=== PATIENT | male | born 1960 | race Hispanic/Latino ===

== ENCOUNTER 2016-07-12 20:49 | Emergency (ER) | payer MEDICARE ==
[2016-07-12 20:49] VITALS: BMI 31.2
[2016-07-12 21:48] VITALS: RESP 16; TEMP 98.2; O2SAT 99
[2016-07-12] MEDS ORDERED: Sodium Chloride 0.9% 1,000 ML IV STA (22:00)
[2016-07-12 22:22] LABS: ABG ALLEN TEST YES; ARTERIAL BLOOD GAS HCO3 25.7 mmol/L (21-28); ARTERIAL BLOOD GAS PH 7.39 (7.35-7.45); ARTERIAL BLOOD GAS PO2 62 mm/Hg (80-100)
[2016-07-12] MEDS ORDERED: Insulin Regular 100 units/ml IV STA (22:23)
[2016-07-12] MEDS ORDERED: Insulin Regular 100 units/ml SC STA (22:24)
--- NOTE | 2016-07-12 22:34 | ED PDOC ---
Hyperglycemia/Hypoglycemia Time Seen by Provider: 07/12/16 21:37 Chief Complaint (Nursing): High Blood Sugar Chief Complaint (Provider): Hyperglycemia History Per: Patient History/Exam Limitations: no limitations Onset/Duration Of Symptoms: Hrs (since this morning) Current Symptoms Are (Timing): Still Present Causative (Exacerbating) Factor(s): Missed Taking Medication (took smaller medication dosage) Associated Infectious Symptoms: denies: Sore Throat, Nausea, Diarrhea, Other ( rash, fever) : The patient does not have any of the infectious symptoms listed except for those marked. Treatment Prior To Provider Evaluation: Accucheck Additional Complaint(s): 55 year old male presents to ED with complaints of hyperglycemia and has a past medical history of DM, Osborne's Palsy, and bipolar disorder. Patient states that his sugar level was 457 at home and that he is currently compliant with medications, but took a smaller last dosage. (+) headache, malaise, polydipsia, and frequency. (-) nausea, fever, rhinorrhea, sore throat, diarrhea, or rash. Confirms that he is on a diabetic diet and that he last ate x3.5 hours ago. PCP: Dr. Mora Past Medical History Reviewed: Historical Data, Nursing Documentation, Vital Signs Vital Signs: Last Vital Signs Temp 98.2 F 07/12/16 21:25 Pulse 90 07/12/16 21:25 Resp 16 07/12/16 21:25 BP 117/50 L 07/12/16 21:25 Pulse Ox 99 07/12/16 21:25 - Medical History PMH: Anxiety, Bipolar Disorder, Bronchitis, Depression, Diabetes (Type I), HTN, Hypercholesterolemia Denies: Hepatitis, HIV, Chronic Kidney Disease, Seizures, Sexually Transmitted Disease - Family History Family History: States: Unknown Family Hx, Diabetes - Home Medications Home Medications: Ambulatory Orders Medication Instructions Recorded Enalapril Maleate 10 mg PO DAILY #30 tab 03/22/15 Insulin Lispro [Humalog] 20 unit SC ACTID 06/16/15 OXcarbazepine [Trileptal] 300 mg PO BID #60 tab 06/24/15 Aspirin [Ecotrin] 81 mg PO DAILY 12/30/15 DULoxetine [Cymbalta] 60 mg PO DAILY 12/30/15 Insulin Glargine,Hum.rec.anlog 40 unit SC HS 12/30/15 [Lantus] Multivitamin [Multi-Vitamin Daily] 1 tab PO DAILY 12/30/15 Simvastatin [Zocor] 20 mg PO HS 12/30/15 clonazePAM [Klonopin] 0.5 mg PO BID 12/30/15 risperiDONE [RisperDAL Tab] 1 mg PO HS 12/30/15 Acyclovir [Zovirax] 800 mg PO TID 7 Days 03/02/16 Dextran 70/Hypromellose/Pf 1 each OP BID #1 droperette 03/02/16 [Artificial Tears Drops] Erythromycin 0.5% [Ilytocin] 1 appl OS HS #1 tube 07/12/16 Non-Formulary 1 ea OS HS #1 ea 07/12/16 - Allergies Allergies/Adverse Reactions: Allergies Allergy/AdvReac Type Severity Reaction Status Date / Time No Known Allergies Allergy Verified 07/12/16 21:25 Review of Systems ROS Statement: Except As Marked, All Systems Reviewed And Found Negative Constitutional: Positive for: Malaise, Other (glucose level: 457). Negative for : Fever ENT: Negative for: Nose Discharge, Throat Pain Gastrointestinal: Positive for: Other (polydipsia). Negative for: Nausea, Diarrhea Genitourinary Male: Positive for: Frequency Skin: Negative for: Rash Neurological: Positive for: Headache Physical Exam - Reviewed Nursing Documentation Reviewed: Yes Vital Signs Reviewed: Yes - Physical Exam Appears: Positive for: Non-toxic, No Acute Distress Skin: Positive for: Warm, Dry, Pallor Eye Exam: Positive for: EOMI, PERRL. Negative for: Normal appearance (ptosis of left eye) ENT: Positive for: Pharynx Is (clear), Other (subtle decrease in the nasolabial fold. tacky mucous membranes) Neck: Positive for: Normal Cardiovascular/Chest: Positive for: Regular Rate, Rhythm Respiratory: Negative for: Respiratory Distress Gastrointestinal/Abdominal: Positive for: Soft. Negative for: Tenderness Extremity: Positive for: Normal ROM, Other (left anterior tibia has well demarcated, healed abrasion with no erythema/tenderness). Negative for: Deformity Neurologic/Psych: Positive for: Alert, Oriented, Mood/Affect (flat) - Laboratory Results Result Diagrams: 07/12/16 22:29 07/12/16 22:29 - ECG O2 Sat by Pulse Oximetry: 99 (RA) Pulse Ox Interpretation: Normal Medical Decision Making Medical Decision Makin Initial impression: hyperglycemia, dehydration Initial plan: * ABG Shock Panel * Labs * Magnesium * Phosphorus * HumuLIN R 10 units IV * HumuLIN 10units SC * NS IV * Re-eval 11:30p Pt feeling better sp IVF. Glucose improving. All questions answered. Scribe Attestation: Documented by Elise Quiroz acting as a scribe for Nicki Alonso MD. Scribe Attestation: All medical record entries made by the Scribe were at my direction and personally dictated by me. I have reviewed the chart and agree that the record accurately reflects my personal performance of the history, physical exam, medical decision making, and the department course for this patient. I have also personally directed, reviewed, and agree with the discharge instructions and disposition. Disposition - Clinical Impression Clinical Impression: Hyperglycemia, Osborne's palsy - Disposition Referrals: Herber Mora MD [Medical Doctor] - Disposition: Routine/Home Disposition Time: 23:30 Condition: IMPROVED Additional Instructions: CALL DR MORA TOMORROW MORNING TO SETUP FOLLOW UP APPOINTMENT PRIOR TO THE END OF THE WEEK. YOU MAY NEED A REFERRAL TO THE [facility]) FOR FURTHER EVALUATION OF THE EYE. Prescriptions: Erythromycin 0.5% [Ilytocin] 1 appl OS HS #1 tube Non-Formulary 1 ea OS HS #1 ea Instructions: Osborne Palsy (ED), Diabetic Hyperglycemia (ED)
[2016-07-12 22:35] LABS: BASO # 0.1 K/uL (0.0-0.2); BASO % 1.5 % (0.0-2.0); EOS # 0.1 K/uL (0.0-0.7); EOS % 1.7 % (0.0-4.0); HEMATOCRIT 39.8 % (35.0-51.0); LYMPH # 2.3 K/uL (1.0-4.3); LYMPH % 33.9 % (20.0-40.0); MEAN CELL VOLUME 88.3 fl (80.0-94.0); MEAN CORPUSCULAR HEMOGLOBIN 29.6 pg (27.0-31.0); MEAN CORPUSCULAR HGB CONC 33.6 g/dL (33.0-37.0); MEAN PLATELET VOLUME 9.6 fl (7.2-11.7); MONO # 0.7 K/uL (0.0-0.8); MONO % 10.6 % (0.0-10.0); NEUT # 3.5 K/uL (1.8-7.0); NEUT % 52.3 % (50.0-75.0); RED CELL DISTRIBUTION WIDTH 12.9 % (11.5-14.5); WHITE BLOOD COUNT 6.7 K/uL (4.8-10.8)
[2016-07-12 22:44] LABS: ALB/GLOB RATIO 1.4 (1.0-2.1); ALKALINE PHOSPHATASE 130 U/L (38-126); ALT/SGPT 24 U/L (21-72); AST/SGOT 14 U/L (17-59); BILIRUBIN,TOTAL 0.6 mg/dl (0.2-1.3); BLOOD UREA NITROGEN 16 mg/dl (9-20); CALCIUM 9.8 mg/dL (8.4-10.2); CARBON DIOXIDE 23 mmol/L (22-30); CHLORIDE 95 mmol/L (98-107); GFR AFRICAN-AMERICAN > 60; MAGNESIUM 1.9 MG/DL (1.6-2.3); PHOSPHOROUS 4.1 mg/dl (2.5-4.5); POTASSIUM 4.6 MMOL/L (3.6-5.0); SODIUM 133 mmol/l (132-148); TOTAL PROTEIN 7.1 G/DL (6.3-8.2)
[2016-07-12 22:51] LABS: GLUCOSE,RANDOM 478 mg/dL (75-110)
[2016-07-12] MEDS ORDERED: Insulin Regular 100 units/ml ONE (23:20)
[2016-07-13 00:16] VITALS: BP 116/78; PULSE 70
== END 2016-07-13 00:16 | disposition home or self-care (01) ==
LOC: H.ER 20:49
DX: R73.9 Hyperglycemia, unspecified (principal); G51.0 Bell's palsy; E11.65 Type 2 diabetes mellitus with hyperglycemia; E78.00 Pure hypercholesterolemia, unspecified; F31.9 Bipolar disorder, unspecified; I10 Essential (primary) hypertension; Z79.4 Long term (current) use of insulin; Z79.82 Long term (current) use of aspirin
CPT/HCPCS: 80053; 82803; 82948; 83735; 84100; 85025; 96360; 96372; 99282; J7040

== ENCOUNTER 2016-07-25 17:05 | Emergency (ER) | payer MEDICARE ==
[2016-07-25 17:05] VITALS: BMI 31.2
[2016-07-25 17:23] VITALS: BP 109/73; PULSE 73; RESP 18; TEMP 98.2; O2SAT 97
[2016-07-25] MEDS ORDERED: Sodium Chloride 0.9% 2,000 ML IV STA (18:27)
[2016-07-25] MEDS ORDERED: Insulin Regular 100 units/ml SC STA (18:50)
[2016-07-25 18:53] LABS: VENOUS BLOOD GAS BASE EXCESS 2.4 mmol/L (0.0-2.0); VENOUS BLOOD GAS PCO2 42 mmHg (40-60); VENOUS BLOOD PH 7.42 (7.32-7.43)
--- NOTE | 2016-07-25 18:57 | ED PDOC ---
Hyperglycemia/Hypoglycemia Time Seen by Provider: 07/25/16 17:46 Chief Complaint (Nursing): High Blood Sugar Chief Complaint (Provider): High Blood Sugar History Per: Patient History/Exam Limitations: no limitations Onset/Duration Of Symptoms: Days (3x months) Current Symptoms Are (Timing): Still Present Severity: Moderate Current Diabetic Medications: Insulin Associated Infectious Symptoms: Other (polydipsia and polyuria) : The patient does not have any of the infectious symptoms listed except for those marked. Additional Complaint(s): 55 year old male with a pertinent medical history presents to the ED with possible hyperglycemia. He reports that he takes 20 TID humalog and 35 Lantis at night (although he is supposed to be taking 40 Lantis at night). He states that he has been hyperglycemic for the last 3x months and "can't get his sugars under control". He denies having any other symptoms. PMD: Herber Doyle MD Past Medical History Reviewed: Historical Data, Nursing Documentation, Vital Signs Vital Signs: Last Vital Signs Temp 98.2 F 07/25/16 17:19 Pulse 73 07/25/16 17:19 Resp 18 07/25/16 17:19 BP 109/73 07/25/16 17:19 Pulse Ox 97 07/25/16 17:19 - Medical History PMH: Anxiety, Bipolar Disorder, Bronchitis, Depression, Diabetes (Type I), HTN, Hypercholesterolemia Denies: Hepatitis, HIV, Chronic Kidney Disease, Seizures, Sexually Transmitted Disease - Surgical History Surgical History: No Surg Hx - Family History Family History: States: Unknown Family Hx, Diabetes - Social History Alcohol: None Drugs: Denies - Home Medications Home Medications: Ambulatory Orders Medication Instructions Recorded Enalapril Maleate 10 mg PO DAILY #30 tab 03/22/15 Insulin Lispro [Humalog] 20 unit SC ACTID 06/16/15 OXcarbazepine [Trileptal] 300 mg PO BID #60 tab 06/24/15 Aspirin [Ecotrin] 81 mg PO DAILY 12/30/15 DULoxetine [Cymbalta] 60 mg PO DAILY 12/30/15 Insulin Glargine,Hum.rec.anlog 40 unit SC HS 12/30/15 [Lantus] Multivitamin [Multi-Vitamin Daily] 1 tab PO DAILY 12/30/15 Simvastatin [Zocor] 20 mg PO HS 12/30/15 clonazePAM [Klonopin] 0.5 mg PO BID 12/30/15 risperiDONE [RisperDAL Tab] 1 mg PO HS 12/30/15 Acyclovir [Zovirax] 800 mg PO TID 7 Days 03/02/16 Dextran 70/Hypromellose/Pf 1 each OP BID #1 droperette 03/02/16 [Artificial Tears Drops] Erythromycin 0.5% [Ilytocin] 1 appl OS HS #1 tube 07/12/16 Non-Formulary 1 ea OS HS #1 ea 07/12/16 - Allergies Allergies/Adverse Reactions: Allergies Allergy/AdvReac Type Severity Reaction Status Date / Time No Known Allergies Allergy Verified 07/12/16 21:25 Review of Systems ROS Statement: Except As Marked, All Systems Reviewed And Found Negative Gastrointestinal: Positive for: Other (hyperglycemic) Physical Exam - Reviewed Nursing Documentation Reviewed: Yes Vital Signs Reviewed: Yes - Physical Exam Appears: Positive for: Well, Non-toxic, No Acute Distress Head Exam: Positive for: ATRAUMATIC, NORMOCEPHALIC Skin: Positive for: Normal Color Eye Exam: Positive for: Normal appearance ENT: Positive for: Normal ENT Inspection Cardiovascular/Chest: Positive for: Regular Rate, Rhythm Respiratory: Positive for: Normal Breath Sounds. Negative for: Respiratory Distress Gastrointestinal/Abdominal: Positive for: Normal Exam, Soft. Negative for: Tenderness Back: Positive for: Normal Inspection Extremity: Positive for: Normal ROM Neurologic/Psych: Positive for: Alert, Oriented (3x) - Laboratory Results Result Diagrams: 07/25/16 18:40 07/25/16 18:40 - ECG O2 Sat by Pulse Oximetry: 97 (RA) Pulse Ox Interpretation: Normal Medical Decision Making Medical Decision Makin:46 Initial impression: 55 year old male with IDDM. Rule out DKA and hyperglycemia. Initial plan: * XRay chest portable * VBG shock panel * EKG * CMP * lipase * CBC * humulin R 10 units SC * IV NS 2,000ml IV: 1,000mls/hr * urinalysis * bread dough mixer * reevaluation 10PM Pt. feeling better, no signs of DKA. Pt. will call and schedule appointment with Dr. Modi on Wednesday, told to return to E.D. if having worsening symptoms or other concerning symptoms. Scribe Attestation: Documented by Mere Franklin, acting as a scribe for Terry Haro MD. Provider Scribe Attestation: All medical record entries made by the Scribe were at my direction and personally dictated by me. I have reviewed the chart and agree that the record accurately reflects my personal performance of the history, physical exam, medical decision making, and the department course for this patient. I have also personally directed, reviewed, and agree with the discharge instructions and disposition. Disposition - Clinical Impression Clinical Impression: Hyperglycemia - Patient ED Disposition Is Patient to be Admitted: No - Disposition Referrals: Herber Maldonado MD [Medical Doctor] - Disposition: Routine/Home Disposition Time: 22:00 Condition: STABLE
[2016-07-25 18:58] LABS: BASO # 0.1 K/uL (0.0-0.2); BASO % 1.4 % (0.0-2.0); EOS # 0.1 K/uL (0.0-0.7); EOS % 0.9 % (0.0-4.0); HEMATOCRIT 39.2 % (35.0-51.0); LYMPH # 2.1 K/uL (1.0-4.3); LYMPH % 27.7 % (20.0-40.0); MEAN CELL VOLUME 87.9 fl (80.0-94.0); MEAN PLATELET VOLUME 9.5 fl (7.2-11.7); MONO # 0.7 K/uL (0.0-0.8); MONO % 9.1 % (0.0-10.0); NEUT # 4.7 K/uL (1.8-7.0); NEUT % 60.9 % (50.0-75.0); RED CELL DISTRIBUTION WIDTH 12.9 % (11.5-14.5); WHITE BLOOD COUNT 7.7 K/uL (4.8-10.8)
[2016-07-25 19:02] LABS: RBC URINE < 1 /hpf (0-3); URINE BILIRUBIN NEGATIVE (NEGATIVE); URINE BLOOD NEGATIVE (NEGATIVE); URINE COLOR YELLOW (YELLOW); URINE GLUCOSE (UA) >=500 mg/dL (Normal); URINE KETONE NEGATIVE (NEGATIVE); URINE LEUKOCYTE ESTERASE NEG Leu/uL (Negative); URINE PROTEIN NEGATIVE (NEGATIVE); URINE UROBILINOGEN 0.2-1.0 mg/dL (0.2-1.0); WBC URINE < 1 /hpf (0-5)
[2016-07-25 19:03] LABS: ALB/GLOB RATIO 1.3 (1.0-2.1); ALKALINE PHOSPHATASE 109 U/L (38-126); ALT/SGPT 20 U/L (21-72); AST/SGOT 20 U/L (17-59); BILIRUBIN,TOTAL 0.5 mg/dl (0.2-1.3); BLOOD UREA NITROGEN 20 mg/dl (9-20); CALCIUM 9.3 mg/dL (8.4-10.2); CARBON DIOXIDE 25 mmol/L (22-30); CHLORIDE 98 mmol/L (98-107); GFR AFRICAN-AMERICAN > 60; LIPASE 30 U/L (23-300); POTASSIUM 4.9 MMOL/L (3.6-5.0); SODIUM 137 mmol/l (132-148); TOTAL PROTEIN 6.9 G/DL (6.3-8.2)
[2016-07-25 19:11] LABS: GLUCOSE,RANDOM 409 mg/dL (75-110)
--- NOTE | 2016-07-26 10:39 | RAD ---
HISTORY: Hyperglycemia, pneumonia. Technique: Single view portable erect @ 19:20. COMPARISON: 03/02/2016. FINDINGS: LUNGS: No active pulmonary disease. PLEURA: No significant pleural effusion identified, no pneumothorax apparent. CARDIOVASCULAR: No radiographic findings to suggest acute or significant cardiovascular disease. OSSEOUS STRUCTURES: No significant abnormalities. VISUALIZED UPPER ABDOMEN: Normal. OTHER FINDINGS: None. IMPRESSION: No active disease. No significant interval change compared to the prior examination(s).
--- NOTE | 2016-07-26 20:55 | CARD ---
APPROVED REPORT EKG Measurement Heart [id number] <Conclusion> Normal sinus rhythm Low voltage QRS Borderline ECG
== END 2016-07-25 22:33 | disposition home or self-care (01) ==
LOC: H.ER 17:05
DX: E11.65 Type 2 diabetes mellitus with hyperglycemia (principal); E78.00 Pure hypercholesterolemia, unspecified; F31.9 Bipolar disorder, unspecified; F41.9 Anxiety disorder, unspecified; I10 Essential (primary) hypertension; Z79.4 Long term (current) use of insulin; Z79.82 Long term (current) use of aspirin
CPT/HCPCS: 71010; 80053; 81003; 82803; 82948; 83690; 85025; 93005; 96360; 96361; 96372; 99284; J7040

== ENCOUNTER 2016-07-29 14:08 | Emergency (ER) | payer MEDICARE ==
[2016-07-29 14:08] VITALS: BMI 31.2
[2016-07-29 14:20] VITALS: O2SAT 100
--- NOTE | 2016-07-29 15:22 | ED PDOC ---
HPI: Psych/Substance Abuse Time Seen by Provider: 07/29/16 14:30 Chief Complaint (Nursing): Psychiatric Evaluation Chief Complaint (Provider): depression History Per: Patient History/Exam Limitations: no limitations Additional Complaint(s): 55yo male w/ Hx Osborne's Palsy comes to the ED complaining of depression. Denies suicidal or homicidal ideations. States his blood sugar at home was 380. Referred here by his therapist. States concern for his blood sugar prompts him to become anxious. No chest pain, shortness of breath. PMD: Erica Past Medical History Reviewed: Historical Data, Nursing Documentation, Vital Signs Vital Signs: Last Vital Signs Temp 98.2 F 07/29/16 14:17 Pulse 96 H 07/29/16 14:17 Resp 16 07/29/16 14:17 BP 116/74 07/29/16 14:17 Pulse Ox 100 07/29/16 14:17 - Medical History PMH: Anxiety, Bipolar Disorder, Bronchitis, Depression, Diabetes (Type I), HTN, Hypercholesterolemia Denies: Hepatitis, HIV, Chronic Kidney Disease, Seizures, Sexually Transmitted Disease - Surgical History Surgical History: No Surg Hx - Family History Family History: States: Diabetes - Social History Current smoker - smoking cessation education provided: No Alcohol: None Drugs: Denies - Home Medications Home Medications: Ambulatory Orders Medication Instructions Recorded Enalapril Maleate 10 mg PO DAILY #30 tab 03/22/15 Insulin Lispro [Humalog] 20 unit SC ACTID 06/16/15 OXcarbazepine [Trileptal] 300 mg PO BID #60 tab 06/24/15 Aspirin [Ecotrin] 81 mg PO DAILY 12/30/15 DULoxetine [Cymbalta] 60 mg PO DAILY 12/30/15 Insulin Glargine,Hum.rec.anlog 40 unit SC HS 12/30/15 [Lantus] Multivitamin [Multi-Vitamin Daily] 1 tab PO DAILY 12/30/15 Simvastatin [Zocor] 20 mg PO HS 12/30/15 clonazePAM [Klonopin] 0.5 mg PO BID 12/30/15 risperiDONE [RisperDAL Tab] 1 mg PO HS 12/30/15 Acyclovir [Zovirax] 800 mg PO TID 7 Days 03/02/16 Dextran 70/Hypromellose/Pf 1 each OP BID #1 droperette 03/02/16 [Artificial Tears Drops] Erythromycin 0.5% [Ilytocin] 1 appl OS HS #1 tube 07/12/16 Non-Formulary 1 ea OS HS #1 ea 07/12/16 - Allergies Allergies/Adverse Reactions: Allergies Allergy/AdvReac Type Severity Reaction Status Date / Time No Known Allergies Allergy Verified 07/29/16 14:17 Review of Systems ROS Statement: Except As Marked, All Systems Reviewed And Found Negative Cardiovascular: Negative for: Chest Pain Respiratory: Negative for: Shortness of Breath Psych: Positive for: Anxiety, Depression. Negative for: Suicidal ideation, Other (homicidal ideation) Physical Exam - Reviewed Nursing Documentation Reviewed: Yes Vital Signs Reviewed: Yes - Physical Exam Appears: Positive for: Non-toxic, No Acute Distress Head Exam: Positive for: ATRAUMATIC, NORMAL INSPECTION, NORMOCEPHALIC Skin: Positive for: Warm, Dry Eye Exam: Positive for: EOMI, PERRL Cardiovascular/Chest: Positive for: Regular Rate, Rhythm Respiratory: Positive for: Normal Breath Sounds. Negative for: Rales, Rhonchi, Wheezing Gastrointestinal/Abdominal: Positive for: Soft. Negative for: Tenderness Extremity: Positive for: Normal ROM - Laboratory Results Result Diagrams: 07/29/16 15:35 07/29/16 15:35 - ECG O2 Sat by Pulse Oximetry: 100 (RA) Pulse Ox Interpretation: Normal Medical Decision Making Medical Decision Makin Impression: hyperglycemia Plan: -Labs -Insulin -crisis workup -reassess 1900 repeat glucose 287 Patient will be signed out by me to Terry Haro MD pending rpt glucose and crisis evaluation and final disposition. Scribe Attestation: Documented by Mere Franklin, acting as a scribe for Ning Schaeffer MD. Provider Scribe Attestation: All medical record entries made by the Scribe were at my direction and personally dictated by me. I have reviewed the chart and agree that the record accurately reflects my personal performance of the history, physical exam, medical decision making, and the department course for this patient. I have also personally directed, reviewed, and agree with the discharge instructions and disposition. Disposition - Clinical Impression Clinical Impression: Hyperglycemia, Bipolar disorder - Patient ED Disposition Is Patient to be Admitted: Transfer of Care - Disposition Referrals: Herber Maldonado MD [Medical Doctor] - Disposition: Transfer of Care Disposition Time: 17:00 Condition: STABLE Instructions: Bipolar Disorder (ED), Diabetic Hyperglycemia (ED) Patient Signed Over To: Terry Haro
[2016-07-29] MEDS ORDERED: Insulin Regular 100 units/ml SC STA (15:42)
[2016-07-29] MEDS ORDERED: Sodium Chloride 0.9% 1,000 ML IV STA (15:42)
[2016-07-29] MEDS ORDERED: Insulin Regular 100 units/ml ONE (15:43)
[2016-07-29 16:14] LABS: BASO # 0.1 K/uL (0.0-0.2); BASO % 1.3 % (0.0-2.0); EOS # 0.1 K/uL (0.0-0.7); EOS % 1.2 % (0.0-4.0); HEMATOCRIT 39.7 % (35.0-51.0); LYMPH # 2.1 K/uL (1.0-4.3); LYMPH % 28.2 % (20.0-40.0); MEAN CELL VOLUME 87.8 fl (80.0-94.0); MEAN PLATELET VOLUME 9.6 fl (7.2-11.7); MONO # 0.6 K/uL (0.0-0.8); MONO % 8.4 % (0.0-10.0); NEUT # 4.6 K/uL (1.8-7.0); NEUT % 60.9 % (50.0-75.0); RED CELL DISTRIBUTION WIDTH 12.9 % (11.5-14.5); WHITE BLOOD COUNT 7.6 K/uL (4.8-10.8)
[2016-07-29 16:17] LABS: RBC URINE 1 /hpf (0-3); URINE BILIRUBIN NEGATIVE (NEGATIVE); URINE BLOOD NEGATIVE (NEGATIVE); URINE COLOR YELLOW (YELLOW); URINE GLUCOSE (UA) >=500 mg/dL (Normal); URINE KETONE NEGATIVE (NEGATIVE); URINE LEUKOCYTE ESTERASE NEG Leu/uL (Negative); URINE PROTEIN NEGATIVE (NEGATIVE); URINE UROBILINOGEN 0.2-1.0 mg/dL (0.2-1.0); WBC URINE < 1 /hpf (0-5)
[2016-07-29 16:27] LABS: ALB/GLOB RATIO 1.3 (1.0-2.1); ALKALINE PHOSPHATASE 104 U/L (38-126); ALT/SGPT 24 U/L (21-72); AST/SGOT 17 U/L (17-59); BILIRUBIN,TOTAL 0.4 mg/dl (0.2-1.3); BLOOD UREA NITROGEN 13 mg/dl (9-20); CALCIUM 9.5 mg/dL (8.4-10.2); CARBON DIOXIDE 25 mmol/L (22-30); CHLORIDE 101 mmol/L (98-107); GFR AFRICAN-AMERICAN > 60; GLUCOSE,RANDOM 373 mg/dL (75-110); POTASSIUM 4.5 MMOL/L (3.6-5.0); SODIUM 140 mmol/l (132-148); TOTAL PROTEIN 6.9 G/DL (6.3-8.2)
--- NOTE | 2016-07-29 19:33 | ED PDOC ---
- Laboratory Results Result Diagrams: 07/29/16 15:35 07/29/16 15:35 - ECG O2 Sat by Pulse Oximetry: 100 (RA) Medical Decision Making Medical Decision Makin:00 Patient is signed out to me by Ning Schaeffer MD pending crisis evaluation and final disposition. 2200 Pt.'s FS is 198 (pt. states this is good for him). Cleared by psych, will d/c home. Pt. states he will followup with Dr. Maldonado and litigation partner and be more careful. Told to return for worsening symptoms. Scribe Attestation: Documented by Mere Franklin, acting as a scribe for Terry Haro MD. Provider Scribe Attestation: All medical record entries made by the Scribe were at my direction and personally dictated by me. I have reviewed the chart and agree that the record accurately reflects my personal performance of the history, physical exam, medical decision making, and the department course for this patient. I have also personally directed, reviewed, and agree with the discharge instructions and disposition. Disposition - Clinical Impression Clinical Impression: Hyperglycemia, Bipolar disorder - POA Present On Arrival: None - Disposition Referrals: Herber Maldonado MD [Medical Doctor] - Disposition: Routine/Home Disposition Time: 22:12 Condition: STABLE Instructions: Bipolar Disorder (ED), Diabetic Hyperglycemia (ED)
[2016-07-29 19:34] VITALS: BP 135/76; PULSE 67; RESP 17; TEMP 98
== END 2016-07-29 22:50 | disposition home or self-care (01) ==
LOC: H.ER 14:08
DX: E10.65 Type 1 diabetes mellitus with hyperglycemia (principal); F31.9 Bipolar disorder, unspecified; I10 Essential (primary) hypertension; E78.00 Pure hypercholesterolemia, unspecified
CPT/HCPCS: 80053; 81003; 82948; 85025; 87086; 96372; 99284; J7040

== ENCOUNTER 2018-01-29 12:00 | Emergency (ER) | payer MEDICARE ==
[2018-01-29 12:01] VITALS: BMI 31.2
[2018-01-29] MEDS ORDERED: Sodium Chloride 0.9% 1,000 ML IV STA (13:23)
[2018-01-29 13:59] LABS: BASO # 0.1 K/uL (0.0-0.2); BASO % 1.3 % (0.0-2.0); EOS % 0.6 % (0.0-4.0); HEMOGLOBIN 12.9 g/dL (12.0-18.0); LYMPH # 1.4 K/uL (1.0-4.3); LYMPH % 18.6 % (20.0-40.0); MEAN CORPUSCULAR HEMOGLOBIN 30.6 pg (27.0-31.0); MEAN CORPUSCULAR HGB CONC 33.6 g/dL (33.0-37.0); MEAN PLATELET VOLUME 10.1 fl (7.2-11.7); MONO # 0.4 K/uL (0.0-0.8); NEUT # 5.6 K/uL (1.8-7.0); NEUT % 74.5 % (50.0-75.0); RBC 4.23 Mil/uL (4.40-5.90); RED CELL DISTRIBUTION WIDTH 13.2 % (11.5-14.5); WHITE BLOOD COUNT 7.5 K/uL (4.8-10.8)
--- NOTE | 2018-01-29 14:15 | ED PDOC ---
Hyperglycemia/Hypoglycemia Time Seen by Provider: 01/29/18 12:56 Chief Complaint (Nursing): High Blood Sugar Chief Complaint (Provider): high blood sugar History Per: Patient History/Exam Limitations: no limitations Onset/Duration Of Symptoms: Hrs (today) Current Symptoms Are (Timing): Still Present Causative (Exacerbating) Factor(s): Missed Taking Medication Associated Infectious Symptoms: denies: Cough, Nausea, Vomiting, Diarrhea : The patient does not have any of the infectious symptoms listed except for those marked. Additional Complaint(s): Myles Elliott is a 57 year old male, with a past medical history of diabetes Type I and bipolar disorder, who presents to the emergency department for high blood sugar onset today. Patient reports this morning he felt tired, restless and thirsty. Patient takes Humalog and Lantus but reports he hasn't been taking his Insulin due to long hours working at [employer]. He also reports he recently lost a lot of weight. Patient states he has been drinking water and orange juice. He is also complaining of congestion but denies fever, chills, chest pain, shortness of breath, nausea, vomit, diarrhea, cough or other medical complaints. PMD: None provided. Past Medical History Reviewed: Historical Data, Nursing Documentation, Vital Signs - Medical History PMH: Anxiety, Bipolar Disorder, Bronchitis, Depression, Diabetes (Type I), HTN, Hypercholesterolemia Denies: Hepatitis, HIV, Chronic Kidney Disease, Seizures, Sexually Transmitted Disease - Surgical History Surgical History: No Surg Hx - Family History Family History: States: Diabetes - Social History Current smoker - smoking cessation education provided: No Alcohol: None Drugs: Denies - Home Medications Home Medications: Ambulatory Orders Medication Instructions Recorded RX: Enalapril Maleate 10 mg PO DAILY #30 tab 03/22/15 RX: Insulin Lispro [Humalog] 20 unit SC ACTID 06/16/15 RX: OXcarbazepine [Trileptal] 300 mg PO BID #60 tab 06/24/15 RX: Aspirin [Ecotrin] 81 mg PO DAILY 12/30/15 RX: DULoxetine [Cymbalta] 60 mg PO DAILY 12/30/15 RX: Insulin Glargine,Hum.rec.anlog 40 unit SC HS 12/30/15 [Lantus] RX: Simvastatin [Zocor] 20 mg PO HS 12/30/15 RX: clonazePAM [Klonopin] 0.5 mg PO BID 12/30/15 RX: risperiDONE [RisperDAL Tab] 1 mg PO HS 12/30/15 - Allergies Allergies/Adverse Reactions: Allergies Allergy/AdvReac Type Severity Reaction Status Date / Time No Known Allergies Allergy Verified 07/29/16 14:17 Review of Systems ROS Statement: Except As Marked, All Systems Reviewed And Found Negative Constitutional: Positive for: Weight loss. Negative for: Fever, Chills ENT: Positive for: Nose Congestion Cardiovascular: Negative for: Chest Pain Respiratory: Negative for: Cough, Shortness of Breath Gastrointestinal: Negative for: Nausea, Vomiting, Abdominal Pain, Diarrhea Physical Exam - Reviewed Nursing Documentation Reviewed: Yes Vital Signs Reviewed: Yes - Physical Exam Appears: Positive for: No Acute Distress Head Exam: Positive for: ATRAUMATIC, NORMAL INSPECTION, NORMOCEPHALIC Skin: Positive for: Normal Color, Warm, Dry Eye Exam: Positive for: Normal appearance, EOMI, PERRL ENT: Positive for: Normal ENT Inspection Neck: Positive for: Painless ROM, Supple Cardiovascular/Chest: Positive for: Regular Rate, Rhythm. Negative for: Murmur Respiratory: Positive for: Normal Breath Sounds. Negative for: Respiratory Distress Gastrointestinal/Abdominal: Positive for: Normal Exam, Soft. Negative for: Tend erness, Guarding, Rebound Back: Positive for: Normal Inspection. Negative for: L CVA Tenderness, R CVA Tenderness, Vertebral Tenderness Extremity: Positive for: Normal ROM (upper and lower extremities). Negative for: Deformity, Swelling Neurologic/Psych: Positive for: Alert, Oriented - Laboratory Results Result Diagrams: 01/29/18 13:50 01/29/18 13:50 Medical Decision Making Medical Decision Making: Time: 12:56 Initial Impression: Hyperglycemia r/o DKA, UTI or Influenza. Initial Plan: --ABG Shock Panel --CMP --Magnesium --Urine dipstick --Sodium Chloride 1,000 ml IV 1,000 mls/hr --Influenza A B --Reevaluation -Insulin 10 unite IV -Insulin 10 Units SC Scribe Attestation: Documented by Mahad Mahmood, acting as a scribe for Azael Pinto MD. Provider Scribe Attestation: All medical record entries made by the Scribe were at my direction and personally dictated by me. I have reviewed the chart and agree that the record accurately reflects my personal performance of the history, physical exam, medi maira decision making, and the department course for this patient. I have also personally directed, reviewed, and agree with the discharge instructions and disposition. Disposition - Clinical Impression Clinical Impression: Hyperglycemia - Patient ED Disposition Is Patient to be Admitted: Transfer of Care Counseled Patient/Family Regarding: Studies Performed, Diagnosis - Disposition Referrals: [facility] [Outside] - 01/31/18 Disposition: Transfer of Care Disposition Time: 15:00 Condition: STABLE Additional Instructions: STRICT DIABETIC DIET FOLLOW UP WITH CLINIC CONTINUE YOUR MEDICATIONS PRESCRIBE Instructions: Hyperglycemia, Adult (DC), Diabetes and Diet Forms: [facility] ED School/Work Excuse Patient Signed Over To: Nicki Alonso
[2018-01-29 14:27] LABS: ALB/GLOB RATIO 1.3 (1.0-2.1); ALBUMIN 3.6 g/dL (3.5-5.0); ALT/SGPT 29 U/L (21-72); AST/SGOT 27 U/L (17-59); BLOOD UREA NITROGEN 13 mg/dl (9-20); CALCIUM 9.1 mg/dL (8.4-10.2); GFR NON-AFRICAN AMERICAN > 60
[2018-01-29] MEDS ORDERED: Insulin Regular 100 units/ml IV STA (14:28)
[2018-01-29 14:46] LABS: ABG ALLEN TEST YES; ARTERIAL BLOOD GAS HCO3 25.4 mmol/L (21-28); ARTERIAL BLOOD GAS PCO2 40 mm/Hg (35-45); ARTERIAL BLOOD GAS PH 7.41 (7.35-7.45); ARTERIAL BLOOD GAS PO2 68 mm/Hg (80-100); ARTERIAL BLOOD GAS TCO2 26.6 mmol/L (22-28)
[2018-01-29] MEDS ORDERED: Insulin Regular 100 units/ml ONE (14:51)
[2018-01-29] MEDS ORDERED: Insulin Regular 100 units/ml SC STA (15:20)
--- NOTE | 2018-01-29 16:04 | RAD ---
Date of service: 01/29/2018 HISTORY: congestion COMPARISON: Comparison made with prior chest radiograph 07/25/2016 FINDINGS: LUNGS: Poor inspiration with low lung volumes, crowded bronchovascular markings and mild bibasilar atelectasis left greater than right.. PLEURA: No significant pleural effusion identified, no pneumothorax apparent. CARDIOVASCULAR: No atherosclerotic calcification present The Heart is enlarged. OSSEOUS STRUCTURES: No significant abnormalities. VISUALIZED UPPER ABDOMEN: Normal. OTHER FINDINGS: None. IMPRESSION: Poor inspiration with low lung volumes, crowded bronchovascular markings and mild bibasilar atelectasis left greater than right..
[2018-01-29 16:07] VITALS: RESP 16; TEMP 97
--- NOTE | 2018-01-29 16:25 | ED PDOC ---
- Laboratory Results Result Diagrams: 01/29/18 13:50 01/29/18 13:50 - ECG O2 Sat by Pulse Oximetry: 97 - Progress ED Course And Treament: 3p Rec'd endorsement from Dr Pinto. Pt with hyperglycemia. No ketosis. No acidosis. Normal anion gap. Pending improvement of glucose 4p Glucose improved. STable for discharge. Disposition - Clinical Impression Clinical Impression: Hyperglycemia - POA Present On Arrival: Poor Glycemic Control - Disposition Referrals: [facility] [Outside] - 01/31/18 Disposition: Routine/Home Disposition Time: 16:10 Condition: IMPROVED Additional Instructions: STRICT DIABETIC DIET FOLLOW UP WITH CLINIC CONTINUE YOUR MEDICATIONS PRESCRIBE Instructions: Hyperglycemia, Adult (DC), Diabetes and Diet
[2018-01-29 16:31] VITALS: BP 136/82; PULSE 85; O2SAT 100
== END 2018-01-29 16:20 | disposition home or self-care (01) ==
LOC: H.ER 12:00
DX: E11.65 Type 2 diabetes mellitus with hyperglycemia (principal); Z79.4 Long term (current) use of insulin; Z86.59 Personal history of other mental and behavioral disorders; I10 Essential (primary) hypertension; Z79.82 Long term (current) use of aspirin; E78.00 Pure hypercholesterolemia, unspecified
CPT/HCPCS: 36600; 71045; 80053; 82803; 82948; 83735; 85025; 87804; 96372; 99284; J7030

== ENCOUNTER 2018-04-29 22:15 | Inpatient (IN) | payer MEDICARE ==
[2018-04-29 22:33] VITALS: BMI 28.2
[2018-04-29] MEDS ORDERED: Dextrose 50% SYRINGE Inj (50 ml) IV PRN (22:37)
[2018-04-29] MEDS ORDERED: Sodium Chloride 0.9% 1,000 ML IV STA (22:37)
[2018-04-29] MEDS ORDERED: Glucagon Recombinant 1 mg Inj IM PRN (22:37)
[2018-04-29] MEDS ORDERED: Insulin Regular 100 units/ml IV STA (22:37)
--- NOTE | 2018-04-29 22:50 | ED PDOC ---
Hyperglycemia/Hypoglycemia Time Seen by Provider: 04/29/18 22:24 Chief Complaint (Nursing): Altered Mental Status Chief Complaint (Provider): Altered Mental Status History Per: Patient, EMS History/Exam Limitations: clinical condition Current Symptoms Are (Timing): Still Present Associated Infectious Symptoms: Vomiting : The patient does not have any of the infectious symptoms listed except for those marked. Additional Complaint(s): 57 year old male with a history of diabetes, anxiety and depression presents to the ED via EMS for possible hyperglycemia. Patient is lethargic and unable to provide complete history. He admits to vomiting today, but it is unclear if he has been using his insulin recently. PMD: none provided Past Medical History Vital Signs: Last Vital Signs Temp 96.9 F L 04/29/18 22:33 Pulse 103 H 04/29/18 22:33 Resp 28 H 04/29/18 22:33 BP 144/93 H 04/29/18 22:33 Pulse Ox 93 L 04/29/18 22:33 - Medical History PMH: Anxiety, Bipolar Disorder, Bronchitis, Depression, Diabetes (Type I), HTN, Hypercholesterolemia Denies: Hepatitis, HIV, Chronic Kidney Disease, Seizures, Sexually Transmitted Disease - Family History Family History: States: Diabetes - Home Medications Home Medications: Ambulatory Orders Medication Instructions Recorded Enalapril Maleate 10 mg PO DAILY #30 tab 03/22/15 Insulin Lispro [Humalog] 20 unit SC ACTID 06/16/15 OXcarbazepine [Trileptal] 300 mg PO BID #60 tab 06/24/15 Aspirin [Ecotrin] 81 mg PO DAILY 12/30/15 DULoxetine [Cymbalta] 60 mg PO DAILY 12/30/15 Insulin Glargine,Hum.rec.anlog 40 unit SC HS 12/30/15 [Lantus] Simvastatin [Zocor] 20 mg PO HS 12/30/15 clonazePAM [Klonopin] 0.5 mg PO BID 12/30/15 risperiDONE [RisperDAL Tab] 1 mg PO HS 12/30/15 - Allergies Allergies/Adverse Reactions: Allergies Allergy/AdvReac Type Severity Reaction Status Date / Time No Known Allergies Allergy Verified 04/29/18 22:32 Review of Systems ROS Statement: Except As Marked, All Systems Reviewed And Found Negative Gastrointestinal: Positive for: Vomiting Physical Exam - Physical Exam Appears: Positive for: No Acute Distress Head Exam: Positive for: ATRAUMATIC, NORMOCEPHALIC Skin: Positive for: Normal Color, Warm, Dry Eye Exam: Positive for: Normal appearance, EOMI, PERRL ENT: Positive for: Other (mucous membranes dry) Cardiovascular/Chest: Positive for: Tachycardia. Negative for: Murmur Respiratory: Positive for: Other (tachypnea). Negative for: Respiratory Distress Gastrointestinal/Abdominal: Positive for: Normal Exam, Soft. Negative for: Tenderness Extremity: Positive for: Normal ROM (upper and lower). Negative for: Pedal Edema, Deformity Neurologic/Psych: Positive for: Oriented (x1), Other (lethargic ). Negative for: Motor/Sensory Deficits - ECG O2 Sat by Pulse Oximetry: 93 (RA) Pulse Ox Interpretation: Normal - Progress Re-evaluation Time: 23:34 Condition: Re-examined - Critical Care Total Time (In Min): 45 Documented Critical Care: Time excludes all time spent performint seperately billable procedures Medical Decision Making Medical Decision Making: Time: 2235 Accucheck greater than 500 in setting of dehydration and tachypnea, ruling out DKA, will start fluids replacement as well as insulin and obtain blood work. Scribe Attestation: Documented by Kat Mar, acting as a scribe for Macario Hoyos MD. ABG pH 6.8 pCO2 15 Lactate 3.4 Appears to be in severe DKA. Will bolus with 2 liters NS and then 1000 ml/hr as well as Insulin drip. Will also administer NaHCO3 x [address]ps[address] hospital[address] Sheehan. Will admit to ICU Provider Scribe Attestation: All medical record entries made by the Scribe were at my direction and personally dictated by me. I have reviewed the chart and agree that the record accurately reflects my personal performance of the history, physical exam, medical decision making, and the department course for this patient. I have also personally directed, reviewed, and agree with the discharge instructions and disposition. Disposition - Clinical Impression Clinical Impression: DKA (diabetic ketoacidoses) - Patient ED Disposition Is Patient to be Admitted: Yes - Disposition Disposition Time: 23:34 Condition: GUARDED Forms: [facility] ([place]) - Pt Status Changed To: Hospital Disposition Of: Inpatient - Admit Certification Admit to Inpatient:: After my assessment, the patient will require hospitalization for at least two midnights. This is because of the severity of symptoms shown, intensity of services needed, and/or the medical risk in this patient being treated as an outpatient. - POA Present On Arrival: None
[2018-04-29] MEDS ORDERED: Lactated Ringer's 1,000 ML IV SCH (23:00)
--- NOTE | 2018-04-29 23:02 | CP.PCM.CON ---
History of Present Illness - History of Present Illness History of Present Illness: CC/Reason for ICU: DKA or HONC HPI: Limited as patient is rather lethargic. This is a 57 y/o male with likely DM2, HTN, and HLD as well as some unclear underlying psychiatric diagnoses who is brought in by EMS after brother had called authorities to perform a wellness check on him. Apparently he could not be reached for a few ?days. Patient arrives with ser gluc > 500. He was obtunded on arrival and still lethargic. Patient deneis CP, SOB, or any general pain. No further info can be elicited at this time. ROS: Cannot perform as patient lethargic/AMS MHx: DM2, HTN, HLD, unclear psychiatric diagnosis (Bipolar disorder, depression, anxiety all listed) SHx: Cannot obtain Allergies: NKDA Medications: Pending verification Social Hx: Lives alone apparently; unknown EtOH or tobacco Family Hx: Cannot obtain Surrogate Dec Mkr: Cannot obtain Past Patient History - Past Medical History & Family History Past Medical History?: Yes - Past Social History Smoking Status: Never Smoked - CARDIAC Hx Hypercholesterolemia: Yes Hx Hypertension: Yes - PULMONARY Hx Bronchitis: Yes - NEUROLOGICAL Hx Seizures: No - HEENT Hx HEENT Problems: No - RENAL Hx Chronic Kidney Disease: No - ENDOCRINE/METABOLIC Hx Endocrine Disorders: Yes Hx Diabetes Mellitus Type 2: Yes - HEMATOLOGICAL/ONCOLOGICAL Hx Human Immunodeficiency Virus (HIV): No - INTEGUMENTARY Hx Dermatological Problems: No - MUSCULOSKELETAL/RHEUMATOLOGICAL Hx Musculoskeletal Disorders: No - GASTROINTESTINAL Hx Gastrointestinal Disorders: No - GENITOURINARY/GYNECOLOGICAL Hx Sexually Transmitted Disorders: No - PSYCHIATRIC Hx Anxiety: Yes Hx Bipolar Disorder: Yes Hx Depression: Yes - SURGICAL HISTORY Hx Surgeries: No - ANESTHESIA Hx Anesthesia: No Hx Anesthesia Reactions: No Meds Allergies/Adverse Reactions: Allergies Allergy/AdvReac Type Severity Reaction Status Date / Time No Known Allergies Allergy Verified 04/29/18 22:32 - Medications Medications: Current Medications Dextrose (Dextrose 50% Inj) 0 ml IV STAT PRN; Protocol PRN Reason: Hypoglycemia Protocol Dextrose (Glutose 15) 0 gm PO ONCE PRN; Protocol PRN Reason: Hypoglycemia Protocol Glucagon (Glucagen Diagnostic Kit) 0 mg IM STAT PRN; Protocol PRN Reason: Hypoglycemia Protocol Insulin Human Regular 100 (units/ Sodium Chloride) 101 mls @ 10.1 mls/hr IV .Q10H [place] Sodium Chloride (Sodium Chloride 0.9%) 1,000 mls @ 1,000 mls/hr IV .Q1H STA Stop: 04/29/18 23:36 Lactated Ringer's (Lactated Ringer's) 1,000 mls @ 150 mls/hr IV .Q6H40M [place] Stop: 04/30/18 12:19 Ondansetron HCl (Zofran Inj) 4 mg IVP Q6H PRN PRN Reason: Nausea/Vomiting Physical Exam - Constitutional Appears: Unkempt, Confused - Head Exam Head Exam: ATRAUMATIC, NORMOCEPHALIC - Eye Exam Eye Exam: EOMI, PERRL - ENT Exam ENT Exam: Mucous Membranes Dry - Neck Exam Neck exam: Positive for: Full Rom - Respiratory Exam Respiratory Exam: Clear to Auscultation Bilateral Additional comments: tachypneic - Cardiovascular Exam Cardiovascular Exam: Tachycardia, +S1, +S2 - GI/Abdominal Exam GI & Abdominal Exam: Normal Bowel Sounds, Soft - Extremities Exam Extremities exam: Positive for: full ROM, normal inspection - Psychiatric Exam Additional comments: lethargic, limited exam - Skin Skin Exam: Dry, Warm Results - Vital Signs Recent Vital Signs: Last Vital Signs Temp 96.9 F L 04/29/18 22:33 Pulse 103 H 04/29/18 22:33 Resp 28 H 04/29/18 22:33 BP 144/93 H 04/29/18 22:33 Pulse Ox 93 L 04/29/18 22:55 - Labs Labs: Laboratory Results - last 24 hr 04/29/18 22:33 POC Glucose (mg/dL) > 500 H* - EKG Data EKG Interpreted by: Myself EKG shows normal: Sinus rhythm Rate: Tachycardia - EKG Data EKG comments: 1 deg AVB, RBBB - Impressions Impression: Pending Assessment & Plan (1) DKA (diabetic ketoacidoses) Assessment and Plan: 57 y/o male arriving obtunded with DKA vs. HONC. -Admit ICU -Cont NPO -IV LR at 150/hr -Insulin gtt with q1h accuchecks -BMP, CBC, ABG pending, repeat in AM -Holding BP and psych medications until labwork available -SCDs for DVT PPx until further labwork available Status: Acute (2) DVT prophylaxis Status: Acute
[2018-04-29 23:23] LABS: ABG ALLEN TEST YES; ARTERIAL BLOOD GAS O2 SAT 101.1 % (95-98); ARTERIAL BLOOD GAS PCO2 15 mm/Hg (35-45); ARTERIAL BLOOD GAS PH < 6.80 (7.35-7.45); ARTERIAL BLOOD GAS PO2 148 mm/Hg (80-100)
[2018-04-29] MEDS ORDERED: Sodium Bicarbonate (8.4%) 50 Meq Syringe IV ONE ×2 (23:23→23:25)
[2018-04-29] MEDS ORDERED: Sodium Bicarbonate (8.4%) 50 Meq Syringe ONE (23:37)
[2018-04-29 23:49] LABS: BASO # 0.2 K/uL (0.0-0.2); BASO % 0.6 % (0.0-2.0); EOS # 0.1 K/uL (0.0-0.7); EOS % 0.3 % (0.0-4.0); HEMOGLOBIN 12.3 g/dL (12.0-18.0); LYMPH % 7.1 % (20.0-40.0); MEAN CORPUSCULAR HEMOGLOBIN 30.2 pg (27.0-31.0); MEAN CORPUSCULAR HGB CONC 28.2 g/dL (33.0-37.0); MEAN PLATELET VOLUME 11.5 fl (7.2-11.7); MONO # 2.3 K/uL (0.0-0.8); MONO % 8.1 % (0.0-10.0); NEUT # 23.7 K/uL (1.8-7.0); NEUT % 83.9 % (50.0-75.0); NRBC % 0.1 % (0.0-0.0); PLATELET COUNT 215 K/uL (130-400); RBC 4.05 Mil/uL (4.40-5.90); RED CELL DISTRIBUTION WIDTH 14.5 % (11.5-14.5); WHITE BLOOD COUNT 28.2 K/uL (4.8-10.8)
[2018-04-30 00:34] LABS: BLOOD UREA NITROGEN 42 mg/dl (9-20); GFR NON-AFRICAN AMERICAN 33
[2018-04-30 00:35] LABS: ALB/GLOB RATIO 1.7 (1.0-2.1); ALBUMIN 3.8 g/dL (3.5-5.0); ALT/SGPT 40 U/L (21-72); AST/SGOT 49 U/L (17-59); CALCIUM 8.6 mg/dL (8.4-10.2)
[2018-04-30] MEDS ORDERED: Sod Polystyrene Sulf 15 gm/60 ml Susp PO ONE (00:55)
[2018-04-30] MEDS: Sodium Chloride 0.9% 1,000 ML IV SCH ×4 (01:10→06:23)
[2018-04-30 01:24] LABS: ANISOCYTOSIS SLIGHT; BANDS 2 % (0-2); LYMPHOCYTE 7 % (20-50); METAMYELOCYTE 2 % (0-0); MONOCYTE 9 % (0-10); NEUTROPHIL 80 % (42-75); PLATELET ESTIMATE NORMAL (NORMAL); TOTAL CELLS COUNTED 100
[2018-04-30 01:25] LABS: BURR CELLS MODERATE; LARGE PLATELETS PRESENT; TEARDROP CELLS SLIGHT; TOXIC GRANULATION PRESENT
[2018-04-30] MEDS ORDERED: Albuterol 0.083% Inhal Sol (2.5 mg/3 mL) UD INH ONE (01:31)
[2018-04-30] MEDS ORDERED: Sodium Bicarbonate (8.4%) 50 Meq Syringe IVP ONE (01:31)
[2018-04-30 02:39] LABS: ABG ALLEN TEST YES; ARTERIAL BLOOD GAS HCO3 1.3 mmol/L (21-28); ARTERIAL BLOOD GAS HEMOGLOBIN 11.8 g/dL (11.7-17.4); ARTERIAL BLOOD GAS O2 CAPACITY 16.2 mL/dL (16-24); ARTERIAL BLOOD GAS O2 CONTENT 16.2 ML/dL (15-23); ARTERIAL BLOOD GAS PCO2 14 mm/Hg (35-45); ARTERIAL BLOOD GAS PH 6.84 (7.35-7.45); ARTERIAL BLOOD GAS PO2 149 mm/Hg (80-100); ARTERIAL BLOOD GAS TCO2 2.8 mmol/L (22-28)
[2018-04-30] MEDS ORDERED: Glucagon Recombinant 1 mg Inj IM PRN (02:46)
[2018-04-30] MEDS ORDERED: Dextrose 50% SYRINGE Inj (50 ml) IV PRN (02:46)
[2018-04-30] MEDS ORDERED: Sodium Bicarbonate 8.4% 150 MEQ in Dextrose 5% In Water 1,000 ML IV SCH (03:00)
[2018-04-30 03:06] LABS: SQUAMOUS EPITHIAL < 1 /hpf (0-5); URINE BACTERIA RARE (<OCC); URINE BILIRUBIN NEGATIVE (NEGATIVE); URINE BLOOD MODERATE (NEGATIVE); URINE CLARITY CLOUDY (Clear); URINE COLOR YELLOW (YELLOW); URINE GLUCOSE (UA) >=500 mg/dL (NEGATIVE); URINE LEUKOCYTE ESTERASE NEG Leu/uL (Negative); URINE PROTEIN 100 mg/dL (NEGATIVE); URINE UROBILINOGEN 0.2-1.0 mg/dL (0.2-1.0)
[2018-04-30 03:57] LABS: BARBITURATES, UR NEGATIVE (NEGATIVE); BENZODIAZEPINES, UR NEGATIVE (NEGATIVE); OPIATES, UR NEGATIVE (NEGATIVE); PHENCYCLIDINE, UR NEGATIVE (NEGATIVE)
[2018-04-30 04:00] LABS: BLOOD UREA NITROGEN 44 mg/dl (9-20); CALCIUM 8.1 mg/dL (8.4-10.2); GFR NON-AFRICAN AMERICAN 31
[2018-04-30 06:31] LABS: MEAN CELL VOLUME 95.4 fl (80.0-94.0); MEAN CORPUSCULAR HEMOGLOBIN 29.8 pg (27.0-31.0); MEAN CORPUSCULAR HGB CONC 31.2 g/dL (33.0-37.0); RBC 3.7 Mil/uL (4.40-5.90); RED CELL DISTRIBUTION WIDTH 13.3 % (11.5-14.5); WHITE BLOOD COUNT 30.8 K/uL (4.8-10.8)
--- NOTE | 2018-04-30 06:41 | CP.PCM.HP ---
History of Present Illness - History of Present Illness History of Present Illness: Addendum entered and electronically signed by Tapan Sheehan MD 04/30/18 01:39: Patient noted to have severe hyper-K and ИВАН in addition to problems listed below. Patient received 2 amps of bicarb. In light of severe acidosis with pH <7 and hyper-K will give one more amp of bicarb. Will give albuterol to lower K as well. Kayexelate for hyper-K when patient can take PO. Repeat BMP and ABG at ~2 AM. Original Note: History of Present Illness - History of Present Illness History of Present Illness: CC/Reason for ICU: DKA or HONC HPI: Limited as patient is rather lethargic. This is a 57 y/o male with likely DM2, HTN, and HLD as well as some unclear underlying psychiatric diagnoses who is brought in by EMS after brother had called authorities to perform a wellness check on him. Apparently he could not be reached for a few ?days. Patient arrives with ser gluc > 500. He was obtunded on arrival and still lethargic. Patient deneis CP, SOB, or any general pain. No further info can be elicited at this time. ROS: Cannot perform as patient lethargic/AMS MHx: DM2, HTN, HLD, unclear psychiatric diagnosis (Bipolar disorder, depression, anxiety all listed) SHx: Cannot obtain Allergies: NKDA Medications: Pending verification Social Hx: Lives alone apparently; unknown EtOH or tobacco Family Hx: Cannot obtain Surrogate Dec Mkr: Cannot obtain Past Patient History - Past Medical History & Family History Past Medical History?: Yes - Past Social History Smoking Status: Never Smoked - CARDIAC Hx Hypercholesterolemia: Yes Hx Hypertension: Yes - PULMONARY Hx Bronchitis: Yes - NEUROLOGICAL Hx Seizures: No - HEENT Hx HEENT Problems: No - RENAL Hx Chronic Kidney Disease: No - ENDOCRINE/METABOLIC Hx Endocrine Disorders: Yes Hx Diabetes Mellitus Type 2: Yes - HEMATOLOGICAL/ONCOLOGICAL Hx Human Immunodeficiency Virus (HIV): No - INTEGUMENTARY Hx Dermatological Problems: No - MUSCULOSKELETAL/RHEUMATOLOGICAL Hx Musculoskeletal Disorders: No - GASTROINTESTINAL Hx Gastrointestinal Disorders: No - GENITOURINARY/GYNECOLOGICAL Hx Sexually Transmitted Disorders: No - PSYCHIATRIC Hx Anxiety: Yes Hx Bipolar Disorder: Yes Hx Depression: Yes - SURGICAL HISTORY Hx Surgeries: No - ANESTHESIA Hx Anesthesia: No Hx Anesthesia Reactions: No Meds Allergies/Adverse Reactions: Allergies Allergy/AdvReac Type Severity Reaction Status Date / Time No Known Allergies Allergy Verified 04/29/18 22:32 - Medications Medications: Current Medications Dextrose (Dextrose 50% Inj) 0 ml IV STAT PRN; Protocol PRN Reason: Hypoglycemia Protocol Dextrose (Glutose 15) 0 gm PO ONCE PRN; Protocol PRN Reason: Hypoglycemia Protocol Glucagon (Glucagen Diagnostic Kit) 0 mg IM STAT PRN; Protocol PRN Reason: Hypoglycemia Protocol Insulin Human Regular 100 (units/ Sodium Chloride) 101 mls @ 10.1 mls/hr IV .Q10H [place] Sodium Chloride (Sodium Chloride 0.9%) 1,000 mls @ 1,000 mls/hr IV .Q1H STA Stop: 04/29/18 23:36 Lactated Ringer's (Lactated Ringer's) 1,000 mls @ 150 mls/hr IV .Q6H40M [place] Stop: 04/30/18 12:19 Ondansetron HCl (Zofran Inj) 4 mg IVP Q6H PRN PRN Reason: Nausea/Vomiting Physical Exam - Constitutional Appears: Unkempt, Confused - Head Exam Head Exam: ATRAUMATIC, NORMOCEPHALIC - Eye Exam Eye Exam: EOMI, PERRL - ENT Exam ENT Exam: Mucous Membranes Dry - Neck Exam Neck exam: Positive for: Full Rom - Respiratory Exam Respiratory Exam: Clear to Auscultation Bilateral Additional comments: tachypneic - Cardiovascular Exam Cardiovascular Exam: Tachycardia, +S1, +S2 - GI/Abdominal Exam GI & Abdominal Exam: Normal Bowel Sounds, Soft - Extremities Exam Extremities exam: Positive for: full ROM, normal inspection - Psychiatric Exam Additional comments: lethargic, limited exam - Skin Skin Exam: Dry, Warm Results - Vital Signs Recent Vital Signs: Last Vital Signs Temp 96.9 F L 04/29/18 22:33 Pulse 103 H 04/29/18 22:33 Resp 28 H 04/29/18 22:33 BP 144/93 H 04/29/18 22:33 Pulse Ox 93 L 04/29/18 22:55 - Labs Labs: Laboratory Results - last 24 hr 04/29/18 22:33 POC Glucose (mg/dL) > 500 H* - EKG Data EKG Interpreted by: Myself EKG shows normal: Sinus rhythm Rate: Tachycardia - EKG Data EKG comments: 1 deg AVB, RBBB - Impressions Impression: Pending Assessment & Plan (1) DKA (diabetic ketoacidoses) Assessment and Plan: 57 y/o male arriving obtunded with DKA vs. HONC. -Admit ICU -Cont NPO -IV LR at 150/hr -Insulin gtt with q1h accuchecks -BMP, CBC, ABG pending, repeat in AM -Holding BP and psych medications until labwork available -SCDs for DVT PPx until further labwork available Status: Acute (2) DVT prophylaxis Status: Acute Present on Admission - Present on Admission Any Indicators Present on Admission: No Past Patient History - Past Medical History & Family History Past Medical History?: Yes - Past Social History Smoking Status: Never Smoked - CARDIAC Hx Hypercholesterolemia: Yes Hx Hypertension: Yes - PULMONARY Hx Bronchitis: Yes - NEUROLOGICAL Hx Seizures: No - HEENT Hx HEENT Problems: No - RENAL Hx Chronic Kidney Disease: No - ENDOCRINE/METABOLIC Hx Endocrine Disorders: Yes Hx Diabetes Mellitus Type 2: Yes - HEMATOLOGICAL/ONCOLOGICAL Hx Human Immunodeficiency Virus (HIV): No - INTEGUMENTARY Hx Dermatological Problems: No - MUSCULOSKELETAL/RHEUMATOLOGICAL Hx Falls: No - GASTROINTESTINAL Hx Gastrointestinal Disorders: No - GENITOURINARY/GYNECOLOGICAL Hx Sexually Transmitted Disorders: No - PSYCHIATRIC Hx Anxiety: Yes Hx Bipolar Disorder: Yes Hx Depression: Yes Hx Substance Use: No - SURGICAL HISTORY Hx Surgeries: No Other/Comment: rivera's palsy - ANESTHESIA Hx Anesthesia: No Hx Anesthesia Reactions: No Meds Allergies/Adverse Reactions: Allergies Allergy/AdvReac Type Severity Reaction Status Date / Time No Known Allergies Allergy Verified 04/29/18 22:32 Results - Vital Signs Recent Vital Signs: Last Vital Signs Temp 96.5 F L 04/30/18 04:00 Pulse 80 04/30/18 05:00 Resp 22 04/30/18 05:00 BP 93/33 L 04/30/18 05:00 Pulse Ox 97 04/30/18 05:00 - Labs Result Diagrams: 04/29/18 23:00 04/30/18 02:40 Labs: Laboratory Results - last 24 hr 04/29/18 04/29/18 04/29/18 22:33 23:00 23:00 WBC 28.2 H D RBC 4.05 L Hgb 12.3 Hct 43.4 MCV 107.0 H D MCH 30.2 MCHC 28.2 L RDW 14.5 Plt Count 215 MPV 11.5 Neut % (Auto) 83.9 H Lymph % (Auto) 7.1 L Riley % (Auto) 8.1 Eos % (Auto) 0.3 Baso % (Auto) 0.6 Neut # (Auto) 23.7 H Lymph # (Auto) 2.0 Riley # (Auto) 2.3 H Eos # (Auto) 0.1 Baso # (Auto) 0.2 Neutrophils % (Manual) 80 H Band Neutrophils % 2 Lymphocytes % (Manual) 7 L Monocytes % (Manual) 9 Metamyelocytes % 2 H Toxic Granulation Present Platelet Estimate Normal Large Platelets Present Anisocytosis (manual) Slight Macrocytosis (manual) Moderate Tear Drop Cells Slight [place] Cells Moderate pCO2 pO2 HCO3 ABG pH ABG Total CO2 ABG O2 Saturation ABG O2 Content ABG Base Excess ABG Hemoglobin ABG Carboxyhemoglobin POC ABG HHb (Measured) ABG Methemoglobin ABG O2 Capacity Otto Test ABG Potassium A-a O2 Difference Hgb O2 Saturation Glucose Lactate FiO2 Crit Value Called To Crit Value Called By Crit Value Read Back Blood Gas Notified Time Sodium 124 L Potassium 7.6 H* D Chloride 88 L Carbon Dioxide < 5 L* D Anion Gap 39 H BUN 42 H Creatinine 2.1 H Est GFR ( Amer) 39 Est GFR (Non-Af Amer) 33 POC Glucose (mg/dL) > 500 H* Random Glucose 1191 H* Calcium 8.6 Total Bilirubin 0.2 AST 49 ALT 40 Alkaline Phosphatase 118 Troponin I 0.0350 Total Protein 6.1 L Albumin 3.8 Globulin 2.2 Albumin/Globulin Ratio 1.7 Arterial Blood Potassium Urine Color Urine Clarity Urine pH Ur Specific [place] Urine Protein Urine Glucose (UA) Urine Ketones Urine Blood Urine Nitrate Urine Bilirubin Urine Urobilinogen Ur Leukocyte Esterase Urine RBC (Auto) Urine Microscopic WBC Ur Squamous Epith Cells Urine Bacteria Urine Opiates Screen Urine Methadone Screen Ur Barbiturates Screen Ur Phencyclidine Scrn Ur Amphetamines Screen U Benzodiazepines Scrn U Oth Cocaine Metabols U Cannabinoids Screen 04/29/18 04/30/18 04/30/18 23:15 00:31 02:11 WBC RBC Hgb Hct MCV MCH MCHC RDW Plt Count MPV Neut % (Auto) Lymph % (Auto) Riley % (Auto) Eos % (Auto) Baso % (Auto) Neut # (Auto) Lymph # (Auto) Riley # (Auto) Eos # (Auto) Baso # (Auto) Neutrophils % (Manual) Band Neutrophils % Lymphocytes % (Manual) Monocytes % (Manual) Metamyelocytes % Toxic Granulation Platelet Estimate Large Platelets Anisocytosis (manual) Macrocytosis (manual) Tear Drop Cells [place] Cells pCO2 15 L* pO2 148 H HCO3 ABG pH < 6.80 L* ABG Total CO2 ABG O2 Saturation 101.1 H ABG O2 Content ABG Base Excess ABG Hemoglobin ABG Carboxyhemoglobin POC ABG HHb (Measured) ABG Methemoglobin ABG O2 Capacity Otto Test Yes ABG Potassium 7.8 H* A-a O2 Difference -17.0 Hgb O2 Saturation Glucose > 750 H* D Lactate 3.4 H FiO2 21.0 Crit Value Called To Dr jackie medellin Crit Value Called By 292 Crit Value Read Back Y Blood Gas Notified Time 2323 Sodium 121.0 L Potassium Chloride 83.0 L Carbon Dioxide Anion Gap BUN Creatinine Est GFR ( Amer) Est GFR (Non-Af Amer) POC Glucose (mg/dL) > 500 H* > 500 H* Random Glucose Calcium Total Bilirubin AST ALT Alkaline Phosphatase Troponin I Total Protein Albumin Globulin Albumin/Globulin Ratio Arterial Blood Potassium 7.8 H* Urine Color Urine Clarity Urine pH Ur Specific [place] Urine Protein Urine Glucose (UA) Urine Ketones Urine Blood Urine Nitrate Urine Bilirubin Urine Urobilinogen Ur Leukocyte Esterase Urine RBC (Auto) Urine Microscopic WBC Ur Squamous Epith Cells Urine Bacteria Urine Opiates Screen Urine Methadone Screen Ur Barbiturates Screen Ur Phencyclidine Scrn Ur Amphetamines Screen U Benzodiazepines Scrn U Oth Cocaine Metabols U Cannabinoids Screen 04/30/18 04/30/18 04/30/18 02:20 02:40 02:40 WBC RBC Hgb Hct MCV MCH MCHC RDW Plt Count MPV Neut % (Auto) Lymph % (Auto) Riley % (Auto) Eos % (Auto) Baso % (Auto) Neut # (Auto) Lymph # (Auto) Riley # (Auto) Eos # (Auto) Baso # (Auto) Neutrophils % (Manual) Band Neutrophils % Lymphocytes % (Manual) Monocytes % (Manual) Metamyelocytes % Toxic Granulation Platelet Estimate Large Platelets Anisocytosis (manual) Macrocytosis (manual) Tear Drop Cells [place] Cells pCO2 14 L* pO2 149 H HCO3 1.3 L* ABG pH 6.84 L* ABG Total CO2 2.8 L ABG O2 Saturation 100.0 H ABG O2 Content 16.2 ABG Base Excess -30.2 L ABG Hemoglobin 11.8 ABG Carboxyhemoglobin 1.9 H POC ABG HHb (Measured) 0.0 ABG Methemoglobin 2.2 ABG O2 Capacity 16.2 Otto Test Yes ABG Potassium A-a O2 Difference -17.0 Hgb O2 Saturation 95.9 Glucose Lactate FiO2 21.0 Crit Value Called To Glendy burnett Crit Value Called By 292 Crit Value Read Back Y Blood Gas Notified Time 238 Sodium 132 Potassium 4.6 Chloride 98 Carbon Dioxide 5 L* Anion Gap 34 H BUN 44 H Creatinine 2.2 H Est GFR ( Amer) 37 Est GFR (Non-Af Amer) 31 POC Glucose (mg/dL) Random Glucose > 625 H* D Calcium 8.1 L Total Bilirubin AST ALT Alkaline Phosphatase Troponin I Total Protein Albumin Globulin Albumin/Globulin Ratio Arterial Blood Potassium Urine Color Urine Clarity Urine pH Ur Specific [place] Urine Protein Urine Glucose (UA) Urine Ketones Urine Blood Urine Nitrate Urine Bilirubin Urine Urobilinogen Ur Leukocyte Esterase Urine RBC (Auto) Urine Microscopic WBC Ur Squamous Epith Cells Urine Bacteria Urine Opiates Screen Negative Urine Methadone Screen Negative Ur Barbiturates Screen Negative Ur Phencyclidine Scrn Negative Ur Amphetamines Screen Negative U Benzodiazepines Scrn Negative U Oth Cocaine Metabols Negative U Cannabinoids Screen Negative 04/30/18 04/30/18 04/30/18 02:40 03:23 04:02 WBC RBC Hgb Hct MCV MCH MCHC RDW Plt Count MPV Neut % (Auto) Lymph % (Auto) Riley % (Auto) Eos % (Auto) Baso % (Auto) Neut # (Auto) Lymph # (Auto) Riley # (Auto) Eos # (Auto) Baso # (Auto) Neutrophils % (Manual) Band Neutrophils % Lymphocytes % (Manual) Monocytes % (Manual) Metamyelocytes % Toxic Granulation Platelet Estimate Large Platelets Anisocytosis (manual) Macrocytosis (manual) Tear Drop Cells [place] Cells pCO2 pO2 HCO3 ABG pH ABG Total CO2 ABG O2 Saturation ABG O2 Content ABG Base Excess ABG Hemoglobin ABG Carboxyhemoglobin POC ABG HHb (Measured) ABG Methemoglobin ABG O2 Capacity [place] Test ABG Potassium A-a O2 Difference Hgb O2 Saturation Glucose Lactate FiO2 Crit Value Called To Crit Value Called By Crit Value Read Back Blood Gas Notified Time Sodium Potassium Chloride Carbon Dioxide Anion Gap BUN Creatinine Est GFR ( Amer) Est GFR (Non-Af Amer) POC Glucose (mg/dL) > 500 H* > 500 H* Random Glucose Calcium Total Bilirubin AST ALT Alkaline Phosphatase Troponin I Total Protein Albumin Globulin Albumin/Globulin Ratio Arterial Blood Potassium Urine Color Yellow Urine Clarity Cloudy Urine pH 5.0 Ur Specific [place] 1.017 Urine Protein 100 Urine Glucose (UA) >=500 Urine Ketones 20 Urine Blood Moderate Urine Nitrate Negative Urine Bilirubin Negative Urine Urobilinogen 0.2-1.0 Ur Leukocyte Esterase Neg Urine RBC (Auto) 2 Urine Microscopic WBC 18 H Ur Squamous Epith Cells < 1 Urine Bacteria Rare Urine Opiates Screen Urine Methadone Screen Ur Barbiturates Screen Ur Phencyclidine Scrn Ur Amphetamines Screen U Benzodiazepines Scrn U Oth Cocaine Metabols U Cannabinoids Screen 04/30/18 05:14 WBC RBC Hgb Hct MCV MCH MCHC RDW Plt Count MPV Neut % (Auto) Lymph % (Auto) [place] % (Auto) Eos % (Auto) Baso % (Auto) Neut # (Auto) Lymph # (Auto) Riley # (Auto) Eos # (Auto) Baso # (Auto) Neutrophils % (Manual) Band Neutrophils % Lymphocytes % (Manual) Monocytes % (Manual) Metamyelocytes % Toxic Granulation Platelet Estimate Large Platelets Anisocytosis (manual) Macrocytosis (manual) Tear Drop Cells [place] Cells pCO2 pO2 HCO3 ABG pH ABG Total CO2 ABG O2 Saturation ABG O2 Content ABG Base Excess ABG Hemoglobin ABG Carboxyhemoglobin POC ABG HHb (Measured) ABG Methemoglobin ABG O2 Capacity [place] Test ABG Potassium A-a O2 Difference Hgb O2 Saturation Glucose Lactate FiO2 Crit Value Called To Crit Value Called By Crit Value Read Back Blood Gas Notified Time Sodium Potassium Chloride Carbon Dioxide Anion Gap BUN Creatinine Est GFR ( Amer) Est GFR (Non-Af Amer) POC Glucose (mg/dL) > 500 H* Random Glucose Calcium Total Bilirubin AST ALT Alkaline Phosphatase Troponin I Total Protein Albumin Globulin Albumin/Globulin Ratio Arterial Blood Potassium Urine Color Urine Clarity Urine pH Ur Specific [place] Urine Protein Urine Glucose (UA) Urine Ketones Urine Blood Urine Nitrate Urine Bilirubin Urine Urobilinogen Ur Leukocyte Esterase Urine RBC (Auto) Urine Microscopic WBC Ur Squamous Epith Cells Urine Bacteria Urine Opiates Screen Urine Methadone Screen Ur Barbiturates Screen Ur Phencyclidine Scrn Ur Amphetamines Screen U Benzodiazepines Scrn U Oth Cocaine Metabols U Cannabinoids Screen Assessment & Plan (1) DKA (diabetic ketoacidoses) Status: Acute (2) DVT prophylaxis Status: Acute
[2018-04-30 08:18] LABS: BLOOD UREA NITROGEN 45 mg/dl (9-20); GFR NON-AFRICAN AMERICAN 29
[2018-04-30] MEDS ORDERED: Influenza Vaccine 60 mcg/0.5 mL SYR (4YR UP) IM ONE (09:00)
[2018-04-30] MEDS ORDERED: Pneumococcal 23-Valent Vaccine IM ONE (09:00)
--- NOTE | 2018-04-30 10:43 | RAD ---
Date of service: 04/29/2018 HISTORY: cough COMPARISON: Chest radiograph dated 01/29/2018. FINDINGS: LUNGS: Questionable patchy left upper lobe infiltrate.. PLEURA: No significant pleural effusion identified, no pneumothorax apparent. CARDIOVASCULAR: Aortic atherosclerotic calcifications. Cardiomediastinal silhouette stably enlarged. OSSEOUS STRUCTURES: Aged. VISUALIZED UPPER ABDOMEN: Normal. OTHER FINDINGS: None. IMPRESSION: Questionable patchy left upper lobe infiltrate.
--- NOTE | 2018-04-30 10:49 | CT ---
Date of service: 04/30/2018 PROCEDURE: CT HEAD WITHOUT CONTRAST. HISTORY: r/o bleed COMPARISON: CT head dated 03/02/2016 TECHNIQUE: Axial computed tomography images were obtained through the head/brain without intravenous contrast. Radiation dose: Total exam DLP = 1166.39 mGy-cm. This CT exam was performed using one or more of the following dose reduction techniques: Automated exposure control, adjustment of the mA and/or kV according to patient size, and/or use of iterative reconstruction technique. FINDINGS: HEMORRHAGE: No intracranial hemorrhage. BRAIN: No mass effect or edema. No atrophy or chronic microvascular ischemic changes. VENTRICLES: Unremarkable. No hydrocephalus. CALVARIUM: Unremarkable. PARANASAL SINUSES: Unremarkable as visualized. No significant inflammatory changes. MASTOID AIR CELLS: Unremarkable as visualized. No inflammatory changes. OTHER FINDINGS: None. IMPRESSION: No acute intracranial pathology.
[2018-04-30 11:38] LABS: ABG ALLEN TEST YES; ARTERIAL BLOOD GAS HCO3 17.3 mmol/L (21-28); ARTERIAL BLOOD GAS HEMOGLOBIN 11.5 g/dL (11.7-17.4); ARTERIAL BLOOD GAS O2 CAPACITY 15.6 mL/dL (16-24); ARTERIAL BLOOD GAS O2 CONTENT 15.3 ML/dL (15-23); ARTERIAL BLOOD GAS PCO2 26 mm/Hg (35-45); ARTERIAL BLOOD GAS PH 7.35 (7.35-7.45); ARTERIAL BLOOD GAS PO2 65 mm/Hg (80-100); ARTERIAL BLOOD GAS TCO2 15.2 mmol/L (22-28)
[2018-04-30 11:53] LABS: HEMOGLOBIN 11.4 g/dL (12.0-18.0); MEAN CELL VOLUME 91.9 fl (80.0-94.0); MEAN CORPUSCULAR HEMOGLOBIN 29.9 pg (27.0-31.0); MEAN CORPUSCULAR HGB CONC 32.6 g/dL (33.0-37.0); RBC 3.8 Mil/uL (4.40-5.90); RED CELL DISTRIBUTION WIDTH 12.7 % (11.5-14.5); WHITE BLOOD COUNT 26.3 K/uL (4.8-10.8)
[2018-04-30 12:12] LABS: CALCIUM 7.9 mg/dL (8.4-10.2)
[2018-04-30] MEDS ORDERED: Potassium Chl 20 mEq in NS 1,000 ML IV SCH (12:15)
[2018-04-30] MEDS ORDERED: Sodium Chloride 0.9% 1,000 ML IV SCH (12:15)
--- NOTE | 2018-04-30 12:24 | CP.PCM.PN ---
Subjective - Date & Time of Evaluation Date of Evaluation: 04/30/18 Time of Evaluation: 10:00 - Subjective Subjective: Pt seen and examined in ICU Agitated moves all extremities when prodded , answers some questions and answers are appropriate - verbalizing that he wants to go home No fever Pt noted to be coughing I spoke with brother Blaise who is listed as next of kin - he tells me that pt has Psych problems and has hx of DM - started after High School and has been on Insulin since - his brother is usually compliant with meds. He checks on pt daily however since he wasnt able to get in touch with him for 2 days , he called the [place] police to check on pt. Objective - Vital Signs/Intake and Output Vital Signs (last 24 hours): Temp Pulse Resp BP Pulse Ox 98.0 F 93 H 21 136/55 L 97 04/30/18 12:00 04/30/18 12:00 04/30/18 12:00 04/30/18 12:00 04/30/18 12:00 Intake and Output: 04/30/18 04/30/18 06:59 18:59 Intake Total 1951 801 Output Total 350 300 Balance 1601 501 - Medications Medications: Current Medications Aspirin (Ecotrin) 81 mg PO DAILY [facility] Last Admin: 04/30/18 09:29 Dose: Not Given Atorvastatin Calcium (Lipitor) 10 mg PO HS [facility] Dextrose (Dextrose 50% Inj) 0 ml IV STAT PRN; Protocol PRN Reason: Hypoglycemia Protocol Dextrose (Glutose 15) 0 gm PO ONCE PRN; Protocol PRN Reason: Hypoglycemia Protocol Glucagon (Glucagen Diagnostic Kit) 0 mg IM STAT PRN; Protocol PRN Reason: Hypoglycemia Protocol Haloperidol Lactate (Haldol) 2 mg IM Q4 PRN PRN Reason: Agitation Insulin Human Regular 100 (units/ Sodium Chloride) 101 mls @ 10.1 mls/hr IV .Q10H FL[facility]IAN; Protocol Last Titration: 04/30/18 12:00 Dose: 10 units/hr, 10.1 mls/hr Ceftriaxone Sodium 1 gm/ (Sodium Chloride) 100 mls @ 100 mls/hr IVPB DAILY [facility]; Protocol Azithromycin 500 mg/ Sodium (Chloride) 250 mls @ 250 mls/hr IVPB DAILY [facility]; Protocol Sodium Chloride (Sodium Chloride 0.9%) 1,000 mls @ 999 mls/hr IV .Q1H1M [facility] Stop: 05/01/18 12:12 Potassium Chloride/Sodium Chloride (Potassium Chl 20 Meq In Ns) 1,000 mls @ 250 mls/hr IV .Q4H [facility] Stop: 05/01/18 12:05 Ondansetron HCl (Zofran Inj) 4 mg IVP Q6H PRN PRN Reason: Nausea/Vomiting - Labs Labs: 04/30/18 11:45 04/30/18 11:45 - Constitutional Appears: In Acute Distress, Unkempt, Agitated - Head Exam Head Exam: NORMAL INSPECTION, NORMOCEPHALIC - Eye Exam Eye Exam: EOMI, Normal appearance Pupil Exam: NORMAL ACCOMODATION - ENT Exam ENT Exam: Mucous Membranes Dry, Normal External Ear Exam - Neck Exam Neck Exam: Full ROM. absent: Meningismus - Respiratory Exam Respiratory Exam: Rhonchi, NORMAL BREATHING PATTERN. absent: Respiratory Distress - Cardiovascular Exam Cardiovascular Exam: REGULAR RHYTHM, +S1, +S2 - GI/Abdominal Exam GI & Abdominal Exam: Soft, Normal Bowel Sounds. absent: Tenderness - Extremities Exam Extremities Exam: Full ROM, Normal Capillary Refill. absent: Pedal Edema - Neurological Exam Neurological Exam: Alert, Awake Neuro motor strength exam: Left Upper Extremity: 5, Right Upper Extremity: 5, Left Lower Extremity: 5, Right Lower Extremity: 5 Additional comments: oriented to person and place - Psychiatric Exam Psychiatric exam: Agitated - Skin Skin Exam: Dry, Normal Color, Warm Assessment and Plan (1) DKA (diabetic ketoacidoses) Status: Acute (2) Pneumonia Status: Acute (3) Bipolar disorder Status: Chronic - Assessment and Plan (Free Text) Plan: 57 y/o gent with hx of Insulin Dependent DM, Bipolar Disorder, was brought in by EMS very lethargic and found to be very acidotic and hyperglycemic. Pt's brother called Police to do a Welfare check when pt did not respond to his calls. 1. DKA - pt came in lethargic severely acidotic with pH 6.9 on ABG , high Anion gap and with blood sugar of greater than 750 - started on Insulin drip -IVF bolus and aggressive IVF hydration - replenish electrolytes -Close accucheck monitoring 2. Acute Kidney Injury due to Dehydration - aggressive IVF hydration 3. Pneumonia prob bacterial - Pt came in with leukocytosis and noted to be coughing - CXR-WINDY infiltrate - start IV ceftriaxone and Azithro - Blood c/s , sputum c/s, Legionella, Mycoplasma 4. Metabolic Encephalopathy likely due to DKA - pt came in lethargic , confused - seem to be better this am - answers few questions and seem appropriately, follows some commands - CT of head : neg - no nuchal rigidity, no fever 5. Bipolar Disorder - pt has hx of Bipolar, no information on what medication he takes or where he follows up. His brother will try to get info and will let me know - MD, pharmacy etc. -Haldol prn for agitation - Pt on 1:1
--- NOTE | 2018-04-30 13:06 | CARD ---
APPROVED REPORT Date of service: 04/29/2018 EKG Measurement Heart [id number] <Conclusion> Regular rhythm, possible sinus tachycardia or atrial flutter. Repeat ECG if needed. Right bundle branch block Abnormal ECG
[2018-04-30] MEDS: Azithromycin 500 MG in Sodium Chloride 0.9% 250 ML IVPB SCH (13:54)
--- NOTE | 2018-04-30 17:01 | CP.PCM.CON ---
History of Present Illness - History of Present Illness History of Present Illness: This is a 57 year old male with h/o schizoaffective disorder/bipolar depression and h/o DM and admitted medically for DKA and psych consult called for evaluation as pt has been intermittently agitated as he is off his psych meds due to being medically very ill .He is usually prescribed risperdal 2 mg hs,trileptal 300 mg bid ,cymbalta 60 mg daily and klonopin 0.5 mg bid .pt has been seeing dr Avila .I spoke with pt 's brother kamala ( [phone]) who provided collateral information andreports that pt has been depressed lately because of being estranged from his family and has not been compliant with his meds for DM and particularly insulin and his Blood sugar was running very high and wondering if his depression playing a big part in his noncompliance with meds leading to DKA I tried to interview pt but unable to do it as he is very lethargic and reported to have fluctuation and waxing and waning of mental status with intermittent agitation which is mainly because of acute delirium stemming from his acute medical state of DKA which need to be stabilized first before he goes back on his psych meds .It is not safe to restart PO psych meds at this time as he has not had swalling test done and will benefit from I/v prn haldol and adding prn ativan for delirium related agitation. Past Patient History - Past Medical History & Family History Past Medical History?: Yes - Past Social History Smoking Status: Never Smoked - CARDIAC Hx Hypercholesterolemia: Yes Hx Hypertension: Yes - PULMONARY Hx Bronchitis: Yes - NEUROLOGICAL Hx Seizures: No - HEENT Hx HEENT Problems: No - RENAL Hx Chronic Kidney Disease: No - ENDOCRINE/METABOLIC Hx Endocrine Disorders: Yes Hx Diabetes Mellitus Type 2: Yes - HEMATOLOGICAL/ONCOLOGICAL Hx Human Immunodeficiency Virus (HIV): No - INTEGUMENTARY Hx Dermatological Problems: No - MUSCULOSKELETAL/RHEUMATOLOGICAL Hx Falls: No - GASTROINTESTINAL Hx Gastrointestinal Disorders: No - GENITOURINARY/GYNECOLOGICAL Hx Sexually Transmitted Disorders: No - PSYCHIATRIC Hx Anxiety: Yes Hx Bipolar Disorder: Yes Hx Depression: Yes Hx Substance Use: No - SURGICAL HISTORY Hx Surgeries: No Other/Comment: rivera's palsy - ANESTHESIA Hx Anesthesia: No Hx Anesthesia Reactions: No Meds Allergies/Adverse Reactions: Allergies Allergy/AdvReac Type Severity Reaction Status Date / Time No Known Allergies Allergy Verified 04/29/18 22:32 - Medications Medications: Current Medications Aspirin (Ecotrin) 81 mg PO DAILY FLORIAN Last Admin: 04/30/18 09:29 Dose: Not Given Atorvastatin Calcium (Lipitor) 10 mg PO HS FLORIAN Dextrose (Dextrose 50% Inj) 0 ml IV STAT PRN; Protocol PRN Reason: Hypoglycemia Protocol Dextrose (Glutose 15) 0 gm PO ONCE PRN; Protocol PRN Reason: Hypoglycemia Protocol Glucagon (Glucagen Diagnostic Kit) 0 mg IM STAT PRN; Protocol PRN Reason: Hypoglycemia Protocol Haloperidol Lactate (Haldol) 2 mg IM Q4 PRN PRN Reason: Agitation Insulin Human Regular 100 (units/ Sodium Chloride) 101 mls @ 10.1 mls/hr IV .Q10H FLORIAN; Protocol Last Admin: 04/30/18 16:35 Dose: 3 units/hr, 3.03 mls/hr Ceftriaxone Sodium 1 gm/ (Sodium Chloride) 100 mls @ 100 mls/hr IVPB DAILY FLORIAN; Protocol Last Admin: 04/30/18 13:50 Dose: 100 mls/hr Azithromycin 500 mg/ Sodium (Chloride) 250 mls @ 250 mls/hr IVPB DAILY FLORIAN; Protocol Last Admin: 04/30/18 13:54 Dose: 250 mls/hr Potassium Chloride/Dextrose/Sod Cl (Potassium Chl 20 Meq In D5-1/2ns) 1,000 mls @ 200 mls/hr IV .Q5H FLORIAN Stop: 05/01/18 16:13 Insulin Detemir (Levemir) 30 units SC HS FLORIAN Ondansetron HCl (Zofran Inj) 4 mg IVP Q6H PRN PRN Reason: Nausea/Vomiting Physical Exam - Psychiatric Exam Additional comments: pt is very lethargic and barely responds to verbal intervention by opening his eyes and than goes back to sleep.pt has waxing and waning of mental status typical for delirium and unable to do a mental state exam. Results - Vital Signs Recent Vital Signs: Last Vital Signs Temp 98.0 F 04/30/18 12:00 Pulse 94 H 04/30/18 14:00 Resp 21 04/30/18 14:00 BP 130/52 L 04/30/18 14:00 Pulse Ox 96 04/30/18 14:00 - Labs Result Diagrams: 05/02/18 04:30 05/02/18 04:30 Labs: Laboratory Results - last 24 hr 04/29/18 04/29/18 04/29/18 22:33 23:00 23:00 WBC 28.2 H D RBC 4.05 L Hgb 12.3 Hct 43.4 MCV 107.0 H D MCH 30.2 MCHC 28.2 L RDW 14.5 Plt Count 215 MPV 11.5 Neut % (Auto) 83.9 H Lymph % (Auto) 7.1 L [place] % (Auto) 8.1 Eos % (Auto) 0.3 Baso % (Auto) 0.6 Neut # (Auto) 23.7 H Lymph # (Auto) 2.0 Sutton # (Auto) 2.3 H Eos # (Auto) 0.1 Baso # (Auto) 0.2 Neutrophils % (Manual) 80 H Band Neutrophils % 2 Lymphocytes % (Manual) 7 L Monocytes % (Manual) 9 Metamyelocytes % 2 H Toxic Granulation Present Platelet Estimate Normal Large Platelets Present Anisocytosis (manual) Slight Macrocytosis (manual) Moderate Tear Drop Cells Slight Kye Cells Moderate pCO2 pO2 HCO3 ABG pH ABG Total CO2 ABG O2 Saturation ABG O2 Content ABG Base Excess ABG Hemoglobin ABG Carboxyhemoglobin POC ABG HHb (Measured) ABG Methemoglobin ABG O2 Capacity Otto Test ABG Potassium A-a O2 Difference Hgb O2 Saturation Glucose Lactate Liter Flow Vent Mode FiO2 Blood Gas Comments Crit Value Called To Crit Value Called By Crit Value Read Back Blood Gas Notified Time Sodium 124 L Potassium 7.6 H* D Chloride 88 L Carbon Dioxide < 5 L* D Anion Gap 39 H BUN 42 H Creatinine 2.1 H Est GFR ( Amer) 39 Est GFR (Non-Af Amer) 33 POC Glucose (mg/dL) > 500 H* Random Glucose 1191 H* Calcium 8.6 Phosphorus Magnesium Total Bilirubin 0.2 AST 49 ALT 40 Alkaline Phosphatase 118 Troponin I 0.0350 Total Protein 6.1 L Albumin 3.8 Globulin 2.2 Albumin/Globulin Ratio 1.7 Arterial Blood Potassium Urine Color Urine Clarity Urine pH Ur Specific [place] Urine Protein Urine Glucose (UA) Urine Ketones Urine Blood Urine Nitrate Urine Bilirubin Urine Urobilinogen Ur Leukocyte Esterase Urine RBC (Auto) Urine Microscopic WBC Ur Squamous Epith Cells Urine Bacteria Urine Opiates Screen Urine Methadone Screen Ur Barbiturates Screen Ur Phencyclidine Scrn Ur Amphetamines Screen U Benzodiazepines Scrn U Oth Cocaine Metabols U Cannabinoids Screen 04/29/18 04/30/18 04/30/18 23:15 00:31 02:11 WBC RBC Hgb Hct MCV MCH MCHC RDW Plt Count MPV Neut % (Auto) Lymph % (Auto) [place] % (Auto) Eos % (Auto) Baso % (Auto) Neut # (Auto) Lymph # (Auto) [place] # (Auto) Eos # (Auto) Baso # (Auto) Neutrophils % (Manual) Band Neutrophils % Lymphocytes % (Manual) Monocytes % (Manual) Metamyelocytes % Toxic Granulation Platelet Estimate Large Platelets Anisocytosis (manual) Macrocytosis (manual) Tear Drop Cells Kye Cells pCO2 15 L* pO2 148 H HCO3 ABG pH < 6.80 L* ABG Total CO2 ABG O2 Saturation 101.1 H ABG O2 Content ABG Base Excess ABG Hemoglobin ABG Carboxyhemoglobin POC ABG HHb (Measured) ABG Methemoglobin ABG O2 Capacity Otto Test Yes ABG Potassium 7.8 H* A-a O2 Difference -17.0 Hgb O2 Saturation Glucose > 750 H* D Lactate 3.4 H Liter Flow Vent Mode FiO2 21.0 Blood Gas Comments Crit Value Called To Dr jackie medellin Crit Value Called By 292 Crit Value Read Back Y Blood Gas Notified Time 8566 Sodium 121.0 L Potassium Chloride 83.0 L Carbon Dioxide Anion Gap BUN Creatinine Est GFR ( Amer) Est GFR (Non-Af Amer) POC Glucose (mg/dL) > 500 H* > 500 H* Random Glucose Calcium Phosphorus Magnesium Total Bilirubin AST ALT Alkaline Phosphatase Troponin I Total Protein Albumin Globulin Albumin/Globulin Ratio Arterial Blood Potassium 7.8 H* Urine Color Urine Clarity Urine pH Ur Specific [place] Urine Protein Urine Glucose (UA) Urine Ketones Urine Blood Urine Nitrate Urine Bilirubin Urine Urobilinogen Ur Leukocyte Esterase Urine RBC (Auto) Urine Microscopic WBC Ur Squamous Epith Cells Urine Bacteria Urine Opiates Screen Urine Methadone Screen Ur Barbiturates Screen Ur Phencyclidine Scrn Ur Amphetamines Screen U Benzodiazepines Scrn U Oth Cocaine Metabols U Cannabinoids Screen 04/30/18 04/30/18 04/30/18 02:20 02:40 02:40 WBC RBC Hgb Hct MCV MCH MCHC RDW Plt Count MPV Neut % (Auto) Lymph % (Auto) [place] % (Auto) Eos % (Auto) Baso % (Auto) Neut # (Auto) Lymph # (Auto) [place] # (Auto) Eos # (Auto) Baso # (Auto) Neutrophils % (Manual) Band Neutrophils % Lymphocytes % (Manual) Monocytes % (Manual) Metamyelocytes % Toxic Granulation Platelet Estimate Large Platelets Anisocytosis (manual) Macrocytosis (manual) Tear Drop Cells Kye Cells pCO2 14 L* pO2 149 H HCO3 1.3 L* ABG pH 6.84 L* ABG Total CO2 2.8 L ABG O2 Saturation 100.0 H ABG O2 Content 16.2 ABG Base Excess -30.2 L ABG Hemoglobin 11.8 ABG Carboxyhemoglobin 1.9 H POC ABG HHb (Measured) 0.0 ABG Methemoglobin 2.2 ABG O2 Capacity 16.2 Otto Test Yes ABG Potassium A-a O2 Difference -17.0 Hgb O2 Saturation 95.9 Glucose Lactate Liter Flow Vent Mode FiO2 21.0 Blood Gas Comments Crit Value Called To Glendy burnett Crit Value Called By 292 Crit Value Read Back Y Blood Gas Notified Time 238 Sodium 132 Potassium 4.6 Chloride 98 Carbon Dioxide 5 L* Anion Gap 34 H BUN 44 H Creatinine 2.2 H Est GFR ( Amer) 37 Est GFR (Non-Af Amer) 31 POC Glucose (mg/dL) Random Glucose > 625 H* D Calcium 8.1 L Phosphorus Magnesium Total Bilirubin AST ALT Alkaline Phosphatase Troponin I Total Protein Albumin Globulin Albumin/Globulin Ratio Arterial Blood Potassium Urine Color Urine Clarity Urine pH Ur Specific [place] Urine Protein Urine Glucose (UA) Urine Ketones Urine Blood Urine Nitrate Urine Bilirubin Urine Urobilinogen Ur Leukocyte Esterase Urine RBC (Auto) Urine Microscopic WBC Ur Squamous Epith Cells Urine Bacteria Urine Opiates Screen Negative Urine Methadone Screen Negative Ur Barbiturates Screen Negative Ur Phencyclidine Scrn Negative Ur Amphetamines Screen Negative U Benzodiazepines Scrn Negative U Oth Cocaine Metabols Negative U Cannabinoids Screen Negative 04/30/18 04/30/18 04/30/18 02:40 03:23 04:02 WBC RBC Hgb Hct MCV MCH MCHC RDW Plt Count MPV Neut % (Auto) Lymph % (Auto) [place] % (Auto) Eos % (Auto) Baso % (Auto) Neut # (Auto) Lymph # (Auto) [place] # (Auto) Eos # (Auto) Baso # (Auto) Neutrophils % (Manual) Band Neutrophils % Lymphocytes % (Manual) Monocytes % (Manual) Metamyelocytes % Toxic Granulation Platelet Estimate Large Platelets Anisocytosis (manual) Macrocytosis (manual) Tear Drop Cells Kye Cells pCO2 pO2 HCO3 ABG pH ABG Total CO2 ABG O2 Saturation ABG O2 Content ABG Base Excess ABG Hemoglobin ABG Carboxyhemoglobin POC ABG HHb (Measured) ABG Methemoglobin ABG O2 Capacity Otto Test ABG Potassium A-a O2 Difference Hgb O2 Saturation Glucose Lactate Liter Flow Vent Mode FiO2 Blood Gas Comments Crit Value Called To Crit Value Called By Crit Value Read Back Blood Gas Notified Time Sodium Potassium Chloride Carbon Dioxide Anion Gap BUN Creatinine Est GFR ( Amer) Est GFR (Non-Af Amer) POC Glucose (mg/dL) > 500 H* > 500 H* Random Glucose Calcium Phosphorus Magnesium Total Bilirubin AST ALT Alkaline Phosphatase Troponin I Total Protein Albumin Globulin Albumin/Globulin Ratio Arterial Blood Potassium Urine Color Yellow Urine Clarity Cloudy Urine pH 5.0 Ur Specific [place] 1.017 Urine Protein 100 Urine Glucose (UA) >=500 Urine Ketones 20 Urine Blood Moderate Urine Nitrate Negative Urine Bilirubin Negative Urine Urobilinogen 0.2-1.0 Ur Leukocyte Esterase Neg Urine RBC (Auto) 2 Urine Microscopic WBC 18 H Ur Squamous Epith Cells < 1 Urine Bacteria Rare Urine Opiates Screen Urine Methadone Screen Ur Barbiturates Screen Ur Phencyclidine Scrn Ur Amphetamines Screen U Benzodiazepines Scrn U Oth Cocaine Metabols U Cannabinoids Screen 04/30/18 04/30/18 04/30/18 05:14 05:30 05:30 WBC 30.8 H RBC 3.70 L Hgb 11.0 L Hct 35.3 MCV 95.4 H D MCH 29.8 MCHC 31.2 L RDW 13.3 Plt Count 165 MPV Neut % (Auto) Lymph % (Auto) [place] % (Auto) Eos % (Auto) Baso % (Auto) Neut # (Auto) Lymph # (Auto) [place] # (Auto) Eos # (Auto) Baso # (Auto) Neutrophils % (Manual) Band Neutrophils % Lymphocytes % (Manual) Monocytes % (Manual) Metamyelocytes % Toxic Granulation Platelet Estimate Large Platelets Anisocytosis (manual) Macrocytosis (manual) Tear Drop Cells Kye Cells pCO2 pO2 HCO3 ABG pH ABG Total CO2 ABG O2 Saturation ABG O2 Content ABG Base Excess ABG Hemoglobin ABG Carboxyhemoglobin POC ABG HHb (Measured) ABG Methemoglobin ABG O2 Capacity Otto Test ABG Potassium A-a O2 Difference Hgb O2 Saturation Glucose Lactate Liter Flow Vent Mode FiO2 Blood Gas Comments Crit Value Called To Crit Value Called By Crit Value Read Back Blood Gas Notified Time Sodium 135 Potassium 4.0 Chloride 96 L Carbon Dioxide 7 L* D Anion Gap 36 H BUN 45 H Creatinine 2.3 H Est GFR ( Amer) 36 Est GFR (Non-Af Amer) 29 POC Glucose (mg/dL) > 500 H* Random Glucose > 625 H* Calcium 8.0 L Phosphorus 4.6 H Magnesium 2.8 H Total Bilirubin AST ALT Alkaline Phosphatase Troponin I Total Protein Albumin Globulin Albumin/Globulin Ratio Arterial Blood Potassium Urine Color Urine Clarity Urine pH Ur Specific [place] Urine Protein Urine Glucose (UA) Urine Ketones Urine Blood Urine Nitrate Urine Bilirubin Urine Urobilinogen Ur Leukocyte Esterase Urine RBC (Auto) Urine Microscopic WBC Ur Squamous Epith Cells Urine Bacteria Urine Opiates Screen Urine Methadone Screen Ur Barbiturates Screen Ur Phencyclidine Scrn Ur Amphetamines Screen U Benzodiazepines Scrn U Oth Cocaine Metabols U Cannabinoids Screen 04/30/18 04/30/18 04/30/18 06:05 07:18 08:01 WBC RBC Hgb Hct MCV MCH MCHC RDW Plt Count MPV Neut % (Auto) Lymph % (Auto) [place] % (Auto) Eos % (Auto) Baso % (Auto) Neut # (Auto) Lymph # (Auto) [place] # (Auto) Eos # (Auto) Baso # (Auto) Neutrophils % (Manual) Band Neutrophils % Lymphocytes % (Manual) Monocytes % (Manual) Metamyelocytes % Toxic Granulation Platelet Estimate Large Platelets Anisocytosis (manual) Macrocytosis (manual) Tear Drop Cells [place] Cells pCO2 pO2 HCO3 ABG pH ABG Total CO2 ABG O2 Saturation ABG O2 Content ABG Base Excess ABG Hemoglobin ABG Carboxyhemoglobin POC ABG HHb (Measured) ABG Methemoglobin ABG O2 Capacity Otto Test ABG Potassium A-a O2 Difference Hgb O2 Saturation Glucose Lactate Liter Flow Vent Mode FiO2 Blood Gas Comments Crit Value Called To Crit Value Called By Crit Value Read Back Blood Gas Notified Time Sodium Potassium Chloride Carbon Dioxide Anion Gap BUN Creatinine Est GFR ( Amer) Est GFR (Non-Af Amer) POC Glucose (mg/dL) > 500 H* > 500 H* > 500 H* Random Glucose Calcium Phosphorus Magnesium Total Bilirubin AST ALT Alkaline Phosphatase Troponin I Total Protein Albumin Globulin Albumin/Globulin Ratio Arterial Blood Potassium Urine Color Urine Clarity Urine pH Ur Specific [place] Urine Protein Urine Glucose (UA) Urine Ketones Urine Blood Urine Nitrate Urine Bilirubin Urine Urobilinogen Ur Leukocyte Esterase Urine RBC (Auto) Urine Microscopic WBC Ur Squamous Epith Cells Urine Bacteria Urine Opiates Screen Urine Methadone Screen Ur Barbiturates Screen Ur Phencyclidine Scrn Ur Amphetamines Screen U Benzodiazepines Scrn U Oth Cocaine Metabols U Cannabinoids Screen 04/30/18 04/30/18 04/30/18 09:00 10:04 10:35 WBC RBC Hgb Hct MCV MCH MCHC RDW Plt Count MPV Neut % (Auto) Lymph % (Auto) [place] % (Auto) Eos % (Auto) Baso % (Auto) Neut # (Auto) Lymph # (Auto) [place] # (Auto) Eos # (Auto) Baso # (Auto) Neutrophils % (Manual) Band Neutrophils % Lymphocytes % (Manual) Monocytes % (Manual) Metamyelocytes % Toxic Granulation Platelet Estimate Large Platelets Anisocytosis (manual) Macrocytosis (manual) Tear Drop Cells Kye Cells pCO2 26 L pO2 65 L HCO3 17.3 L ABG pH 7.35 ABG Total CO2 15.2 L ABG O2 Saturation 98.0 ABG O2 Content 15.3 ABG Base Excess -9.7 L ABG Hemoglobin 11.5 L ABG Carboxyhemoglobin 1.9 H POC ABG HHb (Measured) 1.9 ABG Methemoglobin 2.0 ABG O2 Capacity 15.6 L Otto Test Yes ABG Potassium A-a O2 Difference 102.0 Hgb O2 Saturation 94.2 L Glucose Lactate Liter Flow 2 Vent Mode Nc FiO2 28.0 Blood Gas Comments Nc 2 lpm Crit Value Called To Ana lambert r.n. Crit Value Called By Mayra Criyandy Value Read Back Y Blood Gas Notified Time 1137 Sodium Potassium Chloride Carbon Dioxide Anion Gap BUN Creatinine Est GFR ( Amer) Est GFR (Non-Af Amer) POC Glucose (mg/dL) > 500 H* > 500 H* Random Glucose Calcium Phosphorus Magnesium Total Bilirubin AST ALT Alkaline Phosphatase Troponin I Total Protein Albumin Globulin Albumin/Globulin Ratio Arterial Blood Potassium Urine Color Urine Clarity Urine pH Ur Specific [place] Urine Protein Urine Glucose (UA) Urine Ketones Urine Blood Urine Nitrate Urine Bilirubin Urine Urobilinogen Ur Leukocyte Esterase Urine RBC (Auto) Urine Microscopic WBC Ur Squamous Epith Cells Urine Bacteria Urine Opiates Screen Urine Methadone Screen Ur Barbiturates Screen Ur Phencyclidine Scrn Ur Amphetamines Screen U Benzodiazepines Scrn U Oth Cocaine Metabols U Cannabinoids Screen 04/30/18 04/30/18 04/30/18 11:10 11:45 11:45 WBC 26.3 H RBC 3.80 L Hgb 11.4 L Hct 34.9 L MCV 91.9 D MCH 29.9 MCHC 32.6 L RDW 12.7 Plt Count 168 MPV Neut % (Auto) Lymph % (Auto) [place] % (Auto) Eos % (Auto) Baso % (Auto) Neut # (Auto) Lymph # (Auto) [place] # (Auto) Eos # (Auto) Baso # (Auto) Neutrophils % (Manual) Band Neutrophils % Lymphocytes % (Manual) Monocytes % (Manual) Metamyelocytes % Toxic Granulation Platelet Estimate Large Platelets Anisocytosis (manual) Macrocytosis (manual) Tear Drop Cells Kye Cells pCO2 pO2 HCO3 ABG pH ABG Total CO2 ABG O2 Saturation ABG O2 Content ABG Base Excess ABG Hemoglobin ABG Carboxyhemoglobin POC ABG HHb (Measured) ABG Methemoglobin ABG O2 Capacity Otto Test ABG Potassium A-a O2 Difference Hgb O2 Saturation Glucose Lactate Liter Flow Vent Mode FiO2 Blood Gas Comments Crit Value Called To Crit Value Called By Crit Value Read Back Blood Gas Notified Time Sodium 139 Potassium 3.7 Chloride 100 Carbon Dioxide 14 L Anion Gap 29 H BUN 46 H Creatinine 1.5 Est GFR ( Amer) 58 Est GFR (Non-Af Amer) 48 POC Glucose (mg/dL) 418 H* Random Glucose 356 H Calcium 7.9 L Phosphorus 1.5 L Magnesium 2.5 H Total Bilirubin AST ALT Alkaline Phosphatase Troponin I Total Protein Albumin Globulin Albumin/Globulin Ratio Arterial Blood Potassium Urine Color Urine Clarity Urine pH Ur Specific [place] Urine Protein Urine Glucose (UA) Urine Ketones Urine Blood Urine Nitrate Urine Bilirubin Urine Urobilinogen Ur Leukocyte Esterase Urine RBC (Auto) Urine Microscopic WBC Ur Squamous Epith Cells Urine Bacteria Urine Opiates Screen Urine Methadone Screen Ur Barbiturates Screen Ur Phencyclidine Scrn Ur Amphetamines Screen U Benzodiazepines Scrn U Oth Cocaine Metabols U Cannabinoids Screen 04/30/18 04/30/18 04/30/18 12:01 12:59 14:02 WBC RBC Hgb Hct MCV MCH MCHC RDW Plt Count MPV Neut % (Auto) Lymph % (Auto) [place] % (Auto) Eos % (Auto) Baso % (Auto) Neut # (Auto) Lymph # (Auto) [place] # (Auto) Eos # (Auto) Baso # (Auto) Neutrophils % (Manual) Band Neutrophils % Lymphocytes % (Manual) Monocytes % (Manual) Metamyelocytes % Toxic Granulation Platelet Estimate Large Platelets Anisocytosis (manual) Macrocytosis (manual) Tear Drop Cells [place] Cells pCO2 pO2 HCO3 ABG pH ABG Total CO2 ABG O2 Saturation ABG O2 Content ABG Base Excess ABG Hemoglobin ABG Carboxyhemoglobin POC ABG HHb (Measured) ABG Methemoglobin ABG O2 Capacity Otto Test ABG Potassium A-a O2 Difference Hgb O2 Saturation Glucose Lactate Liter Flow Vent Mode FiO2 Blood Gas Comments Crit Value Called To Crit Value Called By Crit Value Read Back Blood Gas Notified Time Sodium Potassium Chloride Carbon Dioxide Anion Gap BUN Creatinine Est GFR ( Amer) Est GFR (Non-Af Amer) POC Glucose (mg/dL) 351 H 405 H* 264 H Random Glucose Calcium Phosphorus Magnesium Total Bilirubin AST ALT Alkaline Phosphatase Troponin I Total Protein Albumin Globulin Albumin/Globulin Ratio Arterial Blood Potassium Urine Color Urine Clarity Urine pH Ur Specific [place] Urine Protein Urine Glucose (UA) Urine Ketones Urine Blood Urine Nitrate Urine Bilirubin Urine Urobilinogen Ur Leukocyte Esterase Urine RBC (Auto) Urine Microscopic WBC Ur Squamous Epith Cells Urine Bacteria Urine Opiates Screen Urine Methadone Screen Ur Barbiturates Screen Ur Phencyclidine Scrn Ur Amphetamines Screen U Benzodiazepines Scrn U Oth Cocaine Metabols U Cannabinoids Screen 04/30/18 15:01 WBC RBC Hgb Hct MCV MCH MCHC RDW Plt Count MPV Neut % (Auto) Lymph % (Auto) [place] % (Auto) Eos % (Auto) Baso % (Auto) Neut # (Auto) Lymph # (Auto) [place] # (Auto) Eos # (Auto) Baso # (Auto) Neutrophils % (Manual) Band Neutrophils % Lymphocytes % (Manual) Monocytes % (Manual) Metamyelocytes % Toxic Granulation Platelet Estimate Large Platelets Anisocytosis (manual) Macrocytosis (manual) Tear Drop Cells Kye Cells pCO2 pO2 HCO3 ABG pH ABG Total CO2 ABG O2 Saturation ABG O2 Content ABG Base Excess ABG Hemoglobin ABG Carboxyhemoglobin POC ABG HHb (Measured) ABG Methemoglobin ABG O2 Capacity Otto Test ABG Potassium A-a O2 Difference Hgb O2 Saturation Glucose Lactate Liter Flow Vent Mode FiO2 Blood Gas Comments Crit Value Called To Crit Value Called By Crit Value Read Back Blood Gas Notified Time Sodium Potassium Chloride Carbon Dioxide Anion Gap BUN Creatinine Est GFR ( Amer) Est GFR (Non-Af Amer) POC Glucose (mg/dL) 198 H Random Glucose Calcium Phosphorus Magnesium Total Bilirubin AST ALT Alkaline Phosphatase Troponin I Total Protein Albumin Globulin Albumin/Globulin Ratio Arterial Blood Potassium Urine Color Urine Clarity Urine pH Ur Specific [place] Urine Protein Urine Glucose (UA) Urine Ketones Urine Blood Urine Nitrate Urine Bilirubin Urine Urobilinogen Ur Leukocyte Esterase Urine RBC (Auto) Urine Microscopic WBC Ur Squamous Epith Cells Urine Bacteria Urine Opiates Screen Urine Methadone Screen Ur Barbiturates Screen Ur Phencyclidine Scrn Ur Amphetamines Screen U Benzodiazepines Scrn U Oth Cocaine Metabols U Cannabinoids Screen Assessment & Plan - Assessment and Plan (Free Text) Assessment: delirium related to acute medical condition schizoaffective disorder/bipolar depression Plan: Plan : continue close observation for agitation and psychosis .and i recommend to add Ativan 1 mg I/V q 6hr prn agitation and continue haldol prn psychotic agitation. pt is not competent at this time . Recall psych consult when pt is more alert and can be interviewed for any further recommendations .Hold the psych meds until pt is hemodynamically more stable and mentally more alert to take PO psych meds .
[2018-04-30] MEDS: Potassium Ch 20mEq in D5-1/2NS 1,000 ML IV SCH ×2 (18:02→23:27)
[2018-04-30] MEDS ORDERED: Potassium Phosphate 30 MMOLE in Sodium Chloride 0.9% 250 ML IV ONE (18:32)
[2018-04-30 19:21] LABS: BLOOD UREA NITROGEN 37 mg/dl (9-20); CALCIUM 7.9 mg/dL (8.4-10.2); GFR NON-AFRICAN AMERICAN > 60
[2018-04-30] MEDS: Insulin Detemir 100 Units/ml Inj SC SCH (21:10)
[2018-04-30] MEDS ORDERED: Albuterol-Ipratrop 3 mg / 0.5 (3 ml) UD ONE (22:27)
[2018-04-30] MEDS: Albuterol-Ipratrop 3 mg / 0.5 (3 ml) UD INH PRN (22:28)
[2018-05-01] MEDS: Albuterol-Ipratrop 3 mg / 0.5 (3 ml) UD INH PRN (01:58)
[2018-05-01] MEDS: Potassium Ch 20mEq in D5-1/2NS 1,000 ML IV SCH ×2 (04:38→10:02)
[2018-05-01 06:20] LABS: BASO % 0.2 % (0.0-2.0); HEMOGLOBIN 10.8 g/dL (12.0-18.0); LYMPH # 0.5 K/uL (1.0-4.3); LYMPH % 4.7 % (20.0-40.0); MEAN CORPUSCULAR HEMOGLOBIN 30.3 pg (27.0-31.0); MEAN CORPUSCULAR HGB CONC 34.1 g/dL (33.0-37.0); MONO # 1.1 K/uL (0.0-0.8); MONO % 10.1 % (0.0-10.0); NEUT # 9.3 K/uL (1.8-7.0); NRBC % 0.1 % (0.0-0.0); RBC 3.58 Mil/uL (4.40-5.90); RED CELL DISTRIBUTION WIDTH 13.1 % (11.5-14.5); WHITE BLOOD COUNT 10.9 K/uL (4.8-10.8)
[2018-05-01 06:34] LABS: LDL CHOLESTEROL 69 mg/dL (0-129)
[2018-05-01 06:38] LABS: ALB/GLOB RATIO 1.2 (1.0-2.1); ALBUMIN 2.9 g/dL (3.5-5.0); ALT/SGPT 58 U/L (21-72); AST/SGOT 93 U/L (17-59); BLOOD UREA NITROGEN 24 mg/dl (9-20); CALCIUM 8.1 mg/dL (8.4-10.2); GFR NON-AFRICAN AMERICAN > 60; HDL CHOLESTEROL 50 MG/DL (30-70)
[2018-05-01 06:40] LABS: T4 5.24 ug/dl (5.5-11.0)
--- NOTE | 2018-05-01 07:34 | CP.CCUPN ---
CCU Subjective - Physician Review Events Since Last Encounter (Free Text): Patient awake, confused, no fever, no vomiting, events reviewed CCU Objective - Vital Signs / Intake & Output Vital Signs (Last 4 hours): Vital Signs Temp Pulse Resp BP Pulse Ox 05/01/18 06:00 103 H 16 137/78 95 05/01/18 04:00 99.9 F H 97 H 26 H 114/54 L 96 Intake and Output (Last 8hrs): Intake & Output 04/30/18 05/01/18 05/01/18 22:59 06:59 14:59 Intake Total 2029 1930 Output Total 350 1200 Balance 1680 730 Weight 218 lb Intake: IV 1900 1800 Intake, Piggyback 130 130 Output: Urine 350 1200 Urethral ([place]) 350 1200 Other: # Bowel Movements 1 - Physical Exam Head: Positive for: Atraumatic, Normocephalic Pupils: Positive for: PERRL Conjunctiva: Positive for: Normal Mouth: Positive for: Dry Nose (External): Positive for: Atraumatic Neck: Positive for: Normal Range of Motion Respiratory/Chest: Positive for: Clear to Auscultation Cardiovascular: Positive for: Regular Rate and Rhythm Abdomen: Positive for: Normal Bowel Sounds Upper Extremity: Positive for: Normal Inspection Lower Extremity: Positive for: Normal Inspection Neurological: Positive for: Other (awake, confused) - Medications Active Medications: Active Medications Generic Name Dose Route Start Last Admin Trade Name Freq PRN Reason Stop Dose Admin Acetaminophen 650 mg 05/01/18 01:11 05/01/18 01:16 Tylenol 650 Mg Supp UT 650 mg Q4 PRN Administration Fever >100.4 F Albuterol/Ipratropium 3 ml 04/30/18 22:19 05/01/18 01:58 Duoneb 3 Mg/0.5 Mg (3 Ml) Ud INH 3 ml RQ4 PRN Administration Cough and congestion Aspirin 81 mg 04/30/18 09:00 04/30/18 09:29 Ecotrin PO Not Given DAILY FLORIAN Atorvastatin Calcium 10 mg 04/30/18 22:00 04/30/18 22:13 Lipitor PO Not Given HS FLORIAN Dextrose 0 ml 04/30/18 02:46 Dextrose 50% Inj IV STAT PRN Hypoglycemia Protocol Protocol Dextrose 0 gm 04/30/18 02:46 Glutose 15 PO ONCE PRN Hypoglycemia Protocol Protocol Glucagon 0 mg 04/30/18 02:46 Glucagen Diagnostic Kit IM STAT PRN Hypoglycemia Protocol Protocol Haloperidol Lactate 2 mg 04/30/18 11:59 05/01/18 06:08 Haldol IM 2 mg Q4 PRN Administration Agitation Insulin Human Regular 100 101 mls @ 10.1 mls/hr 04/30/18 03:26 05/01/18 06:00 units/ Sodium Chloride IV 0 units/hr .Q10H FLORIAN 0 mls/hr Titration Protocol 10 UNITS/HR Ceftriaxone Sodium 1 gm/ 100 mls @ 100 mls/hr 04/30/18 12:15 04/30/18 13:50 Sodium Chloride IVPB 100 mls/hr DAILY FLORIAN Administration Protocol Azithromycin 500 mg/ Sodium 250 mls @ 250 mls/hr 04/30/18 12:15 04/30/18 13:54 Chloride IVPB 250 mls/hr DAILY FLORIAN Administration Protocol Potassium Chloride/Dextrose/Sod Cl 1,000 mls @ 200 mls/hr 04/30/18 16:15 05/01/18 04:38 Potassium Chl 20 Meq In D5-1/2ns IV 05/01/18 16:13 200 mls/hr .Q5H FLORIAN Administration Insulin Detemir 30 units 04/30/18 22:00 04/30/18 21:10 Levemir SC 30 u HS FLORIAN Administration Lorazepam 1 mg 04/30/18 18:55 05/01/18 03:20 Ativan IVP 1 mg Q6 PRN Administration Agitation Ondansetron HCl 4 mg 04/29/18 22:52 Zofran Inj IVP Q6H PRN Nausea/Vomiting - Patient Studies Lab Studies: Lab Studies 05/01/18 05/01/18 05/01/18 Range/Units 07:01 06:13 05:30 WBC (4.8-10.8) K/uL RBC (4.40-5.90) Mil/uL Hgb (12.0-18.0) g/dL Hct (35.0-51.0) % MCV (80.0-94.0) fl MCH (27.0-31.0) pg MCHC (33.0-37.0) g/dL RDW (11.5-14.5) % Plt Count (130-400) K/uL MPV (7.2-11.7) fl Neut % (Auto) (50.0-75.0) % Lymph % (Auto) (20.0-40.0) % [place] % (Auto) (0.0-10.0) % Eos % (Auto) (0.0-4.0) % Baso % (Auto) (0.0-2.0) % Neut # (Auto) (1.8-7.0) K/uL Lymph # (Auto) (1.0-4.3) K/uL [place] # (Auto) (0.0-0.8) K/uL Eos # (Auto) (0.0-0.7) K/uL Baso # (Auto) (0.0-0.2) K/uL pCO2 (35-45) mm/Hg pO2 (80-100) mm/Hg HCO3 (21-28) mmol/L ABG pH (7.35-7.45) ABG Total CO2 (22-28) mmol/L ABG O2 Saturation (95-98) % ABG O2 Content (15-23) ML/dL ABG Base Excess (-2.0-3.0) mmol/L ABG Hemoglobin (11.7-17.4) g/dL ABG Carboxyhemoglobin (0.5-1.5) % POC ABG HHb (Measured) (0.0-5.0) % ABG Methemoglobin (0.0-3.0) % ABG O2 Capacity (16-24) mL/dL Otto Test A-a O2 Difference mm/Hg Hgb O2 Saturation (95.0-98.0) % Liter Flow Vent Mode FiO2 % Blood Gas Comments Crit Value Called To Crit Value Called By Crit Value Read Back Blood Gas Notified Time Sodium 144 (132-148) mmol/l Potassium 3.7 (3.6-5.0) MMOL/L Chloride 110 H (98-107) mmol/L Carbon Dioxide 26 (22-30) mmol/L Anion Gap 12 (10-20) BUN 24 H (9-20) mg/dl Creatinine 0.7 L (0.8-1.5) mg/dl Est GFR ( Amer) > 60 Est GFR (Non-Af Amer) > 60 POC Glucose (mg/dL) 127 H 128 H (65-110) mg/dL Random Glucose 149 H (75-110) mg/dL Calcium 8.1 L (8.4-10.2) mg/dL Phosphorus 1.9 L (2.5-4.5) mg/dl Magnesium 2.0 (1.6-2.3) MG/DL Total Bilirubin 0.2 (0.2-1.3) mg/dl AST 93 H D (17-59) U/L ALT 58 (21-72) U/L Alkaline Phosphatase 89 (38-126) U/L Total Protein 5.3 L (6.3-8.2) G/DL Albumin 2.9 L D (3.5-5.0) g/dL Globulin 2.4 (2.2-3.9) gm/dL Albumin/Globulin Ratio 1.2 (1.0-2.1) Triglycerides 90 D (0-149) mg/DL Cholesterol 132 (0-199) mg/dL LDL Cholesterol Direct 69 (0-129) mg/dL HDL Cholesterol 50 (30-70) MG/DL Vitamin B12 > 1000 H (239-931) pg/mL Thyroxine (T4) 5.24 L (5.5-11.0) ug/dl TSH 3rd Generation 0.06 L (0.46-4.68) mIU/ML 05/01/18 05/01/18 05/01/18 Range/Units 05:30 05:01 04:08 WBC 10.9 H D (4.8-10.8) K/uL RBC 3.58 L (4.40-5.90) Mil/uL Hgb 10.8 L (12.0-18.0) g/dL Hct 31.8 L (35.0-51.0) % MCV 89.0 D (80.0-94.0) fl MCH 30.3 (27.0-31.0) pg MCHC 34.1 (33.0-37.0) g/dL RDW 13.1 (11.5-14.5) % Plt Count 120 L D (130-400) K/uL MPV 10.0 (7.2-11.7) fl Neut % (Auto) 85.0 H (50.0-75.0) % Lymph % (Auto) 4.7 L (20.0-40.0) % [place] % (Auto) 10.1 H (0.0-10.0) % Eos % (Auto) 0.0 (0.0-4.0) % Baso % (Auto) 0.2 (0.0-2.0) % Neut # (Auto) 9.3 H (1.8-7.0) K/uL Lymph # (Auto) 0.5 L (1.0-4.3) K/uL [place] # (Auto) 1.1 H (0.0-0.8) K/uL Eos # (Auto) 0.0 (0.0-0.7) K/uL Baso # (Auto) 0.0 (0.0-0.2) K/uL pCO2 (35-45) mm/Hg pO2 (80-100) mm/Hg HCO3 (21-28) mmol/L ABG pH (7.35-7.45) ABG Total CO2 (22-28) mmol/L ABG O2 Saturation (95-98) % ABG O2 Content (15-23) ML/dL ABG Base Excess (-2.0-3.0) mmol/L ABG Hemoglobin (11.7-17.4) g/dL ABG Carboxyhemoglobin (0.5-1.5) % POC ABG HHb (Measured) (0.0-5.0) % ABG Methemoglobin (0.0-3.0) % ABG O2 Capacity (16-24) mL/dL Otto Test A-a O2 Difference mm/Hg Hgb O2 Saturation (95.0-98.0) % Liter Flow Vent Mode FiO2 % Blood Gas Comments Crit Value Called To Crit Value Called By Crit Value Read Back Blood Gas Notified Time Sodium (132-148) mmol/l Potassium (3.6-5.0) MMOL/L Chloride (98-107) mmol/L Carbon Dioxide (22-30) mmol/L Anion Gap (10-20) BUN (9-20) mg/dl Creatinine (0.8-1.5) mg/dl Est GFR ( Amer) Est GFR (Non-Af Amer) POC Glucose (mg/dL) 165 H 150 H (65-110) mg/dL Random Glucose (75-110) mg/dL Calcium (8.4-10.2) mg/dL Phosphorus (2.5-4.5) mg/dl Magnesium (1.6-2.3) MG/DL Total Bilirubin (0.2-1.3) mg/dl AST (17-59) U/L ALT (21-72) U/L Alkaline Phosphatase (38-126) U/L Total Protein (6.3-8.2) G/DL Albumin (3.5-5.0) g/dL Globulin (2.2-3.9) gm/dL Albumin/Globulin Ratio (1.0-2.1) Triglycerides (0-149) mg/DL Cholesterol (0-199) mg/dL LDL Cholesterol Direct (0-129) mg/dL HDL Cholesterol (30-70) MG/DL Vitamin B12 (239-931) pg/mL Thyroxine (T4) (5.5-11.0) ug/dl TSH 3rd Generation (0.46-4.68) mIU/ML 05/01/18 05/01/18 05/01/18 Range/Units 02:57 02:00 01:05 WBC (4.8-10.8) K/uL RBC (4.40-5.90) Mil/uL Hgb (12.0-18.0) g/dL Hct (35.0-51.0) % MCV (80.0-94.0) fl MCH (27.0-31.0) pg MCHC (33.0-37.0) g/dL RDW (11.5-14.5) % Plt Count (130-400) K/uL MPV (7.2-11.7) fl Neut % (Auto) (50.0-75.0) % Lymph % (Auto) (20.0-40.0) % [place] % (Auto) (0.0-10.0) % Eos % (Auto) (0.0-4.0) % Baso % (Auto) (0.0-2.0) % Neut # (Auto) (1.8-7.0) K/uL Lymph # (Auto) (1.0-4.3) K/uL [place] # (Auto) (0.0-0.8) K/uL Eos # (Auto) (0.0-0.7) K/uL Baso # (Auto) (0.0-0.2) K/uL pCO2 (35-45) mm/Hg pO2 (80-100) mm/Hg HCO3 (21-28) mmol/L ABG pH (7.35-7.45) ABG Total CO2 (22-28) mmol/L ABG O2 Saturation (95-98) % ABG O2 Content (15-23) ML/dL ABG Base Excess (-2.0-3.0) mmol/L ABG Hemoglobin (11.7-17.4) g/dL ABG Carboxyhemoglobin (0.5-1.5) % POC ABG HHb (Measured) (0.0-5.0) % ABG Methemoglobin (0.0-3.0) % ABG O2 Capacity (16-24) mL/dL Otto Test A-a O2 Difference mm/Hg Hgb O2 Saturation (95.0-98.0) % Liter Flow Vent Mode FiO2 % Blood Gas Comments Crit Value Called To Crit Value Called By Crit Value Read Back Blood Gas Notified Time Sodium (132-148) mmol/l Potassium (3.6-5.0) MMOL/L Chloride (98-107) mmol/L Carbon Dioxide (22-30) mmol/L Anion Gap (10-20) BUN (9-20) mg/dl Creatinine (0.8-1.5) mg/dl Est GFR ( Amer) Est GFR (Non-Af Amer) POC Glucose (mg/dL) 162 H 198 H 197 H (65-110) mg/dL Random Glucose (75-110) mg/dL Calcium (8.4-10.2) mg/dL Phosphorus (2.5-4.5) mg/dl Magnesium (1.6-2.3) MG/DL Total Bilirubin (0.2-1.3) mg/dl AST (17-59) U/L ALT (21-72) U/L Alkaline Phosphatase (38-126) U/L Total Protein (6.3-8.2) G/DL Albumin (3.5-5.0) g/dL Globulin (2.2-3.9) gm/dL Albumin/Globulin Ratio (1.0-2.1) Triglycerides (0-149) mg/DL Cholesterol (0-199) mg/dL LDL Cholesterol Direct (0-129) mg/dL HDL Cholesterol (30-70) MG/DL Vitamin B12 (239-931) pg/mL Thyroxine (T4) (5.5-11.0) ug/dl TSH 3rd Generation (0.46-4.68) mIU/ML 04/30/18 04/30/18 04/30/18 Range/Units 23:54 22:55 22:04 WBC (4.8-10.8) K/uL RBC (4.40-5.90) Mil/uL Hgb (12.0-18.0) g/dL Hct (35.0-51.0) % MCV (80.0-94.0) fl MCH (27.0-31.0) pg MCHC (33.0-37.0) g/dL RDW (11.5-14.5) % Plt Count (130-400) K/uL MPV (7.2-11.7) fl Neut % (Auto) (50.0-75.0) % Lymph % (Auto) (20.0-40.0) % [place] % (Auto) (0.0-10.0) % Eos % (Auto) (0.0-4.0) % Baso % (Auto) (0.0-2.0) % Neut # (Auto) (1.8-7.0) K/uL Lymph # (Auto) (1.0-4.3) K/uL [place] # (Auto) (0.0-0.8) K/uL Eos # (Auto) (0.0-0.7) K/uL Baso # (Auto) (0.0-0.2) K/uL pCO2 (35-45) mm/Hg pO2 (80-100) mm/Hg HCO3 (21-28) mmol/L ABG pH (7.35-7.45) ABG Total CO2 (22-28) mmol/L ABG O2 Saturation (95-98) % ABG O2 Content (15-23) ML/dL ABG Base Excess (-2.0-3.0) mmol/L ABG Hemoglobin (11.7-17.4) g/dL ABG Carboxyhemoglobin (0.5-1.5) % POC ABG HHb (Measured) (0.0-5.0) % ABG Methemoglobin (0.0-3.0) % ABG O2 Capacity (16-24) mL/dL Otto Test A-a O2 Difference mm/Hg Hgb O2 Saturation (95.0-98.0) % Liter Flow Vent Mode FiO2 % Blood Gas Comments Crit Value Called To Crit Value Called By Crit Value Read Back Blood Gas Notified Time Sodium (132-148) mmol/l Potassium (3.6-5.0) MMOL/L Chloride (98-107) mmol/L Carbon Dioxide (22-30) mmol/L Anion Gap (10-20) BUN (9-20) mg/dl Creatinine (0.8-1.5) mg/dl Est GFR ( Amer) Est GFR (Non-Af Amer) POC Glucose (mg/dL) 184 H 173 H 187 H (65-110) mg/dL Random Glucose (75-110) mg/dL Calcium (8.4-10.2) mg/dL Phosphorus (2.5-4.5) mg/dl Magnesium (1.6-2.3) MG/DL Total Bilirubin (0.2-1.3) mg/dl AST (17-59) U/L ALT (21-72) U/L Alkaline Phosphatase (38-126) U/L Total Protein (6.3-8.2) G/DL Albumin (3.5-5.0) g/dL Globulin (2.2-3.9) gm/dL Albumin/Globulin Ratio (1.0-2.1) Triglycerides (0-149) mg/DL Cholesterol (0-199) mg/dL LDL Cholesterol Direct (0-129) mg/dL HDL Cholesterol (30-70) MG/DL Vitamin B12 (239-931) pg/mL Thyroxine (T4) (5.5-11.0) ug/dl TSH 3rd Generation (0.46-4.68) mIU/ML 04/30/18 04/30/18 04/30/18 Range/Units 21:03 20:12 19:00 WBC (4.8-10.8) K/uL RBC (4.40-5.90) Mil/uL Hgb (12.0-18.0) g/dL Hct (35.0-51.0) % MCV (80.0-94.0) fl MCH (27.0-31.0) pg MCHC (33.0-37.0) g/dL RDW (11.5-14.5) % Plt Count (130-400) K/uL MPV (7.2-11.7) fl Neut % (Auto) (50.0-75.0) % Lymph % (Auto) (20.0-40.0) % [place] % (Auto) (0.0-10.0) % Eos % (Auto) (0.0-4.0) % Baso % (Auto) (0.0-2.0) % Neut # (Auto) (1.8-7.0) K/uL Lymph # (Auto) (1.0-4.3) K/uL [place] # (Auto) (0.0-0.8) K/uL Eos # (Auto) (0.0-0.7) K/uL Baso # (Auto) (0.0-0.2) K/uL pCO2 (35-45) mm/Hg pO2 (80-100) mm/Hg HCO3 (21-28) mmol/L ABG pH (7.35-7.45) ABG Total CO2 (22-28) mmol/L ABG O2 Saturation (95-98) % ABG O2 Content (15-23) ML/dL ABG Base Excess (-2.0-3.0) mmol/L ABG Hemoglobin (11.7-17.4) g/dL ABG Carboxyhemoglobin (0.5-1.5) % POC ABG HHb (Measured) (0.0-5.0) % ABG Methemoglobin (0.0-3.0) % ABG O2 Capacity (16-24) mL/dL Otto Test A-a O2 Difference mm/Hg Hgb O2 Saturation (95.0-98.0) % Liter Flow Vent Mode FiO2 % Blood Gas Comments Crit Value Called To Crit Value Called By Crit Value Read Back Blood Gas Notified Time Sodium (132-148) mmol/l Potassium (3.6-5.0) MMOL/L Chloride (98-107) mmol/L Carbon Dioxide (22-30) mmol/L Anion Gap (10-20) BUN (9-20) mg/dl Creatinine (0.8-1.5) mg/dl Est GFR ( Amer) Est GFR (Non-Af Amer) POC Glucose (mg/dL) 177 H 166 H 160 H (65-110) mg/dL Random Glucose (75-110) mg/dL Calcium (8.4-10.2) mg/dL Phosphorus (2.5-4.5) mg/dl Magnesium (1.6-2.3) MG/DL Total Bilirubin (0.2-1.3) mg/dl AST (17-59) U/L ALT (21-72) U/L Alkaline Phosphatase (38-126) U/L Total Protein (6.3-8.2) G/DL Albumin (3.5-5.0) g/dL Globulin (2.2-3.9) gm/dL Albumin/Globulin Ratio (1.0-2.1) Triglycerides (0-149) mg/DL Cholesterol (0-199) mg/dL LDL Cholesterol Direct (0-129) mg/dL HDL Cholesterol (30-70) MG/DL Vitamin B12 (239-931) pg/mL Thyroxine (T4) (5.5-11.0) ug/dl TSH 3rd Generation (0.46-4.68) mIU/ML 04/30/18 04/30/18 04/30/18 Range/Units 18:50 17:58 17:09 WBC (4.8-10.8) K/uL RBC (4.40-5.90) Mil/uL Hgb (12.0-18.0) g/dL Hct (35.0-51.0) % MCV (80.0-94.0) fl MCH (27.0-31.0) pg MCHC (33.0-37.0) g/dL RDW (11.5-14.5) % Plt Count (130-400) K/uL MPV (7.2-11.7) fl Neut % (Auto) (50.0-75.0) % Lymph % (Auto) (20.0-40.0) % [place] % (Auto) (0.0-10.0) % Eos % (Auto) (0.0-4.0) % Baso % (Auto) (0.0-2.0) % Neut # (Auto) (1.8-7.0) K/uL Lymph # (Auto) (1.0-4.3) K/uL [place] # (Auto) (0.0-0.8) K/uL Eos # (Auto) (0.0-0.7) K/uL Baso # (Auto) (0.0-0.2) K/uL pCO2 (35-45) mm/Hg pO2 (80-100) mm/Hg HCO3 (21-28) mmol/L ABG pH (7.35-7.45) ABG Total CO2 (22-28) mmol/L ABG O2 Saturation (95-98) % ABG O2 Content (15-23) ML/dL ABG Base Excess (-2.0-3.0) mmol/L ABG Hemoglobin (11.7-17.4) g/dL ABG Carboxyhemoglobin (0.5-1.5) % POC ABG HHb (Measured) (0.0-5.0) % ABG Methemoglobin (0.0-3.0) % ABG O2 Capacity (16-24) mL/dL Otto Test A-a O2 Difference mm/Hg Hgb O2 Saturation (95.0-98.0) % Liter Flow Vent Mode FiO2 % Blood Gas Comments Crit Value Called To Crit Value Called By Crit Value Read Back Blood Gas Notified Time Sodium 143 (132-148) mmol/l Potassium 3.9 (3.6-5.0) MMOL/L Chloride 108 H (98-107) mmol/L Carbon Dioxide 22 (22-30) mmol/L Anion Gap 17 (10-20) BUN 37 H (9-20) mg/dl Creatinine 1.1 (0.8-1.5) mg/dl Est GFR ( Amer) > 60 Est GFR (Non-Af Amer) > 60 POC Glucose (mg/dL) 159 H 165 H (65-110) mg/dL Random Glucose 152 H (75-110) mg/dL Calcium 7.9 L (8.4-10.2) mg/dL Phosphorus 2.7 (2.5-4.5) mg/dl Magnesium 2.3 (1.6-2.3) MG/DL Total Bilirubin (0.2-1.3) mg/dl AST (17-59) U/L ALT (21-72) U/L Alkaline Phosphatase (38-126) U/L Total Protein (6.3-8.2) G/DL Albumin (3.5-5.0) g/dL Globulin (2.2-3.9) gm/dL Albumin/Globulin Ratio (1.0-2.1) Triglycerides (0-149) mg/DL Cholesterol (0-199) mg/dL LDL Cholesterol Direct (0-129) mg/dL HDL Cholesterol (30-70) MG/DL Vitamin B12 (239-931) pg/mL Thyroxine (T4) (5.5-11.0) ug/dl TSH 3rd Generation (0.46-4.68) mIU/ML 04/30/18 04/30/18 04/30/18 Range/Units 15:59 15:01 14:02 WBC (4.8-10.8) K/uL RBC (4.40-5.90) Mil/uL Hgb (12.0-18.0) g/dL Hct (35.0-51.0) % MCV (80.0-94.0) fl MCH (27.0-31.0) pg MCHC (33.0-37.0) g/dL RDW (11.5-14.5) % Plt Count (130-400) K/uL MPV (7.2-11.7) fl Neut % (Auto) (50.0-75.0) % Lymph % (Auto) (20.0-40.0) % [place] % (Auto) (0.0-10.0) % Eos % (Auto) (0.0-4.0) % Baso % (Auto) (0.0-2.0) % Neut # (Auto) (1.8-7.0) K/uL Lymph # (Auto) (1.0-4.3) K/uL [place] # (Auto) (0.0-0.8) K/uL Eos # (Auto) (0.0-0.7) K/uL Baso # (Auto) (0.0-0.2) K/uL pCO2 (35-45) mm/Hg pO2 (80-100) mm/Hg HCO3 (21-28) mmol/L ABG pH (7.35-7.45) ABG Total CO2 (22-28) mmol/L ABG O2 Saturation (95-98) % ABG O2 Content (15-23) ML/dL ABG Base Excess (-2.0-3.0) mmol/L ABG Hemoglobin (11.7-17.4) g/dL ABG Carboxyhemoglobin (0.5-1.5) % POC ABG HHb (Measured) (0.0-5.0) % ABG Methemoglobin (0.0-3.0) % ABG O2 Capacity (16-24) mL/dL Otto Test A-a O2 Difference mm/Hg Hgb O2 Saturation (95.0-98.0) % Liter Flow Vent Mode FiO2 % Blood Gas Comments Crit Value Called To Crit Value Called By Crit Value Read Back Blood Gas Notified Time Sodium (132-148) mmol/l Potassium (3.6-5.0) MMOL/L Chloride (98-107) mmol/L Carbon Dioxide (22-30) mmol/L Anion Gap (10-20) BUN (9-20) mg/dl Creatinine (0.8-1.5) mg/dl Est GFR ( Amer) Est GFR (Non-Af Amer) POC Glucose (mg/dL) 187 H 198 H 264 H (65-110) mg/dL Random Glucose (75-110) mg/dL Calcium (8.4-10.2) mg/dL Phosphorus (2.5-4.5) mg/dl Magnesium (1.6-2.3) MG/DL Total Bilirubin (0.2-1.3) mg/dl AST (17-59) U/L ALT (21-72) U/L Alkaline Phosphatase (38-126) U/L Total Protein (6.3-8.2) G/DL Albumin (3.5-5.0) g/dL Globulin (2.2-3.9) gm/dL Albumin/Globulin Ratio (1.0-2.1) Triglycerides (0-149) mg/DL Cholesterol (0-199) mg/dL LDL Cholesterol Direct (0-129) mg/dL HDL Cholesterol (30-70) MG/DL Vitamin B12 (239-931) pg/mL Thyroxine (T4) (5.5-11.0) ug/dl TSH 3rd Generation (0.46-4.68) mIU/ML 04/30/18 04/30/18 04/30/18 Range/Units 12:59 12:01 11:45 WBC (4.8-10.8) K/uL RBC (4.40-5.90) Mil/uL Hgb (12.0-18.0) g/dL Hct (35.0-51.0) % MCV (80.0-94.0) fl MCH (27.0-31.0) pg MCHC (33.0-37.0) g/dL RDW (11.5-14.5) % Plt Count (130-400) K/uL MPV (7.2-11.7) fl Neut % (Auto) (50.0-75.0) % Lymph % (Auto) (20.0-40.0) % [place] % (Auto) (0.0-10.0) % Eos % (Auto) (0.0-4.0) % Baso % (Auto) (0.0-2.0) % Neut # (Auto) (1.8-7.0) K/uL Lymph # (Auto) (1.0-4.3) K/uL [place] # (Auto) (0.0-0.8) K/uL Eos # (Auto) (0.0-0.7) K/uL Baso # (Auto) (0.0-0.2) K/uL pCO2 (35-45) mm/Hg pO2 (80-100) mm/Hg HCO3 (21-28) mmol/L ABG pH (7.35-7.45) ABG Total CO2 (22-28) mmol/L ABG O2 Saturation (95-98) % ABG O2 Content (15-23) ML/dL ABG Base Excess (-2.0-3.0) mmol/L ABG Hemoglobin (11.7-17.4) g/dL ABG Carboxyhemoglobin (0.5-1.5) % POC ABG HHb (Measured) (0.0-5.0) % ABG Methemoglobin (0.0-3.0) % ABG O2 Capacity (16-24) mL/dL Otto Test A-a O2 Difference mm/Hg Hgb O2 Saturation (95.0-98.0) % Liter Flow Vent Mode FiO2 % Blood Gas Comments Crit Value Called To Crit Value Called By Crit Value Read Back Blood Gas Notified Time Sodium 139 (132-148) mmol/l Potassium 3.7 (3.6-5.0) MMOL/L Chloride 100 (98-107) mmol/L Carbon Dioxide 14 L (22-30) mmol/L Anion Gap 29 H (10-20) BUN 46 H (9-20) mg/dl Creatinine 1.5 (0.8-1.5) mg/dl Est GFR ( Amer) 58 Est GFR (Non-Af Amer) 48 POC Glucose (mg/dL) 405 H* 351 H (65-110) mg/dL Random Glucose 356 H (75-110) mg/dL Calcium 7.9 L (8.4-10.2) mg/dL Phosphorus 1.5 L (2.5-4.5) mg/dl Magnesium 2.5 H (1.6-2.3) MG/DL Total Bilirubin (0.2-1.3) mg/dl AST (17-59) U/L ALT (21-72) U/L Alkaline Phosphatase (38-126) U/L Total Protein (6.3-8.2) G/DL Albumin (3.5-5.0) g/dL Globulin (2.2-3.9) gm/dL Albumin/Globulin Ratio (1.0-2.1) Triglycerides (0-149) mg/DL Cholesterol (0-199) mg/dL LDL Cholesterol Direct (0-129) mg/dL HDL Cholesterol (30-70) MG/DL Vitamin B12 (239-931) pg/mL Thyroxine (T4) (5.5-11.0) ug/dl TSH 3rd Generation (0.46-4.68) mIU/ML 04/30/18 04/30/18 04/30/18 Range/Units 11:45 11:10 10:35 WBC 26.3 H (4.8-10.8) K/uL RBC 3.80 L (4.40-5.90) Mil/uL Hgb 11.4 L (12.0-18.0) g/dL Hct 34.9 L (35.0-51.0) % MCV 91.9 D (80.0-94.0) fl MCH 29.9 (27.0-31.0) pg MCHC 32.6 L (33.0-37.0) g/dL RDW 12.7 (11.5-14.5) % Plt Count 168 (130-400) K/uL MPV (7.2-11.7) fl Neut % (Auto) (50.0-75.0) % Lymph % (Auto) (20.0-40.0) % [place] % (Auto) (0.0-10.0) % Eos % (Auto) (0.0-4.0) % Baso % (Auto) (0.0-2.0) % Neut # (Auto) (1.8-7.0) K/uL Lymph # (Auto) (1.0-4.3) K/uL [place] # (Auto) (0.0-0.8) K/uL Eos # (Auto) (0.0-0.7) K/uL Baso # (Auto) (0.0-0.2) K/uL pCO2 26 L (35-45) mm/Hg pO2 65 L (80-100) mm/Hg HCO3 17.3 L (21-28) mmol/L ABG pH 7.35 (7.35-7.45) ABG Total CO2 15.2 L (22-28) mmol/L ABG O2 Saturation 98.0 (95-98) % ABG O2 Content 15.3 (15-23) ML/dL ABG Base Excess -9.7 L (-2.0-3.0) mmol/L ABG Hemoglobin 11.5 L (11.7-17.4) g/dL ABG Carboxyhemoglobin 1.9 H (0.5-1.5) % POC ABG HHb (Measured) 1.9 (0.0-5.0) % ABG Methemoglobin 2.0 (0.0-3.0) % ABG O2 Capacity 15.6 L (16-24) mL/dL Otto Test Yes A-a O2 Difference 102.0 mm/Hg Hgb O2 Saturation 94.2 L (95.0-98.0) % Liter Flow 2 Vent Mode Nc FiO2 28.0 % Blood Gas Comments Nc 2 lpm Crit Value Called To Ana lambert r.n. Crit Value Called By Mayra Crit Value Read Back Y Blood Gas Notified Time 1137 Sodium (132-148) mmol/l Potassium (3.6-5.0) MMOL/L Chloride (98-107) mmol/L Carbon Dioxide (22-30) mmol/L Anion Gap (10-20) BUN (9-20) mg/dl Creatinine (0.8-1.5) mg/dl Est GFR ( Amer) Est GFR (Non-Af Amer) POC Glucose (mg/dL) 418 H* (65-110) mg/dL Random Glucose (75-110) mg/dL Calcium (8.4-10.2) mg/dL Phosphorus (2.5-4.5) mg/dl Magnesium (1.6-2.3) MG/DL Total Bilirubin (0.2-1.3) mg/dl AST (17-59) U/L ALT (21-72) U/L Alkaline Phosphatase (38-126) U/L Total Protein (6.3-8.2) G/DL Albumin (3.5-5.0) g/dL Globulin (2.2-3.9) gm/dL Albumin/Globulin Ratio (1.0-2.1) Triglycerides (0-149) mg/DL Cholesterol (0-199) mg/dL LDL Cholesterol Direct (0-129) mg/dL HDL Cholesterol (30-70) MG/DL Vitamin B12 (239-931) pg/mL Thyroxine (T4) (5.5-11.0) ug/dl TSH 3rd Generation (0.46-4.68) mIU/ML 04/30/18 04/30/18 04/30/18 Range/Units 10:04 09:00 08:01 WBC (4.8-10.8) K/uL RBC (4.40-5.90) Mil/uL Hgb (12.0-18.0) g/dL Hct (35.0-51.0) % MCV (80.0-94.0) fl MCH (27.0-31.0) pg MCHC (33.0-37.0) g/dL RDW (11.5-14.5) % Plt Count (130-400) K/uL MPV (7.2-11.7) fl Neut % (Auto) (50.0-75.0) % Lymph % (Auto) (20.0-40.0) % [place] % (Auto) (0.0-10.0) % Eos % (Auto) (0.0-4.0) % Baso % (Auto) (0.0-2.0) % Neut # (Auto) (1.8-7.0) K/uL Lymph # (Auto) (1.0-4.3) K/uL [place] # (Auto) (0.0-0.8) K/uL Eos # (Auto) (0.0-0.7) K/uL Baso # (Auto) (0.0-0.2) K/uL pCO2 (35-45) mm/Hg pO2 (80-100) mm/Hg HCO3 (21-28) mmol/L ABG pH (7.35-7.45) ABG Total CO2 (22-28) mmol/L ABG O2 Saturation (95-98) % ABG O2 Content (15-23) ML/dL ABG Base Excess (-2.0-3.0) mmol/L ABG Hemoglobin (11.7-17.4) g/dL ABG Carboxyhemoglobin (0.5-1.5) % POC ABG HHb (Measured) (0.0-5.0) % ABG Methemoglobin (0.0-3.0) % ABG O2 Capacity (16-24) mL/dL Otto Test A-a O2 Difference mm/Hg Hgb O2 Saturation (95.0-98.0) % Liter Flow Vent Mode FiO2 % Blood Gas Comments Crit Value Called To Crit Value Called By Crit Value Read Back Blood Gas Notified Time Sodium (132-148) mmol/l Potassium (3.6-5.0) MMOL/L Chloride (98-107) mmol/L Carbon Dioxide (22-30) mmol/L Anion Gap (10-20) BUN (9-20) mg/dl Creatinine (0.8-1.5) mg/dl Est GFR ( Amer) Est GFR (Non-Af Amer) POC Glucose (mg/dL) > 500 H* > 500 H* > 500 H* (65-110) mg/dL Random Glucose (75-110) mg/dL Calcium (8.4-10.2) mg/dL Phosphorus (2.5-4.5) mg/dl Magnesium (1.6-2.3) MG/DL Total Bilirubin (0.2-1.3) mg/dl AST (17-59) U/L ALT (21-72) U/L Alkaline Phosphatase (38-126) U/L Total Protein (6.3-8.2) G/DL Albumin (3.5-5.0) g/dL Globulin (2.2-3.9) gm/dL Albumin/Globulin Ratio (1.0-2.1) Triglycerides (0-149) mg/DL Cholesterol (0-199) mg/dL LDL Cholesterol Direct (0-129) mg/dL HDL Cholesterol (30-70) MG/DL Vitamin B12 (239-931) pg/mL Thyroxine (T4) (5.5-11.0) ug/dl TSH 3rd Generation (0.46-4.68) mIU/ML 04/30/18 04/30/18 Range/Units 07:18 05:30 WBC (4.8-10.8) K/uL RBC (4.40-5.90) Mil/uL Hgb (12.0-18.0) g/dL Hct (35.0-51.0) % MCV (80.0-94.0) fl MCH (27.0-31.0) pg MCHC (33.0-37.0) g/dL RDW (11.5-14.5) % Plt Count (130-400) K/uL MPV (7.2-11.7) fl Neut % (Auto) (50.0-75.0) % Lymph % (Auto) (20.0-40.0) % [place] % (Auto) (0.0-10.0) % Eos % (Auto) (0.0-4.0) % Baso % (Auto) (0.0-2.0) % Neut # (Auto) (1.8-7.0) K/uL Lymph # (Auto) (1.0-4.3) K/uL [place] # (Auto) (0.0-0.8) K/uL Eos # (Auto) (0.0-0.7) K/uL Baso # (Auto) (0.0-0.2) K/uL pCO2 (35-45) mm/Hg pO2 (80-100) mm/Hg HCO3 (21-28) mmol/L ABG pH (7.35-7.45) ABG Total CO2 (22-28) mmol/L ABG O2 Saturation (95-98) % ABG O2 Content (15-23) ML/dL ABG Base Excess (-2.0-3.0) mmol/L ABG Hemoglobin (11.7-17.4) g/dL ABG Carboxyhemoglobin (0.5-1.5) % POC ABG HHb (Measured) (0.0-5.0) % ABG Methemoglobin (0.0-3.0) % ABG O2 Capacity (16-24) mL/dL Otto Test A-a O2 Difference mm/Hg Hgb O2 Saturation (95.0-98.0) % Liter Flow Vent Mode FiO2 % Blood Gas Comments Crit Value Called To Crit Value Called By Crit Value Read Back Blood Gas Notified Time Sodium 135 (132-148) mmol/l Potassium 4.0 (3.6-5.0) MMOL/L Chloride 96 L (98-107) mmol/L Carbon Dioxide 7 L* D (22-30) mmol/L Anion Gap 36 H (10-20) BUN 45 H (9-20) mg/dl Creatinine 2.3 H (0.8-1.5) mg/dl Est GFR ( Amer) 36 Est GFR (Non-Af Amer) 29 POC Glucose (mg/dL) > 500 H* (65-110) mg/dL Random Glucose > 625 H* (75-110) mg/dL Calcium 8.0 L (8.4-10.2) mg/dL Phosphorus 4.6 H (2.5-4.5) mg/dl Magnesium 2.8 H (1.6-2.3) MG/DL Total Bilirubin (0.2-1.3) mg/dl AST (17-59) U/L ALT (21-72) U/L Alkaline Phosphatase (38-126) U/L Total Protein (6.3-8.2) G/DL Albumin (3.5-5.0) g/dL Globulin (2.2-3.9) gm/dL Albumin/Globulin Ratio (1.0-2.1) Triglycerides (0-149) mg/DL Cholesterol (0-199) mg/dL LDL Cholesterol Direct (0-129) mg/dL HDL Cholesterol (30-70) MG/DL Vitamin B12 (239-931) pg/mL Thyroxine (T4) (5.5-11.0) ug/dl TSH 3rd Generation (0.46-4.68) mIU/ML Laboratory Results - last 24 hr 04/30/18 04/30/18 04/30/18 05:30 07:18 08:01 WBC RBC Hgb Hct MCV MCH MCHC RDW Plt Count MPV Neut % (Auto) Lymph % (Auto) [place] % (Auto) Eos % (Auto) Baso % (Auto) Neut # (Auto) Lymph # (Auto) [place] # (Auto) Eos # (Auto) Baso # (Auto) pCO2 pO2 HCO3 ABG pH ABG Total CO2 ABG O2 Saturation ABG O2 Content ABG Base Excess ABG Hemoglobin ABG Carboxyhemoglobin POC ABG HHb (Measured) ABG Methemoglobin ABG O2 Capacity Otto Test A-a O2 Difference Hgb O2 Saturation Liter Flow Vent Mode FiO2 Blood Gas Comments Crit Value Called To Crit Value Called By Crit Value Read Back Blood Gas Notified Time Sodium 135 Potassium 4.0 Chloride 96 L Carbon Dioxide 7 L* D Anion Gap 36 H BUN 45 H Creatinine 2.3 H Est GFR ( Amer) 36 Est GFR (Non-Af Amer) 29 POC Glucose (mg/dL) > 500 H* > 500 H* Random Glucose > 625 H* Calcium 8.0 L Phosphorus 4.6 H Magnesium 2.8 H Total Bilirubin AST ALT Alkaline Phosphatase Total Protein Albumin Globulin Albumin/Globulin Ratio Triglycerides Cholesterol LDL Cholesterol Direct HDL Cholesterol Vitamin B12 Thyroxine (T4) TSH 3rd Generation 04/30/18 04/30/18 04/30/18 09:00 10:04 10:35 WBC RBC Hgb Hct MCV MCH MCHC RDW Plt Count MPV Neut % (Auto) Lymph % (Auto) [place] % (Auto) Eos % (Auto) Baso % (Auto) Neut # (Auto) Lymph # (Auto) [place] # (Auto) Eos # (Auto) Baso # (Auto) pCO2 26 L pO2 65 L HCO3 17.3 L ABG pH 7.35 ABG Total CO2 15.2 L ABG O2 Saturation 98.0 ABG O2 Content 15.3 ABG Base Excess -9.7 L ABG Hemoglobin 11.5 L ABG Carboxyhemoglobin 1.9 H POC ABG HHb (Measured) 1.9 ABG Methemoglobin 2.0 ABG O2 Capacity 15.6 L Otto Test Yes A-a O2 Difference 102.0 Hgb O2 Saturation 94.2 L Liter Flow 2 Vent Mode Nc FiO2 28.0 Blood Gas Comments Nc 2 lpm Crit Value Called To Ana lambert r.n. Crit Value Called By Mayra Crit Value Read Back Y Blood Gas Notified Time 1137 Sodium Potassium Chloride Carbon Dioxide Anion Gap BUN Creatinine Est GFR ( Amer) Est GFR (Non-Af Amer) POC Glucose (mg/dL) > 500 H* > 500 H* Random Glucose Calcium Phosphorus Magnesium Total Bilirubin AST ALT Alkaline Phosphatase Total Protein Albumin Globulin Albumin/Globulin Ratio Triglycerides Cholesterol LDL Cholesterol Direct HDL Cholesterol Vitamin B12 Thyroxine (T4) TSH 3rd Generation 04/30/18 04/30/18 04/30/18 11:10 11:45 11:45 WBC 26.3 H RBC 3.80 L Hgb 11.4 L Hct 34.9 L MCV 91.9 D MCH 29.9 MCHC 32.6 L RDW 12.7 Plt Count 168 MPV Neut % (Auto) Lymph % (Auto) [place] % (Auto) Eos % (Auto) Baso % (Auto) Neut # (Auto) Lymph # (Auto) [place] # (Auto) Eos # (Auto) Baso # (Auto) pCO2 pO2 HCO3 ABG pH ABG Total CO2 ABG O2 Saturation ABG O2 Content ABG Base Excess ABG Hemoglobin ABG Carboxyhemoglobin POC ABG HHb (Measured) ABG Methemoglobin ABG O2 Capacity Otto Test A-a O2 Difference Hgb O2 Saturation Liter Flow Vent Mode FiO2 Blood Gas Comments Crit Value Called To Crit Value Called By Crit Value Read Back Blood Gas Notified Time Sodium 139 Potassium 3.7 Chloride 100 Carbon Dioxide 14 L Anion Gap 29 H BUN 46 H Creatinine 1.5 Est GFR ( Amer) 58 Est GFR (Non-Af Amer) 48 POC Glucose (mg/dL) 418 H* Random Glucose 356 H Calcium 7.9 L Phosphorus 1.5 L Magnesium 2.5 H Total Bilirubin AST ALT Alkaline Phosphatase Total Protein Albumin Globulin Albumin/Globulin Ratio Triglycerides Cholesterol LDL Cholesterol Direct HDL Cholesterol Vitamin B12 Thyroxine (T4) TSH 3rd Generation 04/30/18 04/30/18 04/30/18 12:01 12:59 14:02 WBC RBC Hgb Hct MCV MCH MCHC RDW Plt Count MPV Neut % (Auto) Lymph % (Auto) [place] % (Auto) Eos % (Auto) Baso % (Auto) Neut # (Auto) Lymph # (Auto) [place] # (Auto) Eos # (Auto) Baso # (Auto) pCO2 pO2 HCO3 ABG pH ABG Total CO2 ABG O2 Saturation ABG O2 Content ABG Base Excess ABG Hemoglobin ABG Carboxyhemoglobin POC ABG HHb (Measured) ABG Methemoglobin ABG O2 Capacity Otto Test A-a O2 Difference Hgb O2 Saturation Liter Flow Vent Mode FiO2 Blood Gas Comments Crit Value Called To Crit Value Called By Crit Value Read Back Blood Gas Notified Time Sodium Potassium Chloride Carbon Dioxide Anion Gap BUN Creatinine Est GFR ( Amer) Est GFR (Non-Af Amer) POC Glucose (mg/dL) 351 H 405 H* 264 H Random Glucose Calcium Phosphorus Magnesium Total Bilirubin AST ALT Alkaline Phosphatase Total Protein Albumin Globulin Albumin/Globulin Ratio Triglycerides Cholesterol LDL Cholesterol Direct HDL Cholesterol Vitamin B12 Thyroxine (T4) TSH 3rd Generation 04/30/18 04/30/18 04/30/18 15:01 15:59 17:09 WBC RBC Hgb Hct MCV MCH MCHC RDW Plt Count MPV Neut % (Auto) Lymph % (Auto) [place] % (Auto) Eos % (Auto) Baso % (Auto) Neut # (Auto) Lymph # (Auto) [place] # (Auto) Eos # (Auto) Baso # (Auto) pCO2 pO2 HCO3 ABG pH ABG Total CO2 ABG O2 Saturation ABG O2 Content ABG Base Excess ABG Hemoglobin ABG Carboxyhemoglobin POC ABG HHb (Measured) ABG Methemoglobin ABG O2 Capacity Otto Test A-a O2 Difference Hgb O2 Saturation Liter Flow Vent Mode FiO2 Blood Gas Comments Crit Value Called To Crit Value Called By Crit Value Read Back Blood Gas Notified Time Sodium Potassium Chloride Carbon Dioxide Anion Gap BUN Creatinine Est GFR ( Amer) Est GFR (Non-Af Amer) POC Glucose (mg/dL) 198 H 187 H 165 H Random Glucose Calcium Phosphorus Magnesium Total Bilirubin AST ALT Alkaline Phosphatase Total Protein Albumin Globulin Albumin/Globulin Ratio Triglycerides Cholesterol LDL Cholesterol Direct HDL Cholesterol Vitamin B12 Thyroxine (T4) TSH 3rd Generation 04/30/18 04/30/18 04/30/18 17:58 18:50 19:00 WBC RBC Hgb Hct MCV MCH MCHC RDW Plt Count MPV Neut % (Auto) Lymph % (Auto) [place] % (Auto) Eos % (Auto) Baso % (Auto) Neut # (Auto) Lymph # (Auto) [place] # (Auto) Eos # (Auto) Baso # (Auto) pCO2 pO2 HCO3 ABG pH ABG Total CO2 ABG O2 Saturation ABG O2 Content ABG Base Excess ABG Hemoglobin ABG Carboxyhemoglobin POC ABG HHb (Measured) ABG Methemoglobin ABG O2 Capacity Otto Test A-a O2 Difference Hgb O2 Saturation Liter Flow Vent Mode FiO2 Blood Gas Comments Crit Value Called To Crit Value Called By Crit Value Read Back Blood Gas Notified Time Sodium 143 Potassium 3.9 Chloride 108 H Carbon Dioxide 22 Anion Gap 17 BUN 37 H Creatinine 1.1 Est GFR ( Amer) > 60 Est GFR (Non-Af Amer) > 60 POC Glucose (mg/dL) 159 H 160 H Random Glucose 152 H Calcium 7.9 L Phosphorus 2.7 Magnesium 2.3 Total Bilirubin AST ALT Alkaline Phosphatase Total Protein Albumin Globulin Albumin/Globulin Ratio Triglycerides Cholesterol LDL Cholesterol Direct HDL Cholesterol Vitamin B12 Thyroxine (T4) TSH 3rd Generation 04/30/18 04/30/18 04/30/18 20:12 21:03 22:04 WBC RBC Hgb Hct MCV MCH MCHC RDW Plt Count MPV Neut % (Auto) Lymph % (Auto) [place] % (Auto) Eos % (Auto) Baso % (Auto) Neut # (Auto) Lymph # (Auto) [place] # (Auto) Eos # (Auto) Baso # (Auto) pCO2 pO2 HCO3 ABG pH ABG Total CO2 ABG O2 Saturation ABG O2 Content ABG Base Excess ABG Hemoglobin ABG Carboxyhemoglobin POC ABG HHb (Measured) ABG Methemoglobin ABG O2 Capacity Otto Test A-a O2 Difference Hgb O2 Saturation Liter Flow Vent Mode FiO2 Blood Gas Comments Crit Value Called To Crit Value Called By Crit Value Read Back Blood Gas Notified Time Sodium Potassium Chloride Carbon Dioxide Anion Gap BUN Creatinine Est GFR ( Amer) Est GFR (Non-Af Amer) POC Glucose (mg/dL) 166 H 177 H 187 H Random Glucose Calcium Phosphorus Magnesium Total Bilirubin AST ALT Alkaline Phosphatase Total Protein Albumin Globulin Albumin/Globulin Ratio Triglycerides Cholesterol LDL Cholesterol Direct HDL Cholesterol Vitamin B12 Thyroxine (T4) TSH 3rd Generation 04/30/18 04/30/18 05/01/18 22:55 23:54 01:05 WBC RBC Hgb Hct MCV MCH MCHC RDW Plt Count MPV Neut % (Auto) Lymph % (Auto) [place] % (Auto) Eos % (Auto) Baso % (Auto) Neut # (Auto) Lymph # (Auto) [place] # (Auto) Eos # (Auto) Baso # (Auto) pCO2 pO2 HCO3 ABG pH ABG Total CO2 ABG O2 Saturation ABG O2 Content ABG Base Excess ABG Hemoglobin ABG Carboxyhemoglobin POC ABG HHb (Measured) ABG Methemoglobin ABG O2 Capacity Otto Test A-a O2 Difference Hgb O2 Saturation Liter Flow Vent Mode FiO2 Blood Gas Comments Crit Value Called To Crit Value Called By Crit Value Read Back Blood Gas Notified Time Sodium Potassium Chloride Carbon Dioxide Anion Gap BUN Creatinine Est GFR ( Amer) Est GFR (Non-Af Amer) POC Glucose (mg/dL) 173 H 184 H 197 H Random Glucose Calcium Phosphorus Magnesium Total Bilirubin AST ALT Alkaline Phosphatase Total Protein Albumin Globulin Albumin/Globulin Ratio Triglycerides Cholesterol LDL Cholesterol Direct HDL Cholesterol Vitamin B12 Thyroxine (T4) TSH 3rd Generation 05/01/18 05/01/18 05/01/18 02:00 02:57 04:08 WBC RBC Hgb Hct MCV MCH MCHC RDW Plt Count MPV Neut % (Auto) Lymph % (Auto) [place] % (Auto) Eos % (Auto) Baso % (Auto) Neut # (Auto) Lymph # (Auto) [place] # (Auto) Eos # (Auto) Baso # (Auto) pCO2 pO2 HCO3 ABG pH ABG Total CO2 ABG O2 Saturation ABG O2 Content ABG Base Excess ABG Hemoglobin ABG Carboxyhemoglobin POC ABG HHb (Measured) ABG Methemoglobin ABG O2 Capacity Otto Test A-a O2 Difference Hgb O2 Saturation Liter Flow Vent Mode FiO2 Blood Gas Comments Crit Value Called To Crit Value Called By Crit Value Read Back Blood Gas Notified Time Sodium Potassium Chloride Carbon Dioxide Anion Gap BUN Creatinine Est GFR ( Amer) Est GFR (Non-Af Amer) POC Glucose (mg/dL) 198 H 162 H 150 H Random Glucose Calcium Phosphorus Magnesium Total Bilirubin AST ALT Alkaline Phosphatase Total Protein Albumin Globulin Albumin/Globulin Ratio Triglycerides Cholesterol LDL Cholesterol Direct HDL Cholesterol Vitamin B12 Thyroxine (T4) TSH 3rd Generation 05/01/18 05/01/18 05/01/18 05:01 05:30 05:30 WBC 10.9 H D RBC 3.58 L Hgb 10.8 L Hct 31.8 L MCV 89.0 D MCH 30.3 MCHC 34.1 RDW 13.1 Plt Count 120 L D MPV 10.0 Neut % (Auto) 85.0 H Lymph % (Auto) 4.7 L [place] % (Auto) 10.1 H Eos % (Auto) 0.0 Baso % (Auto) 0.2 Neut # (Auto) 9.3 H Lymph # (Auto) 0.5 L [place] # (Auto) 1.1 H Eos # (Auto) 0.0 Baso # (Auto) 0.0 pCO2 pO2 HCO3 ABG pH ABG Total CO2 ABG O2 Saturation ABG O2 Content ABG Base Excess ABG Hemoglobin ABG Carboxyhemoglobin POC ABG HHb (Measured) ABG Methemoglobin ABG O2 Capacity Otto Test A-a O2 Difference Hgb O2 Saturation Liter Flow Vent Mode FiO2 Blood Gas Comments Crit Value Called To Crit Value Called By Crit Value Read Back Blood Gas Notified Time Sodium 144 Potassium 3.7 Chloride 110 H Carbon Dioxide 26 Anion Gap 12 BUN 24 H Creatinine 0.7 L Est GFR ( Amer) > 60 Est GFR (Non-Af Amer) > 60 POC Glucose (mg/dL) 165 H Random Glucose 149 H Calcium 8.1 L Phosphorus 1.9 L Magnesium 2.0 Total Bilirubin 0.2 AST 93 H D ALT 58 Alkaline Phosphatase 89 Total Protein 5.3 L Albumin 2.9 L D Globulin 2.4 Albumin/Globulin Ratio 1.2 Triglycerides 90 D Cholesterol 132 LDL Cholesterol Direct 69 HDL Cholesterol 50 Vitamin B12 > 1000 H Thyroxine (T4) 5.24 L TSH 3rd Generation 0.06 L 05/01/18 05/01/18 06:13 07:01 WBC RBC Hgb Hct MCV MCH MCHC RDW Plt Count MPV Neut % (Auto) Lymph % (Auto) [place] % (Auto) Eos % (Auto) Baso % (Auto) Neut # (Auto) Lymph # (Auto) [place] # (Auto) Eos # (Auto) Baso # (Auto) pCO2 pO2 HCO3 ABG pH ABG Total CO2 ABG O2 Saturation ABG O2 Content ABG Base Excess ABG Hemoglobin ABG Carboxyhemoglobin POC ABG HHb (Measured) ABG Methemoglobin ABG O2 Capacity Otto Test A-a O2 Difference Hgb O2 Saturation Liter Flow Vent Mode FiO2 Blood Gas Comments Crit Value Called To Crit Value Called By Crit Value Read Back Blood Gas Notified Time Sodium Potassium Chloride Carbon Dioxide Anion Gap BUN Creatinine Est GFR ( Amer) Est GFR (Non-Af Amer) POC Glucose (mg/dL) 128 H 127 H Random Glucose Calcium Phosphorus Magnesium Total Bilirubin AST ALT Alkaline Phosphatase Total Protein Albumin Globulin Albumin/Globulin Ratio Triglycerides Cholesterol LDL Cholesterol Direct HDL Cholesterol Vitamin B12 Thyroxine (T4) TSH 3rd Generation Radiology Impressions: Radiology Impressions Chest X-Ray 04/29/18 22:36 IMPRESSION: Questionable patchy left upper lobe infiltrate. Head CT 04/29/18 22:36 IMPRESSION: No acute intracranial pathology. Fingerstick Blood Sugar Results: 127 Critical Care Progress Note - Nutrition Nutrition: Nutrition Category Date Time Status Liquid Diet [DIET] Diets 04/30/18 Dinner Active Assessment/Plan - Assessment and Plan (Free Text) Assessment: A/P DKA, DM, ?pneumonia, bipolar disorder, ИВАН - Continue meds - Psychiatry follow up - Follow up labs - Pulmonary toilets - DVT prophylaxis
[2018-05-01] MEDS: Azithromycin 500 MG in Sodium Chloride 0.9% 250 ML IVPB SCH (10:31)
--- NOTE | 2018-05-01 11:16 | RAD ---
Date of service: 05/01/2018 HISTORY: ff up PNA COMPARISON: Chest radiograph dated 04/29/2018. FINDINGS: LUNGS: Pulmonary vascular congestion/edema with superimposed patchy consolidations not excluded. PLEURA: No significant pleural effusion identified, no pneumothorax apparent. CARDIOVASCULAR: Aortic atherosclerotic calcifications. Cardiomediastinal silhouette stably enlarged. OSSEOUS STRUCTURES: Unchanged. VISUALIZED UPPER ABDOMEN: Normal. OTHER FINDINGS: None. IMPRESSION: Pulmonary vascular congestion/edema with new superimposed patchy consolidations not excluded
[2018-05-01] MEDS: Insulin Lispro (humaLOG) 100 Units/ml Inj SC SCH ×5 (11:30→21:23)
[2018-05-01 13:29] LABS: FOLATE 13.4 ng/mL
--- NOTE | 2018-05-01 14:19 | CP.PCM.PN ---
Subjective - Date & Time of Evaluation Date of Evaluation: 05/01/18 Time of Evaluation: 10:45 - Subjective Subjective: Pt has low grade fever + coughing agitated , would toss and turn on his bed and tries to get up, but better compared to yesterday limited verbal response but seem to understand knows his name answered " no" , when I asked him if he has headache or pain but did not respond when i asked him his physician's name nor the pharmacy where he gets his med follows simple commands off restraints Carcmao Catheter d/c Insulin drip d/c Objective - Vital Signs/Intake and Output Vital Signs (last 24 hours): Temp Pulse Resp BP Pulse Ox 99.3 F 87 25 H 137/78 92 L 05/01/18 12:00 05/01/18 12:00 05/01/18 12:00 05/01/18 12:00 05/01/18 12:00 Intake and Output: 05/01/18 05/01/18 06:59 18:59 Intake Total 2860 1551 Output Total 1200 400 Balance 1660 1151 - Medications Medications: Current Medications Acetaminophen (Tylenol 650 Mg Supp) 650 mg NV Q4 PRN PRN Reason: Fever >100.4 F Last Admin: 05/01/18 01:16 Dose: 650 mg Albuterol/Ipratropium (Duoneb 3 Mg/0.5 Mg (3 Ml) Ud) 3 ml INH RQ4 PRN PRN Reason: Cough and congestion Last Admin: 05/01/18 01:58 Dose: 3 ml Aspirin (Ecotrin) 81 mg PO DAILY [facility] Last Admin: 05/01/18 09:10 Dose: Not Given Atorvastatin Calcium (Lipitor) 10 mg PO HS [facility] Last Admin: 04/30/18 22:13 Dose: Not Given Dextrose (Dextrose 50% Inj) 0 ml IV STAT PRN; Protocol PRN Reason: Hypoglycemia Protocol Dextrose (Glutose 15) 0 gm PO ONCE PRN; Protocol PRN Reason: Hypoglycemia Protocol Glucagon (Glucagen Diagnostic Kit) 0 mg IM STAT PRN; Protocol PRN Reason: Hypoglycemia Protocol Haloperidol Lactate (Haldol) 2 mg IM Q4 PRN PRN Reason: Agitation Last Admin: 05/01/18 06:08 Dose: 2 mg Ceftriaxone Sodium 1 gm/ (Sodium Chloride) 100 mls @ 100 mls/hr IVPB DAILY [facility]; Protocol Last Admin: 05/01/18 09:11 Dose: 100 mls/hr Azithromycin 500 mg/ Sodium (Chloride) 250 mls @ 250 mls/hr IVPB DAILY [facility]; Protocol Last Admin: 05/01/18 10:31 Dose: 250 mls/hr Potassium Chloride 20 meq/ (Sodium Chloride) 1,010 mls @ 125 mls/hr IV .Q8H5M [facility] Stop: 05/02/18 11:16 Insulin Detemir (Levemir) 30 units SC HS [facility] Last Admin: 04/30/18 21:10 Dose: 30 u Insulin Human Lispro (Humalog) 8 units SC AC [facility] Insulin Human Lispro (Humalog) 0 units SC ACHS [facility] Last Admin: 05/01/18 11:38 Dose: Not Given Lorazepam (Ativan) 1 mg IVP Q6 PRN PRN Reason: Agitation Last Admin: 05/01/18 03:20 Dose: 1 mg Ondansetron HCl (Zofran Inj) 4 mg IVP Q6H PRN PRN Reason: Nausea/Vomiting - Labs Labs: 05/01/18 05:30 05/01/18 05:30 - Constitutional Appears: Unkempt, Agitated - Head Exam Head Exam: NORMAL INSPECTION, NORMOCEPHALIC - Eye Exam Eye Exam: EOMI, Normal appearance Pupil Exam: NORMAL ACCOMODATION - ENT Exam ENT Exam: Mucous Membranes Dry, Normal External Ear Exam - Neck Exam Neck Exam: Full ROM. absent: Meningismus - Respiratory Exam Respiratory Exam: Rhonchi, NORMAL BREATHING PATTERN. absent: Respiratory Distress + rales , + rhonchi, no wheezing - Cardiovascular Exam Cardiovascular Exam: REGULAR RHYTHM, +S1, +S2 - GI/Abdominal Exam GI & Abdominal Exam: Soft, Normal Bowel Sounds. absent: Tenderness - Extremities Exam Extremities Exam: Full ROM, Normal Capillary Refill. absent: Pedal Edema - Neurological Exam Neurological Exam: Alert, Awake Neuro motor strength exam: Left Upper Extremity: 5, Right Upper Extremity: 5, Left Lower Extremity: 5, Right Lower Extremity: 5 Additional comments: oriented to person and place - Psychiatric Exam Psychiatric exam: Agitated - Skin Skin Exam: Dry, Normal Color, Warm Assessment and Plan (1) DKA (diabetic ketoacidoses) Status: Acute (2) Pneumonia Status: Acute (3) Bipolar disorder Status: Chronic - Assessment and Plan (Free Text) Plan: 57 y/o gent with hx of Insulin Dependent DM, Bipolar Disorder, was brought in by EMS very lethargic and in the ED found to be very acidotic and hyperglycemic. Pt's brother called Police to do a Welfare check when pt did not respond to his calls. 1. DKA - pt came in lethargic severely acidotic with pH 6.8 on ABG , high Anion gap and with blood sugar of greater than 750 - started on Insulin drip - now off Insulin drip - today 05/01 no longer acidotic and anion gap closed -IVF bolus and aggressive IVF hydration - replenish electrolytes -Close accucheck monitoring - Pt restarted on Levemir -Endo consulted- Dr Montanez 2. Acute Kidney Injury due to Dehydration, resolved - aggressive IVF hydration 3. Pneumonia prob bacterial - Pt came in with leukocytosis and noted to be coughing, leukocytosis now resolved , now has low grade fever - CXR-WINDY infiltrate - rpt CXR - cont IV ceftriaxone and Azithro - Blood c/s , sputum c/s, Legionella, Mycoplasma 4. Metabolic Encephalopathy likely due to DKA - pt came in lethargic , confused - seem to be better this am - answers few questions and seem appropriate, follows some simple commands but still agitated at times - CT of head : neg - no nuchal rigidity, no fever, pt denies CHRISTINE 5. Bipolar Disorder - pt has hx of Bipolar, no information on what medication he takes or where he follows up. His brother will try to get info and will let me know - MD, pharmacy etc. -Haldol prn for agitation - Pt on 1:1 - discussed case with Dr Baker - rec to cont Haldol and Ativan prn and when pt can take PO meds - he will reorder his med for Bipolar DVT proph - LOvenox
[2018-05-01] MEDS: Potassium Chloride 20 MEQ in Sodium Chloride 0.45% 1,000 ML IV SCH ×2 (14:29→21:50)
[2018-05-01] MEDS ORDERED: Sodium Chloride 3% for Inhalation 4 ML VIAL.NEB IH PRN (14:32)
[2018-05-01] MEDS: Enoxaparin 40 mg Syringe SC SCH (16:21)
--- NOTE | 2018-05-01 20:25 | PN ---
DATE: 05/01/2018 ENDOCRINOLOGY FOLLOWUP LOCATION: ICU; Room 432. SUBJECTIVE: This is a 57-year-old male with recent uncontrolled type 1 insulin-dependent diabetes presenting here with marked hyperglycemic accelerations and severe diabetic ketoacidosis with and also a stuporous and obtunded state and is slowly improving clinically and metabolically as noted thereof. He is more responsive and awake but has intermittent periods of agitation and disorientation as noted. His oral intake is variable with episodic bouts of nausea and reflux of a brownish substance with no overt vomiting episodes. LABORATORY DATA: His latest glucose values have ranged from 127-172 mg/dl. His chemistry showed a BUN of 24, sodium 144, potassium 3.7, chloride 110, CO2 26, glucose 149 and creatinine 0.7. His T4 or thyroxine is 5.24 with a TSH of 0.06. ASSESSMENT: This is a 57-year-old male with uncontrolled and decompensated type 1 insulin-dependent diabetes with severe diabetic ketoacidosis and dehydration and prerenal azotemia with spurious hyponatremia and hyperkalemia and has improved clinically and metabolically as noted thereof. His thyroid studies could most likely be related to acute sick euthyroid syndrome, although we have to exclude any underlying subclinical hyperthyroidism. PLAN OF MANAGEMENT: The patient has received vigorous IV hydration with normal saline and potassium supplementation as given. We will change his IVs to half-normal saline with KCl 20 mEq running at 125 ml/hour as ordered. We will also obtain serial chemistries and supplement accordingly as needed. The patient also received intensive insulin therapy with an insulin drip infusion as given and we will discontinue the drip at this time and switch him over to a more physiologic basal and bolus insulin drug combination as ordered. We will start Humalog at the lower dose of 8 units three times daily before meals to start at lunchtime today as ordered. We will add Levemir given as basal insulin at 30 units subcutaneous at bedtime daily as given. We will modify the coverage scale to obviate hypoglycemia and detailed orders have been given. We will concur with the psychiatric evaluation and followup on management. We will follow. Anna Marie Montanez MD Psychiatric # [id number]
[2018-05-01] MEDS: Insulin Detemir 100 Units/ml Inj SC SCH (22:00)
[2018-05-02 05:53] LABS: HEMOGLOBIN 11.3 g/dL (12.0-18.0); MEAN CELL VOLUME 89.7 fl (80.0-94.0); MEAN CORPUSCULAR HEMOGLOBIN 30.2 pg (27.0-31.0); MEAN CORPUSCULAR HGB CONC 33.7 g/dL (33.0-37.0); RBC 3.75 Mil/uL (4.40-5.90); RED CELL DISTRIBUTION WIDTH 13.4 % (11.5-14.5)
[2018-05-02 06:30] LABS: ALB/GLOB RATIO 1.2 (1.0-2.1); ALBUMIN 3.1 g/dL (3.5-5.0); ALT/SGPT 73 U/L (21-72); AST/SGOT 133 U/L (17-59); BLOOD UREA NITROGEN 12 mg/dl (9-20); CALCIUM 8.4 mg/dL (8.4-10.2); GFR NON-AFRICAN AMERICAN > 60
[2018-05-02] MEDS: Insulin Lispro (humaLOG) 100 Units/ml Inj SC SCH ×5 (06:31→21:09)
[2018-05-02 06:44] LABS: T4 5.18 ug/dl (5.5-11.0)
[2018-05-02] MEDS ORDERED: Labetalol 5mg/ml (4ml) IVP STA (06:48)
[2018-05-02] MEDS: Enoxaparin 40 mg Syringe SC SCH (08:29)
[2018-05-02] MEDS: Azithromycin 500 MG in Sodium Chloride 0.9% 250 ML IVPB SCH (08:30)
--- NOTE | 2018-05-02 08:30 | CP.CCUPN ---
CCU Subjective - Physician Review Subjective (Free Text): 05/02/18 08:24 The patient was Seen/interviewed and examined by me at the bedside during ICU round, Medical records reviewed and Management issues were discussed and formulated with the house staff. Events reviewed 57 Years old Male with PMHx of DM2, HTN, HLD and psychiatric diagnoses Who is brought in by EMS to Emergency department after brother had called authorities to perform a wellness check on him. Apparently he could not be reached for a few days. Patient arrives with ser gluc > 500. He was obtunded on arrival and lethargic. Labs significant for PH 6.8 on ABG, high Anion gap with blood sugar of greater than 750 and Acute Kidney Injury due to Dehydration He was admitted to the ICU for management of diabetic ketoacidoses, better now, Insulin drip discontinued Patient awake, confused, no fever No Vasopressors CCU Objective - Vital Signs / Intake & Output Vital Signs (Last 4 hours): Vital Signs Temp Pulse Resp BP Pulse Ox 05/02/18 07:56 98.1 F 85 34 H 143/80 100 05/02/18 07:16 96 H 14 183/94 H 95 05/02/18 06:28 96 H 28 H 177/102 H 92 L 05/02/18 06:00 98 H 25 H 92 L Intake and Output (Last 8hrs): Intake & Output 05/01/18 05/02/18 05/02/18 22:59 06:59 14:59 Intake Total 925 1105 Output Total 1 Balance 925 1104 Weight 219 lb Intake: IV 875 1075 Oral 50 30 Tube Feeding 0 Output: Urine/Stool Mix 1 Other: # Voids Urethral (Carcamo) 1 1 - Physical Exam Head: Positive for: Atraumatic, Normocephalic Pupils: Positive for: PERRL Conjunctiva: Positive for: Normal Mouth: Positive for: Dry Nose (External): Positive for: Atraumatic Neck: Positive for: Normal Range of Motion Respiratory/Chest: Positive for: Clear to Auscultation Cardiovascular: Positive for: Regular Rate and Rhythm Abdomen: Positive for: Normal Bowel Sounds Upper Extremity: Positive for: Normal Inspection Lower Extremity: Positive for: Normal Inspection Neurological: Positive for: Other (awake, confused) - Medications Active Medications: Active Medications Generic Name Dose Route Start Last Admin Trade Name Freq PRN Reason Stop Dose Admin Acetaminophen 650 mg 05/01/18 01:11 05/01/18 01:16 Tylenol 650 Mg Supp LA 650 mg Q4 PRN Administration Fever >100.4 F Albuterol/Ipratropium 3 ml 04/30/18 22:19 05/01/18 01:58 Duoneb 3 Mg/0.5 Mg (3 Ml) Ud INH 3 ml RQ4 PRN Administration Cough and congestion Aspirin 81 mg 04/30/18 09:00 05/01/18 09:10 Ecotrin PO Not Given DAILY [facility] Atorvastatin Calcium 10 mg 04/30/18 22:00 05/01/18 21:58 Lipitor PO Not Given HS [facility] Dextrose 0 ml 04/30/18 02:46 Dextrose 50% Inj IV STAT PRN Hypoglycemia Protocol Protocol Dextrose 0 gm 04/30/18 02:46 Glutose 15 PO ONCE PRN Hypoglycemia Protocol Protocol Enalapril Maleate 10 mg 05/02/18 09:00 Vasotec PO DAILY [facility] Enoxaparin Sodium 40 mg 05/01/18 14:30 05/01/18 16:21 Lovenox SC 40 mg DAILY [facility] Administration Protocol Glucagon 0 mg 04/30/18 02:46 Glucagen Diagnostic Kit IM STAT PRN Hypoglycemia Protocol Protocol Haloperidol Lactate 2 mg 04/30/18 11:59 05/01/18 06:08 Haldol IM 2 mg Q4 PRN Administration Agitation Ceftriaxone Sodium 1 gm/ 100 mls @ 100 mls/hr 04/30/18 12:15 05/01/18 09:11 Sodium Chloride IVPB 100 mls/hr DAILY [facility] Administration Protocol Azithromycin 500 mg/ Sodium 250 mls @ 250 mls/hr 04/30/18 12:15 05/01/18 10:31 Chloride IVPB 250 mls/hr DAILY [facility] Administration Protocol Potassium Chloride 20 meq/ 1,010 mls @ 125 mls/hr 05/01/18 11:15 05/01/18 21:50 Sodium Chloride IV 05/02/18 11:16 125 mls/hr .[id number] [facility] Administration Insulin Detemir 30 units 04/30/18 22:00 05/01/18 22:00 Levemir SC Not Given HS [facility] Insulin Human Lispro 8 units 05/01/18 11:30 05/01/18 16:22 Humalog SC 8 units AC [facility] Administration Insulin Human Lispro 0 units 05/01/18 11:30 05/02/18 06:31 Humalog SC 3 units ACHS [facility] Administration Lorazepam 1 mg 04/30/18 18:55 05/01/18 22:58 Ativan IVP 1 mg Q6 PRN Administration Agitation Ondansetron HCl 4 mg 04/29/18 22:52 Zofran Inj IVP Q6H PRN Nausea/Vomiting - Patient Studies Lab Studies: Microbiology Studies 04/30/18 12:45 Blood Culture - Preliminary Blood NO GROWTH AFTER 24 HOURS 04/30/18 13:00 Blood Culture - Preliminary Blood NO GROWTH AFTER 24 HOURS 04/30/18 02:40 Urine Culture - Final Urine,Carcamo No Growth (<1,000 CFU/ML) 04/30/18 02:40 MRSA Culture (Admit) - Final Naris MRSA NOT DETECTED Lab Studies 05/02/18 05/02/18 05/02/18 Range/Units 04:36 04:30 04:30 WBC 11.0 H (4.8-10.8) K/uL RBC 3.75 L (4.40-5.90) Mil/uL Hgb 11.3 L (12.0-18.0) g/dL Hct 33.7 L (35.0-51.0) % MCV 89.7 (80.0-94.0) fl MCH 30.2 (27.0-31.0) pg MCHC 33.7 (33.0-37.0) g/dL RDW 13.4 (11.5-14.5) % Plt Count 113 L (130-400) K/uL Sodium 141 (132-148) mmol/l Potassium 3.5 L (3.6-5.0) MMOL/L Chloride 104 (98-107) mmol/L Carbon Dioxide 20 L (22-30) mmol/L Anion Gap 21 H (10-20) BUN 12 (9-20) mg/dl Creatinine 0.6 L (0.8-1.5) mg/dl Est GFR ( Amer) > 60 Est GFR (Non-Af Amer) > 60 POC Glucose (mg/dL) 308 H (65-110) mg/dL Random Glucose 330 H (75-110) mg/dL Hemoglobin A1c (4.2-6.5) % Calcium 8.4 (8.4-10.2) mg/dL Total Bilirubin 1.0 (0.2-1.3) mg/dl AST 133 H D (17-59) U/L ALT 73 H D (21-72) U/L Alkaline Phosphatase 110 (38-126) U/L Total Protein 5.7 L (6.3-8.2) G/DL Albumin 3.1 L (3.5-5.0) g/dL Globulin 2.6 (2.2-3.9) gm/dL Albumin/Globulin Ratio 1.2 (1.0-2.1) Folate ng/mL Thyroxine (T4) 5.18 L (5.5-11.0) ug/dl TSH 3rd Generation 0.02 L (0.46-4.68) mIU/ML Ur L.pneumophila Ag (NEGATIVE) Mycoplasma pneumon IgM (NEGATIVE) 05/02/18 05/01/18 05/01/18 Range/Units 00:57 21:00 19:51 WBC (4.8-10.8) K/uL RBC (4.40-5.90) Mil/uL Hgb (12.0-18.0) g/dL Hct (35.0-51.0) % MCV (80.0-94.0) fl MCH (27.0-31.0) pg MCHC (33.0-37.0) g/dL RDW (11.5-14.5) % Plt Count (130-400) K/uL Sodium (132-148) mmol/l Potassium (3.6-5.0) MMOL/L Chloride (98-107) mmol/L Carbon Dioxide (22-30) mmol/L Anion Gap (10-20) BUN (9-20) mg/dl Creatinine (0.8-1.5) mg/dl Est GFR ( Amer) Est GFR (Non-Af Amer) POC Glucose (mg/dL) 261 H 101 70 (65-110) mg/dL Random Glucose (75-110) mg/dL Hemoglobin A1c (4.2-6.5) % Calcium (8.4-10.2) mg/dL Total Bilirubin (0.2-1.3) mg/dl AST (17-59) U/L ALT (21-72) U/L Alkaline Phosphatase (38-126) U/L Total Protein (6.3-8.2) G/DL Albumin (3.5-5.0) g/dL Globulin (2.2-3.9) gm/dL Albumin/Globulin Ratio (1.0-2.1) Folate ng/mL Thyroxine (T4) (5.5-11.0) ug/dl TSH 3rd Generation (0.46-4.68) mIU/ML Ur L.pneumophila Ag (NEGATIVE) Mycoplasma pneumon IgM (NEGATIVE) 05/01/18 05/01/18 05/01/18 Range/Units 15:46 12:04 11:15 WBC (4.8-10.8) K/uL RBC (4.40-5.90) Mil/uL Hgb (12.0-18.0) g/dL Hct (35.0-51.0) % MCV (80.0-94.0) fl MCH (27.0-31.0) pg MCHC (33.0-37.0) g/dL RDW (11.5-14.5) % Plt Count (130-400) K/uL Sodium (132-148) mmol/l Potassium (3.6-5.0) MMOL/L Chloride (98-107) mmol/L Carbon Dioxide (22-30) mmol/L Anion Gap (10-20) BUN (9-20) mg/dl Creatinine (0.8-1.5) mg/dl Est GFR ( Amer) Est GFR (Non-Af Amer) POC Glucose (mg/dL) 161 H 140 H 118 H (65-110) mg/dL Random Glucose (75-110) mg/dL Hemoglobin A1c (4.2-6.5) % Calcium (8.4-10.2) mg/dL Total Bilirubin (0.2-1.3) mg/dl AST (17-59) U/L ALT (21-72) U/L Alkaline Phosphatase (38-126) U/L Total Protein (6.3-8.2) G/DL Albumin (3.5-5.0) g/dL Globulin (2.2-3.9) gm/dL Albumin/Globulin Ratio (1.0-2.1) Folate ng/mL Thyroxine (T4) (5.5-11.0) ug/dl TSH 3rd Generation (0.46-4.68) mIU/ML Ur L.pneumophila Ag (NEGATIVE) Mycoplasma pneumon IgM (NEGATIVE) 05/01/18 05/01/18 05/01/18 Range/Units 10:02 09:06 09:00 WBC (4.8-10.8) K/uL RBC (4.40-5.90) Mil/uL Hgb (12.0-18.0) g/dL Hct (35.0-51.0) % MCV (80.0-94.0) fl MCH (27.0-31.0) pg MCHC (33.0-37.0) g/dL RDW (11.5-14.5) % Plt Count (130-400) K/uL Sodium (132-148) mmol/l Potassium (3.6-5.0) MMOL/L Chloride (98-107) mmol/L Carbon Dioxide (22-30) mmol/L Anion Gap (10-20) BUN (9-20) mg/dl Creatinine (0.8-1.5) mg/dl Est GFR ( Amer) Est GFR (Non-Af Amer) POC Glucose (mg/dL) 127 H 172 H (65-110) mg/dL Random Glucose (75-110) mg/dL Hemoglobin A1c 12.3 H (4.2-6.5) % Calcium (8.4-10.2) mg/dL Total Bilirubin (0.2-1.3) mg/dl AST (17-59) U/L ALT (21-72) U/L Alkaline Phosphatase (38-126) U/L Total Protein (6.3-8.2) G/DL Albumin (3.5-5.0) g/dL Globulin (2.2-3.9) gm/dL Albumin/Globulin Ratio (1.0-2.1) Folate ng/mL Thyroxine (T4) (5.5-11.0) ug/dl TSH 3rd Generation (0.46-4.68) mIU/ML Ur L.pneumophila Ag (NEGATIVE) Mycoplasma pneumon IgM (NEGATIVE) 05/01/18 05/01/18 05/01/18 Range/Units 07:48 06:45 05:30 WBC (4.8-10.8) K/uL RBC (4.40-5.90) Mil/uL Hgb (12.0-18.0) g/dL Hct (35.0-51.0) % MCV (80.0-94.0) fl MCH (27.0-31.0) pg MCHC (33.0-37.0) g/dL RDW (11.5-14.5) % Plt Count (130-400) K/uL Sodium (132-148) mmol/l Potassium (3.6-5.0) MMOL/L Chloride (98-107) mmol/L Carbon Dioxide (22-30) mmol/L Anion Gap (10-20) BUN (9-20) mg/dl Creatinine (0.8-1.5) mg/dl Est GFR ( Amer) Est GFR (Non-Af Amer) POC Glucose (mg/dL) 128 H (65-110) mg/dL Random Glucose (75-110) mg/dL Hemoglobin A1c (4.2-6.5) % Calcium (8.4-10.2) mg/dL Total Bilirubin (0.2-1.3) mg/dl AST (17-59) U/L ALT (21-72) U/L Alkaline Phosphatase (38-126) U/L Total Protein (6.3-8.2) G/DL Albumin (3.5-5.0) g/dL Globulin (2.2-3.9) gm/dL Albumin/Globulin Ratio (1.0-2.1) Folate 13.4 ng/mL Thyroxine (T4) (5.5-11.0) ug/dl TSH 3rd Generation (0.46-4.68) mIU/ML Ur L.pneumophila Ag (NEGATIVE) Mycoplasma pneumon IgM Negative (NEGATIVE) 04/30/18 Range/Units 17:32 WBC (4.8-10.8) K/uL RBC (4.40-5.90) Mil/uL Hgb (12.0-18.0) g/dL Hct (35.0-51.0) % MCV (80.0-94.0) fl MCH (27.0-31.0) pg MCHC (33.0-37.0) g/dL RDW (11.5-14.5) % Plt Count (130-400) K/uL Sodium (132-148) mmol/l Potassium (3.6-5.0) MMOL/L Chloride (98-107) mmol/L Carbon Dioxide (22-30) mmol/L Anion Gap (10-20) BUN (9-20) mg/dl Creatinine (0.8-1.5) mg/dl Est GFR ( Amer) Est GFR (Non-Af Amer) POC Glucose (mg/dL) (65-110) mg/dL Random Glucose (75-110) mg/dL Hemoglobin A1c (4.2-6.5) % Calcium (8.4-10.2) mg/dL Total Bilirubin (0.2-1.3) mg/dl AST (17-59) U/L ALT (21-72) U/L Alkaline Phosphatase (38-126) U/L Total Protein (6.3-8.2) G/DL Albumin (3.5-5.0) g/dL Globulin (2.2-3.9) gm/dL Albumin/Globulin Ratio (1.0-2.1) Folate ng/mL Thyroxine (T4) (5.5-11.0) ug/dl TSH 3rd Generation (0.46-4.68) mIU/ML Ur L.pneumophila Ag Negative (NEGATIVE) Mycoplasma pneumon IgM (NEGATIVE) Laboratory Results - last 24 hr 04/30/18 05/01/18 05/01/18 17:32 05:30 06:45 WBC RBC Hgb Hct MCV MCH MCHC RDW Plt Count Sodium Potassium Chloride Carbon Dioxide Anion Gap BUN Creatinine Est GFR ( Amer) Est GFR (Non-Af Amer) POC Glucose (mg/dL) Random Glucose Hemoglobin A1c Calcium Total Bilirubin AST ALT Alkaline Phosphatase Total Protein Albumin Globulin Albumin/Globulin Ratio Folate 13.4 Thyroxine (T4) TSH 3rd Generation Ur L.pneumophila Ag Negative Mycoplasma pneumon IgM Negative 05/01/18 05/01/18 05/01/18 07:48 09:00 09:06 WBC RBC Hgb Hct MCV MCH MCHC RDW Plt Count Sodium Potassium Chloride Carbon Dioxide Anion Gap BUN Creatinine Est GFR ( Amer) Est GFR (Non-Af Amer) POC Glucose (mg/dL) 128 H 172 H Random Glucose Hemoglobin A1c 12.3 H Calcium Total Bilirubin AST ALT Alkaline Phosphatase Total Protein Albumin Globulin Albumin/Globulin Ratio Folate Thyroxine (T4) TSH 3rd Generation Ur L.pneumophila Ag Mycoplasma pneumon IgM 05/01/18 05/01/18 05/01/18 10:02 11:15 12:04 WBC RBC Hgb Hct MCV MCH MCHC RDW Plt Count Sodium Potassium Chloride Carbon Dioxide Anion Gap BUN Creatinine Est GFR ( Amer) Est GFR (Non-Af Amer) POC Glucose (mg/dL) 127 H 118 H 140 H Random Glucose Hemoglobin A1c Calcium Total Bilirubin AST ALT Alkaline Phosphatase Total Protein Albumin Globulin Albumin/Globulin Ratio Folate Thyroxine (T4) TSH 3rd Generation Ur L.pneumophila Ag Mycoplasma pneumon IgM 05/01/18 05/01/18 05/01/18 15:46 19:51 21:00 WBC RBC Hgb Hct MCV MCH MCHC RDW Plt Count Sodium Potassium Chloride Carbon Dioxide Anion Gap BUN Creatinine Est GFR ( Amer) Est GFR (Non-Af Amer) POC Glucose (mg/dL) 161 H 70 101 Random Glucose Hemoglobin A1c Calcium Total Bilirubin AST ALT Alkaline Phosphatase Total Protein Albumin Globulin Albumin/Globulin Ratio Folate Thyroxine (T4) TSH 3rd Generation Ur L.pneumophila Ag Mycoplasma pneumon IgM 05/02/18 05/02/18 05/02/18 00:57 04:30 04:30 WBC 11.0 H RBC 3.75 L Hgb 11.3 L Hct 33.7 L MCV 89.7 MCH 30.2 MCHC 33.7 RDW 13.4 Plt Count 113 L Sodium 141 Potassium 3.5 L Chloride 104 Carbon Dioxide 20 L Anion Gap 21 H BUN 12 Creatinine 0.6 L Est GFR ( Amer) > 60 Est GFR (Non-Af Amer) > 60 POC Glucose (mg/dL) 261 H Random Glucose 330 H Hemoglobin A1c Calcium 8.4 Total Bilirubin 1.0 AST 133 H D ALT 73 H D Alkaline Phosphatase 110 Total Protein 5.7 L Albumin 3.1 L Globulin 2.6 Albumin/Globulin Ratio 1.2 Folate Thyroxine (T4) 5.18 L TSH 3rd Generation 0.02 L Ur L.pneumophila Ag Mycoplasma pneumon IgM 05/02/18 04:36 WBC RBC Hgb Hct MCV MCH MCHC RDW Plt Count Sodium Potassium Chloride Carbon Dioxide Anion Gap BUN Creatinine Est GFR ( Amer) Est GFR (Non-Af Amer) POC Glucose (mg/dL) 308 H Random Glucose Hemoglobin A1c Calcium Total Bilirubin AST ALT Alkaline Phosphatase Total Protein Albumin Globulin Albumin/Globulin Ratio Folate Thyroxine (T4) TSH 3rd Generation Ur L.pneumophila Ag Mycoplasma pneumon IgM Radiology Impressions: Radiology Impressions Chest X-Ray 05/01/18 07:53 IMPRESSION: Pulmonary vascular congestion/edema with new superimposed patchy consolidations not excluded Fingerstick Blood Sugar Results: 308 Review of Systems - Review of Systems Systems not reviewed;Unavailable: Psychotic Critical Care Progress Note - Extremities/Vascular Does the Patient have a Central Venous Catheter?: No Does the Patient need a Central Venous Catheter?: No Does the Patient have a Carcamo Catheter?: No Does the Patient need a Carcamo Catheter?: No - Nutrition Nutrition: Nutrition Category Date Time Status Consistent Carbohydrate [DIET] Diets 05/01/18 Lunch Active Assessment/Plan (1) Acute kidney injury Current Visit: Yes Status: Resolved Priority: Medium (2) Dehydration Current Visit: Yes Status: Resolved Priority: Medium (3) Metabolic encephalopathy Current Visit: Yes Status: Acute Priority: High (4) DKA (diabetic ketoacidoses) Current Visit: Yes Status: Resolved Priority: Medium (5) DM (diabetes mellitus), type 2, uncontrolled Current Visit: Yes Status: Chronic Priority: Medium (6) Schizo-affective schizophrenia, chronic condition Current Visit: Yes Status: Chronic Priority: High - Assessment and Plan (Free Text) Assessment: - Continue current medications, reviewed - IV ceftriaxone and Azithromycin - Continue nebulizer treatment - Pulmonary toilets - Psychiatry follow up - PRN Ativan and PRN Haldol - Supplement Monica - Dr Montanez on consult - Continue Levemir 30 units SQ at bedtime - Continue Lispro (Humalog) - Tight glycemic control, RISS with Coverage - DVT prophylaxis: Lovenox 40 mg SC DAILY
[2018-05-02] MEDS: Potassium Chloride 20 MEQ in Sodium Chloride 0.45% 1,000 ML IV SCH (09:16)
[2018-05-02] MEDS ORDERED: Albuterol 0.083% Inhal Sol (2.5 mg/3 mL) UD INH ONE (10:24)
--- NOTE | 2018-05-02 10:47 | CP.PCM.PN ---
Subjective - Date & Time of Evaluation Date of Evaluation: 05/02/18 Time of Evaluation: 08:00 - Subjective Subjective: Pt seen and examined this morning. Seen lying in bed, opens eyes to voice, attempts to speak but makes incomprehensible noises. Does not appear agitated but as per RN was agitated overnight requiring Haldol. Pt noted on exam to have rales BL in mid lung lobes. Objective - Vital Signs/Intake and Output Vital Signs (last 24 hours): Temp Pulse Resp BP Pulse Ox 98.1 F 85 34 H 143/80 100 05/02/18 07:56 05/02/18 07:56 05/02/18 07:56 05/02/18 07:56 05/02/18 07:56 Intake and Output: 05/02/18 05/02/18 06:59 18:59 Intake Total 1480 125 Output Total 1 Balance 1479 125 - Medications Medications: Current Medications Acetaminophen (Tylenol 650 Mg Supp) 650 mg UT Q4 PRN PRN Reason: Fever >100.4 F Last Admin: 05/01/18 01:16 Dose: 650 mg Albuterol/Ipratropium (Duoneb 3 Mg/0.5 Mg (3 Ml) Ud) 3 ml INH RQ4 PRN PRN Reason: Cough and congestion Last Admin: 05/01/18 01:58 Dose: 3 ml Aspirin (Ecotrin) 81 mg PO DAILY [facility] Last Admin: 05/02/18 08:28 Dose: Not Given Atorvastatin Calcium (Lipitor) 10 mg PO HS [facility] Last Admin: 05/01/18 21:58 Dose: Not Given Dextrose (Dextrose 50% Inj) 0 ml IV STAT PRN; Protocol PRN Reason: Hypoglycemia Protocol Dextrose (Glutose 15) 0 gm PO ONCE PRN; Protocol PRN Reason: Hypoglycemia Protocol Enalapril Maleate (Vasotec) 10 mg PO DAILY [facility] Last Admin: 05/02/18 08:30 Dose: Not Given Enoxaparin Sodium (Lovenox) 40 mg SC DAILY [facility]; Protocol Last Admin: 05/02/18 08:29 Dose: 40 mg Furosemide (Lasix) 40 mg IV DAILY [facility] Glucagon (Glucagen Diagnostic Kit) 0 mg IM STAT PRN; Protocol PRN Reason: Hypoglycemia Protocol Haloperidol Lactate (Haldol) 2 mg IM Q4 PRN PRN Reason: Agitation Last Admin: 05/01/18 06:08 Dose: 2 mg Ceftriaxone Sodium 1 gm/ (Sodium Chloride) 100 mls @ 100 mls/hr IVPB DAILY [facility]; Protocol Last Admin: 05/02/18 08:29 Dose: 100 mls/hr Azithromycin 500 mg/ Sodium (Chloride) 250 mls @ 250 mls/hr IVPB DAILY [facility]; Protocol Last Admin: 05/02/18 08:30 Dose: 250 mls/hr Potassium Chloride/Dextrose/Sod Cl (Potassium Chl 20 Meq In D5-1/2ns) 1,000 mls @ 80 mls/hr IV .[id number] [facility] Stop: 05/03/18 10:22 Potassium Chloride (Potassium Chloride 20 Meq/100 Ml) 100 mls @ 50 mls/hr IVPB Q2 [facility] Stop: 05/02/18 15:59 Insulin Detemir (Levemir) 30 units SC HS [facility] Last Admin: 05/01/18 22:00 Dose: Not Given Insulin Human Lispro (Humalog) 8 units SC AC [facility] Last Admin: 05/02/18 08:29 Dose: 8 units Insulin Human Lispro (Humalog) 0 units SC ACHS [facility] Last Admin: 05/02/18 06:31 Dose: 3 units Lorazepam (Ativan) 1 mg IVP Q6 PRN PRN Reason: Agitation Last Admin: 05/01/18 22:58 Dose: 1 mg Ondansetron HCl (Zofran Inj) 4 mg IVP Q6H PRN PRN Reason: Nausea/Vomiting - Labs Labs: 05/02/18 04:30 05/02/18 04:30 - Constitutional Appears: No Acute Distress - Head Exam Head Exam: NORMAL INSPECTION - Eye Exam Eye Exam: Normal appearance, PERRL. absent: Nystagmus - ENT Exam ENT Exam: Mucous Membranes Moist - Neck Exam Additional comments: Neck veins flat - Respiratory Exam Respiratory Exam: Clear to Ausculation Bilateral, Rales (Bilateral rales mid lung bases ), Wheezes (mild end expiratory ). absent: Accessory Muscle Use, Stridor - Cardiovascular Exam Cardiovascular Exam: REGULAR RHYTHM, +S1, +S2 - GI/Abdominal Exam GI & Abdominal Exam: Soft. absent: Tenderness - Extremities Exam Extremities Exam: absent: Pedal Edema - Neurological Exam Neurological Exam: Alert - Psychiatric Exam Psychiatric exam: absent: Agitated Additional comments: Responds to voice, unable to follow commands, tracks with eyes. - Skin Skin Exam: Normal Color Assessment and Plan - Assessment and Plan (Free Text) Assessment: 57 y/o gent with hx of Insulin Dependent DM, Bipolar Disorder, was brought in by EMS very lethargic and in the ED found to be very acidotic and in DKA. Was placed on insulin and bicarbonate drip and taken off once his acid-base status corrected. Now currently remained in an altered state despite DKA resolving. 1. Altered Mental Status -GCS 10, E3V3M4 -Slightly improved from admission once DKA was resolved but still not following commands, incoherent speech. -May be metabolic encephalopathy 2/2 to DKA vs underlying psychiatric condition -Psychiatry consulted, recs appreciated- likely delirium secondary to acute medical condition, not safe to start po psych meds; Haldol and Ativan prn for agitation -Head CT negative -Frequent Neuro checks -Restraints for saftey as needed -Ammonia normal 2. DKA -Resolved, but still hyperglycemic 240-250, gap 21 (was 29 on admission); Bicarb 20 - pt came in lethargic severely acidotic with pH 6.8 on ABG , high Anion gap and with blood sugar of greater than 750 -Acid-Base normalized, last ABG 04/30/18 -Endo consulted- Dr Montanez; Started on Detemir 44units HS, Lispro 14 units SC AC -Hemoglobin A1C 12.3 -Insulin Sliding Scale -Close accucheck monitoring -D5 fluids, given he is NPO and on basal insulin 3. Pneumonia prob bacterial - WBC 11 (decreased from 28 on admission), Last fever 24 hours ago (05/01 8am) - CXR-Congestions, w/ new superimposed patchy consolidation - C/W IV ceftriaxone and Azithro -Legionella, Mycoplasma both negative - Blood c/s , sputum c/s--No growth 24 prelim -Monitor respiratory status - F/U Procalcitonin 4. Venous Congestion on Cxray -Reduced fluids to 1/2 maintanence. -S/P Lasix 40mg IV once -Monitor I/O's daily 5. Hypokalemia -Potassium 3.5, Repleted with IV KCl -F/U BMP 6. Acute Kidney Injury due to Dehydration, resolved -Resolved, Crea 0.6 today - C/W maintenance fluids, gently hydrate given venous congestion on Cxray 7. Transaminitis, mild -AST/ALT 133/73 -Avoid Hepatotoxic meds -Monitor LFT's 8. Low TSH, T4 -TSH 0.02, T4 5.18 - May be sick euthyroid -Will monitor and repeat once medical condition is stable 9. Bipolar Disorder - pt has hx of Bipolar, no information on what medication he takes or where he follows up. His brother will try to get info and will let me know - MD, pharmacy etc. -Haldol prn for agitation - Pt on 1:1 - discussed case with Dr Baker - rec to cont Haldol and Ativan prn and when pt can take PO meds - he will reorder his med for Bipolar 10. DVT proph - Lovenox, monitor platelets 11. Diet -Failed swallow, NPO Full Code
--- NOTE | 2018-05-02 10:50 | CP.PCM.PN ---
Objective - Vital Signs/Intake and Output Vital Signs (last 24 hours): Temp Pulse Resp BP Pulse Ox 98.1 F 85 34 H 143/80 100 05/02/18 07:56 05/02/18 07:56 05/02/18 07:56 05/02/18 07:56 05/02/18 07:56 Intake and Output: 05/02/18 05/02/18 06:59 18:59 Intake Total 1480 125 Output Total 1 Balance 1479 125 - Medications Medications: Current Medications Acetaminophen (Tylenol 650 Mg Supp) 650 mg RI Q4 PRN PRN Reason: Fever >100.4 F Last Admin: 05/01/18 01:16 Dose: 650 mg Albuterol/Ipratropium (Duoneb 3 Mg/0.5 Mg (3 Ml) Ud) 3 ml INH RQ4 PRN PRN Reason: Cough and congestion Last Admin: 05/01/18 01:58 Dose: 3 ml Aspirin (Ecotrin) 81 mg PO DAILY [facility] Last Admin: 05/02/18 08:28 Dose: Not Given Atorvastatin Calcium (Lipitor) 10 mg PO HS [facility] Last Admin: 05/01/18 21:58 Dose: Not Given Dextrose (Dextrose 50% Inj) 0 ml IV STAT PRN; Protocol PRN Reason: Hypoglycemia Protocol Dextrose (Glutose 15) 0 gm PO ONCE PRN; Protocol PRN Reason: Hypoglycemia Protocol Enalapril Maleate (Vasotec) 10 mg PO DAILY [facility] Last Admin: 05/02/18 08:30 Dose: Not Given Enoxaparin Sodium (Lovenox) 40 mg SC DAILY [facility]; Protocol Last Admin: 05/02/18 08:29 Dose: 40 mg Glucagon (Glucagen Diagnostic Kit) 0 mg IM STAT PRN; Protocol PRN Reason: Hypoglycemia Protocol Haloperidol Lactate (Haldol) 2 mg IM Q4 PRN PRN Reason: Agitation Last Admin: 05/01/18 06:08 Dose: 2 mg Ceftriaxone Sodium 1 gm/ (Sodium Chloride) 100 mls @ 100 mls/hr IVPB DAILY [facility]; Protocol Last Admin: 05/02/18 08:29 Dose: 100 mls/hr Azithromycin 500 mg/ Sodium (Chloride) 250 mls @ 250 mls/hr IVPB DAILY [facility]; Protocol Last Admin: 05/02/18 08:30 Dose: 250 mls/hr Potassium Chloride 20 meq/ (Sodium Chloride) 1,010 mls @ 125 mls/hr IV .[id number] [facility] Stop: 05/02/18 11:16 Last Admin: 05/02/18 09:16 Dose: 125 mls/hr Insulin Detemir (Levemir) 30 units SC HS [facility] Last Admin: 05/01/18 22:00 Dose: Not Given Insulin Human Lispro (Humalog) 8 units SC AC [facility] Last Admin: 05/02/18 08:29 Dose: 8 units Insulin Human Lispro (Humalog) 0 units SC ACHS [facility] Last Admin: 05/02/18 06:31 Dose: 3 units Lorazepam (Ativan) 1 mg IVP Q6 PRN PRN Reason: Agitation Last Admin: 05/01/18 22:58 Dose: 1 mg Ondansetron HCl (Zofran Inj) 4 mg IVP Q6H PRN PRN Reason: Nausea/Vomiting - Labs Labs: 05/02/18 04:30 05/02/18 04:30
[2018-05-02] MEDS: Potassium Ch 20mEq in D5-1/2NS 1,000 ML IV SCH (12:05)
[2018-05-02] MEDS: Potassium Chloride 20 mEq 100 ML IVPB SCH ×2 (12:06→14:38)
[2018-05-02] MEDS ORDERED: Insulin Lispro (humaLOG) 100 Units/ml Inj SC SCH (16:30)
[2018-05-02] MEDS: Insulin Detemir 100 Units/ml Inj SC SCH (22:00)
--- NOTE | 2018-05-02 23:34 | PN ---
DATE: 05/02/2018 ENDOCRINOLOGY FOLLOWUP NOTE LOCATION: Room 432, ICU. SUBJECTIVE: This is a 57-year-old male with recent uncontrolled type 1 insulin-dependent diabetes, presenting here with marked dehydration and severe diabetic ketoacidosis and is now being followed closely for metabolic management. He received vigorous IV hydration and intensive insulin therapy with an insulin drip infusion as given. His glycemic levels today are still elevated, ranging from 261 to 308 and mg/dL. His latest chemistry showed a BUN of 12, sodium 141, potassium , chloride 104, CO2 of 20, glucose 330 and creatinine 0.6. ASSESSMENT This is a 57-year-old male with uncontrolled and decompensated type 1 insulin-dependent diabetes, presenting here with severe diabetic ketoacidosis and dehydration and is now improving clinically and metabolically as noted thereof. PLAN OF MANAGEMENT: We will modify his current basal and bolus insulin regimens and increase the Humalog to 14 units subcu t.i.d. before meals to start today as ordered. We will also titrate his basal insulin with Levemir to be given as 44 units subcu at bedtime daily to start tonight. We will titrate incrementally as indicated to optimize metabolic control. We will obtain serial chemistries and supplement accordingly as needed. We will also continue the IV hydration as given. We will follow. Anna Marie Montanez MD
[2018-05-03] MEDS: Potassium Ch 20mEq in D5-1/2NS 1,000 ML IV SCH (05:21)
[2018-05-03] MEDS: Insulin Lispro (humaLOG) 100 Units/ml Inj SC SCH ×7 (05:25→22:06)
[2018-05-03 06:51] LABS: MEAN CELL VOLUME 90.3 fl (80.0-94.0); MEAN CORPUSCULAR HEMOGLOBIN 31.1 pg (27.0-31.0); MEAN CORPUSCULAR HGB CONC 34.4 g/dL (33.0-37.0); RBC 4.19 Mil/uL (4.40-5.90); RED CELL DISTRIBUTION WIDTH 13.6 % (11.5-14.5); WHITE BLOOD COUNT 11.7 K/uL (4.8-10.8)
[2018-05-03 07:14] LABS: ALB/GLOB RATIO 1.1 (1.0-2.1); ALBUMIN 3.2 g/dL (3.5-5.0); ALT/SGPT 60 U/L (21-72); AST/SGOT 53 U/L (17-59); BLOOD UREA NITROGEN 16 mg/dl (9-20); GFR NON-AFRICAN AMERICAN > 60
[2018-05-03] MEDS ORDERED: POTASSIUM PHOSPHATE IV ONE (07:27)
[2018-05-03] MEDS ORDERED: WATER IV ONE (07:27)
[2018-05-03] MEDS ORDERED: DEXTROSE IV ONE (07:27)
[2018-05-03] MEDS: Enoxaparin 40 mg Syringe SC SCH (08:02)
[2018-05-03] MEDS: Azithromycin 500 MG in Sodium Chloride 0.9% 250 ML IVPB SCH (08:03)
--- NOTE | 2018-05-03 08:44 | CON ---
DATE: 04/30/2018 LOCATION: Room 432, ICU. HISTORY OF PRESENT ILLNESS: This is a 57-year-old male, presenting here with altered mental status ____ and subsequent obtunding ____ was found to have marked hyperglycemic acceleration and is now referred for diabetic evaluation and management. PAST MEDICAL HISTORY: Type I insulin diabetes, previously on Humalog given as 20 units t.i.d. with meals and Lantus 40 units at bedtime, but apparently had recent drug omission and has been lost to medical followup as noted. He was once seen by me over two years ago for multiple inpatient diabetic consults and few outpatient followup, but extremely noncompliant and poorly ____ and medical followup ____ last seen over two years ago. He was followed ____ primary physician up until the present time. History of hypertension and dyslipidemia, some generalized anxiety and major depressive disorder with underlying schizoaffective disorder, on psychotropic medicines as noted with Risperdal and current medications as received. History of diabetic retinopathy and polyneuropathy with painful on Cymbalta medications as noted. FAMILY HISTORY: Positive for diabetes and hypertension. SOCIAL HISTORY: The patient has a supportive family. No known substance use. REVIEW OF SYSTEMS: Not possible at this time because of the patient's current physical state, but the chart has been reviewed in detail ____ primary physician's note was reviewed in detail. PHYSICAL EXAMINATION: GENERAL: Overweight male, no distress, but remains obtunded and poorly responsive at this time. VITAL SIGNS: Blood pressure of 140/80, pulse of 100 beats per minute and regular, temperature , respirations 20, height is 6 feet 2 inches, 206 pounds. HEENT: Head, normocephalic. Eyes, anicteric with pink conjunctivae. Funduscopy not possible at this time. Ears, nose, and throat, otherwise, normal. NECK: Supple. Thyroid gland is normal in size. No carotid bruit or any cervical adenopathy. CARDIOPULMONARY: Some adynamic precordium. S1, S2, rapid and regular. LUNGS: Clear to auscultation. ABDOMEN: Obese, soft with positive bowel sounds. EXTREMITIES: No peripheral edema. Pulses are +2 bilaterally. LABORATORY DATA: Chemistries, BUN of 40, sodium 124, potassium ____, chloride ____, CO2 of ____, glucose 1191, is 2.1. WBC is 28.2, hemoglobin of 12, hematocrit of ____, MCV ____. ASSESSMENT: This is a 57-year-old male, who has uncontrolled and decompensated type 1 insulin-dependent diabetes presenting with marked hyperglycemic acceleration, dehydration, prerenal azotemia, ____ and hyperkalemia with severe diabetic ketoacidosis as noted. He also has diabetic microvascular complications of retinopathy ____ and possibly diabetic nephropathy as he has been lost to followup. PLAN OF MANAGEMENT: We will intensify the vigorous IV hydration as discussed with hospitalized and increase and add normal saline running at 250 mL/hour to start as ordered. We will continue the bicarbonate drip as given, although the bicarbonate infusion will not help unless we give ____ replenishment to the extreme and marked deficits at this time. Continue the intensive insulin ____ and insulin drip infusion as ordered and given. We will obtain serial chemistries and supplement accordingly as needed. We will follow. We will obtain ____. We will follow with you. ____ clinical status improved, then we can start him on a direct moderate rate consistent carbohydrate diet and heart-healthy diet as indicated. We will also switch her to a more physiologic basal and bolus insulin drug combination once the ketoacidosis resolves accordingly. Anna Marie Montanez MD
--- NOTE | 2018-05-03 09:11 | CP.PCM.PN ---
<Lola Vega - Last Filed: 05/03/18 10:27> Subjective - Date & Time of Evaluation Date of Evaluation: 05/03/18 Time of Evaluation: 09:11 - Subjective Subjective: Pt seen and examined at bedside. Seen sitting up in bed. Was initially difficult to arouse but then opened his eyes and was able to state which pharmacy he goes to. Is drinking fluids now with the nurse at bedside. Does not appear agitated at this time. Seems confused at this time but more alert as compared to yesterday. Objective - Vital Signs/Intake and Output Vital Signs (last 24 hours): Temp Pulse Resp BP Pulse Ox 98.6 F 97 H 18 138/81 98 05/03/18 08:00 05/03/18 08:00 05/03/18 08:00 05/03/18 08:00 05/03/18 08:00 - Medications Medications: Current Medications Acetaminophen (Tylenol 650 Mg Supp) 650 mg SC Q4 PRN PRN Reason: Fever >100.4 F Last Admin: 05/01/18 01:16 Dose: 650 mg Albuterol/Ipratropium (Duoneb 3 Mg/0.5 Mg (3 Ml) Ud) 3 ml INH RQ4 PRN PRN Reason: Cough and congestion Last Admin: 05/01/18 01:58 Dose: 3 ml Aspirin (Ecotrin) 81 mg PO DAILY [facility] Last Admin: 05/03/18 08:00 Dose: Not Given Atorvastatin Calcium (Lipitor) 10 mg PO HS [facility] Last Admin: 05/02/18 21:09 Dose: Not Given Dextrose (Dextrose 50% Inj) 0 ml IV STAT PRN; Protocol PRN Reason: Hypoglycemia Protocol Dextrose (Glutose 15) 0 gm PO ONCE PRN; Protocol PRN Reason: Hypoglycemia Protocol Enalapril Maleate (Vasotec) 10 mg PO DAILY [facility] Last Admin: 05/03/18 08:03 Dose: Not Given Enoxaparin Sodium (Lovenox) 40 mg SC DAILY [facility]; Protocol Last Admin: 05/03/18 08:02 Dose: 40 mg Glucagon (Glucagen Diagnostic Kit) 0 mg IM STAT PRN; Protocol PRN Reason: Hypoglycemia Protocol Haloperidol Lactate (Haldol) 2 mg IM Q4 PRN PRN Reason: Agitation Last Admin: 05/03/18 00:14 Dose: 2 mg Ceftriaxone Sodium 1 gm/ (Sodium Chloride) 100 mls @ 100 mls/hr IVPB DAILY [facility]; Protocol Last Admin: 05/03/18 08:02 Dose: 100 mls/hr Azithromycin 500 mg/ Sodium (Chloride) 250 mls @ 250 mls/hr IVPB DAILY [facility]; Protocol Last Admin: 05/03/18 08:03 Dose: 250 mls/hr Potassium Chloride/Dextrose/Sod Cl (Potassium Chl 20 Meq In D5-1/2ns) 1,000 mls @ 80 mls/hr IV .[id number] [facility] Stop: 05/03/18 10:22 Last Admin: 05/03/18 05:21 Dose: 80 mls/hr Potassium Phosphate 8 mmole/ (Dextrose) 252.6667 mls @ 84 mls/hr IV .Q3H1M ONE Stop: 05/03/18 10:27 Insulin Detemir (Levemir) 44 units SC HS [facility] Last Admin: 05/02/18 22:00 Dose: 44 u Insulin Human Lispro (Humalog) 0 units SC ACHS [facility] Last Admin: 05/03/18 08:00 Dose: 5 units Insulin Human Lispro (Humalog) 18 units SC AC [facility] Last Admin: 05/03/18 08:01 Dose: 18 units Lorazepam (Ativan) 1 mg IVP Q6 PRN PRN Reason: Agitation Last Admin: 05/03/18 05:31 Dose: 1 mg Ondansetron HCl (Zofran Inj) 4 mg IVP Q6H PRN PRN Reason: Nausea/Vomiting - Labs Labs: 05/03/18 05:45 05/03/18 05:45 - Constitutional Appears: Non-toxic, No Acute Distress, Confused - Eye Exam Eye Exam: Normal appearance - ENT Exam ENT Exam: Mucous Membranes Moist - Respiratory Exam Respiratory Exam: Clear to Ausculation Bilateral, NORMAL BREATHING PATTERN. absent: Decreased Breath Sounds, Prolonged Expiratory Phase, Rales, Rhonchi, Wheezes, Respiratory Distress, Stridor - Cardiovascular Exam Cardiovascular Exam: REGULAR RHYTHM, RRR, +S1, +S2. absent: Clicks, Diastolic murmur, JVD, Rubs, Murmur - GI/Abdominal Exam GI & Abdominal Exam: Soft. absent: Distended, Firm, Guarding, Rigid, Tenderness, Rebound - Extremities Exam Extremities Exam: Normal Capillary Refill, Normal Inspection. absent: Pedal [place] ma, Tenderness Additional comments: +2 dorsalis pedis and tibialis pulses bilaterally. - Neurological Exam Additional comments: Patient is confused. Arousable when prompted. Opens eyes and minimal speak but comprehensible. Patient was able to state which pharmacy he goes to. Seems confused. - Skin Skin Exam: Dry, Intact, Normal Color, Warm Assessment and Plan - Assessment and Plan (Free Text) Assessment: 57 y/o gent with hx of Insulin Dependent DM, Bipolar Disorder, was brought in by EMS very lethargic and in the ED found to be very acidotic and in DKA. Was placed on insulin and bicarbonate drip and taken off once his acid-base status corrected. Now currently remained in an altered state despite DKA resolving. Plan: 1. Altered Mental Status -GCS 11, [id number] -Slightly improved from admission once DKA was resolved but still not following commands, Speaking a few words more clearly today. -May be metabolic encephalopathy 2/2 to DKA vs underlying psychiatric condition - Neurology consult- given continued AMS - EEG ordered -Psychiatry consulted, recs appreciated- likely delirium secondary to acute medical condition, not safe to start po psych meds; Haldol and Ativan prn for agitation - Reconsulted. -Head CT negative -Frequent Neuro checks -Restraints for saftey as needed -Ammonia normal 2. DKA -Resolved, but still hyperglycemic 240-250, gap 21 (was 29 on admission); Bicarb 20 - pt came in lethargic severely acidotic with pH 6.8 on ABG , high Anion gap and with blood sugar of greater than 750 -Acid-Base normalized, last ABG 04/30/18 -Endo consulted- Dr Montanez; Started on Detemir 44units HS, Lispro 14 units SC AC -Hemoglobin A1C 12.3 -Insulin Sliding Scale -Close accucheck monitoring -D5 fluids, given he is NPO and on basal insulin 3. Pneumonia prob bacterial - WBC 11 (decreased from 28 on admission), Last fever 24 hours ago (05/01 8am) - CXR-Congestions, w/ new superimposed patchy consolidation - C/W IV ceftriaxone and Azithro -Legionella, Mycoplasma both negative - Blood c/s , sputum c/s--No growth 24 prelim -Monitor respiratory status - F/U Procalcitonin 4. Venous Congestion on Cxray -Reduced fluids to 1/2 maintanence. - Patient clear on lung exam today. -S/P Lasix 40mg IV once -Monitor I/O's daily 5. Hypokalemia -Potassium 3.9 -F/U BMP Hypophosphatemia Phosphorus at 1.5 Repleted with Kphos continue to follow 6. Acute Kidney Injury due to Dehydration, resolved -Resolved, Crea 0.6 today - C/W maintenance fluids, gently hydrate given venous congestion on Cxray 7. Transaminitis, mild -AST/ALT 133/73 -Avoid Hepatotoxic meds -Monitor LFT's 8. Low TSH, T4 -TSH 0.02, T4 5.18 - May be sick euthyroid -Will monitor and repeat once medical condition is stable 9. Bipolar Disorder - pt has hx of Bipolar, no information on what medication he takes or where he follows up. His brother will try to get info and will let me know - MD, pharmacy etc. -Haldol prn for agitation - Pt on 1:1 - discussed case with Dr Baker - rec to cont Haldol and Ativan prn and when pt can take PO meds - he will reorder his med for Bipolar 10. DVT proph - Lovenox, monitor platelets 11. Diet -Failed swallow, NPO <Alaina Manuel - Last Filed: 05/03/18 14:25> Objective - Vital Signs/Intake and Output Vital Signs (last 24 hours): Temp Pulse Resp BP Pulse Ox 97.7 F 83 25 H 143/80 100 05/03/18 12:00 05/03/18 12:00 05/03/18 12:00 05/03/18 12:00 05/03/18 12:00 - Medications Medications: Current Medications Acetaminophen (Tylenol 650 Mg Supp) 650 mg SC Q4 PRN PRN Reason: Fever >100.4 F Last Admin: 05/01/18 01:16 Dose: 650 mg Albuterol/Ipratropium (Duoneb 3 Mg/0.5 Mg (3 Ml) Ud) 3 ml INH RQ4 PRN PRN Reason: Cough and congestion Last Admin: 05/01/18 01:58 Dose: 3 ml Aspirin (Ecotrin) 81 mg PO DAILY [facility] Last Admin: 05/03/18 08:00 Dose: Not Given Atorvastatin Calcium (Lipitor) 20 mg PO HS [facility] Dextrose (Dextrose 50% Inj) 0 ml IV STAT PRN; Protocol PRN Reason: Hypoglycemia Protocol Last Admin: 05/03/18 12:42 Dose: 50 ml Dextrose (Glutose 15) 0 gm PO ONCE PRN; Protocol PRN Reason: Hypoglycemia Protocol Duloxetine HCl (Cymbalta) 60 mg PO DAILY [facility] Enalapril Maleate (Vasotec) 10 mg PO DAILY [facility] Last Admin: 05/03/18 08:03 Dose: Not Given Enoxaparin Sodium (Lovenox) 40 mg SC DAILY [facility]; Protocol Last Admin: 05/03/18 08:02 Dose: 40 mg Glucagon (Glucagen Diagnostic Kit) 0 mg IM STAT PRN; Protocol PRN Reason: Hypoglycemia Protocol Haloperidol Lactate (Haldol) 2 mg IM Q4 PRN PRN Reason: Agitation Last Admin: 05/03/18 00:14 Dose: 2 mg Ceftriaxone Sodium 1 gm/ (Sodium Chloride) 100 mls @ 100 mls/hr IVPB DAILY [facility]; Protocol Last Admin: 05/03/18 08:02 Dose: 100 mls/hr Azithromycin 500 mg/ Sodium (Chloride) 250 mls @ 250 mls/hr IVPB DAILY [facility]; Protocol Last Admin: 05/03/18 08:03 Dose: 250 mls/hr Insulin Detemir (Levemir) 44 units SC HS [facility] Last Admin: 05/02/18 22:00 Dose: 44 u Insulin Human Lispro (Humalog) 0 units SC ACHS [facility] Last Admin: 05/03/18 12:38 Dose: Not Given Insulin Human Lispro (Humalog) 18 units SC AC [facility] Last Admin: 05/03/18 12:39 Dose: Not Given Ondansetron HCl (Zofran Inj) 4 mg IVP Q6H PRN PRN Reason: Nausea/Vomiting Oxcarbazepine (Trileptal) 300 mg PO BID [facility] Risperidone (Risperdal M-Tab) 2 mg PO HS [facility] - Labs Labs: 05/03/18 05:45 05/03/18 05:45 Assessment and Plan (1) DKA (diabetic ketoacidoses) Status: Resolved (2) Pneumonia Status: Acute (3) Bipolar disorder Status: Chronic Attending/Attestation - Attestation I have personally seen and examined this patient.: Yes I have fully participated in the care of the patient.: Yes I have reviewed all pertinent clinical information, including history, physical exam and plan: Yes Notes (Text): DKA DM Type I Insulin Dependent Pneumonia, bacterial Metabolic Encephalopathy - still lethargic but better compared to when I saw him over the weekend, - was able to cooperate with Speech for swallow eval for a few minutes - gap closed - Off Insulin drip - on Levemir and TID Lispro - episode of hyper and hypoglycemia - passed swallow eval however too drowsy to eat - cont IV Azithro and Ceftriaxone - Neuro consult -EEG - rpt CT scan of head as rec by Dr Brandt , may not tolerate MRI as pt uncooperative - Hold Lispro as Glucose went down to 28
--- NOTE | 2018-05-03 09:26 | PQF ---
PROVIDER RESPONSE TEXT: DM Type I Insulin Dependent REVIEWER QUERY TEXT: Conflicting Documentation Clarification DM Type 1 versus DM Type 2: Please clarify the diagnosis/diagnoses. -- Other, please specify H and P: liklely DM Type 2 Endocrinoly consult: DM Type 1 The patient's Clinical Indicators include: -- Query created by: Mayra Roldan on 05/03/2018 9:04 AM Electronically signed by: Alaina Manuel MD 05/03/2018 9:23 AM
--- NOTE | 2018-05-03 09:49 | RAD ---
Date of service: 05/03/2018 HISTORY: cough and altered mental status COMPARISON: 05/01/2018 FINDINGS: LUNGS: Slight decrease in extent of right upper lobe opacity. Decrease in the extent of left perihilar opacity. Possible resolving pneumonia or resolving pulmonary edema. No new opacity identified elsewhere. PLEURA: No significant pleural effusion identified, no pneumothorax apparent. CARDIOVASCULAR: No aortic atherosclerotic calcification present. Normal cardiac size. No pulmonary vascular congestion. OSSEOUS STRUCTURES: No significant abnormalities. VISUALIZED UPPER ABDOMEN: Normal. OTHER FINDINGS: None. IMPRESSION: Decrease right upper lobe and left perihilar opacities. Nonspecific.
[2018-05-03] MEDS ORDERED: Risperidone M tab 1 MG PO STA (10:06)
--- NOTE | 2018-05-03 10:53 | CP.PCM.CON ---
History of Present Illness - History of Present Illness History of Present Illness: Psychiatry consult follow-up note CC: AMS HPI: 57 yo admitted w/ AMS, DKA, PNA, Venous congestion, ИВАН and metabolic abnormalities, h/o schizoaffective vs bipolar disorder, continues to have AMS. Patient unable to engage in interview with proposal manager writer due to acute lethargy. He was only able to state his first name. Patient was restarted on his previous psychiatric medications by the primary medical team this morning. MSE: Unable to perform due to acute confusion and lethargy Impression: 57 yo admitted w/ AMS, DKA, PNA, Venous congestion, ИВАН and metabolic abnormalities, h/o schizoaffective vs bipolar disorder; patient continues to be acutely delirious due to acute medical conditions; not secondary to psychiatric illness. -Recommend the patient be re-evaluated when he is A + O x 3 and able to engage in psychiatric interview -Continue home psychiatric medications: Cymbalta, Trileptal and Risperdal if patient is able to swallow medications; if medications make patient more sedated, would recommend to continue to hold psychiatric medications until patient's mental status improves -Hold Klonopin as it may worsen confusion and agitation Past Patient History - Past Medical History & Family History Past Medical History?: Yes - Past Social History Smoking Status: Never Smoked - CARDIAC Hx Hypercholesterolemia: Yes Hx Hypertension: Yes - PULMONARY Hx Bronchitis: Yes - NEUROLOGICAL Hx Seizures: No - HEENT Hx HEENT Problems: No - RENAL Hx Chronic Kidney Disease: No - ENDOCRINE/METABOLIC Hx Endocrine Disorders: Yes Hx Diabetes Mellitus Type 2: Yes - HEMATOLOGICAL/ONCOLOGICAL Hx Human Immunodeficiency Virus (HIV): No - INTEGUMENTARY Hx Dermatological Problems: No - MUSCULOSKELETAL/RHEUMATOLOGICAL Hx Falls: No - GASTROINTESTINAL Hx Gastrointestinal Disorders: No - GENITOURINARY/GYNECOLOGICAL Hx Sexually Transmitted Disorders: No - PSYCHIATRIC Hx Anxiety: Yes Hx Bipolar Disorder: Yes Hx Depression: Yes Hx Substance Use: No - SURGICAL HISTORY Hx Surgeries: No Other/Comment: rivera's palsy - ANESTHESIA Hx Anesthesia: No Hx Anesthesia Reactions: No Meds Allergies/Adverse Reactions: Allergies Allergy/AdvReac Type Severity Reaction Status Date / Time No Known Allergies Allergy Verified 04/29/18 22:32 - Medications Medications: Current Medications Acetaminophen (Tylenol 650 Mg Supp) 650 mg [facility] Q4 PRN PRN Reason: Fever >100.4 F Last Admin: 05/01/18 01:16 Dose: 650 mg Albuterol/Ipratropium (Duoneb 3 Mg/0.5 Mg (3 Ml) Ud) 3 ml INH RQ4 PRN PRN Reason: Cough and congestion Last Admin: 05/01/18 01:58 Dose: 3 ml Aspirin (Ecotrin) 81 mg PO DAILY [facility] Last Admin: 05/03/18 08:00 Dose: Not Given Atorvastatin Calcium (Lipitor) 10 mg PO HS [facility] Last Admin: 05/02/18 21:09 Dose: Not Given Atorvastatin Calcium (Lipitor) 20 mg PO HS [facility] Dextrose (Dextrose 50% Inj) 0 ml IV STAT PRN; Protocol PRN Reason: Hypoglycemia Protocol Dextrose (Glutose 15) 0 gm PO ONCE PRN; Protocol PRN Reason: Hypoglycemia Protocol Enalapril Maleate (Vasotec) 10 mg PO DAILY [facility] Last Admin: 05/03/18 08:03 Dose: Not Given Enoxaparin Sodium (Lovenox) 40 mg SC DAILY [facility]; Protocol Last Admin: 05/03/18 08:02 Dose: 40 mg Glucagon (Glucagen Diagnostic Kit) 0 mg IM STAT PRN; Protocol PRN Reason: Hypoglycemia Protocol Haloperidol Lactate (Haldol) 2 mg IM Q4 PRN PRN Reason: Agitation Last Admin: 05/03/18 00:14 Dose: 2 mg Ceftriaxone Sodium 1 gm/ (Sodium Chloride) 100 mls @ 100 mls/hr IVPB DAILY [facility]; Protocol Last Admin: 05/03/18 08:02 Dose: 100 mls/hr Azithromycin 500 mg/ Sodium (Chloride) 250 mls @ 250 mls/hr IVPB DAILY [facility]; Protocol Last Admin: 05/03/18 08:03 Dose: 250 mls/hr Insulin Detemir (Levemir) 44 units SC HS [facility] Last Admin: 05/02/18 22:00 Dose: 44 u Insulin Human Lispro (Humalog) 0 units SC ACHS [facility] Last Admin: 05/03/18 08:00 Dose: 5 units Insulin Human Lispro (Humalog) 18 units SC AC [facility] Last Admin: 05/03/18 08:01 Dose: 18 units Lorazepam (Ativan) 1 mg IVP Q6 PRN PRN Reason: Agitation Last Admin: 05/03/18 05:31 Dose: 1 mg Ondansetron HCl (Zofran Inj) 4 mg IVP Q6H PRN PRN Reason: Nausea/Vomiting Oxcarbazepine (Trileptal) 300 mg PO BID [facility] Risperidone (Risperdal M-Tab) 1 mg PO DAILY [facility] Results - Vital Signs Recent Vital Signs: Last Vital Signs Temp 98.6 F 05/03/18 08:00 Pulse 92 H 05/03/18 10:00 Resp 21 05/03/18 10:00 BP 139/72 05/03/18 10:00 Pulse Ox 94 L 05/03/18 10:00 - Labs Result Diagrams: 05/03/18 05:45 05/03/18 05:45 Labs: Laboratory Results - last 24 hr 05/02/18 05/02/18 05/02/18 11:33 13:00 16:49 WBC RBC Hgb Hct MCV MCH MCHC RDW Plt Count Sodium Potassium Chloride Carbon Dioxide Anion Gap BUN Creatinine Est GFR ( Amer) Est GFR (Non-Af Amer) POC Glucose (mg/dL) 246 H 352 H Random Glucose Calcium Phosphorus Magnesium Total Bilirubin AST ALT Alkaline Phosphatase Ammonia < 9 L Total Protein Albumin Globulin Albumin/Globulin Ratio 05/02/18 05/03/18 05/03/18 20:47 05:16 05:45 WBC 11.7 H RBC 4.19 L Hgb 13.0 Hct 37.8 MCV 90.3 MCH 31.1 H MCHC 34.4 RDW 13.6 Plt Count 131 Sodium Potassium Chloride Carbon Dioxide Anion Gap BUN Creatinine Est GFR ( Amer) Est GFR (Non-Af Amer) POC Glucose (mg/dL) 259 H 401 H* Random Glucose Calcium Phosphorus Magnesium Total Bilirubin AST ALT Alkaline Phosphatase Ammonia Total Protein Albumin Globulin Albumin/Globulin Ratio 05/03/18 05/03/18 05:45 09:39 WBC RBC Hgb Hct MCV MCH MCHC RDW Plt Count Sodium 146 Potassium 3.9 Chloride 112 H Carbon Dioxide 21 L Anion Gap 17 BUN 16 Creatinine 0.8 Est GFR ( Amer) > 60 Est GFR (Non-Af Amer) > 60 POC Glucose (mg/dL) 85 Random Glucose 388 H Calcium 9.0 Phosphorus 1.5 L Magnesium 2.3 Total Bilirubin 0.8 AST 53 ALT 60 Alkaline Phosphatase 119 Ammonia Total Protein 6.1 L Albumin 3.2 L Globulin 2.9 Albumin/Globulin Ratio 1.1
[2018-05-03] MEDS ORDERED: Dextrose 50% SYRINGE Inj (50 ml) ONE (12:29)
[2018-05-03] MEDS ORDERED: Dextrose 50% SYRINGE Inj (50 ml) IVP STA (12:35)
[2018-05-03] MEDS ORDERED: Influenza Vaccine 60 MCG/0.5 ML SYR (3 yr & up) IM ONE (13:18)
[2018-05-03] MEDS ORDERED: Pneumococcal 23-Valent Vaccine IM ONE (13:18)
--- NOTE | 2018-05-03 13:23 | CP.PCM.CON ---
History of Present Illness - History of Present Illness History of Present Illness: Neurology Consultation Note: Consult requested by Dr. Tapan Sheehan Mr. Espino is a 57-year-old man with a past medical history of DM with DKA, pneumonia, brought in with acute encephalopathy, psychiatric illness, found to have ИВАН, acidosis, and multiple metabolic derangements with elevated WBC. His serum glucose has been difficult to control. He is now awake, alert, but continues to be confused. CT head was done on the and did not show any acute findings. Review of Systems - Review of Systems Systems not reviewed;Unavailable: Altered Mental Status Past Patient History - Past Medical History & Family History Past Medical History?: Yes - Past Social History Smoking Status: Never Smoked - CARDIAC Hx Hypercholesterolemia: Yes Hx Hypertension: Yes - PULMONARY Hx Bronchitis: Yes - NEUROLOGICAL Hx Seizures: No - HEENT Hx HEENT Problems: No - RENAL Hx Chronic Kidney Disease: No - ENDOCRINE/METABOLIC Hx Endocrine Disorders: Yes Hx Diabetes Mellitus Type 2: Yes - HEMATOLOGICAL/ONCOLOGICAL Hx Human Immunodeficiency Virus (HIV): No - INTEGUMENTARY Hx Dermatological Problems: No - MUSCULOSKELETAL/RHEUMATOLOGICAL Hx Falls: No - GASTROINTESTINAL Hx Gastrointestinal Disorders: No - GENITOURINARY/GYNECOLOGICAL Hx Sexually Transmitted Disorders: No - PSYCHIATRIC Hx Anxiety: Yes Hx Bipolar Disorder: Yes Hx Depression: Yes Hx Substance Use: No - SURGICAL HISTORY Hx Surgeries: No Other/Comment: rivera's palsy - ANESTHESIA Hx Anesthesia: No Hx Anesthesia Reactions: No Meds Allergies/Adverse Reactions: Allergies Allergy/AdvReac Type Severity Reaction Status Date / Time No Known Allergies Allergy Verified 04/29/18 22:32 - Medications Medications: Current Medications Acetaminophen (Tylenol 650 Mg Supp) 650 mg [place] Q4 PRN PRN Reason: Fever >100.4 F Last Admin: 05/01/18 01:16 Dose: 650 mg Albuterol/Ipratropium (Duoneb 3 Mg/0.5 Mg (3 Ml) Ud) 3 ml INH RQ4 PRN PRN Reason: Cough and congestion Last Admin: 05/01/18 01:58 Dose: 3 ml Aspirin (Ecotrin) 81 mg PO DAILY [facility] Last Admin: 05/03/18 08:00 Dose: Not Given Atorvastatin Calcium (Lipitor) 20 mg PO HS [facility] Dextrose (Dextrose 50% Inj) 0 ml IV STAT PRN; Protocol PRN Reason: Hypoglycemia Protocol Last Admin: 05/03/18 12:42 Dose: 50 ml Dextrose (Glutose 15) 0 gm PO ONCE PRN; Protocol PRN Reason: Hypoglycemia Protocol Duloxetine HCl (Cymbalta) 60 mg PO DAILY [facility] Enalapril Maleate (Vasotec) 10 mg PO DAILY [facility] Last Admin: 05/03/18 08:03 Dose: Not Given Enoxaparin Sodium (Lovenox) 40 mg SC DAILY [facility]; Protocol Last Admin: 05/03/18 08:02 Dose: 40 mg Glucagon (Glucagen Diagnostic Kit) 0 mg IM STAT PRN; Protocol PRN Reason: Hypoglycemia Protocol Haloperidol Lactate (Haldol) 2 mg IM Q4 PRN PRN Reason: Agitation Last Admin: 05/03/18 00:14 Dose: 2 mg Ceftriaxone Sodium 1 gm/ (Sodium Chloride) 100 mls @ 100 mls/hr IVPB DAILY [facility]; Protocol Last Admin: 05/03/18 08:02 Dose: 100 mls/hr Azithromycin 500 mg/ Sodium (Chloride) 250 mls @ 250 mls/hr IVPB DAILY [facility]; Protocol Last Admin: 05/03/18 08:03 Dose: 250 mls/hr Insulin Detemir (Levemir) 44 units SC HS [facility] Last Admin: 05/02/18 22:00 Dose: 44 u Insulin Human Lispro (Humalog) 0 units SC ACHS [facility] Last Admin: 05/03/18 12:38 Dose: Not Given Insulin Human Lispro (Humalog) 18 units SC AC [facility] Last Admin: 05/03/18 12:39 Dose: Not Given Ondansetron HCl (Zofran Inj) 4 mg IVP Q6H PRN PRN Reason: Nausea/Vomiting Oxcarbazepine (Trileptal) 300 mg PO BID [facility] Risperidone (Risperdal M-Tab) 2 mg PO HS [facility] Physical Exam - Constitutional Appears: Unkempt, Older Than Stated Age - Head Exam Head Exam: ATRAUMATIC, NORMAL INSPECTION, NORMOCEPHALIC - Eye Exam Eye Exam: EOMI, Normal appearance, PERRL Pupil Exam: NORMAL ACCOMODATION, PERRL - ENT Exam ENT Exam: Mucous Membranes Moist, Normal Exam - Neck Exam Neck exam: Positive for: Normal Inspection - Respiratory Exam Respiratory Exam: Clear to Auscultation Bilateral, NORMAL BREATHING PATTERN - Cardiovascular Exam Cardiovascular Exam: REGULAR RHYTHM, +S1, +S2 - GI/Abdominal Exam GI & Abdominal Exam: Normal Bowel Sounds, Soft. absent: Tenderness - Rectal Exam Rectal Exam: Deferred - Extremities Exam Extremities exam: Positive for: normal inspection - Back Exam Back exam: NORMAL INSPECTION - Neurological Exam Neurological exam: CN II-XII Intact, Reflexes Normal Additional comments: Somnolent, wakes up to verbal and painful stimulus, answers some questions, moves all extremities, follows simple commands, sensation is intact. Oriented to person/place, but not time. Gait not tested. - Psychiatric Exam Psychiatric exam: Normal Affect, Normal Mood - Skin Skin Exam: Dry, Intact, Normal Color, Warm Results - Vital Signs Recent Vital Signs: Last Vital Signs Temp 97.7 F 05/03/18 12:00 Pulse 83 05/03/18 12:00 Resp 25 H 05/03/18 12:00 BP 143/80 05/03/18 12:00 Pulse Ox 100 05/03/18 12:00 - Labs Result Diagrams: 05/03/18 05:45 05/03/18 05:45 Labs: Laboratory Results - last 24 hr 05/02/18 05/02/18 05/03/18 16:49 20:47 05:16 WBC RBC Hgb Hct MCV MCH MCHC RDW Plt Count Sodium Potassium Chloride Carbon Dioxide Anion Gap BUN Creatinine Est GFR ( Amer) Est GFR (Non-Af Amer) POC Glucose (mg/dL) 352 H 259 H 401 H* Random Glucose Calcium Phosphorus Magnesium Total Bilirubin AST ALT Alkaline Phosphatase Total Protein Albumin Globulin Albumin/Globulin Ratio Procalcitonin 05/03/18 05/03/18 05/03/18 05:45 05:45 08:55 WBC 11.7 H RBC 4.19 L Hgb 13.0 Hct 37.8 MCV 90.3 MCH 31.1 H MCHC 34.4 RDW 13.6 Plt Count 131 Sodium 146 Potassium 3.9 Chloride 112 H Carbon Dioxide 21 L Anion Gap 17 BUN 16 Creatinine 0.8 Est GFR ( Amer) > 60 Est GFR (Non-Af Amer) > 60 POC Glucose (mg/dL) Random Glucose 388 H Calcium 9.0 Phosphorus 1.5 L Magnesium 2.3 Total Bilirubin 0.8 AST 53 ALT 60 Alkaline Phosphatase 119 Total Protein 6.1 L Albumin 3.2 L Globulin 2.9 Albumin/Globulin Ratio 1.1 Procalcitonin 0.66 H 05/03/18 05/03/18 05/03/18 09:39 12:26 12:52 WBC RBC Hgb Hct MCV MCH MCHC RDW Plt Count Sodium Potassium Chloride Carbon Dioxide Anion Gap BUN Creatinine Est GFR ( Amer) Est GFR (Non-Af Amer) POC Glucose (mg/dL) 85 28 L* 137 H Random Glucose Calcium Phosphorus Magnesium Total Bilirubin AST ALT Alkaline Phosphatase Total Protein Albumin Globulin Albumin/Globulin Ratio Procalcitonin Assessment & Plan (1) Toxic metabolic encephalopathy Assessment and Plan: Likely due to metabolic derangements and infection superimposed on underlying psychiatric history. Continue treating underlying cause. A repeat non-contrast CT scan of the head may be obtained. EEG was done and will be reviewed. MRI of the brain without contrast may also be helpful. The patient does not appear to be having seizures and there are other underlying medical and psychiatric conditions that can explain his symptoms. Encephalitis is unlikely without fever and the patient does not have headache or stiff neck. Meningo- encephalitis is unlikely. Thank you for this consultation. Status: Acute
--- NOTE | 2018-05-03 14:04 | PQF ---
PROVIDER RESPONSE TEXT: No additional dx REVIEWER QUERY TEXT: Clarification of Clinical Diagnostic Findings Please clarify if there are any additional diagnoses to go along with the following V/S and clinical labs in a patient with DKA , Pneumona prob bacterial , ИВАН and Metabolic Encephalopathy or whether th ose are insignificant or unable to be further specified. WBC: 28.2->30.8-.26.3-.10.9 left shift: V/S: Temperature: 96.9->97.9->96 and on 05/01:Temperature: 101.4->99.9->101.4 Pulse: 103->97->103->100-> 97 and tachycardia on 05/01 Respirations : 28->26->16->16 and on 05/02: 25->28->14->34-> 20-.26 Blood cultures; preliminary: no growth after 48 hrs. Urine culture:no growth 04/30 CXR Impression: Questionable patchy left upper lobe infiltrate. 05/01 CXR Impression: Pulmonary vascular congestion/edema with new superimposed patchy consolidations not excluded 05/02 CST eval: Assessment: Impaired Swallowing:moderate oral and suspected pharyngeal dysphagia 04/30 Psych consult:Impression: delirium related to acute medical condition schizoaffective disorder/b ipolar depression 04/30 Attending progress note includes : DKA, ИВАН,Pneumonia prob bacterial, Metabolic Encephalopathy l ikely due to DKA, Bipolar Disorder 05/01 Endocrinology consult : Type 1 DM with DKA, dehydration and prerenal azotemia with spurious hypo natremia and hyperkalemia, thyroid studies could most likely be related to acute sick euthyroid syndr ome, although we have to exclude any underlying subclinical hyperthyroidism. ICU, IVF'S, IVAB The patient's Clinical Indicators include: ---- Query created by: Mayra Roldan on 05/03/2018 10:21 AM Electronically signed by: Alaina Manuel MD 05/03/2018 2:01 PM
--- NOTE | 2018-05-03 15:32 | CP.CCUPN ---
CCU Subjective - Physician Review Subjective (Free Text): 05/03/18 15:25 The patient was Seen/interviewed and examined by me at the bedside during ICU round, Medical records reviewed and Management issues were discussed and formulated with the house staff. Events reviewed 57 Years old Male with PMHx of DM2, HTN, HLD and psychiatric diagnoses Who is brought in by EMS to Emergency department after brother had called authorities to perform a wellness check on him. Apparently he could not be reached for a few days. Patient arrives with ser gluc > 500. He was obtunded on arrival and lethargic. Labs significant for PH 6.8 on ABG, high Anion gap with blood sugar of greater than 750 and Acute Kidney Injury due to Dehydration He was admitted to the ICU for management of diabetic ketoacidoses, better now, Insulin drip discontinued Patient intermittently awake, confused when awake, but occasionally he responds appropriately to simple commands, Seen by neurology and Psych Underwent EEG today and scheduled for head CT scan (Head CT on admission negative) On Restraints for saftey Afebrile, Tolerating IV antiobiotics with ceftriaxone and Azithro hemodynamically stable, No Vasopressors Adequate saturations, 100% on 2L NC, denies any chest pain or SOB Seen by swallow evaluation today ans started on dysphagia diet CCU Objective - Vital Signs / Intake & Output Vital Signs (Last 4 hours): Vital Signs Temp Pulse Resp BP Pulse Ox 05/03/18 12:00 97.7 F 83 25 H 143/80 100 Intake and Output (Last 8hrs): Intake & Output 05/03/18 05/03/18 05/03/18 06:59 14:59 22:59 Weight 221 lb - Physical Exam Head: Positive for: Atraumatic, Normocephalic Pupils: Positive for: PERRL Conjunctiva: Positive for: Normal Mouth: Positive for: Dry Nose (External): Positive for: Atraumatic Neck: Positive for: Normal Range of Motion Respiratory/Chest: Positive for: Clear to Auscultation Cardiovascular: Positive for: Regular Rate and Rhythm Abdomen: Positive for: Normal Bowel Sounds Upper Extremity: Positive for: Normal Inspection Lower Extremity: Positive for: Normal Inspection Neurological: Positive for: Other (awake, confused) Psychiatric: Positive for: Alert - Medications Active Medications: Active Medications Generic Name Dose Route Start Last Admin Trade Name Freq PRN Reason Stop Dose Admin Acetaminophen 650 mg 05/01/18 01:11 05/01/18 01:16 Tylenol 650 Mg Supp [place] 650 mg Q4 PRN Administration Fever >100.4 F Albuterol/Ipratropium 3 ml 04/30/18 22:19 05/01/18 01:58 Duoneb 3 Mg/0.5 Mg (3 Ml) Ud INH 3 ml RQ4 PRN Administration Cough and congestion Aspirin 81 mg 04/30/18 09:00 05/03/18 08:00 Ecotrin PO Not Given DAILY [facility] Atorvastatin Calcium 20 mg 05/03/18 22:00 Lipitor PO HS [facility] Dextrose 0 ml 04/30/18 02:46 05/03/18 12:42 Dextrose 50% Inj IV 50 ml STAT PRN Administration Hypoglycemia Protocol Protocol Dextrose 0 gm 04/30/18 02:46 Glutose 15 PO ONCE PRN Hypoglycemia Protocol Protocol Duloxetine HCl 60 mg 05/04/18 09:00 Cymbalta PO DAILY [facility] Enalapril Maleate 10 mg 05/02/18 09:00 05/03/18 08:03 Vasotec PO Not Given DAILY [facility] Enoxaparin Sodium 40 mg 05/01/18 14:30 05/03/18 08:02 Lovenox SC 40 mg DAILY [facility] Administration Protocol Glucagon 0 mg 04/30/18 02:46 Glucagen Diagnostic Kit IM STAT PRN Hypoglycemia Protocol Protocol Haloperidol Lactate 2 mg 04/30/18 11:59 05/03/18 00:14 Haldol IM 2 mg Q4 PRN Administration Agitation Ceftriaxone Sodium 1 gm/ 100 mls @ 100 mls/hr 04/30/18 12:15 05/03/18 08:02 Sodium Chloride IVPB 100 mls/hr DAILY [facility] Administration Protocol Azithromycin 500 mg/ Sodium 250 mls @ 250 mls/hr 04/30/18 12:15 05/03/18 08:03 Chloride IVPB 250 mls/hr DAILY [facility] Administration Protocol Insulin Detemir 44 units 05/02/18 22:00 05/02/18 22:00 Levemir SC 44 u HS [facility] Administration Insulin Human Lispro 0 units 05/01/18 11:30 05/03/18 12:38 Humalog SC Not Given ACHS [facility] Insulin Human Lispro 18 units 05/03/18 07:30 05/03/18 12:39 Humalog SC Not Given AC [facility] Ondansetron HCl 4 mg 04/29/18 22:52 Zofran Inj IVP Q6H PRN Nausea/Vomiting Oxcarbazepine 300 mg 05/03/18 17:00 Trileptal PO BID [facility] Risperidone 2 mg 05/04/18 22:00 Risperdal M-Tab PO HS [facility] - Patient Studies Lab Studies: Microbiology Studies 04/30/18 12:45 Blood Culture - Preliminary Blood NO GROWTH AFTER 3 DAYS 04/30/18 13:00 Blood Culture - Preliminary Blood NO GROWTH AFTER 3 DAYS Lab Studies 05/03/18 05/03/18 05/03/18 Range/Units 12:52 12:26 09:39 WBC (4.8-10.8) K/uL RBC (4.40-5.90) Mil/uL Hgb (12.0-18.0) g/dL Hct (35.0-51.0) % MCV (80.0-94.0) fl MCH (27.0-31.0) pg MCHC (33.0-37.0) g/dL RDW (11.5-14.5) % Plt Count (130-400) K/uL Sodium (132-148) mmol/l Potassium (3.6-5.0) MMOL/L Chloride (98-107) mmol/L Carbon Dioxide (22-30) mmol/L Anion Gap (10-20) BUN (9-20) mg/dl Creatinine (0.8-1.5) mg/dl Est GFR ( Amer) Est GFR (Non-Af Amer) POC Glucose (mg/dL) 137 H 28 L* 85 (65-110) mg/dL Random Glucose (75-110) mg/dL Calcium (8.4-10.2) mg/dL Phosphorus (2.5-4.5) mg/dl Magnesium (1.6-2.3) MG/DL Total Bilirubin (0.2-1.3) mg/dl AST (17-59) U/L ALT (21-72) U/L Alkaline Phosphatase (38-126) U/L Total Protein (6.3-8.2) G/DL Albumin (3.5-5.0) g/dL Globulin (2.2-3.9) gm/dL Albumin/Globulin Ratio (1.0-2.1) Procalcitonin (0.19-0.49) NG/ML 05/03/18 05/03/18 05/03/18 Range/Units 08:55 05:45 05:45 WBC 11.7 H (4.8-10.8) K/uL RBC 4.19 L (4.40-5.90) Mil/uL Hgb 13.0 (12.0-18.0) g/dL Hct 37.8 (35.0-51.0) % MCV 90.3 (80.0-94.0) fl MCH 31.1 H (27.0-31.0) pg MCHC 34.4 (33.0-37.0) g/dL RDW 13.6 (11.5-14.5) % Plt Count 131 (130-400) K/uL Sodium 146 (132-148) mmol/l Potassium 3.9 (3.6-5.0) MMOL/L Chloride 112 H (98-107) mmol/L Carbon Dioxide 21 L (22-30) mmol/L Anion Gap 17 (10-20) BUN 16 (9-20) mg/dl Creatinine 0.8 (0.8-1.5) mg/dl Est GFR ( Amer) > 60 Est GFR (Non-Af Amer) > 60 POC Glucose (mg/dL) (65-110) mg/dL Random Glucose 388 H (75-110) mg/dL Calcium 9.0 (8.4-10.2) mg/dL Phosphorus 1.5 L (2.5-4.5) mg/dl Magnesium 2.3 (1.6-2.3) MG/DL Total Bilirubin 0.8 (0.2-1.3) mg/dl AST 53 (17-59) U/L ALT 60 (21-72) U/L Alkaline Phosphatase 119 (38-126) U/L Total Protein 6.1 L (6.3-8.2) G/DL Albumin 3.2 L (3.5-5.0) g/dL Globulin 2.9 (2.2-3.9) gm/dL Albumin/Globulin Ratio 1.1 (1.0-2.1) Procalcitonin 0.66 H (0.19-0.49) NG/ML 05/03/18 05/02/18 05/02/18 Range/Units 05:16 20:47 16:49 WBC (4.8-10.8) K/uL RBC (4.40-5.90) Mil/uL Hgb (12.0-18.0) g/dL Hct (35.0-51.0) % MCV (80.0-94.0) fl MCH (27.0-31.0) pg MCHC (33.0-37.0) g/dL RDW (11.5-14.5) % Plt Count (130-400) K/uL Sodium (132-148) mmol/l Potassium (3.6-5.0) MMOL/L Chloride (98-107) mmol/L Carbon Dioxide (22-30) mmol/L Anion Gap (10-20) BUN (9-20) mg/dl Creatinine (0.8-1.5) mg/dl Est GFR ( Amer) Est GFR (Non-Af Amer) POC Glucose (mg/dL) 401 H* 259 H 352 H (65-110) mg/dL Random Glucose (75-110) mg/dL Calcium (8.4-10.2) mg/dL Phosphorus (2.5-4.5) mg/dl Magnesium (1.6-2.3) MG/DL Total Bilirubin (0.2-1.3) mg/dl AST (17-59) U/L ALT (21-72) U/L Alkaline Phosphatase (38-126) U/L Total Protein (6.3-8.2) G/DL Albumin (3.5-5.0) g/dL Globulin (2.2-3.9) gm/dL Albumin/Globulin Ratio (1.0-2.1) Procalcitonin (0.19-0.49) NG/ML Laboratory Results - last 24 hr 05/02/18 05/02/18 05/03/18 16:49 20:47 05:16 WBC RBC Hgb Hct MCV MCH MCHC RDW Plt Count Sodium Potassium Chloride Carbon Dioxide Anion Gap BUN Creatinine Est GFR ( Amer) Est GFR (Non-Af Amer) POC Glucose (mg/dL) 352 H 259 H 401 H* Random Glucose Calcium Phosphorus Magnesium Total Bilirubin AST ALT Alkaline Phosphatase Total Protein Albumin Globulin Albumin/Globulin Ratio Procalcitonin 05/03/18 05/03/18 05/03/18 05:45 05:45 08:55 WBC 11.7 H RBC 4.19 L Hgb 13.0 Hct 37.8 MCV 90.3 MCH 31.1 H MCHC 34.4 RDW 13.6 Plt Count 131 Sodium 146 Potassium 3.9 Chloride 112 H Carbon Dioxide 21 L Anion Gap 17 BUN 16 Creatinine 0.8 Est GFR ( Amer) > 60 Est GFR (Non-Af Amer) > 60 POC Glucose (mg/dL) Random Glucose 388 H Calcium 9.0 Phosphorus 1.5 L Magnesium 2.3 Total Bilirubin 0.8 AST 53 ALT 60 Alkaline Phosphatase 119 Total Protein 6.1 L Albumin 3.2 L Globulin 2.9 Albumin/Globulin Ratio 1.1 Procalcitonin 0.66 H 05/03/18 05/03/18 05/03/18 09:39 12:26 12:52 WBC RBC Hgb Hct MCV MCH MCHC RDW Plt Count Sodium Potassium Chloride Carbon Dioxide Anion Gap BUN Creatinine Est GFR ( Amer) Est GFR (Non-Af Amer) POC Glucose (mg/dL) 85 28 L* 137 H Random Glucose Calcium Phosphorus Magnesium Total Bilirubin AST ALT Alkaline Phosphatase Total Protein Albumin Globulin Albumin/Globulin Ratio Procalcitonin Radiology Impressions: Radiology Impressions Chest X-Ray 05/03/18 07:21 IMPRESSION: Decrease right upper lobe and left perihilar opacities. Nonspecific. Fingerstick Blood Sugar Results: 28 Critical Care Progress Note - Nutrition Nutrition: Nutrition Category Date Time Status Dysphagia/Modified Consistency Diet [DIET] Diets 05/03/18 Lunch Active Assessment/Plan (1) Acute kidney injury Current Visit: Yes Status: Resolved Priority: Medium (2) Dehydration Current Visit: Yes Status: Resolved Priority: Medium (3) Metabolic encephalopathy Current Visit: Yes Status: Acute Priority: High (4) DKA (diabetic ketoacidoses) Current Visit: Yes Status: Resolved Priority: Medium (5) DM (diabetes mellitus), type 2, uncontrolled Current Visit: Yes Status: Chronic Priority: Medium (6) Schizo-affective schizophrenia, chronic condition Current Visit: Yes Status: Chronic Priority: High
--- NOTE | 2018-05-03 15:41 | CT ---
Date of service: 05/03/2018 PROCEDURE: CT HEAD WITHOUT CONTRAST. HISTORY: AMS COMPARISON: CT head dated 04/30/2018. TECHNIQUE: Axial computed tomography images were obtained through the head/brain without intravenous contrast. Radiation dose: Total exam DLP = 1028.76 mGy-cm. This CT exam was performed using one or more of the following dose reduction techniques: Automated exposure control, adjustment of the mA and/or kV according to patient size, and/or use of iterative reconstruction technique. FINDINGS: HEMORRHAGE: No intracranial hemorrhage. BRAIN: No mass effect or edema. Mild atrophy. No significant chronic microvascular ischemic changes. VENTRICLES: Unremarkable. No hydrocephalus. CALVARIUM: Unremarkable. PARANASAL SINUSES: Unremarkable as visualized. No significant inflammatory changes. MASTOID AIR CELLS: Unremarkable as visualized. No inflammatory changes. OTHER FINDINGS: None. IMPRESSION: No acute intracranial pathology.
[2018-05-03] MEDS: Insulin Detemir 100 Units/ml Inj SC SCH (21:04)
[2018-05-03] MEDS ORDERED: Potassium Ch 20mEq in D5-1/2NS 1,000 ML IV SCH (22:15)
--- NOTE | 2018-05-03 23:52 | PN ---
DATE: 05/03/2018 LOCATION: In ICU, room 432. SUBJECTIVE: This is a 57-year-old male with recent uncontrolled type 1 insulin-dependent diabetes, now being followed closely for metabolic management. His glycemic levels are fluctuating because of the variability of his oral intake with extremes of glycemic fluctuations from 85-401 mg/dL. His chemistry showed a BUN of 16, sodium 146, potassium 3.9, chloride 112, CO2 of 21, glucose 388, and creatinine 0.8. ASSESSMENT: This is a 57-year-old male with uncontrolled type 1 insulin-dependent diabetes, presenting here with diabetic ketoacidosis and dehydration and has since then improved clinically and metabolically as noted thereof. PLAN OF MANAGEMENT: We will modify his prandial insulin and increase the Humalog to 18 units subcu t.i.d. before meals to start today as ordered. We will continue the basal insulin given as Levemir at 44 units subcu at bedtime daily to allow for dose equilibration. We will obtain serial chemistries and supplement accordingly as needed. We will follow up with you. Anna Marie Montanez MD
[2018-05-04 05:57] LABS: BASO # 0.1 K/uL (0.0-0.2); EOS % 0.3 % (0.0-4.0); HEMOGLOBIN 12.8 g/dL (12.0-18.0); LYMPH % 15.5 % (20.0-40.0); MEAN CELL VOLUME 89.4 fl (80.0-94.0); MEAN CORPUSCULAR HEMOGLOBIN 30.4 pg (27.0-31.0); MEAN PLATELET VOLUME 9.7 fl (7.2-11.7); MONO # 1.1 K/uL (0.0-0.8); MONO % 8.5 % (0.0-10.0); NEUT # 9.6 K/uL (1.8-7.0); NEUT % 74.7 % (50.0-75.0); RBC 4.22 Mil/uL (4.40-5.90); RED CELL DISTRIBUTION WIDTH 13.3 % (11.5-14.5); WHITE BLOOD COUNT 12.8 K/uL (4.8-10.8)
[2018-05-04 06:20] LABS: ALBUMIN 2.7 g/dL (3.5-5.0); ALT/SGPT 50 U/L (21-72); AST/SGOT 49 U/L (17-59); BLOOD UREA NITROGEN 14 mg/dl (9-20); CALCIUM 8.6 mg/dL (8.4-10.2); GFR NON-AFRICAN AMERICAN > 60
[2018-05-04] MEDS ORDERED: Potassium Chloride 20 mEq ER Tab PO ONE (06:50)
[2018-05-04] MEDS ORDERED: Potassium Chloride 20 mEq/15 ml LIQ UD PO ONE (07:00)
[2018-05-04] MEDS: Potassium Chloride 20 mEq 100 ML IVPB SCH ×2 (07:00→08:59)
[2018-05-04] MEDS: Enoxaparin 40 mg Syringe SC SCH (08:53)
[2018-05-04] MEDS: Insulin Lispro (humaLOG) 100 Units/ml Inj SC SCH ×6 (08:53→21:30)
[2018-05-04] MEDS: Azithromycin 500 MG in Sodium Chloride 0.9% 250 ML IVPB SCH (08:59)
[2018-05-04] MEDS ORDERED: Risperidone M tab 1 MG PO SCH (09:00)
[2018-05-04] MEDS ORDERED: Potassium Phosphate 30 MMOLE in Sodium Chloride 0.9% 250 ML IV ONE (09:04)
--- NOTE | 2018-05-04 09:09 | CP.PCM.PN ---
<Sky Hernandez - Last Filed: 05/04/18 13:49> Subjective - Date & Time of Evaluation Date of Evaluation: 05/04/18 Time of Evaluation: 08:00 - Subjective Subjective: Pt seen and examined this morning, seen sitting up in bed. Alert and oriented x3. No acute distress. States he has not recollection of events that occurred in the last few days. Objective - Vital Signs/Intake and Output Vital Signs (last 24 hours): Temp Pulse Resp BP Pulse Ox 98.1 F 95 H 15 112/86 96 05/04/18 08:00 05/04/18 08:00 05/04/18 08:00 05/04/18 08:00 05/04/18 08:00 Intake and Output: 05/04/18 05/04/18 06:59 18:59 Intake Total 1620 Output Total 1000 Balance 620 - Medications Medications: Current Medications Acetaminophen (Tylenol 650 Mg Supp) 650 mg DC Q4 PRN PRN Reason: Fever >100.4 F Last Admin: 05/01/18 01:16 Dose: 650 mg Albuterol/Ipratropium (Duoneb 3 Mg/0.5 Mg (3 Ml) Ud) 3 ml INH RQ4 PRN PRN Reason: Cough and congestion Last Admin: 05/01/18 01:58 Dose: 3 ml Aspirin (Ecotrin) 81 mg PO DAILY [facility] Last Admin: 05/04/18 08:51 Dose: 81 mg Atorvastatin Calcium (Lipitor) 20 mg PO HS [facility] Last Admin: 05/03/18 21:07 Dose: 20 mg Dextrose (Dextrose 50% Inj) 0 ml IV STAT PRN; Protocol PRN Reason: Hypoglycemia Protocol Last Admin: 05/03/18 12:42 Dose: 50 ml Dextrose (Glutose 15) 0 gm PO ONCE PRN; Protocol PRN Reason: Hypoglycemia Protocol Duloxetine HCl (Cymbalta) 60 mg PO DAILY [facility] Last Admin: 05/04/18 08:50 Dose: 60 mg Enalapril Maleate (Vasotec) 10 mg PO DAILY [facility] Last Admin: 05/04/18 08:58 Dose: 10 mg Enoxaparin Sodium (Lovenox) 40 mg SC DAILY [facility]; Protocol Last Admin: 05/04/18 08:53 Dose: 40 mg Famotidine (Pepcid) 20 mg PO DAILY [facility] Glucagon (Glucagen Diagnostic Kit) 0 mg IM STAT PRN; Protocol PRN Reason: Hypoglycemia Protocol Haloperidol Lactate (Haldol) 2 mg IM Q4 PRN PRN Reason: Agitation Last Admin: 05/03/18 20:48 Dose: 2 mg Ceftriaxone Sodium 1 gm/ (Sodium Chloride) 100 mls @ 100 mls/hr IVPB DAILY [facility]; Protocol Last Admin: 05/04/18 08:55 Dose: 100 mls/hr Azithromycin 500 mg/ Sodium (Chloride) 250 mls @ 250 mls/hr IVPB DAILY [facility]; Protocol Last Admin: 05/04/18 08:59 Dose: 250 mls/hr Potassium Chloride/Dextrose/Sod Cl (Potassium Chl 20 Meq In D5-1/2ns) 1,000 mls @ 80 mls/hr IV .[id number] [facility] Stop: 05/04/18 10:44 Last Admin: 05/03/18 23:45 Dose: 80 mls/hr Potassium Chloride (Potassium Chloride 20 Meq/100 Ml) 100 mls @ 50 mls/hr IVPB Q2 [facility] Stop: 05/04/18 11:59 Last Admin: 05/04/18 08:59 Dose: 50 mls/hr Potassium Phosphate 30 mmole/ (Sodium Chloride) 260 mls @ 65 mls/hr IV ONCE ONE Stop: 05/04/18 13:03 Insulin Detemir (Levemir) 44 units SC HS [facility] Last Admin: 05/03/18 21:04 Dose: 44 u Insulin Human Lispro (Humalog) 0 units SC ACHS [facility] Last Admin: 05/04/18 08:53 Dose: Not Given Insulin Human Lispro (Humalog) 18 units SC AC [facility] Last Admin: 05/03/18 12:39 Dose: Not Given Ondansetron HCl (Zofran Inj) 4 mg IVP Q6H PRN PRN Reason: Nausea/Vomiting Oxcarbazepine (Trileptal) 300 mg PO BID [facility] Last Admin: 05/04/18 08:56 Dose: 300 mg Risperidone (Risperdal M-Tab) 2 mg PO HS [facility] - Labs Labs: 05/04/18 04:05 05/04/18 04:05 - Constitutional Appears: No Acute Distress - Head Exam Head Exam: NORMAL INSPECTION - ENT Exam ENT Exam: Mucous Membranes Moist - Respiratory Exam Respiratory Exam: Clear to Ausculation Bilateral. absent: Accessory Muscle Use, Rales, Rhonchi, Wheezes - Cardiovascular Exam Cardiovascular Exam: REGULAR RHYTHM - GI/Abdominal Exam GI & Abdominal Exam: Soft. absent: Tenderness - Extremities Exam Extremities Exam: absent: Pedal Edema - Neurological Exam Neurological Exam: Alert, Awake, Oriented x3 - Psychiatric Exam Psychiatric exam: Flat Affect - Skin Skin Exam: Normal Color Assessment and Plan - Assessment and Plan (Free Text) Assessment: 57 y/o gent with hx of Insulin Dependent DM, Bipolar Disorder, was brought in by EMS very lethargic and in the ED found to be very acidotic and in DKA. Was placed on insulin and bicarbonate drip and taken off once his acid-base status corrected. Pt is now alert and oriented at baseline. Will be downgraded to med/surg. Now being treated for pneumonia. Plan: 1. Pneumonia prob bacterial, CAP - MIld , afebrile, improving - CXR-Congestions, w/ new superimposed patchy consolidation - C/W IV ceftriaxone and Azithro - Legionella, Mycoplasma both negative - Blood c/s ,sputum c/s--No growth 4 days - Procalcitonin 0.66 2. Altered Mental Status -Resolved -Pt is AOx3 -May be metabolic encephalopathy 2/2 to DKA vs underlying psychiatric condition -Neurology consult appreciated -EEG ordered -Psychiatry consulted, recs appreciated- likely delirium secondary to acute medical condition, not safe to start po psych meds; Haldol and Ativan prn for agitation - Reconsulted. -Head CT negative -Frequent Neuro checks 3. DKA -Resolved -Glucose within normal range - Pt came in lethargic severely acidotic with pH 6.8 on ABG , high Anion gap and with blood sugar of greater than 750 -Acid-Base normalized, last ABG 04/30/18 -Endo consulted- Dr Montanez; Started on Detemir 44units HS (reduced to 30units today), Lispro 8 units SC AC -Hemoglobin A1C 12.3 -Insulin Sliding Scale -Close accucheck monitoring -D5 fluids, given he is NPO and on basal insulin 5. Hypokalemia -Potassium 2.8 this morning, repleted >>> repeat K 3.6 -F/U BMP 6. Hypophosphatemia Phosphorus at 1.1 --> repeat 1.7 Repleted with Kphos continue to follow 7. Acute Kidney Injury due to Dehydration, resolved -Resolved, Crea 0.6 today - Fluids discontinuing 8. Transaminitis, mild -AST/ALT 133/73 -Resolved 8. Low TSH, T4 -TSH 0.02, T4 5.18 - May be sick euthyroid -Will monitor and repeat once medical condition is stable, repeat TSH sent 9. Bipolar Disorder - pt has hx of Bipolar, Follows with Dr. Mortensen, -Haldol prn for agitation - Pt on 1:1 - discussed case with Dr Baker - rec to cont Haldol and Ativan prn and when pt can take PO meds - he will reorder his med for Bipolar 10. DVT proph - Lovenox, monitor platelets 11. Diet -passed swallow, restarted diet <Alaina Manuel - Last Filed: 05/04/18 15:29> Objective - Vital Signs/Intake and Output Vital Signs (last 24 hours): Temp Pulse Resp BP Pulse Ox 89 F L 83 23 98/61 L 98 05/04/18 14:21 05/04/18 12:27 05/04/18 14:21 05/04/18 14:21 05/04/18 14:21 Intake and Output: 05/04/18 05/04/18 06:59 18:59 Intake Total 1620 1480 Output Total 1000 200 Balance 620 1280 - Medications Medications: Current Medications Acetaminophen (Tylenol 650 Mg Supp) 650 mg DC Q4 PRN PRN Reason: Fever >100.4 F Last Admin: 05/01/18 01:16 Dose: 650 mg Albuterol/Ipratropium (Duoneb 3 Mg/0.5 Mg (3 Ml) Ud) 3 ml INH RQ4 PRN PRN Reason: Cough and congestion Last Admin: 05/01/18 01:58 Dose: 3 ml Aspirin (Ecotrin) 81 mg PO DAILY [facility] Last Admin: 05/04/18 08:51 Dose: 81 mg Atorvastatin Calcium (Lipitor) 20 mg PO HS [facility] Last Admin: 05/03/18 21:07 Dose: 20 mg Dextrose (Dextrose 50% Inj) 0 ml IV STAT PRN; Protocol PRN Reason: Hypoglycemia Protocol Last Admin: 05/03/18 12:42 Dose: 50 ml Dextrose (Glutose 15) 0 gm PO ONCE PRN; Protocol PRN Reason: Hypoglycemia Protocol Duloxetine HCl (Cymbalta) 60 mg PO DAILY [facility] Last Admin: 05/04/18 08:50 Dose: 60 mg Enalapril Maleate (Vasotec) 10 mg PO DAILY [facility] Last Admin: 05/04/18 08:58 Dose: 10 mg Enoxaparin Sodium (Lovenox) 40 mg SC DAILY [facility]; Protocol Last Admin: 05/04/18 08:53 Dose: 40 mg Famotidine (Pepcid) 20 mg PO DAILY [facility] Last Admin: 05/04/18 12:32 Dose: 20 mg Glucagon (Glucagen Diagnostic Kit) 0 mg IM STAT PRN; Protocol PRN Reason: Hypoglycemia Protocol Haloperidol Lactate (Haldol) 2 mg IM Q4 PRN PRN Reason: Agitation Last Admin: 05/03/18 20:48 Dose: 2 mg Ceftriaxone Sodium 1 gm/ (Sodium Chloride) 100 mls @ 100 mls/hr IVPB DAILY [facility]; Protocol Last Admin: 05/04/18 08:55 Dose: 100 mls/hr Azithromycin 500 mg/ Sodium (Chloride) 250 mls @ 250 mls/hr IVPB DAILY [facility]; Protocol Last Admin: 05/04/18 08:59 Dose: 250 mls/hr Potassium Chloride/Dextrose/Sod Cl (Potassium Chl 20 Meq In D5-1/2ns) 1,000 mls @ 80 mls/hr IV .[id number] [facility] Stop: 05/05/18 13:38 Insulin Detemir (Levemir) 30 units SC HS [facility] Insulin Human Lispro (Humalog) 0 units SC ACHS [facility] Last Admin: 05/04/18 11:52 Dose: Not Given Insulin Human Lispro (Humalog) 8 units SC AC [facility] Last Admin: 05/04/18 12:23 Dose: 8 units Ondansetron HCl (Zofran Inj) 4 mg IVP Q6H PRN PRN Reason: Nausea/Vomiting Oxcarbazepine (Trileptal) 300 mg PO BID [facility] Last Admin: 05/04/18 08:56 Dose: 300 mg Risperidone (Risperdal M-Tab) 2 mg PO HS [facility] - Labs Labs: 05/04/18 04:05 05/04/18 12:29 Assessment and Plan (1) DKA (diabetic ketoacidoses) Status: Resolved (2) Pneumonia Status: Acute (3) Bipolar disorder Status: Chronic Attending/Attestation - Attestation I have personally seen and examined this patient.: Yes I have fully participated in the care of the patient.: Yes I have reviewed all pertinent clinical information, including history, physical exam and plan: Yes Notes (Text): DKA DM Type I , Insulin Dependent - episodes of hypo/hyperglycemia - Insul;in dose adjusted by Dr Montanez - cont Levemir and TID Lispro Pneumonia, bacterial -rpt CXR shows improvement - cont IV Azithro and Ceftriaxone AMS likely Metabolic Encephalopathy and also due to Psych problem ( Bipolar) improving - mental status improved - restarted PO Psych meds - pt starting to have PO intake Hypokalemia/Hypophosphatemia - due to decrease PO intake - replaced with KCl runs and KPhos
[2018-05-04] MEDS ORDERED: Insulin Lispro (humaLOG) 100 Units/ml Inj SC SCH (11:45)
[2018-05-04 12:52] LABS: BLOOD UREA NITROGEN 13 mg/dl (9-20); CALCIUM 8.3 mg/dL (8.4-10.2); GFR NON-AFRICAN AMERICAN > 60
--- NOTE | 2018-05-04 13:00 | CP.PCM.PN ---
Subjective - Date & Time of Evaluation Date of Evaluation: 05/04/18 Time of Evaluation: 12:58 - Subjective Subjective: Neuro Follow-Up Note: Mr. Espino was evaluated this afternoon in the ICU. He states that today he feels better, though still fatigued. Also complains that his blood sugar continues to be uncontrolled. Otherwise, he denies h/a, dizziness, visual changes, chest pain, palpitations, sob, cough, abd pain, n/v/d, paresthesias. Chart reviewed; discussed with primary RN. Objective - Vital Signs/Intake and Output Vital Signs (last 24 hours): Temp Pulse Resp BP Pulse Ox 97.9 F 90 22 117/61 98 05/04/18 12:00 05/04/18 10:00 05/04/18 10:00 05/04/18 10:00 05/04/18 10:00 Intake and Output: 05/04/18 05/04/18 06:59 18:59 Intake Total 1620 1160 Output Total 1000 200 Balance 620 960 - Medications Medications: Current Medications Acetaminophen (Tylenol 650 Mg Supp) 650 mg LA Q4 PRN PRN Reason: Fever >100.4 F Last Admin: 05/01/18 01:16 Dose: 650 mg Albuterol/Ipratropium (Duoneb 3 Mg/0.5 Mg (3 Ml) Ud) 3 ml INH RQ4 PRN PRN Reason: Cough and congestion Last Admin: 05/01/18 01:58 Dose: 3 ml Aspirin (Ecotrin) 81 mg PO DAILY [facility] Last Admin: 05/04/18 08:51 Dose: 81 mg Atorvastatin Calcium (Lipitor) 20 mg PO HS [facility] Last Admin: 05/03/18 21:07 Dose: 20 mg Dextrose (Dextrose 50% Inj) 0 ml IV STAT PRN; Protocol PRN Reason: Hypoglycemia Protocol Last Admin: 05/03/18 12:42 Dose: 50 ml Dextrose (Glutose 15) 0 gm PO ONCE PRN; Protocol PRN Reason: Hypoglycemia Protocol Duloxetine HCl (Cymbalta) 60 mg PO DAILY [facility] Last Admin: 05/04/18 08:50 Dose: 60 mg Enalapril Maleate (Vasotec) 10 mg PO DAILY [facility] Last Admin: 05/04/18 08:58 Dose: 10 mg Enoxaparin Sodium (Lovenox) 40 mg SC DAILY [facility]; Protocol Last Admin: 05/04/18 08:53 Dose: 40 mg Famotidine (Pepcid) 20 mg PO DAILY [facility] Last Admin: 05/04/18 12:32 Dose: 20 mg Glucagon (Glucagen Diagnostic Kit) 0 mg IM STAT PRN; Protocol PRN Reason: Hypoglycemia Protocol Haloperidol Lactate (Haldol) 2 mg IM Q4 PRN PRN Reason: Agitation Last Admin: 05/03/18 20:48 Dose: 2 mg Ceftriaxone Sodium 1 gm/ (Sodium Chloride) 100 mls @ 100 mls/hr IVPB DAILY [facility]; Protocol Last Admin: 05/04/18 08:55 Dose: 100 mls/hr Azithromycin 500 mg/ Sodium (Chloride) 250 mls @ 250 mls/hr IVPB DAILY [facility]; Pr otocol Last Admin: 05/04/18 08:59 Dose: 250 mls/hr Potassium Phosphate 30 mmole/ (Sodium Chloride) 260 mls @ 65 mls/hr IV ONCE ONE Stop: 05/04/18 13:03 Last Admin: 05/04/18 12:25 Dose: 65 mls/hr Insulin Detemir (Levemir) 30 units SC [facility] Insulin Human Lispro (Humalog) 0 units SC ACHS [facility] Last Admin: 05/04/18 11:52 Dose: Not Given Insulin Human Lispro (Humalog) 8 units SC AC [facility] Last Admin: 05/04/18 12:23 Dose: 8 units Ondansetron HCl (Zofran Inj) 4 mg IVP Q6H PRN PRN Reason: Nausea/Vomiting Oxcarbazepine (Trileptal) 300 mg PO BID [facility] Last Admin: 05/04/18 08:56 Dose: 300 mg Risperidone (Risperdal M-Tab) 2 mg PO HS [facility] - Labs Labs: 05/04/18 04:05 05/04/18 12:29 - Constitutional Appears: Well, Non-toxic, No Acute Distress - Head Exam Head Exam: ATRAUMATIC, NORMAL INSPECTION, NORMOCEPHALIC - Eye Exam Eye Exam: EOMI, Normal appearance, PERRL Pupil Exam: NORMAL ACCOMODATION, PERRL - ENT Exam ENT Exam: Mucous Membranes Moist, Normal Exam - Neck Exam Neck Exam: Full ROM, Normal Inspection - Respiratory Exam Respiratory Exam: NORMAL BREATHING PATTERN - Cardiovascular Exam Cardiovascular Exam: REGULAR RHYTHM - Extremities Exam Extremities Exam: Full ROM. absent: Calf Tenderness, Pedal Edema - Back Exam Back Exam: Full ROM, NORMAL INSPECTION - Neurological Exam Neurological Exam: Alert, Awake, CN II-XII Intact, Oriented x3, Reflexes Normal Neuro motor strength exam: Left Upper Extremity: 5, Right Upper Extremity: 5, L eft Lower Extremity: 5, Right Lower Extremity: 5 Additional comments: Speech clear, fluid AAOx3; answers all questions appropriately; follows all commands Strength equal to all extremities Sensation intact Reflexes brisk b/l No tremors. - Psychiatric Exam Psychiatric exam: Normal Affect, Normal Mood - Skin Skin Exam: Normal Color Assessment and Plan (1) Toxic metabolic encephalopathy Assessment & Plan: Imaging reviewed; repeat CT Head without contrast shows no new changes or abnormalities. Today, Mr. Espino seems to be doing well neurologically. -Continue current treatment for underlying medical (electrolyte imbalance and uncontrolled blood sugar) and psychiatric conditions that could be causing his periods of confusion and AMS. -EEG done, results pending--will f/u with results. -Notify neuro team of any acute changes in condition. Case discussed with Dr. Brandt Status: Acute
--- NOTE | 2018-05-04 13:48 | PCM.EEG ---
Electroencephalogram Report - Electroencephalogram Report Procedure Date: 05/03/18 Medication: Oxcarbazepine, Haldol, Lipitor Interpretation: Technical Information: This was a 16-channel EEG, 1-channel EKG , performed using an [employer] machine., electrodes were applied according to the 10/20 international placement system, impedances were less than 5 K Ohm. Start 10;33 End; 11;18 Total 45 minutes Clinical Information: This EEG was performed on a 57 y/o man with alter mental status. EEG Detail: During resting wakefulness there was a symmetric posterior dominant rhythm at 6 to 7 Hz, 30-50 uV, which was reactive to eye opening and closing. Drowsiness (10;43) was associated with fragmentation of the posterior dominant rhythm and with slow roving eye movements. Sleep was not seen. Hyperventilation was not performed. Photic stimulation was performed and there were no changes in the record. ECG was associated with a normal sinus rhythm, and occasional PVcs Impression: This is an abnormal EEG record that demonstrate the presence of a mild to moderate non specific diffuse disturbance of cortical activity, this is in keeping with a diffuse miranda matter dysfunction. These findings do not support a specific etiology.
[2018-05-04] MEDS: Potassium Ch 20mEq in D5-1/2NS 1,000 ML IV SCH (15:57)
--- NOTE | 2018-05-04 17:25 | PN ---
DATE: 05/04/2018 ENDO FOLLOWUP NOTE LOCATION: In ICU room 432. SUBJECTIVE: This is a 57-year-old male with recent uncontrolled type 1 insulin-dependent diabetes, now being followed closely for metabolic management. His oral intake has remained quite variable at this time with episodic bouts of hypoglycemia as noted overnight and glucose levels have ranged from 60-74 and 78 mg/dL. His pre-lunch glucose is now 161 as noted. His chemistry showed a BUN of 14, sodium 142, potassium 2.8, chloride 110, CO2 of 29, glucose 71 and creatinine 0.5. ASSESSMENT: This is a 57-year-old male with uncontrolled and decompensated type 1 insulin-dependent diabetes presenting here with diabetic ketoacidosis and dehydration and has now improved clinically and metabolically as noted thereof. However, with the recent variability of his oral intake with suboptimal meal portions. There has been overnight supervening hypoglycemic levels as noted thereof. PLAN OF MANAGEMENT: We will modify once again his basal and bolus insulin regimen and increase and change the Humalog to 18 units t.i.d. before meals to start today as ordered. We will also lower the basal insulin with Levemir to be given as 30 units subcu at bedtime daily to start tonight. We will continue the low-dose correction scale using Humalog insulin as given. We will obtain serial chemistries and supplement accordingly needed. We will really not hold the prandial insulin as the patient is a type 1 diabetic with extreme sensitivity and predilection to extremes of glycemic fluctuations as noted thereof. We will obtain serial chemistries and continue the D5 and half normal saline with potassium chloride at 20 mEq an equivalents running at 80 mL/hour as ordered. We will obtain serial chemistries and supplement accordingly needed. We will follow. Anna Marie Montanez MD
[2018-05-04] MEDS ORDERED: Risperidone M TAB 2 MG PO SCH (22:00)
[2018-05-04] MEDS ORDERED: Insulin Detemir 100 Units/ml Inj SC SCH (22:00)
[2018-05-04] MEDS ORDERED: Insulin Detemir 100 Units/ml Inj SC ONE (22:00)
[2018-05-05 00:10] VITALS: RESP 20
[2018-05-05] MEDS: Potassium Ch 20mEq in D5-1/2NS 1,000 ML IV SCH (03:03)
[2018-05-05] MEDS: Insulin Lispro (humaLOG) 100 Units/ml Inj SC SCH ×4 (06:31→12:53)
[2018-05-05 07:10] LABS: HEMOGLOBIN 11.8 g/dL (12.0-18.0); MEAN CELL VOLUME 89.9 fl (80.0-94.0); MEAN CORPUSCULAR HEMOGLOBIN 30.4 pg (27.0-31.0); MEAN CORPUSCULAR HGB CONC 33.9 g/dL (33.0-37.0); RBC 3.89 Mil/uL (4.40-5.90); RED CELL DISTRIBUTION WIDTH 13.6 % (11.5-14.5); WHITE BLOOD COUNT 8.2 K/uL (4.8-10.8)
[2018-05-05 07:23] LABS: BLOOD UREA NITROGEN 8 mg/dl (9-20); CALCIUM 8.7 mg/dL (8.4-10.2); GFR NON-AFRICAN AMERICAN > 60
[2018-05-05 08:25] VITALS: TEMP 97.8
[2018-05-05] MEDS: Azithromycin 500 MG in Sodium Chloride 0.9% 250 ML IVPB SCH (08:32)
[2018-05-05] MEDS: Enoxaparin 40 mg Syringe SC SCH (08:35)
--- NOTE | 2018-05-05 11:04 | CP.PCM.PN ---
<Afsaneh Hartman - Last Filed: 05/05/18 13:30> Subjective - Date & Time of Evaluation Date of Evaluation: 05/05/18 Time of Evaluation: 11:04 - Subjective Subjective: Neuro Follow-Up Note: Mr. Espino was evaluated this afternoon at bedside He states that today he feels better and is waiting to be d/c home. He offers no complaints today and denies h/a, dizziness, visual changes, chest pain, palpitations, sob, cough, abd pain, n/v/d, paresthesias. Objective - Vital Signs/Intake and Output Vital Signs (last 24 hours): Temp Pulse Resp BP Pulse Ox 97.8 F 85 20 121/78 94 L 05/05/18 08:25 05/05/18 08:25 05/05/18 08:25 05/05/18 08:25 05/05/18 08:25 Intake and Output: 05/05/18 05/05/18 06:59 18:59 Intake Total 1060 Balance 1060 - Medications Medications: Current Medications Acetaminophen (Tylenol 650 Mg Supp) 650 mg FL Q4 PRN PRN Reason: Fever >100.4 F Last Admin: 05/01/18 01:16 Dose: 650 mg Albuterol/Ipratropium (Duoneb 3 Mg/0.5 Mg (3 Ml) Ud) 3 ml INH RQ4 PRN PRN Reason: Cough and congestion Last Admin: 05/01/18 01:58 Dose: 3 ml Aspirin (Ecotrin) 81 mg PO DAILY [facility] Last Admin: 05/05/18 08:36 Dose: 81 mg Atorvastatin Calcium (Lipitor) 20 mg PO HS [facility] Last Admin: 05/04/18 21:49 Dose: 20 mg Dextrose (Dextrose 50% Inj) 0 ml IV STAT PRN; Protocol PRN Reason: Hypoglycemia Protocol Last Admin: 05/03/18 12:42 Dose: 50 ml Dextrose (Glutose 15) 0 gm PO ONCE PRN; Protocol PRN Reason: Hypoglycemia Protocol Duloxetine HCl (Cymbalta) 60 mg PO DAILY [facility] Last Admin: 05/05/18 08:36 Dose: 60 mg Enalapril Maleate (Vasotec) 10 mg PO DAILY [facility] Last Admin: 05/05/18 08:36 Dose: 10 mg Enoxaparin Sodium (Lovenox) 40 mg SC DAILY [facility]; Protocol Last Admin: 05/05/18 08:35 Dose: 40 mg Famotidine (Pepcid) 20 mg PO DAILY [facility] Last Admin: 05/05/18 08:36 Dose: 20 mg Glucagon (Glucagen Diagnostic Kit) 0 mg IM STAT PRN; Protocol PRN Reason: Hypoglycemia Protocol Haloperidol Lactate (Haldol) 2 mg IM Q4 PRN PRN Reason: Agitation Last Admin: 05/03/18 20:48 Dose: 2 mg Ceftriaxone Sodium 1 gm/ (Sodium Chloride) 100 mls @ 100 mls/hr IVPB DAILY [facility]; Protocol Last Admin: 05/05/18 08:31 Dose: 100 mls/hr Azithromycin 500 mg/ Sodium (Chloride) 250 mls @ 250 mls/hr IVPB DAILY [facility]; Protocol Last Admin: 05/05/18 08:32 Dose: 250 mls/hr Potassium Chloride/Dextrose/Sod Cl (Potassium Chl 20 Meq In D5-1/2ns) 1,000 mls @ 80 mls/hr IV .[id number] [facility] Stop: 05/05/18 13:38 Last Admin: 05/05/18 03:03 Dose: 80 mls/hr Insulin Detemir (Levemir) 30 units SC HS [facility] Last Admin: 05/04/18 21:42 Dose: Not Given Insulin Human Lispro (Humalog) 0 units SC ACHS [facility] Last Admin: 05/05/18 06:31 Dose: Not Given Insulin Human Lispro (Humalog) 8 units SC AC [facility] Last Admin: 05/05/18 08:37 Dose: 8 units Ondansetron HCl (Zofran Inj) 4 mg IVP Q6H PRN PRN Reason: Nausea/Vomiting Oxcarbazepine (Trileptal) 300 mg PO BID [facility] Last Admin: 05/05/18 08:36 Dose: 300 mg Risperidone (Risperdal M-Tab) 2 mg PO HS [facility] Last Admin: 05/04/18 21:49 Dose: 2 mg - Labs Labs: 05/05/18 06:35 05/05/18 06:35 - Constitutional Appears: Well, Non-toxic, No Acute Distress - Head Exam Head Exam: ATRAUMATIC, NORMAL INSPECTION, NORMOCEPHALIC - Eye Exam Eye Exam: EOMI, Normal appearance, PERRL Pupil Exam: NORMAL ACCOMODATION, PERRL - ENT Exam ENT Exam: Mucous Membranes Moist, Normal Exam - Neck Exam Neck Exam: Full ROM, Normal Inspection - Respiratory Exam Respiratory Exam: NORMAL BREATHING PATTERN - Extremities Exam Extremities Exam: Full ROM. absent: Calf Tenderness, Pedal Edema - Back Exam Back Exam: Full ROM, NORMAL INSPECTION - Neurological Exam Neurological Exam: Alert, Awake, CN II-XII Intact, Normal Gait, Oriented x3, Reflexes Normal Neuro motor strength exam: Left Upper Extremity: 5, Right Upper Extremity: 5, Left Lower Extremity: 5, Right Lower Extremity: 5 Additional comments: no neuro deficits - Psychiatric Exam Psychiatric exam: Normal Affect, Normal Mood - Skin Skin Exam: Normal Color Assessment and Plan (1) Toxic metabolic encephalopathy Assessment & Plan: Imaging reviewed: repeat CT Head without contrast shows no new changes or abnormalities. -EEG: This is an abnormal EEG record that demonstrate the presence of a mild to moderate non specific diffuse disturbance of cortical activity, this is in keeping with a diffuse miranda matter dysfunction. These findings do not support a specific etiology. -Pt encouraged to follow up with [facility] for blood glucose control. -No further neuro recommendations. Thank you for allowing us to participate in this patient's care. Reconsult prn. Case discussed with Dr. Brandt Status: Acute <Les Brandt - Last Filed: 05/05/18 14:59> Objective - Vital Signs/Intake and Output Vital Signs (last 24 hours): Temp Pulse Resp BP Pulse Ox 97.8 F 102 H 20 95/64 L 96 05/05/18 09:00 05/05/18 13:25 05/05/18 09:00 05/05/18 13:25 05/05/18 13:25 Intake and Output: 05/05/18 05/05/18 06:59 18:59 Intake Total 1060 Balance 1060 - Labs Labs: 05/05/18 06:35 05/05/18 06:35 Assessment and Plan (1) Toxic metabolic encephalopathy Status: Acute
[2018-05-05 13:44] VITALS: BP 95/64; PULSE 102; O2SAT 96
--- NOTE | 2018-05-05 16:21 | CP.PCM.DIS ---
Provider - Provider Date of Admission: 04/29/18 23:25 Attending physician: Tapan Sheehan MD Consults: 04/30/18 07:42 Endocrinology Consult Routine Comment: Consulting Provider: Anna Marie Acuña Consulting Physician: Anna Marie Acuña Reason for Consult: DKA 04/30/18 08:00 Social Work Referral Routine Comment: routine Physician Instructions: Reason For Exam: routine 04/30/18 11:56 Psychiatry Consult Routine Comment: Consulting Provider: Osvaldo Baker Consulting Physician: Osvaldo Baker Reason for Consult: Schizophrenia 05/03/18 07:20 Neurology Consult Routine Comment: Consulting Provider: Les Brandt Consulting Physician: Les Brandt Reason for Consult: altered mental status since admission 05/03/18 10:26 Psychiatry Consult Routine Comment: Consulting Provider: Felisha Rios Consulting Physician: Felisha Rios Reason for Consult: Schizophrenia Time Spent in preparation of Discharge (in minutes): 35 Diagnosis - Discharge Diagnosis (1) DKA (diabetic ketoacidoses) Status: Resolved (2) Altered mental status Status: Resolved (3) Bilateral pneumonia Status: Acute Hospital Course - Lab Results Lab Results: Micro Results 04/30/18 12:45 Blood Blood Culture - Final NO GROWTH AFTER 5 DAYS 04/30/18 12:45 Blood Gram Stain - Final TEST NOT PERFORMED 04/30/18 13:00 Blood Blood Culture - Final NO GROWTH AFTER 5 DAYS 04/30/18 13:00 Blood Gram Stain - Final TEST NOT PERFORMED 04/30/18 02:40 Urine,[place] Urine Culture - Final No Growth (<1,000 CFU/ML) 04/30/18 02:40 Naris MRSA Culture (Admit) - Final MRSA NOT DETECTED Most Recent Lab Values WBC 8.2 K/uL (4.8-10.8) 05/05/18 06:35 RBC 3.89 Mil/uL (4.40-5.90) L 05/05/18 06:35 Hgb 11.8 g/dL (12.0-18.0) L 05/05/18 06:35 Hct 35.0 % (35.0-51.0) 05/05/18 06:35 MCV 89.9 fl (80.0-94.0) 05/05/18 06:35 MCH 30.4 pg (27.0-31.0) 05/05/18 06:35 MCHC 33.9 g/dL (33.0-37.0) 05/05/18 06:35 RDW 13.6 % (11.5-14.5) 05/05/18 06:35 Plt Count 140 K/uL (130-400) 05/05/18 06:35 MPV 9.7 fl (7.2-11.7) 05/04/18 04:05 Neut % (Auto) 74.7 % (50.0-75.0) 05/04/18 04:05 Lymph % (Auto) 15.5 % (20.0-40.0) L 05/04/18 04:05 [place] % (Auto) 8.5 % (0.0-10.0) 05/04/18 04:05 Eos % (Auto) 0.3 % (0.0-4.0) 05/04/18 04:05 Baso % (Auto) 1.0 % (0.0-2.0) 05/04/18 04:05 Neut # (Auto) 9.6 K/uL (1.8-7.0) H 05/04/18 04:05 Lymph # (Auto) 2.0 K/uL (1.0-4.3) 05/04/18 04:05 [place] # (Auto) 1.1 K/uL (0.0-0.8) H 05/04/18 04:05 Eos # (Auto) 0.0 K/uL (0.0-0.7) 05/04/18 04:05 Baso # (Auto) 0.1 K/uL (0.0-0.2) 05/04/18 04:05 Neutrophils % (Manual) 80 % (42-75) H 04/29/18 23:00 Band Neutrophils % 2 % (0-2) 04/29/18 23:00 Lymphocytes % (Manual) 7 % (20-50) L 04/29/18 23:00 Monocytes % (Manual) 9 % (0-10) 04/29/18 23:00 Metamyelocytes % 2 % (0-0) H 04/29/18 23:00 Toxic Granulation Present 04/29/18 23:00 Platelet Estimate Normal (NORMAL) 04/29/18 23:00 Large Platelets Present 04/29/18 23:00 Anisocytosis (manual) Slight 04/29/18 23:00 Macrocytosis (manual) Moderate 04/29/18 23:00 Tear Drop Cells Slight 04/29/18 23:00 [place] Cells Moderate 04/29/18 23:00 pCO2 26 mm/Hg (35-45) L 04/30/18 10:35 pO2 65 mm/Hg (80-100) L 04/30/18 10:35 HCO3 17.3 mmol/L (21-28) L 04/30/18 10:35 ABG pH 7.35 (7.35-7.45) 04/30/18 10:35 ABG Total CO2 15.2 mmol/L (22-28) L 04/30/18 10:35 ABG O2 Saturation 98.0 % (95-98) 04/30/18 10:35 ABG O2 Content 15.3 ML/dL (15-23) 04/30/18 10:35 ABG Base Excess -9.7 mmol/L (-2.0-3.0) L 04/30/18 10:35 ABG Hemoglobin 11.5 g/dL (11.7-17.4) L 04/30/18 10:35 ABG Carboxyhemoglobin 1.9 % (0.5-1.5) H 04/30/18 10:35 POC ABG HHb (Measured) 1.9 % (0.0-5.0) 04/30/18 10:35 ABG Methemoglobin 2.0 % (0.0-3.0) 04/30/18 10:35 ABG O2 Capacity 15.6 mL/dL (16-24) L 04/30/18 10:35 Otto Test Yes 04/30/18 10:35 ABG Potassium 7.8 mmol/L (3.6-5.2) H* 04/29/18 23:15 A-a O2 Difference 102.0 mm/Hg 04/30/18 10:35 Hgb O2 Saturation 94.2 % (95.0-98.0) L 04/30/18 10:35 Sodium 121.0 mmol/L (132-148) L 04/29/18 23:15 Chloride 83.0 mmol/L (98-107) L 04/29/18 23:15 Glucose > 750 mg/dL (75-110) H* D 04/29/18 23:15 Lactate 3.4 mmol/L (0.7-2.1) H 04/29/18 23:15 Liter Flow 2 04/30/18 10:35 Vent Mode Nc 04/30/18 10:35 FiO2 28.0 % 04/30/18 10:35 Blood Gas Comments Nc 2 lpm 04/30/18 10:35 Crit Value Called To Ana lambert r.n. 04/30/18 10:35 Crit Value Called By Mayra 04/30/18 10:35 Crit Value Read Back Y 04/30/18 10:35 Blood Gas Notified Time 1137 04/30/18 10:35 Sodium 140 mmol/l (132-148) 05/05/18 06:35 Potassium 3.6 MMOL/L (3.6-5.0) 05/05/18 06:35 Chloride 110 mmol/L (98-107) H 05/05/18 06:35 Carbon Dioxide 25 mmol/L (22-30) 05/05/18 06:35 Anion Gap 9 (10-20) L 05/05/18 06:35 BUN 8 mg/dl (9-20) L 05/05/18 06:35 Creatinine 0.6 mg/dl (0.8-1.5) L 05/05/18 06:35 Est GFR ( Amer) > 60 05/05/18 06:35 Est GFR (Non-Af Amer) > 60 05/05/18 06:35 POC Glucose (mg/dL) 146 mg/dL (65-110) H 05/05/18 11:11 Random Glucose 161 mg/dL (75-110) H 05/05/18 06:35 Hemoglobin A1c 12.3 % (4.2-6.5) H 05/01/18 09:00 Calcium 8.7 mg/dL (8.4-10.2) 05/05/18 06:35 Phosphorus 3.2 mg/dl (2.5-4.5) 05/05/18 06:35 Magnesium 1.9 MG/DL (1.6-2.3) 05/05/18 06:35 Total Bilirubin 0.7 mg/dl (0.2-1.3) 05/04/18 04:05 AST 49 U/L (17-59) 05/04/18 04:05 ALT 50 U/L (21-72) 05/04/18 04:05 Alkaline Phosphatase 96 U/L (38-126) 05/04/18 04:05 Ammonia < 9 umo/L (16-60) L 05/02/18 11:33 Troponin I 0.0350 ng/mL (0.00-0.120) 04/29/18 23:00 Total Protein 5.4 G/DL (6.3-8.2) L 05/04/18 04:05 Albumin 2.7 g/dL (3.5-5.0) L 05/04/18 04:05 Globulin 2.7 gm/dL (2.2-3.9) 05/04/18 04:05 Albumin/Globulin Ratio 1.0 (1.0-2.1) 05/04/18 04:05 Triglycerides 90 mg/DL (0-149) D 05/01/18 05:30 Cholesterol 132 mg/dL (0-199) 05/01/18 05:30 LDL Cholesterol Direct 69 mg/dL (0-129) 05/01/18 05:30 HDL Cholesterol 50 MG/DL (30-70) 05/01/18 05:30 Vitamin B12 > 1000 pg/mL (239-931) H 05/01/18 05:30 Folate 13.4 ng/mL 05/01/18 05:30 Procalcitonin 0.66 NG/ML (0.19-0.49) H 05/03/18 08:55 Thyroxine (T4) 5.18 ug/dl (5.5-11.0) L 05/02/18 04:30 TSH 3rd Generation 1.71 mIU/ML (0.46-4.68) 05/05/18 06:35 Arterial Blood Potassium 7.8 mmol/L (3.6-5.2) H* 04/29/18 23:15 Urine Color Yellow (YELLOW) 04/30/18 02:40 Urine Clarity Cloudy (Clear) 04/30/18 02:40 Urine pH 5.0 (5.0-8.0) 04/30/18 02:40 Ur Specific [place] 1.017 (1.003-1.030) 04/30/18 02:40 Urine Protein 100 mg/dL (NEGATIVE) 04/30/18 02:40 Urine Glucose (UA) >=500 mg/dL (NEGATIVE) 04/30/18 02:40 Urine Ketones 20 mg/dL (NEGATIVE) 04/30/18 02:40 Urine Blood Moderate (NEGATIVE) 04/30/18 02:40 Urine Nitrate Negative (NEGATIVE) 04/30/18 02:40 Urine Bilirubin Negative (NEGATIVE) 04/30/18 02:40 Urine Urobilinogen 0.2-1.0 mg/dL (0.2-1.0) 04/30/18 02:40 Ur Leukocyte Esterase Neg [place]/uL (Negative) 04/30/18 02:40 Urine RBC (Auto) 2 /hpf (0-3) 04/30/18 02:40 Urine Microscopic WBC 18 /hpf (0-5) H 04/30/18 02:40 Ur Squamous Epith Cells < 1 /hpf (0-5) 04/30/18 02:40 Urine Bacteria Rare (<OCC) 04/30/18 02:40 Urine Opiates Screen Negative (NEGATIVE) 04/30/18 02:40 Urine Methadone Screen Negative (NEGATIVE) 04/30/18 02:40 Ur Barbiturates Screen Negative (NEGATIVE) 04/30/18 02:40 Ur Phencyclidine Scrn Negative (NEGATIVE) 04/30/18 02:40 Ur Amphetamines Screen Negative (NEGATIVE) 04/30/18 02:40 U Benzodiazepines Scrn Negative (NEGATIVE) 04/30/18 02:40 U Oth Cocaine Metabols Negative (NEGATIVE) 04/30/18 02:40 U Cannabinoids Screen Negative (NEGATIVE) 04/30/18 02:40 Ur L.pneumophila Ag Negative (NEGATIVE) 04/30/18 17:32 Mycoplasma pneumon IgM Negative (NEGATIVE) 05/01/18 06:45 - Hospital Course Hospital Course: 57 y/o gent with hx of Insulin Dependent DM, Bipolar Disorder, was brought in by EMS very lethargic and in the ED found to be very acidotic and in DKA. He was admitted to the ICU and placed on insulin and bicarbonate drip for 2 days. Eventually he was titrated off both drips once his acid-base status corrected. He was also noted to have bilateral lung infiltrates and was treated for CAP for 6 days. Pt remained lethargic and minimally responsive for 1-2 days until her psychotropic medication was restarted and his mental status improved to baseline. He was evaluated during psychiatry and neurology during this time and the consensus was that it was due to his current medical condition. Pt is now alert and oriented at baseline. His diabetes was managed by Dr. Acuña who started pt on a basal bolus regimen. Pt was down graded to med-surg where he participated in physical therapy and cleared for discharge home. He was evaluated prior to discharge and medically stable. Plan: 1. Pneumonia prob bacterial, CAP - Mild , afebrile, improving - CXR-Congestions, w/ new superimposed patchy consolidation - C/W IV ceftriaxone and Azithro x 6 days. WIll discharge on Levo for 7 days - Legionella, Mycoplasma both negative - Blood c/s ,sputum c/s--No growth 4 days - Procalcitonin 0.66 2. Altered Mental Status -Resolved -Pt is AOx3 -May be metabolic encephalopathy 2/2 to DKA vs underlying psychiatric condition -Neurology consult appreciated -EEG ordered- normal -Psychiatry consulted, recs appreciated- likely delirium secondary to acute medical condition -Head CT negative - 3. DKA -Resolved -Glucose within normal range - Pt came in lethargic severely acidotic with pH 6.8 on ABG , high Anion gap and with blood sugar of greater than 750 -Acid-Base normalized, last ABG 04/30/18 -Endo consulted- Dr Acuña; Started on Detemir 30units HS ,Lispro 8 units SC AC -Hemoglobin A1C 12.3 5. Hypokalemia -Potassium 2.8 this morning, repleted >>> repeat K 3.6 -F/U BMP 6. Hypophosphatemia Phosphorus at 1.1 --> repeat 1.7 Repleted with Kphos continue to follow 7. Acute Kidney Injury due to Dehydration, resolved -Resolved, Crea 0.6 today - Fluids discontinuing 8. Transaminitis, mild -AST/ALT 133/73 -Resolved 8. Low TSH, T4 -TSH 0.02, T4 5.18 - May be sick euthyroid -Will monitor and repeat once medical condition is stable, repeat TSH 1.7 9. Bipolar Disorder - pt has hx of Bipolar, Follows with Dr. Mortensen, -Advised to f/u with Psychiatrist post discharge Pt instructed to f/u with PMD Dr. Macias, Psychiatrist Dr. Tellez, and Levi Maker, Dr. Acuña. Encouraged compliance of all medication. Discharge Exam - Head Exam Head Exam: ATRAUMATIC, NORMAL INSPECTION, NORMOCEPHALIC - Eye Exam Eye Exam: Normal appearance - ENT Exam ENT Exam: Mucous Membranes Moist - Respiratory Exam Respiratory Exam: Clear to PA & Lateral. absent: Accessory Muscle Use, Rales, Wheezes - Cardiovascular Exam Cardiovascular Exam: REGULAR RHYTHM, +S1, +S2 - Extremities Exam Extremities exam: normal inspection - Neurological Exam Neurological exam: Alert, Normal Gait, Oriented x3 - Psychiatric Exam Psychiatric exam: Normal Affect - Skin Skin Exam: Normal Color Discharge Plan - Discharge Medications Prescriptions: Atorvastatin [Lipitor] 20 mg PO HS 30 Days #30 tab Enalapril Maleate [Vasotec] 10 mg PO DAILY 30 Days #30 tab Insulin Detemir [Levemir] 30 units SC HS 30 Days #10 vial Insulin Lispro [Humalog (Insulin Lispro)] 8 unit SQ ACHS #2 vial levoFLOXacin [Levaquin] 750 mg PO DAILY 7 Days #7 tab - Follow Up Plan Condition: GUARDED Disposition: HOME/ ROUTINE Instructions: Diabetes and Diet, Diabetic Ketoacidosis (DC) Additional Instructions: follow up with dr andujar 1 week follow up with dr acuña, dr mortensen 1-2 weeks Referrals: Felisha Rios MD [Medical Doctor] - Anna Marie Acuña MD [Medical Doctor] - Les Brandt MD [Medical Doctor] - Herber Andujar MD [Medical Doctor] -
--- NOTE | 2018-05-06 00:14 | PN ---
DATE: 05/05/2018 ENDOCRINOLOGY FOLLOWUP NOTE LOCATION: Room 665. SUBJECTIVE: This is a 57-year-old male with recent uncontrolled type 1 insulin-dependent diabetes, now being followed closely for metabolic management. He presented here with diabetic ketoacidosis and dehydration and has improved clinically and metabolically as noted thereof. His glycemic levels have improved and the glucose values have ranged from 146 to 166 mg/dL. His latest chemistry showed a BUN of 8, sodium 140, potassium 3.6, chloride 110, CO2 of 25, glucose 161, and creatinine 0.6. PLAN OF MANAGEMENT: So, at this time, we will continue the same recommendations for the combination of a basal and bolus insulin dose regimen. We will continue the Levemir at 30 subcu at bedtime daily as given. We will continue the Humalog, give 8 units t.i.d. before meals as ordered. We will obtain serial chemistries and supplement accordingly as needed. We will follow. 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 He was lost to endocrine followup for over two years from my office. He, at this time, agreed to follow up with me for further ongoing care as needed. Anna Marie Montanez MD
== END 2018-05-05 14:40 | disposition home or self-care (01) | DRG 637 ==
LOC: H.ER 22:15 → H.ERHOLD 23:25 → H.ICU/CCU 04-30 01:42 → H.MEDSURG1 05-04 18:48
PROVIDERS: ADMIT Internal Medicine; ATTEND Internal Medicine
PROC: 3E02340 Introduction of Influenza Vaccine into Muscle, Percutaneous Approach (ICD-10-PCS; principal; 2018-05-03)
PROC: 3E0234Z Introduction of Serum, Toxoid and Vaccine into Muscle, Percutaneous Approach (ICD-10-PCS; 2018-05-03)
DX: E10.10 Type 1 diabetes mellitus with ketoacidosis without coma (principal); J15.9 Unspecified bacterial pneumonia; G93.41 Metabolic encephalopathy; N17.9 Acute kidney failure, unspecified; E87.1 Hypo-osmolality and hyponatremia; F31.30 Bipolar disorder, current episode depressed, mild or moderate severity, unspecified; E87.5 Hyperkalemia; E87.6 Hypokalemia; Z79.4 Long term (current) use of insulin; F25.9 Schizoaffective disorder, unspecified; E86.0 Dehydration; R74.0 Nonspecific elevation of levels of transaminase and lactic acid dehydrogenase [LDH]; I87.8 Other specified disorders of veins; E10.649 Type 1 diabetes mellitus with hypoglycemia without coma; E78.00 Pure hypercholesterolemia, unspecified; Z79.82 Long term (current) use of aspirin; I10 Essential (primary) hypertension; E10.319 Type 1 diabetes mellitus with unspecified diabetic retinopathy without macular edema; E83.39 Other disorders of phosphorus metabolism; Z23 Encounter for immunization; Z78.1 Physical restraint status; E78.5 Hyperlipidemia, unspecified; E10.42 Type 1 diabetes mellitus with diabetic polyneuropathy

== ENCOUNTER 2018-05-08 12:03 | Inpatient (IN) | payer MEDICARE ==
[2018-05-08 12:03] VITALS: BMI 28.2
[2018-05-08] MEDS ORDERED: Sodium Chloride 0.9% 1,000 ML IV STA ×2 (12:56)
[2018-05-08] MEDS ORDERED: Potassium Chl 20 mEq in NS 1,000 ML IV SCH (13:00)
--- NOTE | 2018-05-08 13:33 | ED PDOC ---
Hyperglycemia/Hypoglycemia Time Seen by Provider: 05/08/18 12:23 Chief Complaint (Nursing): High Blood Sugar Chief Complaint (Provider): High Blood Sugar History Per: Patient History/Exam Limitations: no limitations Onset/Duration Of Symptoms: Hrs Current Symptoms Are (Timing): Still Present : The patient does not have any of the infectious symptoms listed except for those marked. Additional Complaint(s): 57 year old male presents to the ED complaining he feels sick and nauseous today. Patient was discharged from the hospital for pneumonia and high sugar. He is non-complaint with his insulin and reports he has shortness of breath because his upstairs neighbor was smoking all day. Otherwise he denies urinary symptoms, vomiting, diarrhea, abdominal pain or fever. PE: Non H provider Past Medical History Reviewed: Historical Data, Nursing Documentation, Vital Signs Vital Signs: Last Vital Signs Temp 96.4 F L 05/08/18 12:18 Pulse 96 H 05/08/18 12:18 Resp 20 05/08/18 12:18 BP 109/68 05/08/18 12:18 Pulse Ox 99 05/08/18 12:18 - Medical History PMH: Anxiety, Bipolar Disorder, Bronchitis, Depression, Diabetes (Type I), HTN, Hypercholesterolemia Denies: Hepatitis, HIV, Chronic Kidney Disease, Seizures, Sexually Transmitted Disease - Family History Family History: States: Diabetes - Social History Current smoker - smoking cessation education provided: No Alcohol: None Drugs: Denies - Home Medications Home Medications: Ambulatory Orders Medication Instructions Recorded OXcarbazepine [Trileptal] 300 mg PO BID #60 tab 06/24/15 Aspirin [Ecotrin] 81 mg PO DAILY 12/30/15 DULoxetine [Cymbalta] 60 mg PO DAILY 12/30/15 Simvastatin [Zocor] 20 mg PO HS 12/30/15 clonazePAM [Klonopin] 0.5 mg PO BID 12/30/15 risperiDONE [RisperDAL Tab] 1 mg PO HS 12/30/15 Atorvastatin [Lipitor] 20 mg PO HS 30 Days #30 tab 05/05/18 Enalapril Maleate [Vasotec] 10 mg PO DAILY 30 Days #30 tab 05/05/18 Insulin Detemir [Levemir] 30 units SC HS 30 Days #10 vial 05/05/18 Insulin Lispro [Humalog (Insulin 8 unit SQ ACHS #2 vial 05/05/18 Lispro)] levoFLOXacin [Levaquin] 750 mg PO DAILY 7 Days #7 tab 05/05/18 - Allergies Allergies/Adverse Reactions: Allergies Allergy/AdvReac Type Severity Reaction Status Date / Time No Known Allergies Allergy Verified 04/29/18 22:32 Review of Systems ROS Statement: Except As Marked, All Systems Reviewed And Found Negative Constitutional: Negative for: Fever Respiratory: Positive for: Shortness of Breath Gastrointestinal: Positive for: Nausea. Negative for: Vomiting, Abdominal Pain, Diarrhea Genitourinary Male: Negative for: Dysuria, Frequency, Hematuria Skin: Negative for: Rash Physical Exam - Reviewed Nursing Documentation Reviewed: Yes Vital Signs Reviewed: Yes - Physical Exam Appears: Positive for: Well, Non-toxic, No Acute Distress Head Exam: Positive for: ATRAUMATIC, NORMAL INSPECTION, NORMOCEPHALIC Skin: Positive for: Normal Color, Warm, Dry. Negative for: Rash Eye Exam: Positive for: EOMI, Normal appearance, PERRL ENT: Positive for: Normal ENT Inspection Neck: Positive for: Normal, Painless ROM, Supple. Negative for: Decreased ROM Cardiovascular/Chest: Positive for: Regular Rate, Rhythm. Negative for: Murmur Respiratory: Positive for: Normal Breath Sounds. Negative for: Decreased Breath Sounds, Wheezing, Respiratory Distress Gastrointestinal/Abdominal: Positive for: Normal Exam, Soft. Negative for: Tenderness, Guarding, Rebound Back: Positive for: Normal Inspection. Negative for: L CVA Tenderness, R CVA Tenderness Extremity: Positive for: Normal ROM. Negative for: Tenderness, Pedal Edema, Deformity Neurologic/Psych: Positive for: Alert, Oriented (x3). Negative for: Motor/Sensory Deficits - Laboratory Results Result Diagrams: 05/08/18 13:45 05/08/18 13:45 - ECG Interpretation Of ECG: NSR @ 94, prolonged QT, no ST-T changes. O2 Sat by Pulse Oximetry: 99 (RA) Pulse Ox Interpretation: Normal - Radiology X-Ray: Interpreted by Mo X-Ray Interpretation: No Acute Disease - Critical Care Total Time (In Min): 45 Medical Decision Making Medical Decision Making: Time: 1246 Initial Plan: VBG EKG CMP Troponin ED urine CBC w/ Differential PTT Prothrombin Time Chest Portable [RAD] Sodium Chloride 0.9% 1,000mls/hr Glucose, POC, Blood Urinalysis Reevaluation Time: 6824 Case discussed with intensive care, Dr. Walker Scribe Attestation: Documented by Papa Marquez, acting as a scribe for Lauren Hubbard MD. Provider Scribe Attestation: All medical record entries made by the Scribe were at my direction and person ally dictated by me. I have reviewed the chart and agree that the record accurately reflects my personal performance of the history, physical exam, medical decision making, and the department course for this patient. I have also personally directed, reviewed, and agree with the discharge instructions and disposition. Disposition - Disposition Forms: [employer] (Romanian)
[2018-05-08 14:00] LABS: VENOUS BLOOD GAS PCO2 26 mmHg (40-60); VENOUS BLOOD GAS PO2 24 mm/Hg (30-55); VENOUS BLOOD PH 7.23 (7.32-7.43)
[2018-05-08 14:02] LABS: BASO # 0.1 K/uL (0.0-0.2); EOS % 0.2 % (0.0-4.0); LYMPH # 0.8 K/uL (1.0-4.3); LYMPH % 8.7 % (20.0-40.0); MEAN CELL VOLUME 94.5 fl (80.0-94.0); MEAN CORPUSCULAR HEMOGLOBIN 30.5 pg (27.0-31.0); MEAN CORPUSCULAR HGB CONC 32.3 g/dL (33.0-37.0); MONO # 0.7 K/uL (0.0-0.8); NEUT # 7.3 K/uL (1.8-7.0); NEUT % 82.1 % (50.0-75.0); PLATELET COUNT 331 K/uL (130-400); RBC 3.94 Mil/uL (4.40-5.90); RED CELL DISTRIBUTION WIDTH 13.7 % (11.5-14.5); WHITE BLOOD COUNT 8.9 K/uL (4.8-10.8)
[2018-05-08 14:07] LABS: INR 0.9; PROTHROMBIN TIME 10.4 Seconds (9.8-13.1)
[2018-05-08 14:10] LABS: PARTIAL THROMBOPLASTIN TIME 27.1 Seconds (25.6-37.1)
[2018-05-08 14:12] LABS: ALB/GLOB RATIO 1.3 (1.0-2.1); ALBUMIN 3.5 g/dL (3.5-5.0); ALT/SGPT 50 U/L (21-72); AST/SGOT 40 U/L (17-59); BLOOD UREA NITROGEN 13 mg/dl (9-20); CALCIUM 8.7 mg/dL (8.4-10.2); GFR NON-AFRICAN AMERICAN > 60
[2018-05-08] MEDS ORDERED: Dextrose 50% SYRINGE Inj (50 ml) IV PRN (14:18)
[2018-05-08] MEDS ORDERED: Glucagon Recombinant 1 mg Inj IM PRN (14:18)
[2018-05-08 14:55] LABS: LYMPHOCYTE 9 % (20-50); MONOCYTE 10 % (0-10); NEUTROPHIL 81 % (42-75); PLATELET ESTIMATE NORMAL (NORMAL); TOTAL CELLS COUNTED 100
[2018-05-08 14:56] LABS: ANISOCYTOSIS SLIGHT
[2018-05-08 14:57] LABS: LARGE PLATELETS PRESENT; OVALOCYTES SLIGHT
[2018-05-08 14:58] LABS: URINE BACTERIA RARE (<OCC); URINE BILIRUBIN NEGATIVE (NEGATIVE); URINE BLOOD NEGATIVE (NEGATIVE); URINE CLARITY CLEAR (Clear); URINE COLOR YELLOW (YELLOW); URINE GLUCOSE (UA) >=500 mg/dL (NEGATIVE); URINE HYALINE CAST 0-2 /hpf (0-2); URINE LEUKOCYTE ESTERASE NEG Leu/uL (Negative); URINE PROTEIN 30 mg/dL (NEGATIVE); URINE UROBILINOGEN 0.2-1.0 mg/dL (0.2-1.0)
--- NOTE | 2018-05-08 15:08 | RAD ---
Date of service: 05/08/2018 HISTORY: Nausea COMPARISON: Comparison is made to the previous study dated 05/03/2018 FINDINGS: LUNGS: No evidence of new infiltrate or consolidation in the lungs. PLEURA: No significant pleural effusion identified, no pneumothorax apparent. CARDIOVASCULAR: No aortic atherosclerotic calcification present. Normal cardiac size. No pulmonary vascular congestion. OSSEOUS STRUCTURES: No significant abnormalities. VISUALIZED UPPER ABDOMEN: Normal. OTHER FINDINGS: None. IMPRESSION: No active disease.
--- NOTE | 2018-05-08 16:06 | CP.PCM.CON ---
History of Present Illness - History of Present Illness History of Present Illness: 57 YOM with h/o Type 1 DM and multiple admission in the past with DKA, and h/o non-compliance to his insulin , came to ER with c/o feeling weak and SOB due to excessive smoking by his neighbor upstair. No CP, No fever. His BS is high and blood work suggesting DKA , with urine ketone, metabolic acidosis, and high blood sugar. I'm seeing the patient in ER. Review of Systems - Constitutional Constitutional: Fatigue - Cardiovascular Cardiovascular: As Per HPI - Gastrointestinal Gastrointestinal: As Per HPI - Genitourinary Genitourinary: As Per HPI - Musculoskeletal Musculoskeletal: As Per HPI Past Patient History - Past Medical History & Family History Past Medical History?: Yes - Past Social History Alcohol: None Drugs: Denies - CARDIAC Hx Hypercholesterolemia: Yes Hx Hypertension: Yes - PULMONARY Hx Bronchitis: Yes - NEUROLOGICAL Hx Seizures: No - HEENT Hx HEENT Problems: No - RENAL Hx Chronic Kidney Disease: No - ENDOCRINE/METABOLIC Hx Endocrine Disorders: Yes Hx Diabetes Mellitus Type 2: Yes - HEMATOLOGICAL/ONCOLOGICAL Hx Human Immunodeficiency Virus (HIV): No - INTEGUMENTARY Hx Dermatological Problems: No - MUSCULOSKELETAL/RHEUMATOLOGICAL Hx Falls: No - GASTROINTESTINAL Hx Gastrointestinal Disorders: No - GENITOURINARY/GYNECOLOGICAL Hx Sexually Transmitted Disorders: No - PSYCHIATRIC Hx Anxiety: Yes Hx Bipolar Disorder: Yes Hx Depression: Yes - SURGICAL HISTORY Hx Surgeries: No Other/Comment: rivera's palsy - ANESTHESIA Hx Anesthesia: No Hx Anesthesia Reactions: No Meds Allergies/Adverse Reactions: Allergies Allergy/AdvReac Type Severity Reaction Status Date / Time No Known Allergies Allergy Verified 04/29/18 22:32 - Medications Medications: Current Medications Acetaminophen (Tylenol 325mg Tab) 650 mg PO Q6H PRN PRN Reason: Fever >100.4 F Aspirin (Aspirin Chewable) 81 mg PO DAILY [facility] Clonazepam (Klonopin) 0.5 mg PO BID [facility] Dextrose (Dextrose 50% Inj) 0 ml IV STAT PRN; Protocol PRN Reason: Hypoglycemia Protocol Dextrose (Glutose 15) 0 gm PO ONCE PRN; Protocol PRN Reason: Hypoglycemia Protocol Duloxetine HCl (Cymbalta) 60 mg PO DAILY [facility] Enalapril Maleate (Vasotec) 10 mg PO DAILY [facility] Enoxaparin Sodium (Lovenox) 40 mg SC DAILY [place]; Protocol Glucagon (Glucagen Diagnostic Kit) 0 mg IM STAT PRN; Protocol PRN Reason: Hypoglycemia Protocol Insulin Human Regular 100 (units/ Sodium Chloride) 101 mls @ 10.1 mls/hr IV .Q10H [place]; Protocol Oxcarbazepine (Trileptal) 300 mg PO BID [place] Risperidone (Risperdal Tab) 1 mg PO DAILY [place] Physical Exam - Constitutional Appears: Non-toxic - Head Exam Head Exam: ATRAUMATIC - Eye Exam Pupil Exam: PERRL - ENT Exam ENT Exam: Mucous Membranes Moist - Neck Exam Neck exam: Positive for: Full Rom - Respiratory Exam Respiratory Exam: NORMAL BREATHING PATTERN - Cardiovascular Exam Cardiovascular Exam: REGULAR RHYTHM - GI/Abdominal Exam GI & Abdominal Exam: Soft Results - Vital Signs Recent Vital Signs: Last Vital Signs Temp 96.4 F L 05/08/18 12:18 Pulse 96 H 05/08/18 12:18 Resp 20 05/08/18 12:18 BP 109/68 05/08/18 12:18 Pulse Ox 99 05/08/18 14:52 - Labs Result Diagrams: 05/08/18 13:45 05/08/18 13:45 Labs: Laboratory Results - last 24 hr 05/08/18 05/08/18 05/08/18 13:45 13:45 13:45 WBC 8.9 RBC 3.94 L Hgb 12.0 Hct 37.2 MCV 94.5 H D MCH 30.5 MCHC 32.3 L RDW 13.7 Plt Count 331 D MPV 9.0 Neut % (Auto) 82.1 H Lymph % (Auto) 8.7 L [place] % (Auto) 8.0 Eos % (Auto) 0.2 Baso % (Auto) 1.0 Neut # (Auto) 7.3 H Lymph # (Auto) 0.8 L [place] # (Auto) 0.7 Eos # (Auto) 0.0 Baso # (Auto) 0.1 Neutrophils % (Manual) 81 H Lymphocytes % (Manual) 9 L Monocytes % (Manual) 10 Platelet Estimate Normal Large Platelets Present Anisocytosis (manual) Slight Ovalocytes Slight PT 10.4 INR 0.9 APTT 27.1 pO2 ABG Carboxyhemoglobin POC ABG HHb (Measured) ABG Methemoglobin VBG pH VBG pCO2 VBG HCO3 VBG O2 Sat (Calc) VBG Base Excess VBG Hgb O2 Saturation Hemoglobin Sodium 128 L Potassium 5.0 Chloride 92 L Carbon Dioxide 12 L Anion Gap 29 H BUN 13 Creatinine 0.8 Est GFR ( Amer) > 60 Est GFR (Non-Af Amer) > 60 Random Glucose 473 H* D Calcium 8.7 Total Bilirubin 0.3 AST 40 ALT 50 Alkaline Phosphatase 109 Troponin I 0.0490 Total Protein 6.1 L Albumin 3.5 D Globulin 2.6 Albumin/Globulin Ratio 1.3 Urine Color Urine Clarity Urine pH Ur Specific [place] Urine Protein Urine Glucose (UA) Urine Ketones Urine Blood Urine Nitrate Urine Bilirubin Urine Urobilinogen Ur Leukocyte Esterase Urine RBC (Auto) Urine Microscopic WBC Urine Bacteria Hyaline Casts 05/08/18 05/08/18 13:54 14:15 WBC RBC Hgb Hct MCV MCH MCHC RDW Plt Count MPV Neut % (Auto) Lymph % (Auto) [place] % (Auto) Eos % (Auto) Baso % (Auto) Neut # (Auto) Lymph # (Auto) [place] # (Auto) Eos # (Auto) Baso # (Auto) Neutrophils % (Manual) Lymphocytes % (Manual) Monocytes % (Manual) Platelet Estimate Large Platelets Anisocytosis (manual) Ovalocytes PT INR APTT pO2 24 L ABG Carboxyhemoglobin 0.7 POC ABG HHb (Measured) 57.8 H ABG Methemoglobin 4.3 H VBG pH 7.23 L VBG pCO2 26 L VBG HCO3 11.7 VBG O2 Sat (Calc) 39.1 L VBG Base Excess -15.0 L VBG Hgb O2 Saturation 37.1 L Hemoglobin 12.9 Sodium Potassium Chloride Carbon Dioxide Anion Gap BUN Creatinine Est GFR ( Amer) Est GFR (Non-Af Amer) Random Glucose Calcium Total Bilirubin AST ALT Alkaline Phosphatase Troponin I Total Protein Albumin Globulin Albumin/Globulin Ratio Urine Color Yellow Urine Clarity Clear Urine pH 5.0 Ur Specific [place] 1.023 Urine Protein 30 Urine Glucose (UA) >=500 Urine Ketones 80 Urine Blood Negative Urine Nitrate Negative Urine Bilirubin Negative Urine Urobilinogen 0.2-1.0 Ur Leukocyte Esterase Neg Urine RBC (Auto) 2 Urine Microscopic WBC 1 Urine Bacteria Rare Hyaline Casts 0-2 Assessment & Plan - Assessment and Plan (Free Text) Assessment: DKA HTN Metabolic acidosis IDDM Dehydration Plan: Admit to ICU IVF NS bolus x 3 liters then 250 c/h BS q 1 h IV insulin 10 unit bolus and 0.7 u/kg infusion BMP q 6 hours continue Lisinopril
--- NOTE | 2018-05-08 16:26 | CP.PCM.HP ---
Past Patient History - Past Medical History & Family History Past Medical History?: Yes - Past Social History Alcohol: None Drugs: Denies - CARDIAC Hx Hypercholesterolemia: Yes Hx Hypertension: Yes - PULMONARY Hx Bronchitis: Yes - NEUROLOGICAL Hx Seizures: No - HEENT Hx HEENT Problems: No - RENAL Hx Chronic Kidney Disease: No - ENDOCRINE/METABOLIC Hx Endocrine Disorders: Yes Hx Diabetes Mellitus Type 2: Yes - HEMATOLOGICAL/ONCOLOGICAL Hx Human Immunodeficiency Virus (HIV): No - INTEGUMENTARY Hx Dermatological Problems: No - MUSCULOSKELETAL/RHEUMATOLOGICAL Hx Falls: No - GASTROINTESTINAL Hx Gastrointestinal Disorders: No - GENITOURINARY/GYNECOLOGICAL Hx Sexually Transmitted Disorders: No - PSYCHIATRIC Hx Anxiety: Yes Hx Bipolar Disorder: Yes Hx Depression: Yes - SURGICAL HISTORY Hx Surgeries: No Other/Comment: rivera's palsy - ANESTHESIA Hx Anesthesia: No Hx Anesthesia Reactions: No Meds Allergies/Adverse Reactions: Allergies Allergy/AdvReac Type Severity Reaction Status Date / Time No Known Allergies Allergy Verified 04/29/18 22:32 Results - Vital Signs Recent Vital Signs: Last Vital Signs Temp 96.4 F L 05/08/18 12:18 Pulse 96 H 05/08/18 12:18 Resp 20 05/08/18 12:18 BP 109/68 05/08/18 12:18 Pulse Ox 99 05/08/18 14:52 - Labs Result Diagrams: 05/08/18 13:45 05/09/18 04:00 Labs: Laboratory Results - last 24 hr 05/08/18 05/08/18 05/08/18 13:45 13:45 13:45 WBC 8.9 RBC 3.94 L Hgb 12.0 Hct 37.2 MCV 94.5 H D MCH 30.5 MCHC 32.3 L RDW 13.7 Plt Count 331 D MPV 9.0 Neut % (Auto) 82.1 H Lymph % (Auto) 8.7 L [place] % (Auto) 8.0 Eos % (Auto) 0.2 Baso % (Auto) 1.0 Neut # (Auto) 7.3 H Lymph # (Auto) 0.8 L [place] # (Auto) 0.7 Eos # (Auto) 0.0 Baso # (Auto) 0.1 Neutrophils % (Manual) 81 H Lymphocytes % (Manual) 9 L Monocytes % (Manual) 10 Platelet Estimate Normal Large Platelets Present Anisocytosis (manual) Slight Ovalocytes Slight PT 10.4 INR 0.9 APTT 27.1 pO2 ABG Carboxyhemoglobin POC ABG HHb (Measured) ABG Methemoglobin VBG pH VBG pCO2 VBG HCO3 VBG O2 Sat (Calc) VBG Base Excess VBG Hgb O2 Saturation Hemoglobin Sodium 128 L Potassium 5.0 Chloride 92 L Carbon Dioxide 12 L Anion Gap 29 H BUN 13 Creatinine 0.8 Est GFR ( Amer) > 60 Est GFR (Non-Af Amer) > 60 Random Glucose 473 H* D Calcium 8.7 Total Bilirubin 0.3 AST 40 ALT 50 Alkaline Phosphatase 109 Troponin I 0.0490 Total Protein 6.1 L Albumin 3.5 D Globulin 2.6 Albumin/Globulin Ratio 1.3 Urine Color Urine Clarity Urine pH Ur Specific [place] Urine Protein Urine Glucose (UA) Urine Ketones Urine Blood Urine Nitrate Urine Bilirubin Urine Urobilinogen Ur Leukocyte Esterase Urine RBC (Auto) Urine Microscopic WBC Urine Bacteria Hyaline Casts 05/08/18 05/08/18 13:54 14:15 WBC RBC Hgb Hct MCV MCH MCHC RDW Plt Count MPV Neut % (Auto) Lymph % (Auto) [place] % (Auto) Eos % (Auto) Baso % (Auto) Neut # (Auto) Lymph # (Auto) [place] # (Auto) Eos # (Auto) Baso # (Auto) Neutrophils % (Manual) Lymphocytes % (Manual) Monocytes % (Manual) Platelet Estimate Large Platelets Anisocytosis (manual) Ovalocytes PT INR APTT pO2 24 L ABG Carboxyhemoglobin 0.7 POC ABG HHb (Measured) 57.8 H ABG Methemoglobin 4.3 H VBG pH 7.23 L VBG pCO2 26 L VBG HCO3 11.7 VBG O2 Sat (Calc) 39.1 L VBG Base Excess -15.0 L VBG Hgb O2 Saturation 37.1 L Hemoglobin 12.9 Sodium Potassium Chloride Carbon Dioxide Anion Gap BUN Creatinine Est GFR ( Amer) Est GFR (Non-Af Amer) Random Glucose Calcium Total Bilirubin AST ALT Alkaline Phosphatase Troponin I Total Protein Albumin Globulin Albumin/Globulin Ratio Urine Color Yellow Urine Clarity Clear Urine pH 5.0 Ur Specific [place] 1.023 Urine Protein 30 Urine Glucose (UA) >=500 Urine Ketones 80 Urine Blood Negative Urine Nitrate Negative Urine Bilirubin Negative Urine Urobilinogen 0.2-1.0 Ur Leukocyte Esterase Neg Urine RBC (Auto) 2 Urine Microscopic WBC 1 Urine Bacteria Rare Hyaline Casts 0-2 Assessment & Plan (1) DKA (diabetic ketoacidoses) Status: Resolved (2) HTN (hypertension) Status: Chronic Priority: Medium (3) Schizo-affective schizophrenia, chronic condition Status: Chronic Priority: High (4) Dehydration Status: Resolved Priority: Medium
[2018-05-08] MEDS ORDERED: Pneumococcal 23-Valent Vaccine IM ONE (17:24)
[2018-05-08 19:20] LABS: BLOOD UREA NITROGEN 11 mg/dl (9-20); CALCIUM 7.7 mg/dL (8.4-10.2); GFR NON-AFRICAN AMERICAN > 60
[2018-05-08] MEDS: Dextrose 5%/0.9% NS 1,000 ML IV SCH (20:05)
[2018-05-09 02:48] LABS: BLOOD UREA NITROGEN 8 mg/dl (9-20); CALCIUM 8.2 mg/dL (8.4-10.2); GFR NON-AFRICAN AMERICAN > 60
[2018-05-09] MEDS: Dextrose 5%/0.9% NS 1,000 ML IV SCH ×2 (04:05→11:30)
[2018-05-09 05:45] LABS: MEAN CELL VOLUME 91.7 fl (80.0-94.0); MEAN CORPUSCULAR HEMOGLOBIN 30.4 pg (27.0-31.0); MEAN CORPUSCULAR HGB CONC 33.2 g/dL (33.0-37.0); RBC 3.63 Mil/uL (4.40-5.90); RED CELL DISTRIBUTION WIDTH 13.7 % (11.5-14.5); WHITE BLOOD COUNT 10.3 K/uL (4.8-10.8)
[2018-05-09 05:49] LABS: BLOOD UREA NITROGEN 7 mg/dl (9-20); CALCIUM 7.9 mg/dL (8.4-10.2); GFR NON-AFRICAN AMERICAN > 60
[2018-05-09] MEDS ORDERED: Enoxaparin 40 mg Syringe SC SCH (09:00)
--- NOTE | 2018-05-09 10:15 | CARD ---
APPROVED REPORT Date of service: 05/08/2018 EKG Measurement Heart [id number] <Conclusion> Normal sinus rhythm Possible Left atrial enlargement Prolonged QT Abnormal ECG
--- NOTE | 2018-05-09 11:48 | CP.PCM.CON ---
History of Present Illness - History of Present Illness History of Present Illness: This is a 57 year old male with h/o schizoaffective disorder/bipolar depression and h/o DM and admitted medically for DKA pt reported he is currently following up with DR [place], every three months and prescribed risperdal 2 mg hs ,trileptal 300 mg bid ,cymbalta 60 mg daily and klonopin 0.5 mg bid . 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 , pt has been depressed lately because of being estranged from his family, has been feeling lonely, with episodes of hopelessness and helplessness pt has not been compliant with his meds for DM and particularly insulin and his Blood sugar was running very high , indicated that his depression playing a big part in his noncompliance with meds , reported poor sleep and appetite denied perceptual disturbances, denied homicidal ideation Past Patient History - Past Medical History & Family History Past Medical History?: Yes - Past Social History Alcohol: None Drugs: Denies - CARDIAC Hx Hypercholesterolemia: Yes Hx Hypertension: Yes - PULMONARY Hx Bronchitis: Yes - NEUROLOGICAL Hx Seizures: No - HEENT Hx HEENT Problems: No - RENAL Hx Chronic Kidney Disease: No - ENDOCRINE/METABOLIC Hx Endocrine Disorders: Yes Hx Diabetes Mellitus Type 2: Yes - HEMATOLOGICAL/ONCOLOGICAL Hx Human Immunodeficiency Virus (HIV): No - INTEGUMENTARY Hx Dermatological Problems: No - MUSCULOSKELETAL/RHEUMATOLOGICAL Hx Falls: No - GASTROINTESTINAL Hx Gastrointestinal Disorders: No - GENITOURINARY/GYNECOLOGICAL Hx Sexually Transmitted Disorders: No - PSYCHIATRIC Hx Anxiety: Yes Hx Bipolar Disorder: Yes Hx Depression: Yes - SURGICAL HISTORY Hx Surgeries: No Other/Comment: rivera's palsy - ANESTHESIA Hx Anesthesia: No Hx Anesthesia Reactions: No Meds Allergies/Adverse Reactions: Allergies Allergy/AdvReac Type Severity Reaction Status Date / Time No Known Allergies Allergy Verified 04/29/18 22:32 - Medications Medications: Current Medications Dextrose/Sodium Chloride (Dextrose 5%/0.9% Ns 1000 Ml) 1,000 mls @ 125 mls/hr IV .Q8H [place] Stop: 05/09/18 19:42 Last Admin: 05/09/18 04:05 Dose: 125 mls/hr Insulin Detemir (Levemir) 30 units SC HS [place] Insulin Human Lispro (Humalog) 8 units SC TID [place] Physical Exam - Psychiatric Exam Additional comments: pt seen in bed, anxious mood depressed affect, speech soft and slow partial eye contact, thought form coherent, AAOX3 partial insight fair judgment Results - Vital Signs Recent Vital Signs: Last Vital Signs Temp 98.9 F 05/09/18 08:00 Pulse 86 05/09/18 10:00 Resp 16 05/09/18 10:00 BP 144/57 L 05/09/18 10:00 Pulse Ox 94 L 05/09/18 10:00 - Labs Result Diagrams: 05/09/18 04:45 05/09/18 04:45 Labs: Laboratory Results - last 24 hr 05/08/18 05/08/18 05/08/18 12:23 13:45 13:45 WBC 8.9 RBC 3.94 L Hgb 12.0 Hct 37.2 MCV 94.5 H D MCH 30.5 MCHC 32.3 L RDW 13.7 Plt Count 331 D MPV 9.0 Neut % (Auto) 82.1 H Lymph % (Auto) 8.7 L [place] % (Auto) 8.0 Eos % (Auto) 0.2 Baso % (Auto) 1.0 Neut # (Auto) 7.3 H Lymph # (Auto) 0.8 L [place] # (Auto) 0.7 Eos # (Auto) 0.0 Baso # (Auto) 0.1 Neutrophils % (Manual) 81 H Lymphocytes % (Manual) 9 L Monocytes % (Manual) 10 Platelet Estimate Normal Large Platelets Present Anisocytosis (manual) Slight Ovalocytes Slight PT INR APTT pO2 ABG Carboxyhemoglobin POC ABG HHb (Measured) ABG Methemoglobin VBG pH VBG pCO2 VBG HCO3 VBG O2 Sat (Calc) VBG Base Excess VBG Hgb O2 Saturation Hemoglobin Sodium 128 L Potassium 5.0 Chloride 92 L Carbon Dioxide 12 L Anion Gap 29 H BUN 13 Creatinine 0.8 Est GFR ( Amer) > 60 Est GFR (Non-Af Amer) > 60 POC Glucose (mg/dL) > 500 H* Random Glucose 473 H* D Calcium 8.7 Phosphorus Magnesium Total Bilirubin 0.3 AST 40 ALT 50 Alkaline Phosphatase 109 Troponin I 0.0490 Total Protein 6.1 L Albumin 3.5 D Globulin 2.6 Albumin/Globulin Ratio 1.3 Urine Color Urine Clarity Urine pH Ur Specific [place] Urine Protein Urine Glucose (UA) Urine Ketones Urine Blood Urine Nitrate Urine Bilirubin Urine Urobilinogen Ur Leukocyte Esterase Urine RBC (Auto) Urine Microscopic WBC Urine Bacteria Hyaline Casts 05/08/18 05/08/18 05/08/18 13:45 13:54 14:15 WBC RBC Hgb Hct MCV MCH MCHC RDW Plt Count MPV Neut % (Auto) Lymph % (Auto) [place] % (Auto) Eos % (Auto) Baso % (Auto) Neut # (Auto) Lymph # (Auto) [place] # (Auto) Eos # (Auto) Baso # (Auto) Neutrophils % (Manual) Lymphocytes % (Manual) Monocytes % (Manual) Platelet Estimate Large Platelets Anisocytosis (manual) Ovalocytes PT 10.4 INR 0.9 APTT 27.1 pO2 24 L ABG Carboxyhemoglobin 0.7 POC ABG HHb (Measured) 57.8 H ABG Methemoglobin 4.3 H VBG pH 7.23 L VBG pCO2 26 L VBG HCO3 11.7 VBG O2 Sat (Calc) 39.1 L VBG Base Excess -15.0 L VBG Hgb O2 Saturation 37.1 L Hemoglobin 12.9 Sodium Potassium Chloride Carbon Dioxide Anion Gap BUN Creatinine Est GFR ( Amer) Est GFR (Non-Af Amer) POC Glucose (mg/dL) Random Glucose Calcium Phosphorus Magnesium Total Bilirubin AST ALT Alkaline Phosphatase Troponin I Total Protein Albumin Globulin Albumin/Globulin Ratio Urine Color Yellow Urine Clarity Clear Urine pH 5.0 Ur Specific [place] 1.023 Urine Protein 30 Urine Glucose (UA) >=500 Urine Ketones 80 Urine Blood Negative Urine Nitrate Negative Urine Bilirubin Negative Urine Urobilinogen 0.2-1.0 Ur Leukocyte Esterase Neg Urine RBC (Auto) 2 Urine Microscopic WBC 1 Urine Bacteria Rare Hyaline Casts 0-2 05/08/18 05/08/18 05/08/18 15:53 17:56 18:55 WBC RBC Hgb Hct MCV MCH MCHC RDW Plt Count MPV Neut % (Auto) Lymph % (Auto) [place] % (Auto) Eos % (Auto) Baso % (Auto) Neut # (Auto) Lymph # (Auto) [place] # (Auto) Eos # (Auto) Baso # (Auto) Neutrophils % (Manual) Lymphocytes % (Manual) Monocytes % (Manual) Platelet Estimate Large Platelets Anisocytosis (manual) Ovalocytes PT INR APTT pO2 ABG Carboxyhemoglobin POC ABG HHb (Measured) ABG Methemoglobin VBG pH VBG pCO2 VBG HCO3 VBG O2 Sat (Calc) VBG Base Excess VBG Hgb O2 Saturation Hemoglobin Sodium 132 Potassium 4.1 Chloride 103 Carbon Dioxide 19 L Anion Gap 14 BUN 11 Creatinine 0.6 L Est GFR ( Amer) > 60 Est GFR (Non-Af Amer) > 60 POC Glucose (mg/dL) 438 H* 224 H Random Glucose 142 H Calcium 7.7 L Phosphorus Magnesium Total Bilirubin AST ALT Alkaline Phosphatase Troponin I Total Protein Albumin Globulin Albumin/Globulin Ratio Urine Color Urine Clarity Urine pH Ur Specific [place] Urine Protein Urine Glucose (UA) Urine Ketones Urine Blood Urine Nitrate Urine Bilirubin Urine Urobilinogen Ur Leukocyte Esterase Urine RBC (Auto) Urine Microscopic WBC Urine Bacteria Hyaline Casts 05/08/18 05/08/18 05/08/18 19:00 20:06 21:06 WBC RBC Hgb Hct MCV MCH MCHC RDW Plt Count MPV Neut % (Auto) Lymph % (Auto) [place] % (Auto) Eos % (Auto) Baso % (Auto) Neut # (Auto) Lymph # (Auto) [place] # (Auto) Eos # (Auto) Baso # (Auto) Neutrophils % (Manual) Lymphocytes % (Manual) Monocytes % (Manual) Platelet Estimate Large Platelets Anisocytosis (manual) Ovalocytes PT INR APTT pO2 ABG Carboxyhemoglobin POC ABG HHb (Measured) ABG Methemoglobin VBG pH VBG pCO2 VBG HCO3 VBG O2 Sat (Calc) VBG Base Excess VBG Hgb O2 Saturation Hemoglobin Sodium Potassium Chloride Carbon Dioxide Anion Gap BUN Creatinine Est GFR ( Amer) Est GFR (Non-Af Amer) POC Glucose (mg/dL) 178 H 103 98 Random Glucose Calcium Phosphorus Magnesium Total Bilirubin AST ALT Alkaline Phosphatase Troponin I Total Protein Albumin Globulin Albumin/Globulin Ratio Urine Color Urine Clarity Urine pH Ur Specific [place] Urine Protein Urine Glucose (UA) Urine Ketones Urine Blood Urine Nitrate Urine Bilirubin Urine Urobilinogen Ur Leukocyte Esterase Urine RBC (Auto) Urine Microscopic WBC Urine Bacteria Hyaline Casts 05/08/18 05/08/18 05/09/18 22:06 23:03 00:05 WBC RBC Hgb Hct MCV MCH MCHC RDW Plt Count MPV Neut % (Auto) Lymph % (Auto) [place] % (Auto) Eos % (Auto) Baso % (Auto) Neut # (Auto) Lymph # (Auto) [place] # (Auto) Eos # (Auto) Baso # (Auto) Neutrophils % (Manual) Lymphocytes % (Manual) Monocytes % (Manual) Platelet Estimate Large Platelets Anisocytosis (manual) Ovalocytes PT INR APTT pO2 ABG Carboxyhemoglobin POC ABG HHb (Measured) ABG Methemoglobin VBG pH VBG pCO2 VBG HCO3 VBG O2 Sat (Calc) VBG Base Excess VBG Hgb O2 Saturation Hemoglobin Sodium Potassium Chloride Carbon Dioxide Anion Gap BUN Creatinine Est GFR ( Amer) Est GFR (Non-Af Amer) POC Glucose (mg/dL) 112 H 117 H 140 H Random Glucose Calcium Phosphorus Magnesium Total Bilirubin AST ALT Alkaline Phosphatase Troponin I Total Protein Albumin Globulin Albumin/Globulin Ratio Urine Color Urine Clarity Urine pH Ur Specific [place] Urine Protein Urine Glucose (UA) Urine Ketones Urine Blood Urine Nitrate Urine Bilirubin Urine Urobilinogen Ur Leukocyte Esterase Urine RBC (Auto) Urine Microscopic WBC Urine Bacteria Hyaline Casts 05/09/18 05/09/18 05/09/18 01:04 02:07 03:06 WBC RBC Hgb Hct MCV MCH MCHC RDW Plt Count MPV Neut % (Auto) Lymph % (Auto) [place] % (Auto) Eos % (Auto) Baso % (Auto) Neut # (Auto) Lymph # (Auto) [place] # (Auto) Eos # (Auto) Baso # (Auto) Neutrophils % (Manual) Lymphocytes % (Manual) Monocytes % (Manual) Platelet Estimate Large Platelets Anisocytosis (manual) Ovalocytes PT INR APTT pO2 ABG Carboxyhemoglobin POC ABG HHb (Measured) ABG Methemoglobin VBG pH VBG pCO2 VBG HCO3 VBG O2 Sat (Calc) VBG Base Excess VBG Hgb O2 Saturation Hemoglobin Sodium Potassium Chloride Carbon Dioxide Anion Gap BUN Creatinine Est GFR ( Amer) Est GFR (Non-Af Amer) POC Glucose (mg/dL) 165 H 171 H 161 H Random Glucose Calcium Phosphorus Magnesium Total Bilirubin AST ALT Alkaline Phosphatase Troponin I Total Protein Albumin Globulin Albumin/Globulin Ratio Urine Color Urine Clarity Urine pH Ur Specific [place] Urine Protein Urine Glucose (UA) Urine Ketones Urine Blood Urine Nitrate Urine Bilirubin Urine Urobilinogen Ur Leukocyte Esterase Urine RBC (Auto) Urine Microscopic WBC Urine Bacteria Hyaline Casts 05/09/18 05/09/18 05/09/18 04:00 04:05 04:45 WBC RBC Hgb Hct MCV MCH MCHC RDW Plt Count MPV Neut % (Auto) Lymph % (Auto) [place] % (Auto) Eos % (Auto) Baso % (Auto) Neut # (Auto) Lymph # (Auto) [place] # (Auto) Eos # (Auto) Baso # (Auto) Neutrophils % (Manual) Lymphocytes % (Manual) Monocytes % (Manual) Platelet Estimate Large Platelets Anisocytosis (manual) Ovalocytes PT INR APTT pO2 ABG Carboxyhemoglobin POC ABG HHb (Measured) ABG Methemoglobin VBG pH VBG pCO2 VBG HCO3 VBG O2 Sat (Calc) VBG Base Excess VBG Hgb O2 Saturation Hemoglobin Sodium 134 134 Potassium 4.2 3.7 Chloride 103 104 Carbon Dioxide 20 L 21 L Anion Gap 15 13 BUN 8 L 7 L Creatinine 0.6 L 0.6 L Est GFR ( Amer) > 60 > 60 Est GFR (Non-Af Amer) > 60 > 60 POC Glucose (mg/dL) 155 H Random Glucose 128 H 131 H Calcium 8.2 L 7.9 L Phosphorus 2.4 L Magnesium 2.0 Total Bilirubin AST ALT Alkaline Phosphatase Troponin I Total Protein Albumin Globulin Albumin/Globulin Ratio Urine Color Urine Clarity Urine pH Ur Specific [place] Urine Protein Urine Glucose (UA) Urine Ketones Urine Blood Urine Nitrate Urine Bilirubin Urine Urobilinogen Ur Leukocyte Esterase Urine RBC (Auto) Urine Microscopic WBC Urine Bacteria Hyaline Casts 05/09/18 05/09/18 05/09/18 04:45 05:05 06:01 WBC 10.3 RBC 3.63 L Hgb 11.0 L Hct 33.3 L MCV 91.7 D MCH 30.4 MCHC 33.2 RDW 13.7 Plt Count 323 MPV Neut % (Auto) Lymph % (Auto) [place] % (Auto) Eos % (Auto) Baso % (Auto) Neut # (Auto) Lymph # (Auto) [place] # (Auto) Eos # (Auto) Baso # (Auto) Neutrophils % (Manual) Lymphocytes % (Manual) Monocytes % (Manual) Platelet Estimate Large Platelets Anisocytosis (manual) Ovalocytes PT INR APTT pO2 ABG Carboxyhemoglobin POC ABG HHb (Measured) ABG Methemoglobin VBG pH VBG pCO2 VBG HCO3 VBG O2 Sat (Calc) VBG Base Excess VBG Hgb O2 Saturation Hemoglobin Sodium Potassium Chloride Carbon Dioxide Anion Gap BUN Creatinine Est GFR ( Amer) Est GFR (Non-Af Amer) POC Glucose (mg/dL) 139 H 165 H Random Glucose Calcium Phosphorus Magnesium Total Bilirubin AST ALT Alkaline Phosphatase Troponin I Total Protein Albumin Globulin Albumin/Globulin Ratio Urine Color Urine Clarity Urine pH Ur Specific [place] Urine Protein Urine Glucose (UA) Urine Ketones Urine Blood Urine Nitrate Urine Bilirubin Urine Urobilinogen Ur Leukocyte Esterase Urine RBC (Auto) Urine Microscopic WBC Urine Bacteria Hyaline Casts 05/09/18 05/09/18 07:04 07:56 WBC RBC Hgb Hct MCV MCH MCHC RDW Plt Count MPV Neut % (Auto) Lymph % (Auto) [place] % (Auto) Eos % (Auto) Baso % (Auto) Neut # (Auto) Lymph # (Auto) [place] # (Auto) Eos # (Auto) Baso # (Auto) Neutrophils % (Manual) Lymphocytes % (Manual) Monocytes % (Manual) Platelet Estimate Large Platelets Anisocytosis (manual) Ovalocytes PT INR APTT pO2 ABG Carboxyhemoglobin POC ABG HHb (Measured) ABG Methemoglobin VBG pH VBG pCO2 VBG HCO3 VBG O2 Sat (Calc) VBG Base Excess VBG Hgb O2 Saturation Hemoglobin Sodium Potassium Chloride Carbon Dioxide Anion Gap BUN Creatinine Est GFR ( Amer) Est GFR (Non-Af Amer) POC Glucose (mg/dL) 206 H 145 H Random Glucose Calcium Phosphorus Magnesium Total Bilirubin AST ALT Alkaline Phosphatase Troponin I Total Protein Albumin Globulin Albumin/Globulin Ratio Urine Color Urine Clarity Urine pH Ur Specific [place] Urine Protein Urine Glucose (UA) Urine Ketones Urine Blood Urine Nitrate Urine Bilirubin Urine Urobilinogen Ur Leukocyte Esterase Urine RBC (Auto) Urine Microscopic WBC Urine Bacteria Hyaline Casts Assessment & Plan - Assessment and Plan (Free Text) Assessment: schizoaffective disorder bipolar type depressed Plan: pt at current mental status presenting with depressed mood and affect pt agreed for admission to psychiatry on medical clearance for stabilization
[2018-05-09] MEDS: Insulin Lispro (humaLOG) 100 Units/ml Inj SC SCH ×2 (13:03→17:26)
--- NOTE | 2018-05-09 17:19 | CP.PCM.DIS ---
Provider - Provider Date of Admission: 05/08/18 15:39 Attending physician: Josi Wood MD Consults: 05/09/18 10:00 Psychiatry Consult Routine Comment: Consulting Provider: Felisha Rios Consulting Physician: Felisha Rios Reason for Consult: ? bipolar dosorder Time Spent in preparation of Discharge (in minutes): 25 Diagnosis - Discharge Diagnosis (1) DKA (diabetic ketoacidoses) Status: Resolved (2) HTN (hypertension) Status: Chronic Priority: Medium (3) Schizo-affective schizophrenia, chronic condition Status: Chronic Priority: High (4) Dehydration Status: Resolved Priority: Medium Hospital Course - Lab Results Lab Results: Most Recent Lab Values WBC 10.3 K/uL (4.8-10.8) 05/09/18 04:45 RBC 3.63 Mil/uL (4.40-5.90) L 05/09/18 04:45 Hgb 11.0 g/dL (12.0-18.0) L 05/09/18 04:45 Hct 33.3 % (35.0-51.0) L 05/09/18 04:45 MCV 91.7 fl (80.0-94.0) D 05/09/18 04:45 MCH 30.4 pg (27.0-31.0) 05/09/18 04:45 MCHC 33.2 g/dL (33.0-37.0) 05/09/18 04:45 RDW 13.7 % (11.5-14.5) 05/09/18 04:45 Plt Count 323 K/uL (130-400) 05/09/18 04:45 MPV 9.0 fl (7.2-11.7) 05/08/18 13:45 Neut % (Auto) 82.1 % (50.0-75.0) H 05/08/18 13:45 Lymph % (Auto) 8.7 % (20.0-40.0) L 05/08/18 13:45 [place] % (Auto) 8.0 % (0.0-10.0) 05/08/18 13:45 Eos % (Auto) 0.2 % (0.0-4.0) 05/08/18 13:45 Baso % (Auto) 1.0 % (0.0-2.0) 05/08/18 13:45 Neut # (Auto) 7.3 K/uL (1.8-7.0) H 05/08/18 13:45 Lymph # (Auto) 0.8 K/uL (1.0-4.3) L 05/08/18 13:45 [place] # (Auto) 0.7 K/uL (0.0-0.8) 05/08/18 13:45 Eos # (Auto) 0.0 K/uL (0.0-0.7) 05/08/18 13:45 Baso # (Auto) 0.1 K/uL (0.0-0.2) 05/08/18 13:45 Neutrophils % (Manual) 81 % (42-75) H 05/08/18 13:45 Lymphocytes % (Manual) 9 % (20-50) L 05/08/18 13:45 Monocytes % (Manual) 10 % (0-10) 05/08/18 13:45 Platelet Estimate Normal (NORMAL) 05/08/18 13:45 Large Platelets Present 05/08/18 13:45 Anisocytosis (manual) Slight 05/08/18 13:45 Ovalocytes Slight 05/08/18 13:45 PT 10.4 Seconds (9.8-13.1) 05/08/18 13:45 INR 0.9 05/08/18 13:45 APTT 27.1 Seconds (25.6-37.1) 05/08/18 13:45 pO2 24 mm/Hg (30-55) L 05/08/18 13:54 ABG Carboxyhemoglobin 0.7 % (0.5-1.5) 05/08/18 13:54 POC ABG HHb (Measured) 57.8 % (0.0-5.0) H 05/08/18 13:54 ABG Methemoglobin 4.3 % (0.0-3.0) H 05/08/18 13:54 VBG pH 7.23 (7.32-7.43) L 05/08/18 13:54 VBG pCO2 26 mmHg (40-60) L 05/08/18 13:54 VBG HCO3 11.7 mmol/L 05/08/18 13:54 VBG O2 Sat (Calc) 39.1 % (40-65) L 05/08/18 13:54 VBG Base Excess -15.0 mmol/L (0.0-2.0) L 05/08/18 13:54 VBG Hgb O2 Saturation 37.1 % (95.0-98.0) L 05/08/18 13:54 Hemoglobin 12.9 g/dL (11.7-17.4) 05/08/18 13:54 Sodium 134 mmol/l (132-148) 05/09/18 04:45 Potassium 3.7 MMOL/L (3.6-5.0) 05/09/18 04:45 Chloride 104 mmol/L (98-107) 05/09/18 04:45 Carbon Dioxide 21 mmol/L (22-30) L 05/09/18 04:45 Anion Gap 13 (10-20) 05/09/18 04:45 BUN 7 mg/dl (9-20) L 05/09/18 04:45 Creatinine 0.6 mg/dl (0.8-1.5) L 05/09/18 04:45 Est GFR ( Amer) > 60 05/09/18 04:45 Est GFR (Non-Af Amer) > 60 05/09/18 04:45 POC Glucose (mg/dL) 235 mg/dL (65-110) H 05/09/18 16:30 Random Glucose 131 mg/dL (75-110) H 05/09/18 04:45 Calcium 7.9 mg/dL (8.4-10.2) L 05/09/18 04:45 Phosphorus 2.4 mg/dl (2.5-4.5) L 05/09/18 04:45 Magnesium 2.0 MG/DL (1.6-2.3) 05/09/18 04:45 Total Bilirubin 0.3 mg/dl (0.2-1.3) 05/08/18 13:45 AST 40 U/L (17-59) 05/08/18 13:45 ALT 50 U/L (21-72) 05/08/18 13:45 Alkaline Phosphatase 109 U/L (38-126) 05/08/18 13:45 Troponin I 0.0490 ng/mL (0.00-0.120) 05/08/18 13:45 Total Protein 6.1 G/DL (6.3-8.2) L 05/08/18 13:45 Albumin 3.5 g/dL (3.5-5.0) D 05/08/18 13:45 Globulin 2.6 gm/dL (2.2-3.9) 05/08/18 13:45 Albumin/Globulin Ratio 1.3 (1.0-2.1) 05/08/18 13:45 Urine Color Yellow (YELLOW) 05/08/18 14:15 Urine Clarity Clear (Clear) 05/08/18 14:15 Urine pH 5.0 (5.0-8.0) 05/08/18 14:15 Ur Specific [place] 1.023 (1.003-1.030) 05/08/18 14:15 Urine Protein 30 mg/dL (NEGATIVE) 05/08/18 14:15 Urine Glucose (UA) >=500 mg/dL (NEGATIVE) 05/08/18 14:15 Urine Ketones 80 mg/dL (NEGATIVE) 05/08/18 14:15 Urine Blood Negative (NEGATIVE) 05/08/18 14:15 Urine Nitrate Negative (NEGATIVE) 05/08/18 14:15 Urine Bilirubin Negative (NEGATIVE) 05/08/18 14:15 Urine Urobilinogen 0.2-1.0 mg/dL (0.2-1.0) 05/08/18 14:15 Ur Leukocyte Esterase Neg [place]/uL (Negative) 05/08/18 14:15 Urine RBC (Auto) 2 /hpf (0-3) 05/08/18 14:15 Urine Microscopic WBC 1 /hpf (0-5) 05/08/18 14:15 Urine Bacteria Rare (<OCC) 05/08/18 14:15 Hyaline Casts 0-2 /hpf (0-2) 05/08/18 14:15 Discharge Exam - Head Exam Head Exam: ATRAUMATIC Discharge Plan - Follow Up Plan Condition: GUARDED Disposition: HOME/ ROUTINE
[2018-05-09 20:26] VITALS: RESP 21; TEMP 98.7
[2018-05-09] MEDS ORDERED: Insulin Detemir 100 Units/ml Inj SC SCH (22:00)
[2018-05-09 22:30] VITALS: BP 129/88; PULSE 100; O2SAT 97
--- NOTE | 2018-05-10 00:01 | PN ---
DATE: 05/09/2018 CRITICAL CARE PROGRESS NOTE LOCATION: The patient in ICU, bed 432. TIME SPENT: 35 minutes. The patient is seen, evaluated at the bedside. Past medical, surgical, family, social history reviewed. Events since admission reviewed. Case discussed in multidisciplinary ICU rounds this morning. SUBJECTIVE: A 57-year-old male with history significant for schizoaffective disorder, bipolar, depressed, insulin requiring diabetes mellitus, diabetic ketoacidosis, presenting with feeling weak and short of breath, on insulin drip overnight. Blood sugar and acidosis improved. Currently off insulin drip, started on moderate consistent carbohydrate diet along with Levemir basal and bolus, Humulin insulin. Remains alert, awake. Follows commands appropriate. Denies headache, shortness of breath, chest pain, palpitation. States he is feeling depressed and noncompliant with the medications. OBJECTIVE: VITAL SIGNS: Temperature 97.2, heart rate 85, blood pressure 155/64, mean arterial pressure 96, saturation 97% on oxygen supplement 2 liters, respiratory rate 22. PSYCHIATRIC: Affect mildly flat. EXAMINATION of HEAD, EYES, EARS, NOSE, AND THROAT: Atraumatic, normocephalic. Pupils are reactive. Conjunctivae pink. Sclerae are white. NECK: Supple. Trachea central. CHEST: Bilateral breath sounds. Clear to auscultation. HEART: Rhythm regular. S1, S2 normal intensity. No S3, S4, gallop. No audible murmur. ABDOMEN: Bowel sounds present. Soft. Liver and spleen are not palpable. Bladder not distended. EXTREMITIES: Trace edema. NEUROLOGIC: Nonfocal. CURRENT MEDICATIONS: Insulin, Humulin, Lispro 8 units subcu three times a day with meals, Levemir 30 units subcu at night, D5 normal saline at 125 mL per hour. LABORATORY DATA: WBC 10.3, hemoglobin 11, hematocrit 33.3, platelet count of 323, PT 10.4, INR 0.9, PTT 27.1. SMA-7, sodium 134, potassium 3.7, chloride 104, CO2 of 21, blood urea nitrogen 7, creatinine 0.6, random glucose 145, calcium 7.9, phosphorus 2.4, magnesium 2. Urinalysis negative. Microbiology, none reported. Chest x-ray done in the ER on shows no active disease. IMPRESSION: 1. Neurologic: Alert, awake. Follows commands appropriate, history of schizoaffective disorder, bipolar depression. Seen by psych consult. Appreciate followup. We will resume medications as recommended and transfer the patient to involuntary unit for further evaluation and stabilization of his depression and schizoaffective disorder. 2. Cardiac: No acute issues. 3. Pulmonary: Stable. 4. GastrointestinaI: No nausea, vomiting. No acute issues. 5. Endocrine: Insulin-requiring diabetes, likely type 1, on bolus and basal insulin. Continue moderate consistent carbohydrate diet. 6. Hematology: No acute issues noted. Hemoglobin and hematocrit stable. 7. Keep head of bed 30 degrees up. Deep venous thrombosis prophylaxis with mechanical device. Encourage ambulation as tolerated. Siddharth Wiseman MD
== END 2018-05-09 22:50 | DRG 639 ==
LOC: H.ER 12:03 → H.ERHOLD 15:39 → H.ICU/CCU 17:03
PROVIDERS: ADMIT Internal Medicine; ATTEND Internal Medicine
DX: E11.10 Type 2 diabetes mellitus with ketoacidosis without coma (principal); F25.0 Schizoaffective disorder, bipolar type; Z79.4 Long term (current) use of insulin; Z91.14 Patient's other noncompliance with medication regimen; E78.00 Pure hypercholesterolemia, unspecified; E86.0 Dehydration; I10 Essential (primary) hypertension; Z79.82 Long term (current) use of aspirin; Z91.19 Patient's noncompliance with other medical treatment and regimen; F41.9 Anxiety disorder, unspecified; G51.0 Bell's palsy

== ENCOUNTER 2018-05-09 18:13 | Inpatient (IN) | payer MEDICARE ==
[2018-05-09 23:11] VITALS: BMI 28.4
[2018-05-09] MEDS ORDERED: Magnesium Hydroxide Susp 30 ml UD PO PRN (23:17)
[2018-05-09] MEDS ORDERED: DiphenhydrAMINE 50 mg/ml Inj IM PRN (23:17)
[2018-05-09] MEDS ORDERED: Alum-Mag Hydrox-Simethicone Susp (30 mL) PO PRN (23:17)
--- NOTE | 2018-05-09 23:29 | PCM.BM ---
<JordinJamee Billy - Last Filed: 05/09/18 23:27> Treatment Plan Problems - Problems identified on initial assessmt Medication nonadherence Date Initiated: 05/09/18 Time Initiated: 23:28 Assessment reference: NA Status: Active Altered Sleep Patterns Date Initiated: 05/09/18 Time Initiated: 23:29 Assessment reference: NA Status: Active Treatment assets and liabiliti Patient Assests: adapts well, cooperative, educated, self-reliant, ADL independent, good support system Patient Liabilities: live alone, medical problems - Milieu Protocol Maintain good personal hygiene: daily Encourage regular showers, every shift Remind patient to perform daily oral care, every shift Assist patient to perform ADL's Conduct patient checks and document Observation sheet: Q15 minutes Maintain personal safety: every shift Educate patient to report safety concerns to staff, every shift Monitor environment for contraband/sharps Medication safety: Monitor for expected outcome, potential side effects: every shift, Assess barriers to learning: every shift, Assess readiness for medication education: every shift <Noel Pavon - Last Filed: 05/19/18 15:50> Family Contact Family involvement: Family/SO is involved Family contact: Patient agrees to contact, Family has been contacted by patient, Telephone contact initiated by staff Family contact name: Elliot (Brother) and Nirali ([id number]) Family contact comment: Switch Operator spoke with pt's brother, Blaise [phone], and pt's [id number], Nirali [phone], to gain collateral and discuss treatment and aftercare. Both Liu and Nirali reported that pt is often unaware of his emotions and will minimize them when discussed. Pt tends to be distracted and have poor organization skills which often cause him to let services lapse (Medicaid) and miss appointments. Pt often neglects managing things that cause him anxiety. To illustrate this Liu reported that pt has had 5 jobs in the past 1.5 years. Liu and Nirali have concerns with pt being able to manage his medications and care for himself and his apartment. They would like pt to reside in an assisted living or senior living. Switch Operator questioned if pt would meet these levels of care and pointed out that until pt has Medicaid both would be impossible without out of pocket payment. Nirali requested family meeting for Cameron and chief writer left an additional message for Nirali to followup with GALILEA Molly to schedule. - Goals for Treatment Patient goals for treatment: Pt denied acute psychiatric symptoms, but would like additional supports in the community to help him function at a higher level. Patient's family/SO goals for treatment: Family would like the unit to aid pt in concrete service acquisition. Discharge/Continuing Care - Education Needs Education Needs: Family Medication, Family Diagnosis/Disease Process, Family Coping Skills, Family Aftercare Safety Plan, Patient Medication, Patient Diagnosis/Disease Process, Patient Coping Skills, Patient Aftercare Safety Plan - Discharge Discharge Criteria: Tolerates medication w/o severe side effects, Free of Suicidal thoughts, Free of paranoid thoughts, Free of agitation, Reduction of target symptoms Discharge to:: Home - Treatment Team Participation Patient/Family/SO Statement: 05/19/18 15:49 Pt seen in treatment team on 05/11/18. Pt denied SI/HI and AVT hallucinations. Pt is oriented X4. Discussed with Family/SO: Yes Was Patient/Family/SO present at Treatment Team Meeting: Yes
[2018-05-10 08:50] LABS: T4 6.16 ug/dl (5.5-11.0)
--- NOTE | 2018-05-10 15:16 | PCM.PSYCH ---
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 , pt has been depressed lately because of being estranged from his family, has been feeling lonely, with episodes of hopelessness and helplessness pt has not been compliant with his meds for DM and particularly insulin and his Blood sugar was running very high , indicated that his depression playing a big part in his noncompliance with meds , reported poor sleep and appetite , passive suicidal ideation, low energy, poor motivation denied perceptual disturbances, denied homicidal ideation Current Medications: Active Medications Generic Name Dose Route Start Last Admin Trade Name Freq PRN Reason Stop Dose Admin Acetaminophen 650 mg 05/09/18 23:17 Tylenol 325mg Tab PO Q4 PRN pain 4-7 Al Hydrox/Mg Hydrox/Simethicone 30 ml 05/09/18 23:17 Maalox Plus 30 Ml PO Q4 PRN Dyspepsia Aspirin 81 mg 05/11/18 09:00 Aspirin Chewable PO DAILY [facility] Diphenhydramine HCl 50 mg 05/09/18 23:17 Benadryl IM Q6 PRN Extrapyramidal S/S Unable PO Diphenhydramine HCl 50 mg 05/09/18 23:17 Benadryl PO Q6 PRN Extrapyramidal Symptoms Diphenhydramine HCl 50 mg 05/09/18 23:17 Benadryl PO HS PRN Sleep Duloxetine HCl 40 mg 05/10/18 11:03 05/10/18 12:03 Cymbalta PO 40 mg DAILY [facility] Administration Enalapril Maleate 10 mg 05/11/18 09:00 Vasotec PO DAILY [facility] Haloperidol 5 mg 05/09/18 23:17 Haldol PO Q4 PRN Agitation Haloperidol Lactate 5 mg 05/09/18 23:17 Haldol IM Q4 PRN Agitation, Unable to Take PO Insulin Detemir 10 units 05/10/18 22:00 Levemir SC HS [facility] Insulin Human Lispro 0 units 05/10/18 16:30 Humalog SC ACHS [facility] Protocol Lorazepam 2 mg 05/09/18 23:17 Ativan IM Q4 PRN Anxiety/Agitation,Unable PO Lorazepam 1 mg 05/09/18 23:17 Ativan PO Q8 PRN Anxiety/Agitation Magnesium Hydroxide 30 ml 05/09/18 23:17 Milk Of Magnesia PO HS PRN Constipation Oxcarbazepine 300 mg 05/10/18 17:00 Trileptal PO BID [facility] Trazodone HCl 50 mg 05/10/18 22:00 Desyrel PO HS [facility] Past Psychiatric History - Past Psychiatric History Explanation of prior treatment: about three inpatient psychiatric hospitalizations History of ETOH/Drug Use: denied Pertinent Medical Hx (Current Medical&Sleep Prob, Allergies): Allergies Allergy/AdvReac Type Severity Reaction Status Date / Time No Known Allergies Allergy Verified 04/29/18 22:32 RX: Aspirin [Aspirin Chewable] 81 mg PO DAILY 05/08/18 RX: DULoxetine [Cymbalta] 60 mg PO DAILY 05/08/18 RX: Enalapril Maleate [Vasotec] 1 tab PO DAILY 05/08/18 RX: Oxcarbazepine [Trileptal] 300 mg PO BID 05/08/18 RX: clonazePAM [Klonopin] 0.5 mg PO BID 05/08/18 RX: DULoxetine [Cymbalta] 60 mg PO DAILY ecc 05/09/18 RX: Insulin Detemir [Levemir] 30 units SC HS vial 05/09/18 RX: Levofloxacin [Levaquin] 750 mg PO DAILY 2 Days #0 05/09/18 RX: OXcarbazepine [Trileptal] 300 mg PO BID tab 05/09/18 RX: clonazePAM [Klonopin] 0.5 mg PO BID tab 05/09/18 RX: risperiDONE [RisperDAL Tab] 1 mg PO DAILY tab 05/09/18 Mental Status Examination - Personal Presentation Personal Presentation: Looks stated age - Affect Affect: Constricted, Depressed - Motor Activity Motor Activity: Psychomotor Retardation - Reliability in Providing Information Reliability in Providing Information: Fair - Speech Speech: Relevant - Mood Mood: Depressed, Anxious - Formal Thought Process Formal Thought Process: Circumstantial - Obsessions/Compulsions Obsessions: No Compulsions: No - Cognitive Functions Orientation: Person, Place, Situation, Time Sensorium: Alert Attention/Concentration: Easily distracted Abstract Thinking: [place] Estimate of Intelligence: Below average - Risk Risk: Suicidal, Diminished functioning - Strength & Assets Inventory Strength & Assets Inventory: Employment history - Limitations Additional comments: poor social support DSM 5 DX - DSM 5 DSM 5 Diagnosis: schizoaffective disorder depressed - Recommended/Plan of Treatment Treatment Recommendations and Plan of Treatment: start cymbalta 40mg increase gradually trileptal 300mg bid risperidone 1mg qhs cbt group and supportive therapy
[2018-05-10] MEDS: Insulin Lispro (humaLOG) 100 Units/ml Inj SC SCH ×2 (16:43→21:11)
[2018-05-10] MEDS: Insulin Detemir 100 Units/ml Inj SC SCH (21:04)
[2018-05-11] MEDS: levoFLOXacin 500 MG TAB PO SCH (09:10)
[2018-05-11] MEDS: Insulin Lispro (humaLOG) 100 Units/ml Inj SC SCH ×4 (11:43→21:20)
--- NOTE | 2018-05-11 16:09 | PCM.PYCHPN ---
Psychiatric Progress Note - Psychiatric Progress Note Patient seen today, length of contact: pt evaluated discussed with team chart reviewed Patient Chief Complaint: I am lonely and I have little friends Problems Identified/Issues Discussed: pt evaluated with treatment team, continues to be anhedonic , not attending to personal hygiene, poor motivation, depressed mood and affect, discussed increasing cymbalta, encouraged to attend groups, pt denied active thoughts of self harm, denied perceptual disturbances Medical Problems: about three inpatient psychiatric hospitalizations DSM 5 Symptoms Update: bipolar disorder depressed Medication Change: Yes (increase cymbalta ) Medical Record Reviewed: Yes Mental Status Examination - Cognitive Function Orientation: Person, Place, Situation, Time Attention: WNL Concentration: Poor Association: WNL Fund of Knowledge: Poor Decription of patient's judgement and insights: partial insight fair judgment - Mood Mood: Depressed, Anxious - Affect Affect: Constricted, Depressed - Speech Speech: Soft - Formal Thought Process Formal Thought Process: Circumstantial - Suicidal Ideation Suicidal Ideation: No - Homicidal Ideation Homicidal Ideation: No Goal/Treatment Plan - Goal/Treatment Plan Need for Continued Stay: Severe depression anxiety, Discharge may exacerbated symptoms Progress Toward Problem(s) and Goals/Treatment Plan: increase cymbalta 60mg i trileptal 300mg bid risperidone 1mg qhs cbt group and supportive therapy
[2018-05-11] MEDS: Insulin Detemir 100 Units/ml Inj SC SCH (21:20)
--- NOTE | 2018-05-12 04:49 | CP.PCM.HP ---
History of Present Illness - History of Present Illness History of Present Illness: CC: Consulted for DM Management History of Present Illness: A 57 years old male history of Schizoaffective disorder and DM who was admitted to ICU for DKA and transferred from ICU to psych unit last night is seen for managing his blood sugar. Patient has received Levemir 30 units and coverage 30 units of Humalog last night without eating well. This morning his blood sugar dropped to 32 mg/dL, and he was given juices and sugary drinks with close monitoring Accu-Chek. The patient was also encouraged to eat properly. 6 hours from the time of hypoglycemia blood sugar was up to 242. I have discontinued pre-meal Humalog 10 units and decreased Levemir nightly to 10 units from 30 units. We will monitor blood sugar closely, and adjust the insulin coverage accordingly. Currently patient is asymptomatic. Present on Admission - Present on Admission Any Indicators Present on Admission: Yes History of Uncontrolled Diabetes: Yes Review of Systems - Review of Systems All systems: reviewed and no additional remarkable complaints except Review of Systems: as per HPI Past Patient History - Past Medical History & Family History Past Medical History?: Yes Past Family History: Reviewed and not pertinent - Past Social History Smoking Status: Never Smoked Alcohol: Social Drugs: Denies - CARDIAC Hx Hypercholesterolemia: Yes Hx Hypertension: Yes - PULMONARY Hx Bronchitis: Yes - NEUROLOGICAL Other/Comment: Osborne's palsy - HEENT Hx HEENT Problems: No Other/Comment: uses glasses - RENAL Hx Chronic Kidney Disease: No - ENDOCRINE/METABOLIC Hx Endocrine Disorders: Yes Hx Diabetes Mellitus Type 2: Yes - HEMATOLOGICAL/ONCOLOGICAL Hx Human Immunodeficiency Virus (HIV): No - INTEGUMENTARY Hx Dermatological Problems: No - MUSCULOSKELETAL/RHEUMATOLOGICAL Hx Falls: No - GASTROINTESTINAL Hx Gastrointestinal Disorders: No - GENITOURINARY/GYNECOLOGICAL Hx Sexually Transmitted Disorders: No - PSYCHIATRIC Hx Bipolar Disorder: Yes Hx Substance Use: No - SURGICAL HISTORY Hx Surgeries: No - ANESTHESIA Hx Anesthesia: No Hx Anesthesia Reactions: No Hx Malignant Hyperthermia: No Has any member of the family had a problem w/ anesthesia?: No Meds Allergies/Adverse Reactions: Allergies Allergy/AdvReac Type Severity Reaction Status Date / Time No Known Allergies Allergy Verified 04/29/18 22:32 Physical Exam - Constitutional Appears: Well, No Acute Distress - Head Exam Head Exam: ATRAUMATIC, NORMAL INSPECTION, NORMOCEPHALIC - Eye Exam Eye Exam: EOMI, Normal appearance, PERRL Pupil Exam: NORMAL ACCOMODATION, PERRL - ENT Exam ENT Exam: Mucous Membranes Moist, Normal Exam - Neck Exam Neck exam: Positive for: Normal Inspection - Respiratory Exam Respiratory Exam: Clear to Auscultation Bilateral, NORMAL BREATHING PATTERN - Cardiovascular Exam Cardiovascular Exam: REGULAR RHYTHM, +S1, +S2 - GI/Abdominal Exam GI & Abdominal Exam: Normal Bowel Sounds, Soft. absent: Tenderness - Extremities Exam Extremities exam: Positive for: full ROM, normal capillary refill, normal inspection - Back Exam Back exam: FULL ROM, NORMAL INSPECTION - Neurological Exam Neurological exam: Alert, CN II-XII Intact, Normal Gait, Oriented x3, Reflexes Normal - Psychiatric Exam Psychiatric exam: Normal Affect, Normal Mood - Skin Skin Exam: Dry, Intact, Normal Color, Warm Results - Vital Signs Recent Vital Signs: Last Vital Signs Temp 98.0 F 05/11/18 09:24 Pulse 103 H 05/11/18 09:24 Resp 20 05/11/18 09:24 BP 114/78 05/11/18 09:24 Pulse Ox - Labs Labs: Laboratory Results - last 24 hr 05/11/18 05/11/18 05/11/18 06:14 12:01 16:47 POC Glucose (mg/dL) 84 387 H 361 H Assessment & Plan (1) Diabetes mellitus with hypoglycemia without coma, with long-term current use of insulin Status: Acute Priority: High (2) HTN (hypertension) Status: Chronic Priority: Medium (3) Hyperlipidemia Status: Chronic Priority: Medium (4) Schizo-affective schizophrenia, chronic condition Status: Chronic Priority: High - Assessment and Plan (Free Text) Plan: Continue current medications Follow psychiatrist recommendation for schizoaffective disorder treatment.
--- NOTE | 2018-05-12 04:50 | CP.PCM.PN ---
Subjective - Date & Time of Evaluation Date of Evaluation: 05/11/18 Time of Evaluation: 23:15 Objective - Vital Signs/Intake and Output Vital Signs (last 24 hours): Temp Pulse Resp BP Pulse Ox 98.0 F 103 H 20 114/78 05/11/18 09:24 05/11/18 09:24 05/11/18 09:24 05/11/18 09:24 - Medications Medications: Current Medications Acetaminophen (Tylenol 325mg Tab) 650 mg PO Q4 PRN PRN Reason: pain 4-7 Al Hydrox/Mg Hydrox/Simethicone (Maalox Plus 30 Ml) 30 ml PO Q4 PRN PRN Reason: Dyspepsia Aspirin (Aspirin Chewable) 81 mg PO DAILY [facility] Last Admin: 05/11/18 09:10 Dose: 81 mg Diphenhydramine HCl (Benadryl) 50 mg IM Q6 PRN PRN Reason: Extrapyramidal S/S Unable PO Diphenhydramine HCl (Benadryl) 50 mg PO Q6 PRN PRN Reason: Extrapyramidal Symptoms Diphenhydramine HCl (Benadryl) 50 mg PO HS PRN PRN Reason: Sleep Duloxetine HCl (Cymbalta) 60 mg PO DAILY [facility] Enalapril Maleate (Vasotec) 10 mg PO DAILY [facility] Last Admin: 05/11/18 09:10 Dose: 10 mg Haloperidol (Haldol) 5 mg PO Q4 PRN PRN Reason: Agitation Haloperidol Lactate (Haldol) 5 mg IM Q4 PRN PRN Reason: Agitation, Unable to Take PO Insulin Detemir (Levemir) 10 units SC [facility] Last Admin: 05/11/18 21:20 Dose: 10 units Insulin Human Lispro (Humalog) 0 units SC [facility]; Protocol Last Admin: 05/11/18 21:20 Dose: Not Given Levofloxacin (Levaquin) 500 mg PO DAILY [facility]; Protocol Stop: 05/13/18 09:01 Last Admin: 05/11/18 09:10 Dose: 500 mg Lorazepam (Ativan) 2 mg IM Q4 PRN PRN Reason: Anxiety/Agitation,Unable PO Lorazepam (Ativan) 1 mg PO Q8 PRN PRN Reason: Anxiety/Agitation Magnesium Hydroxide (Milk Of Magnesia) 30 ml PO HS PRN PRN Reason: Constipation Oxcarbazepine (Trileptal) 300 mg PO BID [facility] Last Admin: 05/11/18 17:27 Dose: 300 mg Risperidone (Risperdal Tab) 1 mg PO [facility] Last Admin: 05/11/18 21:19 Dose: 1 mg Trazodone HCl (Desyrel) 100 mg PO [facility] Last Admin: 05/11/18 21:19 Dose: 100 mg
[2018-05-12] MEDS: levoFLOXacin 500 MG TAB PO SCH (08:34)
[2018-05-12] MEDS: Insulin Lispro (humaLOG) 100 Units/ml Inj SC SCH ×4 (08:35→22:00)
--- NOTE | 2018-05-12 15:45 | PCM.PYCHPN ---
Psychiatric Progress Note - Psychiatric Progress Note Patient seen today, length of contact: pt evaluated discussed with team chart reviewed Patient Chief Complaint: I fail to take care of myself Problems Identified/Issues Discussed: pt evaluated , seen in bed, continues to need enouragement to attend to his ADL'S , needs encouragement to attend groups, reporting subjective improvement of mood with the increase in cymbalta , agreed for family meeting with brother tomorrow to discuss treatment plan pt denied active thoughts of self harm, denied perceptual disturbances Medical Problems: about three inpatient psychiatric hospitalizations DSM 5 Symptoms Update: bipolar disorder depressed Medication Change: No Medical Record Reviewed: Yes Mental Status Examination - Cognitive Function Orientation: Person, Place, Situation, Time Attention: WNL Concentration: Poor Association: WNL Fund of Knowledge: Poor Decription of patient's judgement and insights: partial insight fair judgment - Mood Mood: Depressed, Anxious - Affect Affect: Constricted, Depressed - Speech Speech: Soft - Formal Thought Process Formal Thought Process: Circumstantial - Suicidal Ideation Suicidal Ideation: No - Homicidal Ideation Homicidal Ideation: No Goal/Treatment Plan - Goal/Treatment Plan Need for Continued Stay: Severe depression anxiety, Discharge may exacerbated symptoms Progress Toward Problem(s) and Goals/Treatment Plan: cymbalta 60mg i trileptal 300mg bid risperidone 1mg qhs cbt group and supportive therapy
[2018-05-12] MEDS ORDERED: Insulin Lispro (humaLOG) 100 Units/ml Inj SC ONE (18:17)
[2018-05-12] MEDS: Insulin Detemir 100 Units/ml Inj SC SCH (21:10)
[2018-05-13 06:10] VITALS: O2SAT 97
[2018-05-13] MEDS: Insulin Lispro (humaLOG) 100 Units/ml Inj SC SCH ×4 (08:45→21:08)
[2018-05-13] MEDS: levoFLOXacin 500 MG TAB PO SCH (09:17)
--- NOTE | 2018-05-13 11:33 | CP.PCM.PN ---
Subjective - Date & Time of Evaluation Date of Evaluation: 05/12/18 Time of Evaluation: 17:30 Objective - Vital Signs/Intake and Output Vital Signs (last 24 hours): Temp Pulse Resp BP Pulse Ox 97.0 F L 92 H 20 128/70 97 05/12/18 09:33 05/12/18 20:10 05/12/18 20:10 05/12/18 20:10 05/12/18 20:10 - Medications Medications: Current Medications Acetaminophen (Tylenol 325mg Tab) 650 mg PO Q4 PRN PRN Reason: pain 4-7 Al Hydrox/Mg Hydrox/Simethicone (Maalox Plus 30 Ml) 30 ml PO Q4 PRN PRN Reason: Dyspepsia Aspirin (Aspirin Chewable) 81 mg PO DAILY [facility] Last Admin: 05/13/18 09:17 Dose: 81 mg Diphenhydramine HCl (Benadryl) 50 mg IM Q6 PRN PRN Reason: Extrapyramidal S/S Unable PO Diphenhydramine HCl (Benadryl) 50 mg PO Q6 PRN PRN Reason: Extrapyramidal Symptoms Diphenhydramine HCl (Benadryl) 50 mg PO HS PRN PRN Reason: Sleep Duloxetine HCl (Cymbalta) 60 mg PO DAILY [facility] Last Admin: 05/13/18 09:16 Dose: 60 mg Enalapril Maleate (Vasotec) 10 mg PO DAILY [facility] Last Admin: 05/13/18 09:17 Dose: 10 mg Haloperidol (Haldol) 5 mg PO Q4 PRN PRN Reason: Agitation Haloperidol Lactate (Haldol) 5 mg IM Q4 PRN PRN Reason: Agitation, Unable to Take PO Insulin Detemir (Levemir) 10 units SC [facility] Last Admin: 05/12/18 21:10 Dose: 10 units Insulin Human Lispro (Humalog) 0 units SC [facility]; Protocol Last Admin: 05/12/18 22:00 Dose: Not Given Lorazepam (Ativan) 2 mg IM Q4 PRN PRN Reason: Anxiety/Agitation,Unable PO Lorazepam (Ativan) 1 mg PO Q8 PRN PRN Reason: Anxiety/Agitation Magnesium Hydroxide (Milk Of Magnesia) 30 ml PO HS PRN PRN Reason: Constipation Metformin HCl (Glucophage) 500 mg PO BIDWM [facility] Last Admin: 05/13/18 09:17 Dose: 500 mg Oxcarbazepine (Trileptal) 300 mg PO BID [facility] Last Admin: 05/13/18 09:18 Dose: 300 mg Risperidone (Risperdal Tab) 1 mg PO HS [facility] Last Admin: 05/12/18 21:09 Dose: 1 mg Trazodone HCl (Desyrel) 100 mg PO [facility] Last Admin: 05/12/18 21:09 Dose: 100 mg Assessment and Plan (1) Diabetes mellitus with hypoglycemia without coma, with long-term current use of insulin Status: Acute (2) HTN (hypertension) Status: Chronic (3) Hyperlipidemia Status: Chronic (4) Schizo-affective schizophrenia, chronic condition Status: Chronic
[2018-05-13] MEDS: Insulin Detemir 100 Units/ml Inj SC SCH (21:08)
--- NOTE | 2018-05-13 23:02 | CP.PCM.PN ---
Subjective - Date & Time of Evaluation Date of Evaluation: 05/13/18 Time of Evaluation: 16:55 Objective - Vital Signs/Intake and Output Vital Signs (last 24 hours): Temp Pulse Resp BP Pulse Ox 98.4 F 99 H 18 105/78 97 05/13/18 15:55 05/13/18 15:55 05/13/18 15:55 05/13/18 15:55 05/12/18 20:10 - Medications Medications: Current Medications Acetaminophen (Tylenol 325mg Tab) 650 mg PO Q4 PRN PRN Reason: pain 4-7 Al Hydrox/Mg Hydrox/Simethicone (Maalox Plus 30 Ml) 30 ml PO Q4 PRN PRN Reason: Dyspepsia Aspirin (Aspirin Chewable) 81 mg PO DAILY [facility] Last Admin: 05/13/18 09:17 Dose: 81 mg Diphenhydramine HCl (Benadryl) 50 mg IM Q6 PRN PRN Reason: Extrapyramidal S/S Unable PO Diphenhydramine HCl (Benadryl) 50 mg PO Q6 PRN PRN Reason: Extrapyramidal Symptoms Diphenhydramine HCl (Benadryl) 50 mg PO HS PRN PRN Reason: Sleep Duloxetine HCl (Cymbalta) 60 mg PO DAILY [facility] Last Admin: 05/13/18 09:16 Dose: 60 mg Enalapril Maleate (Vasotec) 10 mg PO DAILY [facility] Last Admin: 05/13/18 09:17 Dose: 10 mg Haloperidol (Haldol) 5 mg PO Q4 PRN PRN Reason: Agitation Haloperidol Lactate (Haldol) 5 mg IM Q4 PRN PRN Reason: Agitation, Unable to Take PO Insulin Detemir (Levemir) 10 units SC [facility] Last Admin: 05/13/18 21:08 Dose: 10 units Insulin Human Lispro (Humalog) 0 units SC [facility]; Protocol Last Admin: 05/13/18 21:08 Dose: Not Given Lorazepam (Ativan) 2 mg IM Q4 PRN PRN Reason: Anxiety/Agitation,Unable PO Lorazepam (Ativan) 1 mg PO Q8 PRN PRN Reason: Anxiety/Agitation Magnesium Hydroxide (Milk Of Magnesia) 30 ml PO HS PRN PRN Reason: Constipation Metformin HCl (Glucophage) 500 mg PO BIDWM [facility] Last Admin: 05/13/18 17:01 Dose: 500 mg Oxcarbazepine (Trileptal) 300 mg PO BID [facility] Last Admin: 05/13/18 17:01 Dose: 300 mg Risperidone (Risperdal Tab) 1 mg PO HS [facility] Last Admin: 05/13/18 21:07 Dose: 1 mg Trazodone HCl (Desyrel) 100 mg PO [facility] Last Admin: 05/13/18 21:07 Dose: 100 mg Assessment and Plan (1) Diabetes mellitus with hypoglycemia without coma, with long-term current use of insulin Status: Acute (2) HTN (hypertension) Status: Chronic (3) Hyperlipidemia Status: Chronic (4) Schizo-affective schizophrenia, chronic condition Status: Chronic
[2018-05-14] MEDS: Insulin Lispro (humaLOG) 100 Units/ml Inj SC SCH ×4 (08:31→21:08)
--- NOTE | 2018-05-14 11:53 | PCM.PYCHPN ---
Psychiatric Progress Note - Psychiatric Progress Note Patient seen today, length of contact: pt evaluated discussed with team chart reviewed Patient Chief Complaint: I feel better today Problems Identified/Issues Discussed: pt evaluated ,reported better mood , feeling more optimistic after family meeting, as he recognizes he has more social support, reported improved sleep and appetite pt denied active thoughts of self harm, denied perceptual disturbances Medical Problems: about three inpatient psychiatric hospitalizations Medication Change: No Medical Record Reviewed: Yes Mental Status Examination - Cognitive Function Orientation: Person, Place, Situation, Time Attention: WNL Concentration: Poor Association: WNL Fund of Knowledge: Poor Decription of patient's judgement and insights: partial insight fair judgment - Mood Mood: Depressed, Anxious - Affect Affect: Constricted, Depressed - Speech Speech: Soft - Formal Thought Process Formal Thought Process: Circumstantial - Suicidal Ideation Suicidal Ideation: No - Homicidal Ideation Homicidal Ideation: No Goal/Treatment Plan - Goal/Treatment Plan Need for Continued Stay: Severe depression anxiety, Discharge may exacerbated symptoms Progress Toward Problem(s) and Goals/Treatment Plan: cymbalta 60mg i trileptal 300mg bid risperidone 1mg qhs cbt group and supportive therapy social staff worker will start referral to [facility]
[2018-05-14] MEDS: Insulin Detemir 100 Units/ml Inj SC SCH (21:07)
--- NOTE | 2018-05-14 22:58 | CP.PCM.PN ---
Subjective - Date & Time of Evaluation Date of Evaluation: 05/14/18 Time of Evaluation: 17:05 Objective - Vital Signs/Intake and Output Vital Signs (last 24 hours): Temp Pulse Resp BP Pulse Ox 97.9 F 90 20 106/65 97 05/14/18 09:00 05/14/18 09:00 05/14/18 09:00 05/14/18 09:00 05/12/18 20:10 - Medications Medications: Current Medications Acetaminophen (Tylenol 325mg Tab) 650 mg PO Q4 PRN PRN Reason: pain 4-7 Al Hydrox/Mg Hydrox/Simethicone (Maalox Plus 30 Ml) 30 ml PO Q4 PRN PRN Reason: Dyspepsia Aspirin (Aspirin Chewable) 81 mg PO DAILY [facility] Last Admin: 05/14/18 08:33 Dose: 81 mg Diphenhydramine HCl (Benadryl) 50 mg IM Q6 PRN PRN Reason: Extrapyramidal S/S Unable PO Diphenhydramine HCl (Benadryl) 50 mg PO Q6 PRN PRN Reason: Extrapyramidal Symptoms Diphenhydramine HCl (Benadryl) 50 mg PO HS PRN PRN Reason: Sleep Duloxetine HCl (Cymbalta) 60 mg PO DAILY [facility] Last Admin: 05/14/18 08:32 Dose: 60 mg Enalapril Maleate (Vasotec) 10 mg PO DAILY [facility] Last Admin: 05/14/18 08:55 Dose: Not Given Haloperidol (Haldol) 5 mg PO Q4 PRN PRN Reason: Agitation Haloperidol Lactate (Haldol) 5 mg IM Q4 PRN PRN Reason: Agitation, Unable to Take PO Insulin Detemir (Levemir) 10 units SC [facility] Last Admin: 05/14/18 21:07 Dose: 10 units Insulin Human Lispro (Humalog) 0 units SC [facility]; Protocol Last Admin: 05/14/18 21:08 Dose: Not Given Lorazepam (Ativan) 2 mg IM Q4 PRN PRN Reason: Anxiety/Agitation,Unable PO Lorazepam (Ativan) 1 mg PO Q8 PRN PRN Reason: Anxiety/Agitation Magnesium Hydroxide (Milk Of Magnesia) 30 ml PO HS PRN PRN Reason: Constipation Metformin HCl (Glucophage) 500 mg PO BIDWM [facility] Last Admin: 05/14/18 17:24 Dose: 500 mg Oxcarbazepine (Trileptal) 300 mg PO BID [facility] Last Admin: 05/14/18 17:25 Dose: 300 mg Risperidone (Risperdal Tab) 1 mg PO HS [facility] Last Admin: 05/14/18 21:07 Dose: 1 mg Trazodone HCl (Desyrel) 100 mg PO [facility] Last Admin: 05/14/18 21:07 Dose: 100 mg Assessment and Plan (1) Diabetes mellitus with hypoglycemia without coma, with long-term current use of insulin Status: Acute (2) HTN (hypertension) Status: Chronic (3) Hyperlipidemia Status: Chronic (4) Schizo-affective schizophrenia, chronic condition Status: Chronic
[2018-05-15] MEDS: Insulin Lispro (humaLOG) 100 Units/ml Inj SC SCH ×4 (08:16→21:20)
--- NOTE | 2018-05-15 08:29 | PCM.PYCHPN ---
Psychiatric Progress Note - Psychiatric Progress Note Patient seen today, length of contact: Pt evaluated, case discussed w/ team, chart reviewed Patient Chief Complaint: Depression/Anxiety Problems Identified/Issues Discussed: Patient continues to report feeling depressed, but states that his mood is improving. He is more hopeful for the future after meeting with his family. He reports that he feels that he is sleeping too much at night. No acute AH/VH/SI/HI/paranoia/delusions. Medication Change: No Medical Record Reviewed: Yes Consults ordered or reviewed: Medicine Mental Status Examination - Cognitive Function Orientation: Person, Place, Situation, Time Attention: WNL Concentration: Poor Association: WNL Fund of Knowledge: Poor - Mood Mood: Depressed, Anxious - Affect Affect: Constricted, Depressed - Speech Speech: Soft - Formal Thought Process Formal Thought Process: Circumstantial Psychotic Thoughts and Behaviors: Denies AH/VH/paranoia - Suicidal Ideation Suicidal Ideation: No - Homicidal Ideation Homicidal Ideation: No Goal/Treatment Plan - Goal/Treatment Plan Need for Continued Stay: Severe depression anxiety, Discharge may exacerbated symptoms Progress Toward Problem(s) and Goals/Treatment Plan: Bipolar II Disorder -Continue current medications -Individual and group therapy -Psychoeducation -Disposition planning
[2018-05-15] MEDS: Insulin Detemir 100 Units/ml Inj SC SCH (21:17)
--- NOTE | 2018-05-16 00:51 | CP.PCM.PN ---
Subjective - Date & Time of Evaluation Date of Evaluation: 05/15/18 Time of Evaluation: 12:05 - Subjective Subjective: Blood sugar continues to be high. Patient noncompliant with diet. Advised to increase metformin to 1000 twice a day. Continue Levemir 10 units nightly. Objective - Vital Signs/Intake and Output Vital Signs (last 24 hours): Temp Pulse Resp BP Pulse Ox 96.6 F L 99 H 20 132/88 97 05/15/18 17:00 05/15/18 17:00 05/15/18 17:00 05/15/18 17:00 05/12/18 20:10 - Medications Medications: Current Medications Acetaminophen (Tylenol 325mg Tab) 650 mg PO Q4 PRN PRN Reason: pain 4-7 Al Hydrox/Mg Hydrox/Simethicone (Maalox Plus 30 Ml) 30 ml PO Q4 PRN PRN Reason: Dyspepsia Aspirin (Aspirin Chewable) 81 mg PO DAILY [facility] Last Admin: 05/15/18 08:44 Dose: 81 mg Diphenhydramine HCl (Benadryl) 50 mg IM Q6 PRN PRN Reason: Extrapyramidal S/S Unable PO Diphenhydramine HCl (Benadryl) 50 mg PO Q6 PRN PRN Reason: Extrapyramidal Symptoms Diphenhydramine HCl (Benadryl) 50 mg PO HS PRN PRN Reason: Sleep Duloxetine HCl (Cymbalta) 60 mg PO DAILY [facility] Last Admin: 05/15/18 08:44 Dose: 60 mg Enalapril Maleate (Vasotec) 10 mg PO DAILY [facility] Last Admin: 05/15/18 08:44 Dose: Not Given Haloperidol (Haldol) 5 mg PO Q4 PRN PRN Reason: Agitation Haloperidol Lactate (Haldol) 5 mg IM Q4 PRN PRN Reason: Agitation, Unable to Take PO Insulin Detemir (Levemir) 10 units SC [facility] Last Admin: 05/15/18 21:17 Dose: 10 units Insulin Human Lispro (Humalog) 0 units SC [facility]; Protocol Last Admin: 05/15/18 21:20 Dose: Not Given Lorazepam (Ativan) 2 mg IM Q4 PRN PRN Reason: Anxiety/Agitation,Unable PO Lorazepam (Ativan) 1 mg PO Q8 PRN PRN Reason: Anxiety/Agitation Magnesium Hydroxide (Milk Of Magnesia) 30 ml PO HS PRN PRN Reason: Constipation Metformin [facility] (Glucophage) [facility] Last Admin: 05/15/18 16:53 Dose: 1,000 mg Oxcarbazepine (Trileptal) 300 mg PO BID [facility] Last Admin: 05/15/18 16:53 Dose: 300 mg Risperidone (Risperdal Tab) 1 mg PO [facility] Last Admin: 05/15/18 21:15 Dose: 1 mg Trazodone HCl (Desyrel) 100 mg PO [facility] Last Admin: 05/15/18 21:15 Dose: 100 mg Assessment and Plan (1) Diabetes mellitus with hypoglycemia without coma, with long-term current use of insulin Assessment & Plan: Uncontrolled Status: Acute (2) HTN (hypertension) Status: Chronic (3) Hyperlipidemia Status: Chronic (4) Schizo-affective schizophrenia, chronic condition Status: Chronic - Assessment and Plan (Free Text) Plan: Increase metformin to 1000 twice daily Diet Education
[2018-05-16] MEDS: Insulin Lispro (humaLOG) 100 Units/ml Inj SC SCH ×4 (09:15→21:04)
--- NOTE | 2018-05-16 13:52 | PCM.PYCHPN ---
Psychiatric Progress Note - Psychiatric Progress Note Patient seen today, length of contact: Pt evaluated, case discussed w/ team, chart reviewed Patient Chief Complaint: I Problems Identified/Issues Discussed: pt evaluated ,reported better mood , feeling more optimistic after family meeting, as he recognizes he has more social support, reported improved sleep and appetite pt denied active thoughts of self harm, denied perceptual disturbances Medical Problems: about three inpatient psychiatric hospitalizations Medication Change: No Medical Record Reviewed: Yes Mental Status Examination - Cognitive Function Orientation: Person, Place, Situation, Time Attention: WNL Concentration: Poor Association: WNL Fund of Knowledge: Poor - Mood Mood: Depressed, Anxious - Affect Affect: Constricted, Depressed - Speech Speech: Soft - Formal Thought Process Formal Thought Process: Circumstantial - Suicidal Ideation Suicidal Ideation: No - Homicidal Ideation Homicidal Ideation: No Goal/Treatment Plan - Goal/Treatment Plan Need for Continued Stay: Severe depression anxiety, Discharge may exacerbated symptoms Progress Toward Problem(s) and Goals/Treatment Plan: cymbalta 60mg i trileptal 300mg bid risperidone 1mg qhs cbt group and supportive therapy social media sr strategy manager will start referral to [facility]
[2018-05-16] MEDS: Insulin Detemir 100 Units/ml Inj SC SCH (21:04)
--- NOTE | 2018-05-16 21:06 | CP.PCM.PN ---
Subjective - Date & Time of Evaluation Date of Evaluation: 05/16/18 Time of Evaluation: 19:10 Objective - Vital Signs/Intake and Output Vital Signs (last 24 hours): Temp Pulse Resp BP Pulse Ox 97.3 F L 98 H 20 100/65 97 05/16/18 17:00 05/16/18 17:00 05/16/18 17:00 05/16/18 17:00 05/12/18 20:10 - Medications Medications: Current Medications Acetaminophen (Tylenol 325mg Tab) 650 mg PO Q4 PRN PRN Reason: pain 4-7 Al Hydrox/Mg Hydrox/Simethicone (Maalox Plus 30 Ml) 30 ml PO Q4 PRN PRN Reason: Dyspepsia Aspirin (Aspirin Chewable) 81 mg PO DAILY [facility] Last Admin: 05/16/18 09:08 Dose: 81 mg Diphenhydramine HCl (Benadryl) 50 mg IM Q6 PRN PRN Reason: Extrapyramidal S/S Unable PO Diphenhydramine HCl (Benadryl) 50 mg PO Q6 PRN PRN Reason: Extrapyramidal Symptoms Diphenhydramine HCl (Benadryl) 50 mg PO HS PRN PRN Reason: Sleep Duloxetine HCl (Cymbalta) 60 mg PO DAILY [facility] Last Admin: 05/16/18 09:07 Dose: 60 mg Enalapril Maleate (Vasotec) 10 mg PO DAILY [facility] Last Admin: 05/16/18 09:07 Dose: 10 mg Haloperidol (Haldol) 5 mg PO Q4 PRN PRN Reason: Agitation Haloperidol Lactate (Haldol) 5 mg IM Q4 PRN PRN Reason: Agitation, Unable to Take PO Insulin Detemir (Levemir) 10 units SC [facility] Last Admin: 05/15/18 21:17 Dose: 10 units Insulin Human Lispro (Humalog) 0 units SC [facility]; Protocol Last Admin: 05/16/18 17:19 Dose: 6 units Lorazepam (Ativan) 2 mg IM Q4 PRN PRN Reason: Anxiety/Agitation,Unable PO Lorazepam (Ativan) 1 mg PO Q8 PRN PRN Reason: Anxiety/Agitation Magnesium Hydroxide (Milk Of Magnesia) 30 ml PO HS PRN PRN Reason: Constipation Metformin HCl (Glucophage) 1,000 mg PO BIDWM [facility] Last Admin: 05/16/18 17:19 Dose: 1,000 mg Oxcarbazepine (Trileptal) 300 mg PO BID [facility] Last Admin: 05/16/18 17:19 Dose: 300 mg Risperidone (Risperdal Tab) 1 mg PO HS [facility] Last Admin: 05/15/18 21:15 Dose: 1 mg Trazodone HCl (Desyrel) 100 mg PO HS PRN PRN Reason: Insomnia Assessment and Plan (1) Labile blood glucose Status: Acute (2) Diabetes mellitus with hypoglycemia without coma, with long-term current use of insulin Status: Acute (3) HTN (hypertension) Status: Chronic (4) Hyperlipidemia Status: Chronic (5) Schizo-affective schizophrenia, chronic condition Status: Chronic - Assessment and Plan (Free Text) Plan: Accu-check ACHS Insuline Humalog Metformin
[2018-05-17] MEDS: Insulin Lispro (humaLOG) 100 Units/ml Inj SC SCH ×4 (09:04→21:06)
--- NOTE | 2018-05-17 13:12 | PCM.PYCHPN ---
Psychiatric Progress Note - Psychiatric Progress Note Patient seen today, length of contact: Pt evaluated, case discussed w/ team, chart reviewed Patient Chief Complaint: I am alright Problems Identified/Issues Discussed: pt evaluated ,stated feeling less sedated and improved energy without the trazodone reported better mood , pt motivated and feeling more socially supported after being referred to and accepted by [facility] reported improved sleep and appetite pt denied active thoughts of self harm, denied perceptual disturbances Medical Problems: about three inpatient psychiatric hospitalizations Medication Change: No Medical Record Reviewed: Yes Mental Status Examination - Cognitive Function Orientation: Person, Place, Situation, Time Attention: WNL Concentration: Poor Association: WNL Fund of Knowledge: Poor - Mood Mood: Depressed, Anxious - Affect Affect: Constricted, Depressed - Speech Speech: Soft - Formal Thought Process Formal Thought Process: Circumstantial - Suicidal Ideation Suicidal Ideation: No - Homicidal Ideation Homicidal Ideation: No Goal/Treatment Plan - Goal/Treatment Plan Need for Continued Stay: Severe depression anxiety, Discharge may exacerbated symptoms Progress Toward Problem(s) and Goals/Treatment Plan: cymbalta 60mg trileptal 300mg bid risperidone 1mg qhs cbt group and supportive therapy neonatal social worker will start referral to [facility]
--- NOTE | 2018-05-17 17:10 | CP.PCM.PN ---
Subjective - Date & Time of Evaluation Date of Evaluation: 05/17/18 Time of Evaluation: 17:00 Objective - Vital Signs/Intake and Output Vital Signs (last 24 hours): Temp Pulse Resp BP Pulse Ox 98.1 F 93 H 20 125/63 97 05/17/18 09:08 05/17/18 09:08 05/17/18 09:08 05/17/18 09:08 05/12/18 20:10 - Medications Medications: Current Medications Acetaminophen (Tylenol 325mg Tab) 650 mg PO Q4 PRN PRN Reason: pain 4-7 Al Hydrox/Mg Hydrox/Simethicone (Maalox Plus 30 Ml) 30 ml PO Q4 PRN PRN Reason: Dyspepsia Aspirin (Aspirin Chewable) 81 mg PO DAILY [facility] Last Admin: 05/17/18 09:04 Dose: 81 mg Diphenhydramine HCl (Benadryl) 50 mg IM Q6 PRN PRN Reason: Extrapyramidal S/S Unable PO Diphenhydramine HCl (Benadryl) 50 mg PO Q6 PRN PRN Reason: Extrapyramidal Symptoms Diphenhydramine HCl (Benadryl) 50 mg PO HS PRN PRN Reason: Sleep Duloxetine HCl (Cymbalta) 60 mg PO DAILY [facility] Last Admin: 05/17/18 09:04 Dose: 60 mg Enalapril Maleate (Vasotec) 10 mg PO DAILY [facility] Last Admin: 05/17/18 09:04 Dose: 10 mg Haloperidol (Haldol) 5 mg PO Q4 PRN PRN Reason: Agitation Haloperidol Lactate (Haldol) 5 mg IM Q4 PRN PRN Reason: Agitation, Unable to Take PO Insulin Detemir (Levemir) 10 units SC [facility] Last Admin: 05/16/18 21:04 Dose: 10 units Insulin Human Lispro (Humalog) 0 units SC [facility]; Protocol Last Admin: 05/17/18 11:28 Dose: 5 units Lorazepam (Ativan) 2 mg IM Q4 PRN PRN Reason: Anxiety/Agitation,Unable PO Lorazepam (Ativan) 1 mg PO Q8 PRN PRN Reason: Anxiety/Agitation Magnesium Hydroxide (Milk Of Magnesia) 30 ml PO HS PRN PRN Reason: Constipation Metformin HCl (Glucophage) 1,000 mg PO BIDWM [facility] Last Admin: 05/17/18 09:04 Dose: 1,000 mg Oxcarbazepine (Trileptal) 300 mg PO BID [facility] Last Admin: 05/17/18 09:04 Dose: 300 mg Risperidone (Risperdal Tab) 1 mg PO HS [facility] Last Admin: 05/16/18 21:04 Dose: 1 mg Trazodone HCl (Desyrel) 100 mg PO HS PRN PRN Reason: Insomnia Assessment and Plan (1) Labile blood glucose Status: Acute (2) Diabetes mellitus with hypoglycemia without coma, with long-term current use of insulin Status: Acute (3) HTN (hypertension) Status: Chronic (4) Hyperlipidemia Status: Chronic (5) Schizo-affective schizophrenia, chronic condition Status: Chronic
[2018-05-17] MEDS ORDERED: Insulin Detemir 100 Units/ml Inj SC SCH (22:00)
[2018-05-18] MEDS: Insulin Lispro (humaLOG) 100 Units/ml Inj SC SCH ×4 (08:20→21:11)
--- NOTE | 2018-05-18 14:34 | PCM.PYCHPN ---
Psychiatric Progress Note - Psychiatric Progress Note Patient seen today, length of contact: Pt evaluated, case discussed w/ team, chart reviewed Patient Chief Complaint: I feel my depression is now only 1/10 Problems Identified/Issues Discussed: pt evaluated with treatment team, reported feeling better presenting with brighter affect, attending more to his ADL'S interacting with other peers ,psychoeducation provided in refernce to importance of compliance with p sychotropics and medications for diabetes, also advised to start individual therapy on discharge , pt reported improved sleep and appetite pt denied active thoughts of self harm, denied perceptual disturbances Medical Problems: about three inpatient psychiatric hospitalizations DSM 5 Symptoms Update: bipolar disorder depressed Medication Change: No Medical Record Reviewed: Yes Mental Status Examination - Cognitive Function Orientation: Person, Place, Situation, Time Attention: WNL Concentration: Poor Association: WNL Fund of Knowledge: Poor - Mood Mood: Depressed, Anxious - Affect Affect: Constricted, Depressed - Speech Speech: Soft - Formal Thought Process Formal Thought Process: Circumstantial - Suicidal Ideation Suicidal Ideation: No - Homicidal Ideation Homicidal Ideation: No Goal/Treatment Plan - Goal/Treatment Plan Need for Continued Stay: Severe depression anxiety, Discharge may exacerbated symptoms Progress Toward Problem(s) and Goals/Treatment Plan: cymbalta 60mg trileptal 300mg bid risperidone 1mg qhs cbt group and supportive therapy referral for nursing diabetic care on discharge
[2018-05-18] MEDS ORDERED: Insulin Detemir 100 Units/ml Inj SC SCH (22:00)
--- NOTE | 2018-05-19 00:32 | CP.PCM.PN ---
Subjective - Date & Time of Evaluation Date of Evaluation: 05/18/18 Time of Evaluation: 23:05 - Subjective Subjective: seen and examined at the bed side. BS continued to be elevated but better controlled. Will Increase Levemir to 15 Units this HS. Objective - Vital Signs/Intake and Output Vital Signs (last 24 hours): Temp Pulse Resp BP Pulse Ox 96.9 F L 98 H 18 118/62 97 05/18/18 17:17 05/18/18 17:17 05/18/18 17:17 05/18/18 17:17 05/12/18 20:10 - Medications Medications: Current Medications Acetaminophen (Tylenol 325mg Tab) 650 mg PO Q4 PRN PRN Reason: pain 4-7 Al Hydrox/Mg Hydrox/Simethicone (Maalox Plus 30 Ml) 30 ml PO Q4 PRN PRN Reason: Dyspepsia Aspirin (Aspirin Chewable) 81 mg PO DAILY [facility] Last Admin: 05/18/18 08:50 Dose: 81 mg Diphenhydramine HCl (Benadryl) 50 mg IM Q6 PRN PRN Reason: Extrapyramidal S/S Unable PO Diphenhydramine HCl (Benadryl) 50 mg PO Q6 PRN PRN Reason: Extrapyramidal Symptoms Diphenhydramine HCl (Benadryl) 50 mg PO HS PRN PRN Reason: Sleep Duloxetine HCl (Cymbalta) 60 mg PO DAILY [facility] Last Admin: 05/18/18 08:51 Dose: 60 mg Enalapril Maleate (Vasotec) 2.5 mg PO DAILY [facility] Haloperidol (Haldol) 5 mg PO Q4 PRN PRN Reason: Agitation Haloperidol Lactate (Haldol) 5 mg IM Q4 PRN PRN Reason: Agitation, Unable to Take PO Insulin Detemir (Levemir) 15 units SC HS [facility] Last Admin: 05/18/18 21:06 Dose: 15 units Insulin Human Lispro (Humalog) 0 units SC [facility]; Protocol Last Admin: 05/18/18 21:11 Dose: Not Given Lorazepam (Ativan) 2 mg IM Q4 PRN PRN Reason: Anxiety/Agitation,Unable PO Lorazepam (Ativan) 1 mg PO Q8 PRN PRN Reason: Anxiety/Agitation Magnesium Hydroxide (Milk Of Magnesia) 30 ml PO HS PRN PRN Reason: Constipation Metformin HCl (Glucophage) 1,000 mg PO BIDWM [facility] Last Admin: 05/18/18 17:36 Dose: 1,000 mg Oxcarbazepine (Trileptal) 300 mg PO BID [facility] Last Admin: 05/18/18 17:36 Dose: 300 mg Risperidone (Risperdal Tab) 1 mg PO HS [facility] Last Admin: 05/18/18 21:05 Dose: 1 mg Trazodone HCl (Desyrel) 100 mg PO HS PRN PRN Reason: Insomnia Assessment and Plan (1) Labile blood glucose Status: Acute (2) Diabetes mellitus with hypoglycemia without coma, with long-term current use of insulin Status: Acute (3) HTN (hypertension) Status: Chronic (4) Hyperlipidemia Status: Chronic (5) Schizo-affective schizophrenia, chronic condition Status: Chronic - Assessment and Plan (Free Text) Plan: For D/c in Am Will D/c Home on Levemir 15 Units Hs and Metformin 1000 MG bID. Further adjustment by PCP as an out patent.
[2018-05-19] MEDS: Insulin Lispro (humaLOG) 100 Units/ml Inj SC SCH ×2 (09:04→11:52)
[2018-05-19 10:09] VITALS: BP 110/62; PULSE 100; RESP 20; TEMP 98.5
--- NOTE | 2018-05-19 10:46 | PCM.PYCHDC ---
Mental Status Examination - Mental Status Examination Orientation: Person, Place, Situation, Time Memory: Intact Mood: Neutral Affect: Broad Speech: Appropriate Attention: WNL Concentration: WNL Association: WNL Fund of Knowledge: WNL Formal Thought Process: No Impairment Description of patient's judgement and insight: partial insight fair judgment Psychotic Thoughts and Behaviors: pt denied perceptual disturbances , non elicited Suicidal Ideation: No Current Homicidal Ideation?: No Discharge Summary - Discharge Note Reason for Hospitalization: This is a 57 year old male with h/o schizoaffective disorder/bipolar depression and h/o DM pt initially admitted medically for diabetic keto acidosis as he was non compliant with his medication for diabetes pt on evaluation, 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 , pt has been depressed lately because of being estranged from his family, has been feeling lonely, with episodes of hopelessness and helplessness pt has not been compliant with his meds for DM and particularly insulin and his Blood sugar was running very high , indicated that his depression playing a big part in his noncompliance with meds , reported poor sleep and appetite , passive suicidal ideation, low energy, poor motivation denied perceptual disturbances, denied homicidal ideation Laboratory Data: Abnormal Lab Results 05/18/18 05/18/18 05/18/18 11:31 16:45 20:00 POC Glucose (mg/dL) 284 H 359 H 251 H 05/19/18 06:40 POC Glucose (mg/dL) 225 H Consultations:: List each consultation separately and include: 1. Reason for request. 2. Findings. 3. Follow-up Summary of Hospital Course include:: 1. Description of specific treatment plan utilized for patients during their course of treatmen. 2. Summarize the time- course for resolution of acute symptoms and/or regressed behaviors. 3. Describe issues identified and worked on during hospitalization. 4. Describe medication utilized. 5. Describe medical problems identified and treated. 6. Reassessment of suicide risk Summary of Hospital Course: pt on admission presented with depressed mood and affect, anhedonia poor motivation and poor attention to ADL,S pt was restarted on cymbalta, rispridone and trileptal, CBT group and supportive therapy was provided, pt gradually was compliant with treatment attending groups motivational therapy and psychoeducation was provided in reference to importance of attending to his medical condition and needed care family meeting was done with brother and sister in law after patient consent to discuss needed care on discharge pt was linked by social worker to [facility] case management and to Nursing services for diabetes on outpatient basis on discharge patient mental status was stable , denied any current suicidal or homicidal ideation denied perceptual disturbances - Final Diagnosis (DSM 5) Condition upon Discharge: GOOD DSM 5: bipolar I disorder depressed severe without psychotic features Disposition: HOME/ ROUTINE Follow-up Treatment Plan: cymbalta 60mg trileptal 300mg bid risperidone 1mg qhs cbt group and supportive therapy referral for nursing diabetic care on discharge Prescriptions/Medication Reconciliation: DULoxetine [Cymbalta] 60 mg PO DAILY 30 Days #30 ecc MetFORMIN [glucoPHAGE] 1,000 mg PO BIDWM 7 Days #14 tab OXcarbazepine [Trileptal] 300 mg PO BID 30 Days #60 tab risperiDONE [RisperDAL Tab] 1 mg PO HS 30 Days #30 tab traZODone [Desyrel] 100 mg PO HS PRN 30 Days #30 tab PRN Reason: Insomnia - Antipsychotic Medications Pt discharged on 2 or more routine antipsychotic medications: No
== END 2018-05-19 14:59 | disposition home or self-care (01) | DRG 885 ==
LOC: H.PSYCH 23:06
PROVIDERS: ADMIT Psychiatry & Neurology Psychiatry; ATTEND Psychiatry & Neurology Psychiatry
PROC: GZHZZZZ Group Psychotherapy (ICD-10-PCS; principal; 2018-05-09)
PROC: GZ58ZZZ Individual Psychotherapy, Cognitive-Behavioral (ICD-10-PCS; 2018-05-09)
PROC: GZ56ZZZ Individual Psychotherapy, Supportive (ICD-10-PCS; 2018-05-09)
DX: F31.4 Bipolar disorder, current episode depressed, severe, without psychotic features (principal); R45.851 Suicidal ideations; E11.649 Type 2 diabetes mellitus with hypoglycemia without coma; E78.00 Pure hypercholesterolemia, unspecified; E78.5 Hyperlipidemia, unspecified; Z91.14 Patient's other noncompliance with medication regimen; Z91.11 Patient's noncompliance with dietary regimen; F41.9 Anxiety disorder, unspecified; I10 Essential (primary) hypertension; Z63.8 Other specified problems related to primary support group

== ENCOUNTER 2018-05-20 20:09 | Emergency (ER) | payer MEDICARE ==
[2018-05-20 20:09] VITALS: BMI 28.4
[2018-05-20] MEDS ORDERED: Sodium Chloride 0.9% 1,000 ML IV STA ×2 (20:37)
--- NOTE | 2018-05-20 20:57 | ED PDOC ---
Hyperglycemia/Hypoglycemia Time Seen by Provider: 05/20/18 20:36 Chief Complaint (Nursing): High Blood Sugar Chief Complaint (Provider): High blood sugar History Per: Patient History/Exam Limitations: no limitations Current Symptoms Are (Timing): Still Present : The patient does not have any of the infectious symptoms listed except for those marked. Additional Complaint(s): 57 year old male presents to the ED with high blood sugar. Patient was just discharged yesterday from this hospital after a 1 week admission. Patient was started on Lantus and continues taking Metphormin on 1000mg BID. Patient's blood sugar was over 500. By this evening, patient felt lethargic and blood sugar was still over 500 so he returned to the ED. Patient was supposed to follow up with his PMD tomorrow. PMD: [facility] Inter[facility] Past Medical History Reviewed: Historical Data, Nursing Documentation, Vital Signs Vital Signs: Last Vital Signs Temp 97.5 F L 05/20/18 20:11 Pulse 102 H 05/20/18 20:11 Resp 18 05/20/18 20:11 BP 116/65 05/20/18 20:11 Pulse Ox 99 05/20/18 20:11 - Medical History PMH: Anxiety, Bipolar Disorder, Bronchitis, Depression, Diabetes (Type I), HTN, Hypercholesterolemia Denies: Hepatitis, HIV, Chronic Kidney Disease, Seizures, Sexually Transmitted Disease - Surgical History Surgical History: No Surg Hx - Family History Family History: States: Diabetes - Home Medications Home Medications: Ambulatory Orders Medication Instructions Recorded RX: Aspirin [Aspirin Chewable] 81 mg PO DAILY 05/08/18 RX: Enalapril Maleate [Vasotec] 1 tab PO DAILY 05/08/18 RX: Insulin Detemir [Levemir] 30 units SC HS vial 05/09/18 RX: Levofloxacin [Levaquin] 750 mg PO DAILY 2 Days #0 05/09/18 RX: DULoxetine [Cymbalta] 60 mg PO DAILY 30 Days #30 ecc 05/19/18 RX: Enalapril Maleate [Vasotec] 2.5 mg PO DAILY tab 05/19/18 RX: Insulin Detemir [Levemir] 15 units SC HS vial 05/19/18 RX: MetFORMIN [glucoPHAGE] 1,000 mg PO BIDWM 7 Days #14 tab 05/19/18 RX: OXcarbazepine [Trileptal] 300 mg PO BID 30 Days #60 tab 05/19/18 RX: risperiDONE [RisperDAL Tab] 1 mg PO HS 30 Days #30 tab 05/19/18 RX: traZODone [Desyrel] 100 mg PO HS PRN 30 Days #30 tab 05/19/18 - Allergies Allergies/Adverse Reactions: Allergies Allergy/AdvReac Type Severity Reaction Status Date / Time No Known Allergies Allergy Verified 04/29/18 22:32 Review of Systems ROS Statement: Except As Marked, All Systems Reviewed And Found Negative Constitutional: Positive for: Other (High blood sugar; lethargic) Physical Exam - Reviewed Nursing Documentation Reviewed: Yes Vital Signs Reviewed: Yes - Physical Exam Appears: Positive for: Non-toxic, No Acute Distress Head Exam: Positive for: ATRAUMATIC, NORMOCEPHALIC Skin: Positive for: Normal Color, Warm, Dry Eye Exam: Positive for: Normal appearance Neck: Positive for: Normal, Painless ROM Cardiovascular/Chest: Positive for: Regular Rate, Rhythm Respiratory: Positive for: Normal Breath Sounds. Negative for: Wheezing, Respiratory Distress Extremity: Positive for: Normal ROM Neurologic/Psych: Positive for: Alert, Oriented. Negative for: Motor/Sensory Deficits - Laboratory Results Result Diagrams: 05/20/18 21:00 05/20/18 21:00 - ECG O2 Sat by Pulse Oximetry: 99 (RA) Pulse Ox Interpretation: Normal Medical Decision Making Medical Decision Making: Initial Impression: Hyperglycemia Initial Plan: --Labs --IV fluids --Restart insulin once lab results are back Will discuss with PMD for possible admission. Will reassess patient. Time: 0105 Finger stick is now 220. Patient is asymptomatic and labs are otherwise normal. Patient has PMD appointment tomorrow, where he will discuss medication adjustments. Return parameters were discussed. - Scribe Attestation: Documented by Ted Mar acting as a scribe for Mere Bernal MD. Provider Scribe Attestation: All medical record entries made by the Scribe were at my direction and personal ly dictated by me. I have reviewed the chart and agree that the record accurately reflects my personal performance of the history, physical exam, medical decision making, and the department course for this patient. I have also personally directed, reviewed, and agree with the discharge instructions and disposition. Disposition - Clinical Impression Clinical Impression: Uncontrolled diabetes mellitus - Disposition Disposition: Routine/Home Disposition Time: 01:07 Condition: IMPROVED Additional Instructions: Follow up with primary medical doctor for better glucose control. Continue to take home medications as prescribed unless changed by primary doctor. Return to the emergency department if symptoms worsen or if new symptoms develop. Instructions: Type 2 Diabetes, Diabetes Type 2 (DC) Forms: [facility] ([employer]) Print Language: SINHAL[place]
[2018-05-20 21:06] LABS: BASO # 0.1 K/uL (0.0-0.2); BASO % 1.9 % (0.0-2.0); EOS % 0.3 % (0.0-4.0); HEMOGLOBIN 12.9 g/dL (12.0-18.0); LYMPH # 1.5 K/uL (1.0-4.3); LYMPH % 22.5 % (20.0-40.0); MEAN CELL VOLUME 93.5 fl (80.0-94.0); MEAN CORPUSCULAR HEMOGLOBIN 30.7 pg (27.0-31.0); MEAN CORPUSCULAR HGB CONC 32.9 g/dL (33.0-37.0); MEAN PLATELET VOLUME 10.2 fl (7.2-11.7); MONO # 0.6 K/uL (0.0-0.8); MONO % 9.1 % (0.0-10.0); NEUT # 4.5 K/uL (1.8-7.0); NEUT % 66.2 % (50.0-75.0); NRBC % 0.1 % (0.0-0.0); RBC 4.21 Mil/uL (4.40-5.90); RED CELL DISTRIBUTION WIDTH 14.2 % (11.5-14.5); WHITE BLOOD COUNT 6.8 K/uL (4.8-10.8)
[2018-05-20 21:47] LABS: BLOOD UREA NITROGEN 17 mg/dl (9-20); CALCIUM 9.5 mg/dL (8.4-10.2); GFR NON-AFRICAN AMERICAN > 60
[2018-05-20] MEDS ORDERED: Insulin Regular 100 units/ml SC STA (22:57)
[2018-05-20] MEDS ORDERED: Insulin Regular 100 units/ml ONE (23:02)
[2018-05-21 02:13] VITALS: BP 141/85; PULSE 82; RESP 17; TEMP 98
[2018-05-21] MEDS ORDERED: Insulin Regular 100 units/ml SC SCH (07:30)
[2018-05-22 00:51] VITALS: O2SAT 99
== END 2018-05-21 01:22 | disposition home or self-care (01) ==
LOC: H.ER 20:09
DX: E11.65 Type 2 diabetes mellitus with hyperglycemia (principal); Z79.4 Long term (current) use of insulin; E78.00 Pure hypercholesterolemia, unspecified; F31.9 Bipolar disorder, unspecified; F41.9 Anxiety disorder, unspecified; I10 Essential (primary) hypertension; Z79.82 Long term (current) use of aspirin
CPT/HCPCS: 80048; 82948; 85025; 96360; 99284; J7030